=== PATIENT | male | born 1985 | race Caucasian/White ===

== ENCOUNTER 2020-02-08 07:15 | Emergency (ER) | payer SELFPAY ==
[2020-02-08 07:18] VITALS: BP 194/118; PULSE 80; RESP 17; TEMP 36.5; O2SAT 97; BMI 39.4
[2020-02-08 07:23] VITALS: O2SAT 96
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
--- NOTE | 2020-02-08 07:25 | XR_ITS ---
WS: [id number] RIGHT HAND: 3 VIEW(S) TECHNIQUE: PA, oblique and lateral. HISTORY: injury COMPARISON: None available. No acute fracture or dislocation. No soft tissue or bone abnormality. XR/XR hand RT min 3V* [id number] IMPRESSION: Normal RIGHT hand.
--- NOTE | 2020-02-08 07:32 | PC.NURSE ---
portable xray at bedside
[2020-02-08 08:17] VITALS: BP 156/88; PULSE 87; O2SAT 97
--- NOTE | 2020-02-08 08:17 | PC.NURSE ---
wound dressed with vaseline gauze, 4*4, and kerlix.
== END 2020-02-08 08:17 | disposition home or self-care (01) ==
LOC: ER 07:50
PROVIDERS: Emergency Provider Physician Assistant; PCP Pediatrics
DX: S61.411A Laceration without foreign body of right hand, initial encounter (principal); W25.XXXA Contact with sharp glass, initial encounter; F17.210 Nicotine dependence, cigarettes, uncomplicated
CPT/HCPCS: 12001; 12345; 73130; 99282; 99283

== ENCOUNTER 2020-04-09 10:26 | Outpatient (RCR) | payer OTHER, SELFPAY | END 2020-04-13 23:59 | disposition home or self-care (01) | LOC: SPT 10:26 | PROVIDERS: PCP Family Medicine; Referring Provider Family Medicine; Visit Provider Family Medicine | DX: M62.830 Muscle spasm of back (principal) | CPT/HCPCS: 97032; 97110; 97161 ==

== ENCOUNTER 2020-04-14 06:00 | Outpatient (RCR) | payer OTHER, SELFPAY | END 2020-05-14 23:59 | disposition home or self-care (01) | LOC: SPT 06:00 | PROVIDERS: PCP Family Medicine; Referring Provider Family Medicine; Visit Provider Family Medicine | DX: M62.830 Muscle spasm of back (principal) | CPT/HCPCS: 97032; 97110; G0283 ==

== ENCOUNTER 2020-06-22 07:42 | Emergency (ER) | payer SELFPAY ==
[2020-06-22 07:46] VITALS: BP 156/101; PULSE 113; RESP 18; TEMP 36.4; O2SAT 95; BMI 40.1
--- NOTE | 2020-06-22 07:57 | USCV_ITS ---
Fortunato Marie Age: 34 Gender: M : 1985 Exam Date: 06/22/2020 08:07 Ordering Phys: Veronique Coffman Technologist: Juan Manuel Rojas Exam Location: [facility] – [place], [place] Indication: REDNESS AND SWELLING PROCEDURES: Venous duplex imaging was performed in only the right lower extremity. The following venous structures were evaluated: common femoral vein, profunda vein, proximal portion of the greater saphenous vein, superficial femoral vein, and the popliteal vein. In addition, the posterior tibial and peroneal trunk were evaluated. Serial compression, augmentation maneuvers, and spectral Doppler flow evaluation were performed. FINDINGS: Normal 2-D Doppler and augmentation and compressibility throughout the lower extremity venous structures. Additional imaging through the proximal calf veins also reveals no thrombus. Limited evaluation of the greater saphenous vein is patent with no thrombus. CONCLUSIONS No DVT right lower extremity. Dr. Delmis Perez DO (Electronically Signed) Final Date: 22 June 2020 15:13 S
--- NOTE | 2020-06-22 07:59 | W.ED.GENADLT ---
HPI - General Adult General: Chief complaint: General Medical Stated complaint: BILATERAL LEG SWELLING AND PAIN Time Seen by Provider: 06/22/20 07:56 History of Present Illness: HPI narrative: 34-year-old male patient presents to the emergency department with 2 to 3-day onset of bilateral lower extremity swelling and redness, denies pain. He reports more pronounced on the right lower extremity, states does not improve when legs are elevated, reports increased intake of EtOH use at night, 2-3 shots of liquor. Blood pressure noted to be elevated, he does not routinely take his blood pressure at home. He denies increased intake of salt, denies chest pain/shortness of breath. Onset (ago): day(s) (2-3) Location: lower extremity Relieving factors: none Exacerbating factors: none Associated symptoms: Reports no associated symptoms; Deny chest pain, diaphoresis, dyspnea, headache(s), nausea, rash, palpitations or vomiting Treatments prior to arrival: none Review of Systems General: Reports: 10 or more systems reviewed and unremarkable except in HPI and below Const: Denies: fever(s), chills or diaphoresis Eyes: Denies: blurry vision or eye redness ENMT: Denies: throat pain, dental pain or disequilibrium Card: Denies: chest pain, palpitations or irregular heart rhythm Resp: Denies: dyspnea, productive cough, non-productive cough or wheezing GI: Denies: abdominal pain, nausea or vomiting : Denies: dysuria Musc: Reports: extremity swelling (BLE - RLE > LLE); Denies: neck pain or back pain Skin/Breast: Denies: rash or pruritus Neuro: Denies: headache(s), weakness in extremities or behavioral changes Socrates/Lymph: Denies: easy bruising PFSH ED PFSH: Social History Smoking and tobacco status: current every day smoker Physical Exam Const: COMMON NORMALS: no acute distress, patient oriented x3, healthy appearing and alert GENERAL APPEARANCE: cooperative, comfortable and well hydrated NUTRITIONAL APPEARANCE: obese and overweight ORIENTATION/CONSCIOUSNESS: Yes awake, Yes oriented to person, Yes oriented to place and Yes oriented to time HENMT: COMMON NORMALS: normocephalic, Normal external nose present and moist oral mucous membranes HEAD & SCALP: normocephalic NOSE: Normal external nose present Eye: COMMON NORMALS: Equal, round and reactive pupils present and EOMs intact bilaterally GENERAL EYE: appearance normal, both eyes and all related structures PUPIL: Yes Equal, round and reactive pupils present Neck/C-Spine: COMMON NORMALS: full ROM and no lymphadenopathy GENERAL: Yes normal visual inspection and Yes trachea midline CERVICAL SPINE: Yes cervical ROM normal Lymph: LYMPHATIC: no lymphadenopathy noted Chest: COMMONS NORMALS: normal inspection of the chest Resp: COMMON NORMALS: normal respiratory effort and clear to auscultation bilaterally EFFORT & INSPECTION: Yes able to speak in complete sentences AUSCULTATION: clear to auscultation bilaterally Cardio: COMMON NORMALS: regular rhythm, S1 normal heart sound present, S2 normal heart sound present and Peripheral pulses 2+ throughout RHYTHM: regular rhythm HEART SOUNDS: S1 normal heart sound present and S2 normal heart sound present PERIPHERAL PULSES: Peripheral pulses 2+ throughout GI: COMMON NORMALS: Soft to palpation and non-tender INSPECTION: Yes normal to inspection AUSCULTATION: Yes normoactive bowel sounds PALPATION: Yes Soft to palpation : COMMON NORMALS: Yes no CVA tenderness BLADDER/KIDNEY EXAM: Yes no CVA tenderness Back/Pelvis: COMMON NORMALS: no CVA tenderness and thoracic and lumbar spine normal to inspection Extremity: COMMON NORMALS: normal to inspection and capillary refill normal GENERAL: Yes normal exam except as noted RIGHT LOWER EXTREMITY: Yes lower leg (slight erythema to the right lower calf/anterior lower leg, trace pitting edema negative calf tenderness) LEFT LOWER EXTREMITY: Yes lower leg (Trace edema noted, negative erythema, negative calf tenderness) Neuro: COMMON NORMALS: patient oriented x3 and no focal motor deficits SENSORIUM/ORIENTATION: Yes alert, Yes oriented to person, Yes oriented to place and Yes oriented to time Psych: COMMON NORMALS: mental status grossly normal, Normal thought process present and cooperative ACTIVITY/MOTOR BEHAVIOR: Yes appropriate eye contact THOUGHT PROCESS: Normal thought process present Skin: COMMON NORMALS: no rashes or lesions noted and turgor normal GENERAL SKIN EXAM: no rashes or lesions noted and turgor normal Course ED course: 34-year-old male patient presents to the emergency department with bilateral lower extremity edema, weight gain of 15 pounds past 2 to 3 months. He reports increased intake of EtOH daily. Blood pressure was found to be elevated, chemistry and CBC without acute abnormality, right lower extremity DVT ultrasound completed secondary to slight increase of edema on the right when compared to the left. It was negative. He was counseled at length with diet, exercise and need for weight loss. He did not exhibit symptoms of chest pain, shortness of breath, cough or congestion. Chest x-ray recommended but he declined stating he was pleased with the idea of antihypertensive medication and appropriate follow-up with your primary care provider. He was counseled on lifestyle changes, need for blood pressure monitoring at home, he is aware refill of hydrochlorothiazide will need to come from his primary care physician. Questions were answered, results of testing today discussed. He was advised is to push fluids, water, and avoid alcohol. Vital Signs: Vital signs: Vital Signs Temperature 97.5 F L 06/22/20 07:46 Pulse Rate 113 H 06/22/20 07:46 Respiratory Rate 18 06/22/20 07:46 Blood Pressure 156/101 06/22/20 07:46 Pulse Oximetry 95 06/22/20 07:46 [facility] - General Adult Lab Data: Labs: Lab Results 06/22/20 06/22/20 Range/Units 08:16 08:16 WBC 9.1 (4.0-10.0) 10^3/ uL RBC 4.44 (4.1-5.3) 10^6/u L Hgb 13.9 (11.7-16.6) g/dL Hct 41.7 L (42.0-52.0) % MCV 93.9 (80-94) fL MCH 31.3 (28.0-34.0) pg MCHC 33.3 (30.0-36.0) g/dL RDW 13.0 (12.1-15.1) % Plt Count 260 (130-400) 10^3/c mm MPV 10.2 (7.4-10.4) fL Neut % (Auto) 62.6 % Lymph % (Auto) 22.1 % [place] % (Auto) 9.4 % Eos % (Auto) 3.8 % Baso % (Auto) 0.8 % Neut # (Auto) 5.71 (1.8-7.7) 10^3/u L Lymph # (Auto) 2.0 (0.8-4.8) 10^3/u L [place] # (Auto) 0.9 (0.2-0.9) 10^3/u L Eos # (Auto) 0.4 (0.0-0.8) 10^3/u L Baso # (Auto) 0.1 (0.0-0.1) 10^3/u L Nucleated RBC % (a uto) 0 % Nucleated RBCs # 0.0 /100WBC Sodium 139 (136-145) mmol/L Potassium 4.1 (3.5-5.1) mmol/L Chloride 98 (98-107) mmol/L Carbon Dioxide 29 (22-29) mmol/L Anion Gap 16.1 (5-19) BUN 16 (6-20) mg/dL Creatinine 1.2 (0.7-1.2) mg/dL GFR Calculation 68.9 L (90-130) mL/min Glucose 104 (65-115) mg/dL Calculated Osmolal ity 289 (285-295) mOsm/k g Calcium 9.9 (8.5-10.5) mg/dL Total Bilirubin 0.2 (0.15-1.2) mg/dL AST 46 H (0-40) U/L ALT 98 H (0-41) U/L Alkaline Phosphata se 97 (40-130) IU/L Total Protein 7.1 (6.6-8.7) g/dL Albumin 4.0 (3.5-5.2) g/dL Globulin 3.1 (1.3-4.6) g/dL Discharge Plan Discharge Patient Disposition: Home Clinical Impression: HTN (hypertension) Qualifiers: Hypertension type: unspecified Qualified Code(s): I10 - Essential (primary) hypertension Condition: Stable Prescriptions: New hydrochlorothiazide 12.5 mg tablet 12.5 mg PO DAILY Qty: 10 RF: 0 Discharge Orders: Discharge Order (Routine); Ordered 06/22/20 Ordered By: Veronique Coffman Referrals: Kain Zafar MD [Primary Care Provider] - Discharge Diet: Cardiac Discharge Activity: Resume usual activity Patient Instructions: Leg Edema (ED), Hypertension (ED) Activity Restrictions/Additional Instructions: Hydrochlorothiazide prescription has been given to you, avoid long periods in the sun with medication. Purchase a blood pressure machine, does not have to be fancy, take your blood pressure daily, 30 minutes at rest record your readings and take to your primary care physician's office next week Advised 30 minutes of walking daily to help with fluid in your legs, this will also help cardiovascular health. Low-salt, heart healthy diet recommended. Avoid alcohol as elevation of blood pressure can occur. Return to the emergency department if you develop chest pain, shortness of breath, difficulty breathing, increased swelling in your legs or other concerning symptoms. Coding Level of Care Code ED Assembly Detailer for Jerilyn Wallace Exam Comprehensive
[2020-06-22 08:19] LABS: Basophils # 0.1 10^3/uL (0.0-0.1); Basophils % 0.8 %; Eosinophils # 0.4 10^3/uL (0.0-0.8); Eosinophils % 3.8 %; Hematocrit 41.7 % (42.0-52.0); Hemoglobin 13.9 g/dL (11.7-16.6); Lymphocytes % 22.1 %; Mean Corpuscular HGB Conc 33.3 g/dL (30.0-36.0); Mean Corpuscular Hemoglobin 31.3 pg (28.0-34.0); Mean Corpuscular Volume 93.9 fL (80-94); Mean Platelet Volume 10.2 fL (7.4-10.4); Monocytes # 0.9 10^3/uL (0.2-0.9); Monocytes % 9.4 %; Neutrophils # 5.71 10^3/uL (1.8-7.7); Neutrophils % 62.6 %; Nucleated Red Blood Cells % 0 %; Platelet Count 260 10^3/cmm (130-400); Red Blood Count 4.44 10^6/uL (4.1-5.3); White Blood Count 9.1 10^3/uL (4.0-10.0)
[2020-06-22 08:42] LABS: Alanine Aminotransferase 98 U/L (0-41); Alkaline Phosphatase 97 IU/L (40-130); Anion Gap 16.1 (5-19); Aspartate Amino Transferase 46 U/L (0-40); Blood Urea Nitrogen 16 mg/dL (6-20); Calcium 9.9 mg/dL (8.5-10.5); Carbon Dioxide 29 mmol/L (22-29); Chloride 98 mmol/L (98-107); Globulin 3.1 g/dL (1.3-4.6); Glomerular Filtration Rate 68.9 mL/min (90-130); Glucose 104 mg/dL (65-115); Osmolality Calculated 289 mOsm/kg (285-295); Potassium 4.1 mmol/L (3.5-5.1); Sodium 139 mmol/L (136-145); Total Bilirubin 0.2 mg/dL (0.15-1.2); Total Protein 7.1 g/dL (6.6-8.7)
[2020-06-22 09:32] VITALS: BP 152/96; PULSE 108; O2SAT 95
--- NOTE | 2020-06-22 10:32 | DCPLANNER ---
invasive manager had message to speak with patient about getting established with a primary care physician. invasive manager called phone number [phone], when medical case manager asked to speak with patient, whoever answered the phone stated they were at work and was unable to talk at this time, and hung up the phone. invasive manager was unable to speak with patient or leave a voicemail for patient at this time.
== END 2020-06-22 09:32 | disposition home or self-care (01) ==
PROVIDERS: Emergency Provider Nurse Practitioner Family; PCP Family Medicine
DX: I10 Essential (primary) hypertension (principal); F17.210 Nicotine dependence, cigarettes, uncomplicated
CPT/HCPCS: 12345; 36415; 80053; 85025; 93971; 99282; 99283

== ENCOUNTER 2020-06-28 00:09 | Emergency (ER) | payer SELFPAY ==
[2020-06-28 00:12] VITALS: BP 162/85; PULSE 94; RESP 18; TEMP 36.9; O2SAT 94; BMI 40.1
--- NOTE | 2020-06-28 00:20 | W.ED.GENADLT ---
HPI - General Adult General: Chief complaint: General Medical Stated complaint: Swelling across body Time Seen by Provider: 06/28/20 00:15 History of Present Illness: HPI narrative: Patient is a 34-year-old male comes to the ED with multiple complaints, such as bilateral leg swelling, rash on abdomen, back pain and anxiety. Patient was seen here on June 22 for leg edema and hypertension. He was sent home with hydrochlorothiazide prescription. Patient says he did not get prescription filled yet. He also is complaining of having a rash that has gotten worse on the left side of his abdomen. He says it started as a scratch and then redness started forming around it over the past couple days. His other complaint is some lower back pain that started within the last week as well. denied bladder or bowel incontinence, pain or numbness radiating down lower extremities. His other complaint is anxiety that has increased over the past couple weeks due to his leaving him. Associated symptoms: Deny chest pain, dyspnea, headache(s), nausea, rash, palpitations or vomiting Review of Systems Const: Denies: fever(s), chills or fatigue Eyes: Denies: change in vision or eye discomfort ENMT: Denies: throat pain, odynophagia, nasal discharge or nasal congestion Card: Denies: chest pain, palpitations, edema, swelling of feet/ankles, dyspnea on exertion or orthopnea Resp: Denies: dyspnea, productive cough or non-productive cough GI: Denies: abdominal pain, nausea, vomiting, diarrhea, constipation or hematochezia : Denies: flank pain, difficulty urinating, dysuria or hematuria Musc: Reports: back pain (lumbar) and extremity swelling (Bilateral lower extremity); Denies: neck pain Skin/Breast: Reports: new lesions (Scratch on left side abdomen with surrounding erythema.); Denies: rash Neuro: Denies: headache(s), numbness in extremities or weakness in extremities Psych: Reports: anxiety PFSH ED PFSH: Social History Smoking and tobacco status: current every day smoker Physical Exam Const: COMMON NORMALS: no acute distress, patient oriented x3 and alert GENERAL APPEARANCE: cooperative and anxious NUTRITIONAL APPEARANCE: obese HENMT: COMMON NORMALS: normocephalic HEAD & SCALP: normocephalic MOUTH: Normal oral and palatal mucosa present THROAT: posterior oropharynx normal and uvula midline Neck/C-Spine: COMMON NORMALS: supple GENERAL: Yes normal visual inspection Resp: COMMON NORMALS: normal respiratory effort, No retractions, No use of accessory muscles and clear to auscultation bilaterally AUSCULTATION: clear to auscultation bilaterally Cardio: COMMON NORMALS: regular rate, regular rhythm, S1 normal heart sound present, S2 normal heart sound present, No gallops present (Cardio), No clicks present (Cardio), No murmurs present (Cardio) and Peripheral pulses 2+ throughout RATE: regular rate RHYTHM: regular rhythm HEART SOUNDS: S1 normal heart sound present and S2 normal heart sound present PERIPHERAL PULSES: Peripheral pulses 2+ throughout GI: COMMON NORMALS: Normal to inspection, nondistended, normoactive bowel sounds present, Soft to palpation, non-tender and no masses INSPECTION: Yes central obesity PALPATION: Yes Soft to palpation : COMMON NORMALS: Yes no CVA tenderness BLADDER/KIDNEY EXAM: Yes no CVA tenderness Back/Pelvis: COMMON NORMALS: no CVA tenderness Extremity: GENERAL: Yes normal exam except as noted and Yes edema (Bilateral 2+ nonpitting edema present.) Neuro: COMMON NORMALS: patient oriented x3 and moves all extremities SENSORIUM/ORIENTATION: Yes alert Psych: MOOD & AFFECT: Yes anxious Skin: NARRATIVE SKIN EXAM: On left side of abdomen?patient had a red superficial scratch that now has surrounding erythema and warmth. Denies any purulent drainage. Rash appears to be cellulitis. GENERAL SKIN EXAM: dry skin Course Vital Signs: Vital signs: Vital Signs Temperature 98.4 F 06/28/20 00:12 Pulse Rate 104 H 06/28/20 01:10 Respiratory Rate 20 H 06/28/20 01:10 Blood Pressure 133/71 06/28/20 01:10 Pulse Oximetry 93 06/28/20 01:10 MDM - General Adult MDM Narrative: Medical decision making narrative: Patient is a 34-year-old male comes to the ED with multiple complaints. He is complaining of bilateral lower extremity edema, back pain, anxiety and lesion on abdomen. Patient was seen here in the ED for complaint of lower extremity edema and hypertension on June 22. Patient was discharged with a prescription for hydrochlorothiazide and he never filled prescription. I told patient about the importance of getting prescription filled to help with his edema and hypertension. Back pain is localized to lower back and has no pain radiating down to the lower extremities. Denies bladder or bowel incontinence, or lower extremity weakness. Lesion on patient's abdomen erythema warmth-likely cellulitis. Patient also complained of anxiety over the past couple weeks due to recent divorce. Patient was given 1 g of Tylenol and 1 mg of Ativan while here in the ED. He was discharged with a prescription for Bactrim to treat the cellulitis developing on his abdomen. I informed him the importance of getting hydrochlorothiazide prescription filled that he needs to follow-up with PCP in 7 to 10 days for reevaluation. Return to ED precautions given. Patient understood and agreed with plan. Discharge Plan Discharge Patient Disposition: Home Clinical Impression: Leg edema, Anxiety, Lumbar back pain Cellulitis Qualifiers: Site of cellulitis: trunk Site of cellulitis of trunk: abdominal wall Qualified Code(s): L03.311 - Cellulitis of abdominal wall Condition: Stable Prescriptions: New Bactrim DS 800-160 mg tablet 1 tab PO BID 7 Days Qty: 14 RF: 0 No Action hydrochlorothiazide 12.5 mg tablet 12.5 mg PO DAILY Qty: 10 RF: 0 Discharge Orders: Discharge Order (Routine); Ordered 06/28/20 Ordered By: Kirill Givens Referrals: Kain Zafar MD [Primary Care Provider] - Discharge Diet: Low Salt Discharge Activity: Increase activity as tolerated Patient Instructions: Cellulitis (ED), Leg Edema (ED), Back Pain (ED), Anxiety (ED) Activity Restrictions/Additional Instructions: Follow-up with primary care doctor in the next 7 to 10 days for reevaluation. Get your hydrochlorothiazide prescription filled to help with hypertension and swelling in the legs. Elevate legs to help with swelling. Take full course of antibiotics as prescribed. Avoid alcohol and salt and start exercising cardiovascular workouts such as walking for 20 to 30 minutes 3 to 4 days a week. Return to the ER or your medical provider if condition worsens. Please read and understand discharge instructions. If any questions, please ask. Discharge Date/Time: 06/28/20 01:39 Coding Level of Care Code ED Advertising Sales Associate for Jerilyn Fwd Exam Comprehensive
[2020-06-28 01:10] VITALS: BP 133/71; PULSE 104; RESP 20; O2SAT 93
[2020-06-28] MEDS: LORazepam 1 mg Tablet PO (01:23)
[2020-06-28] MEDS: acetaminophen 500 mg Tablet 1000 MG PO (01:23)
[2020-06-28 01:36] VITALS: BP 132/72; PULSE 102; RESP 20; TEMP 36.8; O2SAT 92
== END 2020-06-28 01:39 | disposition home or self-care (01) ==
PROVIDERS: Emergency Provider Physician Assistant; PCP Family Medicine
DX: L03.311 Cellulitis of abdominal wall (principal); R60.0 Localized edema; F41.9 Anxiety disorder, unspecified; M54.5 Low back pain; F17.210 Nicotine dependence, cigarettes, uncomplicated
CPT/HCPCS: 12345; 99281; 99283

== ENCOUNTER 2020-07-23 04:15 | Emergency (ER) | payer SELFPAY ==
--- NOTE | 2020-07-23 05:42 | XR_ITS ---
WS: [id number] XR nasal bones min 3V [id number] REASON FOR EXAM: fall FINDINGS: The superior nasal spine is intact without fracture or dislocation. The inferior nasal spine also appears intact. XR/XR nasal bones min 3V [id number] IMPRESSION: No nasal bone fracture identified.
[2020-07-23 05:55] VITALS: RESP 20; O2SAT 96
[2020-07-23] MEDS: oxyCODONE-APAP 5-325 mg Tablet 1 TAB PO (05:55)
--- NOTE | 2020-07-23 06:47 | W.ED.HEATRA ---
HPI - Head Injury General: Stated complaint: nose injury Time Seen by Provider: 07/23/20 05:33 History of Present Illness: HPI Narrative: 34-year-old male who yesterday afternoon fell, striking the bridge of his nose on a table. He has had pain since. He is having a bit of trouble breathing through the nose. The nose was bloody, but bleeding is controlled and stopped now. He says his nose hurts. Did not get knocked out. There is no mental status change, continued headache, etc. MD Complaint: head injury and fall Onset (ago): hour(s) Mechanism of Injury: fall Place: home Loss of Consciousness: no Location of injury: other (Nasal) Severity: moderate Radiation: none Other Injuries: none Associated symptoms: Reports nausea Review of Systems Const: Denies: fever(s) Card: Denies: chest pain Resp: Denies: dyspnea, productive cough or non-productive cough GI: Reports: nausea Neuro: Reports: headache(s); Denies: dizziness PFSH ED PFSH: Social History Smoking and tobacco status: current every day smoker Physical Exam Const: GENERAL APPEARANCE: well developed ORIENTATION/CONSCIOUSNESS: Yes oriented to person, Yes oriented to place and Yes oriented to time HENMT: COMMON NORMALS: normocephalic and external ears normal HEAD & SCALP: normocephalic; no scalp tenderness NOSE: No nasal discharge present and Abnormal external nose present (Mild swelling over bridge no overt deformity. No septal hematoma.) EXTERNAL EAR: Yes external ears normal MOUTH: tongue normal TEETH & GINGIVA: no abnormal tooth and associated gingiva THROAT: posterior oropharynx normal; no peritonsillar mass Eye: COMMON NORMALS: EOMs intact bilaterally and conjunctivae normal EYELID: eyelids normal CONJUNCTIVA: Yes conjunctivae normal Neck/C-Spine: CERVICAL SPINE: No Cervical spine tenderness Chest: COMMONS NORMALS: normal inspection of the chest CHEST: No tenderness Resp: COMMON NORMALS: clear to auscultation bilaterally EFFORT & INSPECTION: No tachypneic, No respiratory distress, No retractions, No uses accessory muscles and No tracheal deviation AUSCULTATION: clear to auscultation bilaterally, no rhonchi, no wheezes and lung sounds not diminished Cardio: COMMON NORMALS: regular rate and regular rhythm RATE: regular rate RHYTHM: regular rhythm HEART SOUNDS: no murmurs PERIPHERAL PULSES: radial pulses present GI: INSPECTION: No abdominal distension AUSCULTATION: No Hyperactive bowel sounds present and No Hypoactive bowel sounds present PALPATION: No Guarding due to palpation present (GI) and No Rigid due to palpation PERCUSSION: no dullness to percussion and no tympanic to percussion Neuro: SENSORIUM/ORIENTATION: Yes oriented to person, Yes oriented to place and Yes oriented to time Psych: COMMON NORMALS: mental status grossly normal Skin: COMMON NORMALS: no rashes or lesions noted GENERAL SKIN EXAM: no rashes or lesions noted Course Vital Signs: Vital signs: Vital Signs Respiratory Rate 20 H 07/23/20 05:55 Pulse Oximetry 96 07/23/20 05:55 MDM - Head Injury MDM Narrative: Medical decision making narrative: No evidence of concussion or major head injury. He does have a slightly displaced nasal fracture on x-ray. Airway is patent. There is no septal hematoma. Discharge Plan Discharge Patient Disposition: Home Clinical Impression: Closed fracture nasal bone Qualifiers: Encounter type: initial encounter Qualified Code(s): S02.2XXA - Fracture of nasal bones, initial encounter for closed fracture Condition: Stable Prescriptions: New ketorolac 10 mg tablet 10 mg PO Q6H PRN (Reason: pain) Qty: 10 RF: 0 No Action hydrochlorothiazide 25 mg tablet 25 mg PO DAILY Qty: 14 RF: 0 Discharge Orders: Discharge Order (Routine); Ordered 07/23/20 Ordered By: Ag Patel Referrals: Tuan Cortez MD [Physician] - Kain Zafar MD [Primary Care Provider] - Discharge Diet: Advance as tolerated Discharge Activity: Increase activity as tolerated Patient Instructions: Nasal Fracture (ED) Activity Restrictions/Additional Instructions: Call the ENT clinic later today for a follow-up appointment. Numbers listed above. Return for worsening shortness of breath, uncontrolled bleeding, mental status changes, vomiting, other concerning symptoms. Coding Level of Care Code ED [employer] Worker for Jerilyn Wallace
[2020-07-23 07:21] VITALS: PULSE 119; RESP 18; O2SAT 96
== END 2020-07-23 07:23 | disposition home or self-care (01) ==
PROVIDERS: Emergency Provider Emergency Medicine; PCP Family Medicine
DX: S02.2XXA Fracture of nasal bones, initial encounter for closed fracture (principal); F17.210 Nicotine dependence, cigarettes, uncomplicated; W19.XXXA Unspecified fall, initial encounter
CPT/HCPCS: 12345; 70160; 99281; 99283

== ENCOUNTER 2020-09-26 17:03 | Emergency (ER) | payer SELFPAY ==
[2020-09-26 17:05] VITALS: BP 106/75; PULSE 126; RESP 20; TEMP 37.7; O2SAT 94; BMI 38.7
--- NOTE | 2020-09-26 17:15 | PC.NURSE ---
Placed patient in the ER room 13. Notified staff in the back prior to bringing patient back that a sitter was needed. Then when patient was in the room this RN notified staff that he was in the room and a sitter is needed. This RN had more people checking in to be seen in the ER and returned to the triage room at this time.
--- NOTE | 2020-09-26 17:19 | ED_ITS ---
HPI - Psych General: Chief Complaint: Psychiatric Symptoms Stated Complaint: SUICIDAL THOUGHTS, SWOLLEN RT ARM Time Seen by Provider: 09/26/20 17:14 Review of Systems Const: Denies: fever(s), chills or fatigue Eyes: Denies: change in vision or eye discomfort ENMT: Denies: throat pain, odynophagia, nasal discharge or nasal congestion Card: Denies: chest pain, palpitations, edema, swelling of feet/ankles, dyspnea on exertion or orthopnea Resp: Denies: dyspnea, productive cough or non-productive cough GI: Denies: abdominal pain, nausea, vomiting, diarrhea, constipation or hematochezia : Denies: flank pain, difficulty urinating, dysuria or hematuria Musc: Denies: neck pain, back pain or extremity swelling Skin/Breast: Denies: rash or new lesions Neuro: Denies: headache(s), numbness in extremities or weakness in extremities PFSH ED PFSH: Medical History Anxiety and depression Bilateral lower extremity edema Cellulitis Elevated blood pressure reading Falls frequently Family History Other Diabetes Social History Smoking and tobacco status: current every day smoker cigarettes Packs smoked per day: 1 Alcohol intake: current Alcohol intake frequency: few times a month Current occupational status: unemployed Physical Exam Const: COMMON NORMALS: patient oriented x3 HENMT: COMMON NORMALS: normocephalic HEAD & SCALP: normocephalic MOUTH: Normal oral and palatal mucosa present THROAT: posterior oropharynx normal and uvula midline Neck/C-Spine: COMMON NORMALS: supple GENERAL: Yes normal visual inspection Resp: COMMON NORMALS: normal respiratory effort, No retractions, No use of accessory muscles and clear to auscultation bilaterally AUSCULTATION: clear to auscultation bilaterally Cardio: COMMON NORMALS: regular rate, regular rhythm, S1 normal heart sound present, S2 normal heart sound present, No gallops present (Cardio), No clicks present (Cardio), No murmurs present (Cardio) and Peripheral pulses 2+ throughout RATE: regular rate RHYTHM: regular rhythm HEART SOUNDS: S1 normal heart sound present and S2 normal heart sound present PERIPHERAL PULSES: Peripheral pulses 2+ throughout GI: COMMON NORMALS: Normal to inspection, nondistended, normoactive bowel sounds present, Soft to palpation, non-tender and no masses PALPATION: Yes Soft to palpation : COMMON NORMALS: Yes no CVA tenderness BLADDER/KIDNEY EXAM: Yes no CVA tenderness Back/Pelvis: COMMON NORMALS: no CVA tenderness Neuro: COMMON NORMALS: patient oriented x3 and moves all extremities Discharge Plan Discharge Prescriptions: No Action gabapentin 600 mg Tablet 1,200 mg PO DAILY@1000 RF: 0 Coding Level of Care Code ED User Experience Developer for Jerilyn Wallace
--- NOTE | 2020-09-26 17:38 | PC.NURSE ---
pt eloped prior to nurse entering room. ED physician notified. Security notified. Police notified.
--- NOTE | 2020-09-26 17:39 | W.ED.PSYCH ---
HPI - Psych General: Chief Complaint: Psychiatric Symptoms Stated Complaint: SUICIDAL THOUGHTS, SWOLLEN RT ARM Time Seen by Provider: 09/26/20 17:14 History of Present Illness: HPI Narrative: 35-year-old male presents emergency room sitting has been drinking heavily recently up to 1/5 or a half a gallon of hard liquor per day. He has been having some personal relationship issues at home and from his is unable to see his children. MD complaint: suicidal ideation and feels depressed Onset (ago): day(s) Duration: constant History of same: Yes Relieving factors: none Exacerbating factors: alcohol Context: recent alcohol abuse Associated psychiatric symptoms: depression and suicidal ideation Associated symptoms: Reports depression and suicidal ideation; Deny auditory hallucinations or visual hallucinations Treatments prior to arrival: none If self harm: admits thoughts of self harm and has plan Review of Systems Const: Denies: fever(s), chills, body aches, change in appetite, fatigue or malaise ENMT: Denies: throat pain, ear or mastoid pain, nasal discharge or nasal congestion Card: Denies: chest pain, edema, dyspnea on exertion or orthopnea Resp: Denies: dyspnea, productive cough or non-productive cough GI: Denies: abdominal pain, nausea, vomiting, hematemesis, coffee ground emesis, diarrhea, constipation, bloating, hematochezia or melena : Denies: flank pain, dysuria, urinary frequency or urinary urgency Skin/Breast: Denies: rash or pruritus Psych: Reports: depression and suicidal ideation; Denies: visual hallucinations or auditory hallucinations [facility] ED PFSH: Medical History (Updated 09/28/20 @ 13:14 by Cosme Diaz DO) Alcoholism Anxiety and depression Bilateral lower extremity edema Cellulitis Elevated blood pressure reading Falls frequently Obesity Tobacco dependency Surgical History (Updated 09/27/20 @ 10:52 by Gilbert Garcia MD) History of foot surgery Hx of cholecystectomy Family History Other Diabetes Social History Smoking and tobacco status: current every day smoker cigarettes Packs smoked per day: 1 Alcohol intake: current Alcohol intake frequency: few times a month Current occupational status: unemployed Physical Exam Const: COMMON NORMALS: no acute distress GENERAL APPEARANCE: cooperative and comfortable ORIENTATION/CONSCIOUSNESS: Yes awake, Yes oriented to person, Yes oriented to place and Yes oriented to time HENMT: COMMON NORMALS: normocephalic, atraumatic and hearing grossly normal bilaterally HEAD & SCALP: normocephalic and atraumatic Neck/C-Spine: COMMON NORMALS: no JVD Resp: COMMON NORMALS: normal respiratory effort, No retractions, No use of accessory muscles and clear to auscultation bilaterally AUSCULTATION: clear to auscultation bilaterally Cardio: COMMON NORMALS: no JVD, regular rate, regular rhythm and No murmurs present (Cardio) RATE: regular rate RHYTHM: regular rhythm Extremity: COMMON NORMALS: normal to inspection, capillary refill normal, no clubbing, cyanosis or edema, no calf tenderness and no pedal edema Neuro: SENSORIUM/ORIENTATION: Yes oriented to person, Yes oriented to place and Yes oriented to time MDM - Psych MDM Narrative: Medical decision making narrative: Patient was initially seen by myself history and physical exam done. I was called emergently to another room when I came back to his room he had left to the emergency room. 96-hour hold paperwork completed will notify police I have contacted our own security for the hospital as well. Security and law enforcement are looking patient. Discussed patient with Dr. Rosario in the event that the patient does return 96-hour paperwork has been returned. Signout the chart the EMR system requires that I pick a disposition. The most appropriate disposition is left AGAINST MEDICAL ADVICE. However the patient eloped we had did not have the opportunity to dissuade him from leaving. He eloped while there was a an emergency response to a patient in the room across the baxter from him. Security and law enforcement have been informed. Discharge Plan Discharge Patient Disposition: Left Against Medical Advice Clinical Impression: Suicidal ideation, Chronic alcohol abuse Prescriptions: No Action gabapentin 600 mg Tablet 1,200 mg PO BEDTIME RF: 0 Referrals: Kain Zafar MD [Primary Care Provider] - Coding Level of Care Code ED [employer] for Chg Fwd Exam Detailed
== END 2020-09-26 17:38 | disposition left against medical advice (07) ==
PROVIDERS: Emergency Provider Family Medicine; PCP Family Medicine
DX: R45.851 Suicidal ideations (principal); F10.10 Alcohol abuse, uncomplicated; F17.210 Nicotine dependence, cigarettes, uncomplicated
CPT/HCPCS: 12345; 99281

== ENCOUNTER 2020-09-27 07:02 | Inpatient (IN) | payer SELFPAY ==
[2020-09-27] VITALS (28 sets, daily range): BP systolic 129–189; BP diastolic 68–125; PULSE 89–121; RESP 15–35; TEMP 36.8–37.2; O2SAT 71–96; BMI 38.7
--- NOTE | 2020-09-27 07:04 | ED_ITS ---
Documented by User: KALIN Tamez 09/27/20 09:07 HPI - Psych General: Chief Complaint: Psychiatric Symptoms Stated Complaint: mhe Time Seen by Provider: 09/27/20 07:04 Source: patient Mode of arrival: ambulatory Limitations: no limitations History of Present Illness: HPI Narrative: Patient is a nice 35-year-old gentleman who presents to ED today with a complaint of suicidal ideations and concern for a right arm infection. Patient was initially seen yesterday in the ED and eloped. Patient tells me he has felt suicidal over the past few days without any specific plan. He does have one previous suicide attempt a year ago via overdose on gabapentin. Patient is not homicidal. He denies hallucinations. Patient is a heavy daily alcohol drinker. He states he has been drinking even more heavily over the past few days. He reports withdrawal symptoms of tremors, diaphoresis, nausea/vomiting when he does not drink. He currently is not having any symptoms. He states his last drink was 4 hours ago. He tells me 3 days ago he shot up methamphetamine to his right AC region. He noticed the following day his arm was extremely red, warm, and swollen. MD complaint: suicidal ideation Onset (ago): day(s) Duration: constant History of same: Yes Relieving factors: none Exacerbating factors: alcohol and drug use Context: recent alcohol abuse and recent drug abuse Associated symptoms: Reports depression and suicidal ideation; Deny auditory hallucinations, visual hallucinations or homicidal ideation Treatments prior to arrival: none If self harm: admits thoughts of self harm Review of Systems Const: Reports: fever(s) (reports low grade 99.9); Denies: chills, body aches, fatigue or malaise Card: Denies: chest pain, palpitations, lightheadedness or syncope Resp: Denies: dyspnea or hemoptysis GI: Denies: abdominal pain, nausea, vomiting or diarrhea Musc: Reports: extremity pain (R UE) and extremity swelling (R UE); Denies: neck pain, back pain, joint pain or joint swelling Skin/Breast: Reports: erythema (R UE); Denies: rash Neuro: Denies: headache(s), numbness in extremities, weakness in extremities or sensory changes Psych: Reports: depression and suicidal ideation; Denies: anxiety, visual hallucinations, auditory hallucinations or homicidal ideation PFS ED PFSH: Medical History Anxiety and depression Bilateral lower extremity edema Cellulitis Elevated blood pressure reading Falls frequently Family History Other Diabetes Social History Smoking and tobacco status: current every day smoker cigarettes Packs smoked per day: 1 Alcohol intake: current Alcohol intake frequency: few times a month Current occupational status: unemployed Physical Exam Const: COMMON NORMALS: no acute distress, patient oriented x3, alert and well nourished GENERAL APPEARANCE: cooperative and well kempt NUTRITIONAL APPEARANCE: obese ORIENTATION/CONSCIOUSNESS: Yes awake, Yes oriented to person, Yes oriented to place and Yes oriented to time Resp: COMMON NORMALS: normal respiratory effort and clear to auscultation bilaterally AUSCULTATION: clear to auscultation bilaterally Cardio: COMMON NORMALS: regular rhythm RATE: tachycardic RHYTHM: regular rhythm Extremity: OTHER: pt has erythema and warmth extending from mid upper arm distally to the wrist; there is significant swelling to the extremity; radial pulse and cap refill normal; induration noted to R AC space w/o fluctuance Neuro: COMMON NORMALS: patient oriented x3, moves all extremities, no focal motor deficits and no sensory deficits noted SENSORIUM/ORIENTATION: Yes alert, Yes oriented to person, Yes oriented to place and Yes oriented to time Psych: COMMON NORMALS: mental status grossly normal, Normal thought process present, cooperative, normal affect, speech normal and activity/motor behavior normal APPEARANCE: Yes well kempt ACTIVITY/MOTOR BEHAVIOR: Yes appropriate eye contact and No psychomotor agitation SPEECH: Yes normal speech THOUGHT PROCESS: Normal thought process present MEMORY/COGNITION: Yes cognition grossly intact INSIGHT: Good insight present (Psych) JUDGEMENT: Good judgement present (Psych) Skin: OTHER: see extremity assessment MDM - Psych MDM Narrative: Medical decision making narrative: Patient originally presented to the ED for suicidal ideations. He was found to have a fairly extensive right upper extremity cellulitis due to recent IV methamphetamine use. In addition patient's labs showing hypokalemia at 2.9, hypocalcemia at 7.9, hypomagnesemia at 1.2. He has a lactate of 3.5. Patient has remained tachycardic throughout his stay. He has chronic elevations to his LFTs. Patient's CRP at 96.3. Due to electrolyte abnormalities, concern for sepsis, and the concern for alcohol withdrawal patient needs to be admitted medically before then being transferred to [facility]. I have spoken to Dr. Torrez who agrees with plan for patient and will see patient and speak to hospitalist. Lab Data: Labs: Lab Results 09/27/20 09/27/20 09/27/20 Range/Units 07:33 07:33 07:33 WBC 9.6 (4.0-10.0) 10^3/ uL RBC 4.10 (4.1-5.3) 10^6/u L Hgb 12.7 (11.7-16.6) g/dL Hct 37.5 L (42.0-52.0) % MCV 91.5 (80-94) fL MCH 31.0 (28.0-34.0) pg MCHC 33.9 (30.0-36.0) g/dL RDW 13.1 (12.1-15.1) % Plt Count 230 (130-400) 10^3/c mm MPV 10.0 (7.4-10.4) fL Neut % (Auto) 72.6 % Lymph % (Auto) 20.1 % [place] % (Auto) 6.2 % Eos % (Auto) 0.3 % Baso % (Auto) 0.2 % Neut # (Auto) 6.97 (1.8-7.7) 10^3/u L Lymph # (Auto) 1.9 (0.8-4.8) 10^3/u L [place] # (Auto) 0.6 (0.2-0.9) 10^3/u L Eos # (Auto) 0.0 (0.0-0.8) 10^3/u L Baso # (Auto) 0.0 (0.0-0.1) 10^3/u L Nucleated RBC % (a uto) 0 % Nucleated RBCs # 0.0 /100WBC Sodium 136 (136-145) mmol/L Potassium 2.9 L (3.5-5.1) mmol/L Chloride 91 L (98-107) mmol/L Carbon Dioxide 31 H (22-29) mmol/L Anion Gap 16.9 (5-19) BUN 6 (6-20) mg/dL Creatinine 0.8 (0.7-1.2) mg/dL GFR Calculation 109.4 (90-130) mL/min Glucose 150 H (65-115) mg/dL Calculated Osmolal ity 282 L (285-295) mOsm/k g Lactic Acid 3.5 H (0.5-2.2) mmol/L Calcium 7.9 L (8.5-10.5) mg/dL Magnesium (1.7-2.3) mg/dL Total Bilirubin 0.3 (0.15-1.2) mg/dL AST 57 H (0-40) U/L ALT 75 H (0-41) U/L Alkaline Phosphata se 72 (40-130) IU/L C-Reactive Protein (0.0-4.9) mg/L Total Protein 6.5 L (6.6-8.7) g/dL Albumin 3.4 L (3.5-5.2) g/dL Globulin 3.1 (1.3-4.6) g/dL Salicylates < 0.3 L (3-10) mg/dL Acetaminophen < 5.0 L (10-30) ug/mL Ethyl Alcohol 83 H (0-10) mg/dL 09/27/20 09/27/20 Range/Units 07:33 07:33 WBC (4.0-10.0) 10^3/ uL RBC (4.1-5.3) 10^6/u L Hgb (11.7-16.6) g/dL Hct (42.0-52.0) % MCV (80-94) fL MCH (28.0-34.0) pg MCHC (30.0-36.0) g/dL RDW (12.1-15.1) % Plt Count (130-400) 10^3/c mm MPV (7.4-10.4) fL Neut % (Auto) % Lymph % (Auto) % [place] % (Auto) % Eos % (Auto) % Baso % (Auto) % Neut # (Auto) (1.8-7.7) 10^3/u L Lymph # (Auto) (0.8-4.8) 10^3/u L [place] # (Auto) (0.2-0.9) 10^3/u L Eos # (Auto) (0.0-0.8) 10^3/u L Baso # (Auto) (0.0-0.1) 10^3/u L Nucleated RBC % (a uto) % Nucleated RBCs # /100WBC Sodium (136-145) mmol/L Potassium (3.5-5.1) mmol/L Chloride (98-107) mmol/L Carbon Dioxide (22-29) mmol/L Anion Gap (5-19) BUN (6-20) mg/dL Creatinine (0.7-1.2) mg/dL GFR Calculation (90-130) mL/min Glucose (65-115) mg/dL Calculated Osmolal ity (285-295) mOsm/k g Lactic Acid (0.5-2.2) mmol/L Calcium (8.5-10.5) mg/dL Magnesium 1.2 L (1.7-2.3) mg/dL Total Bilirubin (0.15-1.2) mg/dL AST (0-40) U/L ALT (0-41) U/L Alkaline Phosphata se (40-130) IU/L C-Reactive Protein 96.3 H (0.0-4.9) mg/L Total Protein (6.6-8.7) g/dL Albumin (3.5-5.2) g/dL Globulin (1.3-4.6) g/dL Salicylates (3-10) mg/dL Acetaminophen (10-30) ug/mL Ethyl Alcohol (0-10) mg/dL Imaging Data^: R UE venous : My impression: Per Daryn Cohn tech-no DVT/thrombus present, no drainable abscess/fluid collection Discharge Plan Discharge Patient Disposition: Admitted As Inpatient Clinical Impression: Chronic alcohol abuse, Cellulitis of arm, right, Methamphetamine abuse, Suicidal ideation, Acute hypokalemia, Hypocalcemia, Hypomagnesemia Sepsis Qualifiers: Sepsis type: sepsis due to unspecified organism Sepsis acute organ dysfunction status: without acute organ dysfunction Qualified Code(s): A41.9 - Sepsis, unspecified organism Condition: Stable Coding Level of Care Code ED High Tension Tester for g Fwd Exam Detailed Documented by User: Claribel Torrez MD 09/27/20 09:06 HPI - Psych General: Chief Complaint: Psychiatric Symptoms Stated Complaint: mhe Time Seen by Provider: 09/27/20 07:04 PFSH ED PFSH: Medical History Anxiety and depression Bilateral lower extremity edema Cellulitis Elevated blood pressure reading Falls frequently Family History Other Diabetes Social History Smoking and tobacco status: current every day smoker cigarettes Packs smoked per day: 1 Alcohol intake: current Alcohol intake frequency: few times a month Current occupational status: unemployed MDM - Psych Lab Data: Labs: Lab Results 09/27/20 09/27/20 09/27/20 Range/Units 07:33 07:33 07:33 WBC 9.6 (4.0-10.0) 10^3/ uL RBC 4.10 (4.1-5.3) 10^6/u L Hgb 12.7 (11.7-16.6) g/dL Hct 37.5 L (42.0-52.0) % MCV 91.5 (80-94) fL MCH 31.0 (28.0-34.0) pg MCHC 33.9 (30.0-36.0) g/dL RDW 13.1 (12.1-15.1) % Plt Count 230 (130-400) 10^3/c mm MPV 10.0 (7.4-10.4) fL Neut % (Auto) 72.6 % Lymph % (Auto) 20.1 % [place] % (Auto) 6.2 % Eos % (Auto) 0.3 % Baso % (Auto) 0.2 % Neut # (Auto) 6.97 (1.8-7.7) 10^3/u L Lymph # (Auto) 1.9 (0.8-4.8) 10^3/u L [place] # (Auto) 0.6 (0.2-0.9) 10^3/u L Eos # (Auto) 0.0 (0.0-0.8) 10^3/u L Baso # (Auto) 0.0 (0.0-0.1) 10^3/u L Nucleated RBC % (a uto) 0 % Nucleated RBCs # 0.0 /100WBC Sodium 136 (136-145) mmol/L Potassium 2.9 L (3.5-5.1) mmol/L Chloride 91 L (98-107) mmol/L Carbon Dioxide 31 H (22-29) mmol/L Anion Gap 16.9 (5-19) BUN 6 (6-20) mg/dL Creatinine 0.8 (0.7-1.2) mg/dL GFR Calculation 109.4 (90-130) mL/min Glucose 150 H (65-115) mg/dL Calculated Osmolal ity 282 L (285-295) mOsm/k g Lactic Acid 3.5 H (0.5-2.2) mmol/L Calcium 7.9 L (8.5-10.5) mg/dL Magnesium (1.7-2.3) mg/dL Total Bilirubin 0.3 (0.15-1.2) mg/dL AST 57 H (0-40) U/L ALT 75 H (0-41) U/L Alkaline Phosphata se 72 (40-130) IU/L C-Reactive Protein (0.0-4.9) mg/L Total Protein 6.5 L (6.6-8.7) g/dL Albumin 3.4 L (3.5-5.2) g/dL Globulin 3.1 (1.3-4.6) g/dL Salicylates < 0.3 L (3-10) mg/dL Acetaminophen < 5.0 L (10-30) ug/mL Ethyl Alcohol 83 H (0-10) mg/dL 09/27/20 09/27/20 Range/Units 07:33 07:33 WBC (4.0-10.0) 10^3/ uL RBC (4.1-5.3) 10^6/u L Hgb (11.7-16.6) g/dL Hct (42.0-52.0) % MCV (80-94) fL MCH (28.0-34.0) pg MCHC (30.0-36.0) g/dL RDW (12.1-15.1) % Plt Count (130-400) 10^3/c mm MPV (7.4-10.4) fL Neut % (Auto) % Lymph % (Auto) % [place] % (Auto) % Eos % (Auto) % Baso % (Auto) % Neut # (Auto) (1.8-7.7) 10^3/u L Lymph # (Auto) (0.8-4.8) 10^3/u L [place] # (Auto) (0.2-0.9) 10^3/u L Eos # (Auto) (0.0-0.8) 10^3/u L Baso # (Auto) (0.0-0.1) 10^3/u L Nucleated RBC % (a uto) % Nucleated RBCs # /100WBC Sodium (136-145) mmol/L Potassium (3.5-5.1) mmol/L Chloride (98-107) mmol/L Carbon Dioxide (22-29) mmol/L Anion Gap (5-19) BUN (6-20) mg/dL Creatinine (0.7-1.2) mg/dL GFR Calculation (90-130) mL/min Glucose (65-115) mg/dL Calculated Osmolal ity (285-295) mOsm/k g Lactic Acid (0.5-2.2) mmol/L Calcium (8.5-10.5) mg/dL Magnesium 1.2 L (1.7-2.3) mg/dL Total Bilirubin (0.15-1.2) mg/dL AST (0-40) U/L ALT (0-41) U/L Alkaline Phosphata se (40-130) IU/L C-Reactive Protein 96.3 H (0.0-4.9) mg/L Total Protein (6.6-8.7) g/dL Albumin (3.5-5.2) g/dL Globulin (1.3-4.6) g/dL Salicylates (3-10) mg/dL Acetaminophen (10-30) ug/mL Ethyl Alcohol (0-10) mg/dL Discharge Plan Discharge Patient Disposition: Admitted As Inpatient Clinical Impression: Chronic alcohol abuse, Cellulitis of arm, right, Methamphetamine abuse, Suicidal ideation, Acute hypokalemia, Hypocalcemia, Hypomagnesemia Sepsis Qualifiers: Sepsis type: sepsis due to unspecified organism Sepsis acute organ dysfunction status: without acute organ dysfunction Qualified Code(s): A41.9 - Sepsis, unspecified organism Condition: Stable Coding Level of Care Code ED High Tension Tester for Chg Fwd Exam Detailed
[2020-09-27 07:42] LABS: Basophils % 0.2 %; Eosinophils % 0.3 %; Hematocrit 37.5 % (42.0-52.0); Hemoglobin 12.7 g/dL (11.7-16.6); Lymphocytes # 1.9 10^3/uL (0.8-4.8); Lymphocytes % 20.1 %; Mean Corpuscular HGB Conc 33.9 g/dL (30.0-36.0); Mean Corpuscular Volume 91.5 fL (80-94); Monocytes # 0.6 10^3/uL (0.2-0.9); Monocytes % 6.2 %; Neutrophils # 6.97 10^3/uL (1.8-7.7); Neutrophils % 72.6 %; Nucleated Red Blood Cells % 0 %; Platelet Count 230 10^3/cmm (130-400); Red Cell Distribution Width 13.1 % (12.1-15.1); White Blood Count 9.6 10^3/uL (4.0-10.0)
--- NOTE | 2020-09-27 07:42 | USCV_ITS ---
Fortunato Marie Age: 35 Gender: M : 1985 Exam Date: 09/27/2020 08:03 Ordering Phys: Jena Harris Technologist: Daryn Cohn [place] [facility] [place]: Abscess and DVT HISTORY: Question of infiltrate vs abscess vs DVT PROCEDURES: Venous duplex imaging was performed in only the right upper extremity. The following venous structures were evaluated: internal jugular vein, subclavian vein, axillary vein, and brachial veins. In addition, the basilic vein, cephalic vein, radial vein, and ulnar vein. FINDINGS: No DVT or Abscess seen in any area examined CONCLUSIONS No evidence of venous thrombosis in the above-mentioned identifiable veins No evidence of abscess in the examined areas Dr Nisha Barrera MD [facility] (Electronically Signed) Final Date: 27 September 2020 18:57 S
[2020-09-27] MEDS: vancomycin 1,000 MG in sodium chloride 0.9% 250 ML 250 MG IV (07:49)
[2020-09-27] MEDS: sodium chloride 0.9% 1,000 ML 999 ML IV (07:50)
[2020-09-27 07:57] LABS: Alanine Aminotransferase 75 U/L (0-41); Albumin Level 3.4 g/dL (3.5-5.2); Alcohol Level 83 mg/dL (0-10); Alkaline Phosphatase 72 IU/L (40-130); Anion Gap 16.9 (5-19); Aspartate Amino Transferase 57 U/L (0-40); Blood Urea Nitrogen 6 mg/dL (6-20); Calcium 7.9 mg/dL (8.5-10.5); Carbon Dioxide 31 mmol/L (22-29); Chloride 91 mmol/L (98-107); Globulin 3.1 g/dL (1.3-4.6); Glomerular Filtration Rate 109.4 mL/min (90-130); Glucose 150 mg/dL (65-115); Osmolality Calculated 282 mOsm/kg (285-295); Sodium 136 mmol/L (136-145); Total Bilirubin 0.3 mg/dL (0.15-1.2); Total Protein 6.5 g/dL (6.6-8.7)
[2020-09-27] MEDS: LORazepam 2 mg/mL INJ 1 mL IVP (07:58)
[2020-09-27 08:03] LABS: Acetaminophen < 5.0 ug/mL (10-30); Potassium 2.9 mmol/L (3.5-5.1); Salicylate < 0.3 mg/dL (3-10)
[2020-09-27 08:05] LABS: C Reactive Protein 96.3 mg/L (0.0-4.9); Lactic Sepsis W/Reflex 3.5 mmol/L (0.5-2.2)
--- NOTE | 2020-09-27 08:05 | PC.NURSE ---
Resting , loud snoring with deep even respiration. US in room Sitter 1:1
[2020-09-27] MEDS: lidocaine 1% 5 ML in potassium chloride premix 100 ML 25 ML IV (08:13)
--- NOTE | 2020-09-27 08:16 | PC.PHAR ---
pt states he takes gabapentin 600mg 2 tab po bedtime-[facility] not open to verify last time filled or dose -pt states this is the only medication he takes
[2020-09-27 08:24] LABS: Magnesium 1.2 mg/dL (1.7-2.3)
--- NOTE | 2020-09-27 08:28 | ECG_ITS ---
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
--- NOTE | 2020-09-27 08:55 | PC.NURSE ---
Pt is having episodes, while sleeping, of low o2 sats. His o2 will drop to 71% for a few seconds and then he is back at 98%. CARD MAKER notified and pt was placed on 2L NC.
[2020-09-27] MEDS: magnesium sulfate premix 2 GM/50 ML PIGGYBACK IV (09:05)
--- NOTE | 2020-09-27 09:28 | PC.NURSE ---
pt up to bathroom at this time
[2020-09-27 09:41] LABS: Reflex Lactate Order REFLEX LACTIC ORDERD
--- NOTE | 2020-09-27 10:15 | PC.NURSE ---
Sitter at bedside. Fluids and meds infusing
[2020-09-27 10:29] LABS: Amphetamines Screen Urine Negative (Negative); Barbiturates Screen Urine Negative (Negative); Benzodiazepines Screen Urine Negative (Negative); Cocaine Screen Urine Negative (Negative); Opiate Screen Urine Negative (Negative); PCP Screen Urine Negative (Negative); THC Screen Urine Positive (Negative)
--- NOTE | 2020-09-27 10:49 | PM.HP ---
Providers/Chief Complaint Primary Care Provider: Kain Zafar MD Chief Complaint: MHE History of Present Illness Fortunato Marie is a 35 year old male who presents to the emergency department reporting some suicidal ideation. He is also concerned about his right upper extremity being swollen and red. He reports he uses this is an injection site for methamphetamine use. I was called from the emergency department physician as there was concern patient would need to be admitted to the hospital prior to going to neuropsychiatric unit secondary to concerns of cellulitis as well as withdrawal. Patient reports he drinks alcohol, and has significant withdrawal symptoms as well as tremors. In regards to the arm he reports some low-grade temperature at home and chills. He reports he is very depressed and tried suicide in the past with Neurontin. He denies any suicide attempt this admission, just contemplation thereof. During my interview he was sedated with Ativan making history and physical somewhat difficult. Review of Systems General: Reports: 10 or more systems reviewed and unremarkable except in HPI and below Const: Reports: fever(s) Eyes: Denies: change in vision ENMT: Denies: throat pain Card: Denies: chest pain Resp: Denies: dyspnea GI: Denies: abdominal pain : Denies: flank pain Musc: Denies: neck pain Skin/Breast: Reports: rash Neuro: Denies: headache(s) Psych: Reports: anxiety and depression Endo: Denies: polyuria Socrates/Lymph: Denies: easy bruising All/Imm: Denies: urticaria Medications/Allergies Home Medications Medication Instructions Recorded Confirmed Last Taken Type gabapentin 1,200 mg PO BEDTIME 09/26/20 09/27/20 09/26/20 History Allergies Allergy/AdvReac Type Severity Reaction Status Date / Time morphine Allergy ADR-Halluci Verified 09/27/20 08:15 [facility] PFS Acute PFSH: Medical History (Updated 09/27/20 @ 10:53 by Gilbert Garcia MD) Alcoholism Anxiety and depression Bilateral lower extremity edema Cellulitis Elevated blood pressure reading Falls frequently Obesity Tobacco dependency Surgical History (Updated 09/27/20 @ 10:52 by Gilbert Garcia MD) History of foot surgery Hx of cholecystectomy Family History Other Diabetes Social History Smoking and tobacco status: current every day smoker cigarettes Packs smoked per day: 1 Alcohol intake: current Alcohol intake frequency: few times a month Current occupational status: unemployed Vitals/I&O/Wt Last Vital Signs Temp 98.2 F 09/27/20 07:03 Pulse 115 H 09/27/20 09:15 Resp 18 09/27/20 09:15 BP 129/91 09/27/20 09:15 Pulse Ox 94 09/27/20 09:15 09/26/20 09/27/20 09/27/20 22:59 06:59 14:59 Intake Total 300 / 300 Balance 300 / 300 Weight last 48 hrs Weight 122.47 kg Physical Exam Narrative: EXAM NARRATIVE: General exam is a white male, sedated HEENT: Pupils equally round. Oropharynx clear. Neck is supple, obese Cardiovascular tachycardic, regular, without murmur Lungs diminished breath sounds bilaterally but clear without wheezing or crackles Abdomen is obese. Soft, positive bowel sounds. No obvious organomegaly was deferred Extremities show trace to 1+ edema bilaterally. Right upper extremity with some edema, induration, and erythema of the right upper arm, mid forearm to mid humerus. No obvious fluctuance. Mild tenderness to palpation. Injection site noted antecubital fossa Skin see findings above Neuro no focal deficits Data : 09/27/20 07:33 09/27/20 07:33 Micro: Microbiology 09/27/20 10:27 Blood Culture - Preliminary Blood SPECIMEN COLLECTED Other data: EKG demonstrates a heart rate of 120, normal axis, mild intraventricular conduction delay Ultrasound of the right upper extremity per verbal report demonstrates no abscess, no DVT Lactic acid level elevated at 3.5 AST and ALT elevated at 57 and 75 Magnesium low at 1.2 Calcium 7.9 Albumin 3.4 Urinalysis positive for THC. Salicylate and acetaminophen levels negligible A&P Assessment and plan (1) Cellulitis of arm, right: Margins loosely traced Vancomycin IV dosing per pharmacy Status: Acute (2) Chronic alcohol abuse: Appears to have some withdrawal Initiate thiamine CIWA protocol May require Precedex Status: Acute (3) Methamphetamine abuse: Monitor for withdrawal Status: Acute (4) Suicidal ideation: 6-hour hold Sitter Psychiatric consultation Status: Acute (5) Acute hypokalemia: Supplementation IV started in the emergency department Initiate a p.o. dose later this afternoon Status: Acute (6) Hypomagnesemia: Supplementation ordered Status: Acute (7) Sepsis: Concern of possibility of sepsis. No fever is noted today, nor elevated white blood cell count. However with his tachycardia and focus of infection of right upper extremity this is a concern. Status: Acute Qualifiers: Sepsis acute organ dysfunction status: without acute organ dysfunction Sepsis type: sepsis due to unspecified organism Qualified Code(s): A41.9 - Sepsis, unspecified organism Additional A&P Information Full code Lovenox will suffice for DVT prophylaxis Attestations Medical Necessity Statement*: Need greater than 2 midnight stay for evaluation and treatment of cellulitis, alcohol withdrawal, suicidal ideation Time Spent in Patient Care: Greater than 35 minutes Coding Level of Care Code Acute Wrapper Selector for [facility] Fwd 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
[2020-09-27 11:12] LABS: Lactic Acid level (Lactate) 2.6 mmol/L (0.5-2.2)
--- NOTE | 2020-09-27 11:32 | PC.NURSE ---
Sitter 1:1 fluids and K+ infusing on a pump
--- NOTE | 2020-09-27 12:20 | PC.NURSE ---
Continues with 1:1 Sitter
[2020-09-27 12:55] LABS: Hepatitis A Antibody IgM Non-Reactive (Nonreactive); Hepatitis B Core IgM Non-Reactive (Nonreactive); Hepatitis B Surface Antigen Non-Reactive (Nonreactive); Hepatitis C Virus Antibody Non-Reactive (Nonreactive)
[2020-09-27] MEDS: HYDROmorphone 1 mg/mL INJ 1 mL 0.5 MG SUBCUT ×3 (13:06→22:14)
--- NOTE | 2020-09-27 13:22 | PC.NURSE ---
Sitter 1:1 Offered food and drink. Meds given per written order
--- NOTE | 2020-09-27 14:05 | PC.NURSE ---
Sitter 1:1 Resting with lights, fluids infusing.
[2020-09-27] MEDS: potassium chloride ER 20 mEq Tablet 40 MEQ PO (17:12)
--- NOTE | 2020-09-27 17:21 | PC.NURSE ---
Gave Dilaudid 0.5 mg Sq in Left deltoid and po meds given Changed into gown, belongs collected.
--- NOTE | 2020-09-27 19:14 | PC.NURSE ---
Report to Carrie MEDINA at this time.
[2020-09-27] MEDS: LORazepam 2 mg Tablet PO (19:25)
[2020-09-27] MEDS: enoxaparin 40 mg/0.4 mL Syringe SUBCUT (19:26)
[2020-09-27] MEDS: sodium chlor 0.9% + KCl 20 mEq 20 MEQ/1,000 ML BAG 75 MEQ IV (19:27)
--- NOTE | 2020-09-27 21:23 | PC.NURSE ---
2044 - Notified Dr. Stubbs of patient's blood pressure 180's systolic and greater than 100 systolic. Notified that patient is requesting gabapentin 800mg as taken at home, patient is a one pack per day smoker and is wanting to smoke, Ativan 2mg given po per [facility] protocol and patient is having continued anxiety. Orders given for clonidine, nicotine patch, librium, and gabapentin.
[2020-09-27] MEDS: chlordiazePOXIDE 10 mg Capsule 20 MG PO (21:31)
[2020-09-27] MEDS: cloNIDine 0.1 mg Tablet PO (21:31)
[2020-09-27] MEDS: gabapentin 400 mg Capsule 800 MG PO (21:43)
[2020-09-27] MEDS: HYDROcodone-acetaminophen 5-325 mg Tablet 1 TAB PO (21:43)
[2020-09-27] MEDS: nicotine 21 mg Patch 1 PATCH TRANSDERMA (21:43)
[2020-09-28] VITALS (75 sets, daily range): BP systolic 123–190; BP diastolic 74–132; PULSE 72–127; RESP 19–37; TEMP 36.6–37.7; O2SAT 82–100
[2020-09-28] MEDS: cloNIDine 0.1 mg Tablet PO ×3 (01:36→20:27)
--- NOTE | 2020-09-28 03:45 | PC.NURSE ---
Notified that patients blood pressure remains elevated at 187/127 currently, 2 doses of clonidine given, patient not anxious and currently sleeping.
[2020-09-28 04:36] LABS: Basophils % 0.4 %; Eosinophils # 0.1 10^3/uL (0.0-0.8); Eosinophils % 1.3 %; Hematocrit 38.8 % (42.0-52.0); Hemoglobin 12.6 g/dL (11.7-16.6); Lymphocytes # 1.9 10^3/uL (0.8-4.8); Lymphocytes % 25.4 %; Mean Corpuscular HGB Conc 32.5 g/dL (30.0-36.0); Mean Corpuscular Hemoglobin 30.4 pg (28.0-34.0); Mean Corpuscular Volume 93.7 fL (80-94); Mean Platelet Volume 10.4 fL (7.4-10.4); Monocytes # 0.4 10^3/uL (0.2-0.9); Monocytes % 5.9 %; Neutrophils # 4.98 10^3/uL (1.8-7.7); Neutrophils % 66.3 %; Nucleated Red Blood Cells % 0 %; Platelet Count 241 10^3/cmm (130-400); Red Blood Count 4.14 10^6/uL (4.1-5.3); Red Cell Distribution Width 13.2 % (12.1-15.1); White Blood Count 7.5 10^3/uL (4.0-10.0)
[2020-09-28 05:14] LABS: Alanine Aminotransferase 64 U/L (0-41); Albumin Level 3.3 g/dL (3.5-5.2); Alkaline Phosphatase 86 IU/L (40-130); Anion Gap 12.5 (5-19); Aspartate Amino Transferase 51 U/L (0-40); Blood Urea Nitrogen 9 mg/dL (6-20); Calcium 8.4 mg/dL (8.5-10.5); Carbon Dioxide 28 mmol/L (22-29); Chloride 99 mmol/L (98-107); Glomerular Filtration Rate 127.6 mL/min (90-130); Glucose 118 mg/dL (65-115); Magnesium 1.8 mg/dL (1.7-2.3); Osmolality Calculated 280 mOsm/kg (285-295); Potassium 4.5 mmol/L (3.5-5.1); Sodium 135 mmol/L (136-145); Total Bilirubin 0.4 mg/dL (0.15-1.2); Total Protein 7.3 g/dL (6.6-8.7)
[2020-09-28] MEDS: HYDROcodone-acetaminophen 5-325 mg Tablet 1 TAB PO ×4 (07:27→20:28)
[2020-09-28] MEDS: chlordiazePOXIDE 25 mg Capsule PO ×2 (09:02→16:44)
--- NOTE | 2020-09-28 09:09 | PC.NURSE ---
req. dilaudid. states right arm is throbbing. sitting on side of bed. req. coke to drink. librium given for some anxiety. enc. to wait abt. 30 min. to see if librium would help. dilaudud caused some increased apnea last noc. is on oxymask now d/t sats dropping into 70s when sleeping.
[2020-09-28] MEDS: folic acid 1 mg Tablet PO (09:16)
[2020-09-28] MEDS: pantoprazole DR 40 mg Tablet PO (09:16)
[2020-09-28] MEDS: thiamine 100 mg Tablet PO (09:16)
[2020-09-28] MEDS: multivitamin therapeutic Tablet 1 TAB PO (09:16)
[2020-09-28] MEDS: nicotine 21 mg Patch 1 PATCH TRANSDERMA (09:17)
--- NOTE | 2020-09-28 09:24 | P.PN_ITS ---
Documented by User: DHEERAJ Owusu STDNT 09/28/20 09:42 Subjective Subjective: Interval history: 35 yo male presented yesterday to ED for suicidal ideation and cellulitis of R arm. Pt states he is still in pain, diaphoretic, and nauseous. He stated he coughed up a lot of brown and yellow sputum this morning. He also reports he has heartburn and usually uses up to a 1.5 bottle of tums per week; he states this gets worse when he eats spicy foods. Pt denies fever, headache, SOB, vomiting, and diarrhea. Medications: Reviewed: Yes Vitals/I&O/Wt Last Vital Signs Temp 99.9 F H 09/28/20 04:00 Pulse 108 H 09/28/20 06:15 Resp 24 H 09/28/20 06:15 BP 165/132 09/28/20 06:15 Pulse Ox 96 09/28/20 06:15 09/27/20 09/28/20 09/28/20 22:59 06:59 14:59 Intake Total 200 / 605 750 / 1355 500 / 500 Output Total 1500 / 1500 Balance 200 / 605 -750 / -145 500 / 500 Weight last 48 hrs Weight 153.859 kg Weight 122.47 kg Physical Exam Narrative: EXAM NARRATIVE: General exam is a white male in distress HEENT: Pupils equally round. Oropharynx clear. Neck is supple, obese Cardiovascular tachycardic, regular, without murmur Lungs diminished breath sounds bilaterally but clear without wheezing or crackles Abdomen is obese. Soft, positive bowel sounds. No obvious organomegaly was deferred Extremities show trace to 1+ edema bilaterally. Right upper extremity with some edema, induration, and erythema of the right upper arm, mid forearm to mid humerus. No obvious fluctuance. Moderate tenderness to palpation. Injection site noted antecubital fossa Skin see findings above Neuro no focal deficits Const: COMMON NORMALS: no acute distress, patient oriented x3, alert and well nourished GENERAL APPEARANCE: cooperative and well kempt NUTRITIONAL APPEARANCE: obese ORIENTATION/CONSCIOUSNESS: Yes awake, Yes oriented to person, Yes oriented to place and Yes oriented to time HENMT: COMMON NORMALS: normocephalic, atraumatic, hearing grossly normal bilaterally, Normal nasal mucous membranes and turbinates present, moist oral mucous membranes and oropharynx normal HEAD & SCALP: normocephalic and atraumatic FACE & SINUS: normal facial exam NOSE: Normal nasal mucous membranes and turbinates present Eye: COMMON NORMALS: Equal, round and reactive pupils present and EOMs intact bilaterally PUPIL: Yes Equal, round and reactive pupils present Resp: COMMON NORMALS: normal respiratory effort and clear to auscultation bilaterally AUSCULTATION: clear to auscultation bilaterally Cardio: COMMON NORMALS: regular rhythm, S1 normal heart sound present, S2 normal heart sound present, No gallops present (Cardio), No clicks present (C ardio), No murmurs present (Cardio), No rub (Cardio) and Peripheral pulses 2+ throughout RATE: tachycardic RHYTHM: regular rhythm HEART SOUNDS: S1 normal heart sound present and S2 normal heart sound present PERIPHERAL PULSES: Peripheral pulses 2+ throughout GI: COMMON NORMALS: Normal to inspection, nondistended, normoactive bowel sounds present and Soft to palpation PALPATION: Yes Soft to palpation and Yes Tenderness to palpation present (GI) (Epigastric region) Extremity: RIGHT LOWER EXTREMITY: Yes knee joint, Yes lower leg, Yes foot & digits and Yes foot & digits LEFT LOWER EXTREMITY: Yes knee joint, Yes lower leg, Yes ankle joint and Yes foot & digits OTHER: pt has erythema and warmth extending from mid upper arm distally to the wrist; there is significant swelling to the extremity; radial pulse and cap refill normal; induration noted to R AC space w/o fluctuance Neuro: COMMON NORMALS: patient oriented x3, moves all extremities, no focal motor deficits and no sensory deficits noted SENSORIUM/ORIENTATION: Yes alert, Yes oriented to person, Yes oriented to place and Yes oriented to time Psych: COMMON NORMALS: mental status grossly normal, Normal thought process present, cooperative, normal affect, speech normal and activity/motor behavior normal APPEARANCE: Yes well kempt ACTIVITY/MOTOR BEHAVIOR: Yes appropriate eye contact and No psychomotor agitation SPEECH: Yes normal speech THOUGHT PROCESS: Normal thought process present MEMORY/COGNITION: Yes cognition grossly intact INSIGHT: Good insight present (Psych) JUDGEMENT: Good judgement present (Psych) Skin: OTHER: see extremity assessment Data : 09/28/20 04:10 09/28/20 04:10 Micro: Microbiology 09/27/20 04:10 Blood Culture - Preliminary Blood SPECIMEN COLLECTED 09/27/20 10:27 Blood Culture - Preliminary Blood SPECIMEN COLLECTED A&P Assessment and plan (1) Cellulitis of arm, right: Margins loosely traced yesterday. Redness has gone past margins today. Continue Vancomycin IV dosing per pharmacy. NSAIDs or Tylenol for pain and fever as needed. Status: Acute (2) Chronic alcohol abuse: Appears to have some withdrawal Continue thiamine CIWA protocol May require Precedex Status: Acute (3) Methamphetamine abuse: Monitor for withdrawal Status: Acute (4) Suicidal ideation: Sitter Psychiatric consultation Status: Acute (5) Acute hypokalemia: 4.5 today. Resolved. Status: Acute (6) Hypomagnesemia: Supplementation ordered. 1.8 today. Resolved Status: Acute (7) Sepsis: Concern of possibility of sepsis. No fever is noted today, nor elevated white blood cell count. However with his tachycardia and focus of infection of right upper extremity this is a concern. Waiting on blood culture results. Will order blood cultures for tomorrow as well. Status: Acute Qualifiers: Sepsis acute organ dysfunction status: without acute organ dysfunction Sepsis type: sepsis due to unspecified organism Qualified Code(s): A41.9 - Sepsis, unspecified organism Additional A&P Information Pt c/o of heartburn and had tenderness and pain in the epigastric region. Possible GERD or PUD. Continue treatment with Protonix. 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 Overall he reports he feels little bit better but his arm still hurts quite a bit. Physical Exam Narrative: EXAM NARRATIVE: Agree with above. General exam no apparent distress. Can become quite lethargic and have obvious sleep apnea symptoms after dose of Ativan Cardiovascular regular rate and rhythm without murmur Lungs clear Soft nontender with positive bowel sounds Lower extremities without cyanosis clubbing or edema, right upper extremity unchanged from yesterday. Still with erythema and edema. Data : 09/28/20 04:10 09/28/20 04:10 A&P Additional A&P Information Agree with above. For patient's cellulitis we will continue vancomycin Continue CIWA protocol but reduce Ativan to 1 mg. Added Librium as needed.. Discontinue Dilaudid. Continue hydrocodone. These changes are made secondary to significant obstructive sleep apnea symptoms when this occurs. Have CPAP available when sleeping. Await blood cultures. Reduce fluids Psychiatric consultation has been entered. Continue 96-hour hold. Attestations Medical Necessity Statement*: Needs continued hospitalization for treatment of right upper extremity cellulitis with vancomycin as well as treatment of acute alcohol withdrawal. 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
[2020-09-28] MEDS: HYDROmorphone 1 mg/mL INJ 1 mL 0.5 MG SUBCUT (10:01)
--- NOTE | 2020-09-28 11:39 | PC.NURSE ---
resting on cpap. note some jerking activity with legs
[2020-09-28] MEDS: LORazepam 2 mg/mL INJ 1 mL 1 MG IVP ×3 (12:46→21:47)
[2020-09-28 12:59] LABS: Vancomycin Trough 14.2 ug/mL (10-15)
--- NOTE | 2020-09-28 13:15 | P.CONIM_ITS ---
Providers/Reason for Consult Consulting Physican/Specialty*: Gisel Canales DO Reason for Consult*: Worsening depressive symptoms, suicidal ideation in the context of increasing substance use Attending Physician: Gilbert Garcia MD Primary Care Provider: Kain Zafar MD Psych Consult HPI History of Present Illness Fortunato Marie is a 35 year old male with no reported past psychiatric history but states that he had been using methamphetamine primarily by snorting but recently by snorting and injecting over the past week presenting with suicidal ideation in the context of ongoing life stressors to include his leaving him 4 months ago. Patient states that he had been fired from his job last summer and was on Workmen's Comp. and subsequently unemployment but had started using methamphetamine thinking that it would make him feel better because of his depressive symptoms and it also allowed him to forget about my leaving me. He reports persistent daily low mood states decreased energy and interest exacerbated by his medical condition as well as by his ongoing drug use and financial stressors. Reports that he had been given some methamphetamine by friends that he had made at a motel that he has been staying at and has been using on a near daily basis over the past couple of months. He denies any psychotic symptoms, denies any visual or auditory hallucinations, denies any delusions. Patient states that he is not experienced any depressive symptoms in the past but had previously been hospitalized on an inpatient psychiatry unit for alcohol use a couple years ago. He continues to report passive suicidal ideation with no active intent or plan stating that he would not harm himself because of his children. He does report past overdose attempts 2 years ago and was not clear on reason for that attempt as well as a few months ago. Patient reports worsening excessive worry and difficulty controlling his worrying which has been exacerbated by recent life stressors. Denies any significant anxiety symptoms in the past, denies any panic attacks although reports worsening anxiety when he wakes up in an unfamiliar place. He denies any past psychiatric treatment with antidepressants targeting depressive or anxiety symptoms. Psychiatric review of systems is otherwise negative. Patient states that he is currently staying in a motel and supporting himself on unemployment. Reports that he has family nearby and has a fair support system. Review of Systems General: Reports: 10 or more systems reviewed and unremarkable except in HPI and below Meds Current Medications: Current Medications Generic Name Dose Route Start Last Admin Trade Name Freq PRN Reason Stop Dose Admin Hydrocodone Bitart /Acetaminophen 1 tab 09/27/20 18:03 09/28/20 12:40 Hydrocodone-Acet aminophen 5-325 Mg Tablet PO 1 tab Q4H PRN Administration PAIN Chlordiazepoxide 25 mg 09/28/20 07:34 09/28/20 09:02 Chlordiazepoxide 25 Mg Capsule PO 25 mg Q6H PRN Administration WITHDRAWAL Clonidine HCl 0.1 mg 09/27/20 20:51 09/28/20 01:36 Clonidine 0.1 Mg Tablet PO 0.1 mg Q4H PRN Administration BP >=170/100 Enoxaparin Sodium 40 mg 09/27/20 20:00 09/27/20 19:26 Enoxaparin 40 Mg /0.4 Ml Syringe SUBCUT 40 mg Q24H ALLISON Administration Folic Acid 1 mg 09/28/20 09:00 09/28/20 09:16 Folic Acid 1 Mg Tablet PO 1 mg DAILY ALLISON Administration Gabapentin 800 mg 09/27/20 21:00 09/27/20 21:43 Gabapentin 400 M g Capsule PO 800 mg BEDTIME ALLISON Administration Potassium Chloride /Sodium Chloride 20 meq in 1,000 m ls @ 50 mls/hr 09/27/20 19:00 09/28/20 08:50 Sodium Chlor 0.9 % + Kcl 20 Meq IV Infused .Q20H ALLISON Infusion Vancomycin HCl 2,0 00 mg/ 500 mls @ 250 mls /hr 09/27/20 21:00 09/28/20 07:20 Sodium Chloride IV Infused Q8H ALLISON Infusion Lorazepam 2 mg 09/27/20 18:03 09/27/20 19:25 Lorazepam 2 Mg T ablet PO 2 mg PROTOCOL PRN Administration WITHDRAWAL Protocol Lorazepam 1 mg 09/28/20 10:27 09/28/20 12:46 Lorazepam 2 Mg/M l Inj 1 Ml IVP 1 mg Q4H PRN Administration ANXIETY Multivitamins Ther apeutic 1 tab 09/28/20 09:00 09/28/20 09:16 Multivitamin The rapeutic Tablet PO 1 tab DAILY ALLISON Administration Nicotine 1 patch 09/27/20 20:55 09/28/20 09:17 Nicotine 21 Mg P atch TRANSDERMA 1 patch DAILY ALLISON Administration Pantoprazole Sodiu m 40 mg 09/28/20 09:00 09/28/20 09:[address] 40 Mg Tablet PO 40 mg DAILY ALLISON Administration Thiamine Mononitra te 100 mg 09/28/20 09:00 09/28/20 09:16 Thiamine 100 Mg Tablet PO 100 mg DAILY ALLISON Administration PFSH NPU PFSH: Medical History Alcoholism Anxiety and depression Bilateral lower extremity edema Cellulitis Elevated blood pressure reading Falls frequently Obesity Tobacco dependency Surgical History History of foot surgery Hx of cholecystectomy Family History Other Diabetes Social History Smoking and tobacco status: current every day smoker cigarettes Packs smoked per day: 1 Alcohol intake: current Alcohol intake frequency: few times a month Current occupational status: unemployed Other Psychiatric History: Other Psychiatric History: Denies any past psychiatric treatment by a psychiatrist or primary care Denies any history of psychiatric hospitalization other than for withdrawal from alcohol 2 years ago Reports 2 overdose attempts approximately 2 years ago and most recently 3 to 4 months ago Mental Status Exam 2 MSE Comments: Appears stated age, lying in bed, obese, without shirt on, calm, cooperative, interactive, good eye contact Psychomotor activity is neither increased nor decreased, no agitation Speech is normal rate and volume, spontaneous, fair articulation, not pressured I feel depressed, congruent affect, limited range, not labile Alert although occasionally dozing off during interview, oriented to person, place, time, situation Memory and concentration appear to be fair to intact per interview Intellectual functioning appears to be average based on vocabulary, interview Thought process, linear, no flight of ideas, no looseness of association Thought content, no delusions, no hallucinations, passive suicidal ideation with no active intent or plan, no homicidal ideation Insight and judgment appear to be fair to intact Vitals/I&O/Wt Last Vital Signs Temp 99.9 F H 09/28/20 07:00 Pulse 89 09/28/20 11:30 Resp 26 H 09/28/20 11:30 BP 126/87 09/28/20 11:30 Pulse Ox 97 09/28/20 11:30 09/27/20 09/28/2009/28/21 22:59 06:59 14:59 Intake Total 200 / 605 750 / 1355 1979 / 1979 Output Total 1500 / 1500 300 / 300 Balance 200 / 605 -750 / -145 1680 / 1680 Weight last 48 hrs Weight 153.859 kg Weight 122.47 kg Physical Exam Narrative: EXAM NARRATIVE: Reviewed physical examination performed by hospitalist Data NPU Micro: Micro: Microbiology 09/27/20 10:27 Blood Culture - Pr eliminary Blood NEGATIVE TO RAH E 09/27/20 04:10 Blood Culture - Pr eliminary Blood SPECIMEN COLLEC PADMINI Microbiology 09/27/20 10:27 Blood Blood Culture - Preliminary NEGATIVE TO DATE 09/27/20 04:10 Blood Blood Culture - Preliminary SPECIMEN COLLECTED A&P Assessment and plan (1) Methamphetamine abuse: Status: Acute (2) Depressive disorder: Status: Acute (3) Suicidal ideation: Status: Acute Additional A&P Information Patient with no reported past psychiatric history although reporting worsening depressive symptoms and anxiety symptoms in the context of methamphetamine abuse, has history of alcohol abuse Continues to report passive suicidal ideation with no active intent or plan, would likely benefit from transferring to inpatient psychiatry once medically stabilized for medication stabilization targeting depression and anxiety Would likely benefit from initiating a low-dose of an antidepressant as well as coordinating for post discharge substance treatment/counseling RECOMMEND starting sertraline 25 mg daily targeting depressive and anxiety symptoms with plan to titrate up for effect Hospitalist team continues to manage CIWA protocol Attestations NPU Medical Necessity Statement*: Ongoing suicidal ideation in the context of depression and anxiety with recent increased use of substance in the context of multiple stressors Time Spent in Patient Care: Greater than 35 minutes (>than 50% of time spent in counselling and/or direct pt care on unit) . 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
--- NOTE | 2020-09-28 15:38 | PC.RESP ---
Smoking Cessation information sent to patient.
--- NOTE | 2020-09-28 15:51 | PC.NURSE ---
140/90 manual b/p, 151/100 nibp, on same arm.
--- NOTE | 2020-09-28 16:47 | PC.NURSE ---
02 to [facility] for dinner. librium, hydrocodone and clonidine given.
[2020-09-28] MEDS: sertraline 50 mg Tablet 25 MG PO (17:19)
[2020-09-28] MEDS: sodium chlor 0.9% + KCl 20 mEq 20 MEQ/1,000 ML BAG 50 MEQ IV (17:19)
--- NOTE | 2020-09-28 18:05 | PC.NURSE ---
req. ativan, tremors noted
[2020-09-28] MEDS: enoxaparin 40 mg/0.4 mL Syringe SUBCUT (20:27)
[2020-09-28] MEDS: gabapentin 400 mg Capsule 800 MG PO (20:28)
[2020-09-28] MEDS: LORazepam 2 mg Tablet PO (20:32)
[2020-09-29] VITALS (22 sets, daily range): BP systolic 120–175; BP diastolic 78–142; PULSE 82–111; RESP 22–33; TEMP 36.9–37.1; O2SAT 89–96
[2020-09-29] MEDS: chlordiazePOXIDE 25 mg Capsule PO ×3 (03:51→20:25)
[2020-09-29] MEDS: LORazepam 2 mg/mL INJ 1 mL 1 MG IVP (03:51)
[2020-09-29] MEDS: HYDROcodone-acetaminophen 5-325 mg Tablet 1 TAB PO ×3 (03:52→18:32)
[2020-09-29] MEDS: cloNIDine 0.1 mg Tablet PO ×2 (05:29→10:09)
--- NOTE | 2020-09-29 08:31 | PC.CHAP ---
Pastoral Care Encounter/Spiritual Assessment Type of Contact [] Declined quilt stuffer visit [] Patient/Family/Request visit [] Outpatient visit [] Follow-up visit [] Physician referral [] Code/Alert [] Routine visit [] Staff referral [] Actively dying [] Patient sleeping [] Family support [] [] Out of room [] Palliative care [] [] Receiving care in room [] Pre-surgical visit [] Trauma [] Long length of stay [x] ICU visit [x] Other:sitter Relational/Emotional Strength [] Patient feels connected with others/family/visitors/staff [] Distress [] Loneliness/isolation [] Abandonment Spirituality of Patient [] Person of Virgie [] Attends Synagogue of their Virgie [] Believes in Prayer [] Reads Bible or Jainism materials [] There are Spiritual issues to be addressed Bridges Supervisor Interventions [x] Prayer [] Active listening [] Non-anxious presence [] Spiritual/emotional support [] Crisis/trauma care [] Spiritual counseling [] Bereavement support [] Provided bereavement packet [] Provided Bible/devotional materials [] Provided toy/stuffed animal, coloring book to patient or family member [] Provided Communion [] Anointing/Zachary [] Salvation [x] Completed spiritual assessment [] Other: Impact on Illness or Injury [] Angry [] Fearful [] Anxious [] Often cries [] Exhaustion [] Unable to work [] Unable to attend mormon [] Unable to walk/stand [] Unable to read [] Unable to drive [] Unable to eat/drink [] Unable to sleep [] Unable to be with family [] Patient intubated [] Other: Summary Time spent with patient
[2020-09-29] MEDS: thiamine 100 mg Tablet PO (08:54)
[2020-09-29] MEDS: nicotine 21 mg Patch 1 PATCH TRANSDERMA (08:54)
[2020-09-29] MEDS: folic acid 1 mg Tablet PO (08:54)
[2020-09-29] MEDS: pantoprazole DR 40 mg Tablet PO (08:54)
[2020-09-29] MEDS: sertraline 50 mg Tablet 25 MG PO (08:55)
[2020-09-29] MEDS: multivitamin therapeutic Tablet 1 TAB PO (08:55)
[2020-09-29 08:59] LABS: Basophils # 0.1 10^3/uL (0.0-0.1); Basophils % 0.7 %; Eosinophils # 0.2 10^3/uL (0.0-0.8); Hematocrit 36.3 % (42.0-52.0); Hemoglobin 11.7 g/dL (11.7-16.6); Lymphocytes # 1.6 10^3/uL (0.8-4.8); Lymphocytes % 22.5 %; Mean Corpuscular HGB Conc 32.2 g/dL (30.0-36.0); Mean Corpuscular Hemoglobin 30.5 pg (28.0-34.0); Mean Corpuscular Volume 94.8 fL (80-94); Mean Platelet Volume 10.1 fL (7.4-10.4); Monocytes # 0.5 10^3/uL (0.2-0.9); Monocytes % 6.8 %; Neutrophils # 4.55 10^3/uL (1.8-7.7); Nucleated Red Blood Cells % 0 %; Platelet Count 247 10^3/cmm (130-400); Red Blood Count 3.83 10^6/uL (4.1-5.3); Red Cell Distribution Width 13.1 % (12.1-15.1)
[2020-09-29 09:01] LABS: Alanine Aminotransferase 56 U/L (0-41); Albumin Level 3.1 g/dL (3.5-5.2); Alkaline Phosphatase 73 IU/L (40-130); Anion Gap 10.6 (5-19); Aspartate Amino Transferase 38 U/L (0-40); Blood Urea Nitrogen 10 mg/dL (6-20); Calcium 8.9 mg/dL (8.5-10.5); Carbon Dioxide 28 mmol/L (22-29); Chloride 100 mmol/L (98-107); Globulin 3.5 g/dL (1.3-4.6); Glomerular Filtration Rate 127.6 mL/min (90-130); Glucose 136 mg/dL (65-115); Osmolality Calculated 279 mOsm/kg (285-295); Potassium 4.6 mmol/L (3.5-5.1); Sodium 134 mmol/L (136-145); Total Bilirubin 0.2 mg/dL (0.15-1.2); Total Protein 6.6 g/dL (6.6-8.7)
[2020-09-29] MEDS: LORazepam 2 mg Tablet PO (09:02)
[2020-09-29] MEDS: dexmedetomidine 400 MCG in sodium chloride 0.9% (100 ml) 100 ML 12.1 MCG IV ×2 (12:37→21:15)
[2020-09-29] MEDS: amlodipine 5 mg Tablet PO (12:37)
--- NOTE | 2020-09-29 17:24 | PM.PN ---
Subjective Subjective: Interval history: Patient c/o feeling anxious this morning, noted to be extremely somnolent intermittently, wakes up easily to calling name and converses appropriately, however when somnolent noted to snore, has drop in 02 sat to early 80s. When awake, 02 sat improves to 95-96%, cellulitis improving, blood cx remains negative to date Medications: Reviewed: Yes Vitals/I&O/Wt Last Vital Signs Temp 98.4 F 09/29/20 04:00 Pulse 95 09/29/20 16:00 Resp 33 H 09/29/20 16:00 BP 164/111 09/29/20 16:00 Pulse Ox 92 09/29/20 16:00 09/29/20 09/29/20 09/29/20 06:59 14:59 22:59 Intake Total 1070.833 / 5447.500 980 / 980 Output Total 2250 / 2250 Balance 1070.833 / 4147.500 -1270 / -1270 Weight last 48 hrs Weight 155.31 kg Weight 153.859 kg Physical Exam Narrative: EXAM NARRATIVE: GEN: Somnolent, asleep when first seen, wakes up easily and converses appropriately CVS: S1S2N RS: CTA B/L all areas , no respiratory distress Abd: Soft, nt/nd , bs+ 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 Plan to minimize use of ativan at this time to minimize respiratory depression, start Precedex for alcohol withdrawal, overlap with librium q8h with overall goal to wean off precedex and maintain on po librium. Continue thiamine CIWA protocol Status: Acute (3) Methamphetamine abuse: Monitor for withdrawal Status: Acute (4) Suicidal ideation: 96-hour hold Sitter Psychiatric consultation Status: Acute (5) Acute hypokalemia: Supplementation IV started in the emergency department Initiate a p.o. dose later this afternoon Status: Acute (6) Hypomagnesemia: Supplementation ordered Status: Acute (7) Sepsis: Concern of possibility of sepsis. No fever is noted today, nor elevated white blood cell count. However with his tachycardia and focus of infection of right upper extremity this is a concern. Status: Acute Qualifiers: Sepsis acute organ dysfunction status: without acute organ dysfunction Sepsis type: sepsis due to unspecified organism Qualified Code(s): A41.9 - Sepsis, unspecified organism Additional A&P Information Agree with above. For patient's cellulitis we will continue vancomycin Await blood cultures. Reduce fluids Psychiatric consultation has been entered. Continue 96-hour hold. 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
[2020-09-29] MEDS: gabapentin 400 mg Capsule 800 MG PO (20:25)
[2020-09-29] MEDS: enoxaparin 40 mg/0.4 mL Syringe SUBCUT (20:25)
[2020-09-30] VITALS (10 sets, daily range): BP systolic 144–188; BP diastolic 76–125; PULSE 90–114; RESP 17–33; TEMP 36.9–37.1; O2SAT 88–98
[2020-09-30] MEDS: chlordiazePOXIDE 25 mg Capsule PO ×2 (03:43→10:53)
[2020-09-30] MEDS: acetaminophen 325 mg Tablet 650 MG PO ×2 (04:45→10:52)
[2020-09-30 05:37] LABS: Basophils # 0.1 10^3/uL (0.0-0.1); Basophils % 0.9 %; Eosinophils # 0.2 10^3/uL (0.0-0.8); Eosinophils % 2.8 %; Hematocrit 38.6 % (42.0-52.0); Hemoglobin 12.6 g/dL (11.7-16.6); Lymphocytes # 1.6 10^3/uL (0.8-4.8); Lymphocytes % 18.5 %; Mean Corpuscular HGB Conc 32.6 g/dL (30.0-36.0); Mean Corpuscular Hemoglobin 30.4 pg (28.0-34.0); Mean Corpuscular Volume 93.2 fL (80-94); Mean Platelet Volume 10.2 fL (7.4-10.4); Monocytes # 0.7 10^3/uL (0.2-0.9); Monocytes % 7.8 %; Neutrophils # 5.59 10^3/uL (1.8-7.7); Neutrophils % 66.3 %; Nucleated Red Blood Cells % 0 %; Platelet Count 282 10^3/cmm (130-400); Red Blood Count 4.14 10^6/uL (4.1-5.3); Red Cell Distribution Width 12.7 % (12.1-15.1); White Blood Count 8.4 10^3/uL (4.0-10.0)
[2020-09-30 05:48] LABS: Alanine Aminotransferase 59 U/L (0-41); Albumin Level 3.3 g/dL (3.5-5.2); Alkaline Phosphatase 77 IU/L (40-130); Anion Gap 9.3 (5-19); Aspartate Amino Transferase 49 U/L (0-40); Blood Urea Nitrogen 10 mg/dL (6-20); Carbon Dioxide 31 mmol/L (22-29); Chloride 99 mmol/L (98-107); Globulin 3.6 g/dL (1.3-4.6); Glomerular Filtration Rate 152.4 mL/min (90-130); Glucose 119 mg/dL (65-115); Osmolality Calculated 280 mOsm/kg (285-295); Potassium 4.3 mmol/L (3.5-5.1); Sodium 135 mmol/L (136-145); Total Bilirubin 0.2 mg/dL (0.15-1.2); Total Protein 6.9 g/dL (6.6-8.7)
[2020-09-30] MEDS: HYDROcodone-acetaminophen 5-325 mg Tablet 1 TAB PO (06:08)
[2020-09-30] MEDS: LORazepam 2 mg Tablet PO (07:14)
[2020-09-30] MEDS: pantoprazole DR 40 mg Tablet PO (08:18)
[2020-09-30] MEDS: folic acid 1 mg Tablet PO (08:18)
[2020-09-30] MEDS: multivitamin therapeutic Tablet 1 TAB PO (08:18)
[2020-09-30] MEDS: nicotine 21 mg Patch 1 PATCH TRANSDERMA (08:19)
[2020-09-30] MEDS: amlodipine 5 mg Tablet PO (08:19)
[2020-09-30] MEDS: thiamine 100 mg Tablet PO (08:19)
[2020-09-30] MEDS: sertraline 50 mg Tablet 25 MG PO (08:19)
[2020-09-30] MEDS: LORazepam 2 mg/mL INJ 1 mL 1 MG IVP (11:03)
--- NOTE | 2020-09-30 13:00 | P.PN_ITS ---
Subjective Subjective: Interval history: Precedex was turned off at 4 AM this morning. Patient is much more alert and awake this morning. Able to have a full conversation. No longer somnolent. Noted to have desaturation to 85% when asleep, placed on CPAP. Saturating 94 to 95% on room air today. Last CIWA score was 2. Cellulitis is much improved. Blood culture remains negative to date Medications: Reviewed: Yes Vitals/I&O/Wt Last Vital Signs Temp 98.7 F 09/30/20 04:00 Pulse 104 H 09/30/20 12:00 Resp 26 H 09/30/20 12:00 BP 148/101 09/30/20 12:00 Pulse Ox 91 09/30/20 12:00 09/30/20 09/30/20 09/30/20 06:59 14:59 22:59 Intake Total 331.848 / 3335.848 980 / 980 Output Total 2325 / 7150 1300 / 1300 Balance -1993.152 / -3814.152 -320 / -320 Weight last 48 hrs Weight 148.37 kg Weight 155.31 kg Physical Exam Narrative: EXAM NARRATIVE: GEN: Awake, alert and oriented, no acute distress CVS: S1S2 N RS: CTA B/L Abd: Soft, nt/nd , bs+ VP PUBLIC RELATIONS: no focal neuro deficits Extremity improving cellulitis of the right upper extremity Data : 09/30/20 04:50 09/30/20 04:50 Micro: Microbiology 09/30/20 04:58 Blood Culture - Preliminary Blood SPECIMEN COLLECTED 09/30/20 04:50 Blood Culture - Preliminary Blood SPECIMEN COLLECTED A&P Assessment and plan (1) Cellulitis of arm, right: Cellulitis improving significantly Vancomycin IV dosing per pharmacy Status: Acute (2) Chronic alcohol abuse: Admitted initially with withdrawal, was placed on Precedex yesterday due to increased somnolence, thought to be exacerbated by Ativan. This has been turned off at 4 AM. Last CIWA score is 2. Patient is requiring minimal Ativan today. Overlap with p.o. Librium is ongoing. Patient is awake for most time today, alert and oriented, oxygen saturation 94 to 95% when awake. Drops between 85 to 89% when asleep, using CPAP for the same. Denies any current suicidal ideation at this present time. No active intent or plan. Plan for transfer to NPU for medical stabilization targeting depression and anxiety once stable. 96-hour hold lifted. Continue thiamine CIWA protocol Status: Acute (3) Methamphetamine abuse: Monitor for withdrawal Status: Acute (4) Suicidal ideation: Current active plan or intent. Denies current suicidal ideation. 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
--- NOTE | 2020-09-30 13:35 | PC.NURSE ---
96 hour hold was lifted and informed patient of consequences of leaving AMA. Education was given on sustaining from drugs and alcohol, importance of picking up prescription medications from the pharmacy and S/S of infection. Patient signed AMA forms and left at 1325. Patient was alert and orientated x 4 and ambulated to door.
--- NOTE | 2020-09-30 13:40 | PM.DCS ---
Discharge Providers Date of Admission: 09/27/20 14:31 Date of Discharge: September 30, 2020 Attending Provider at Admission: Gilbert Garcia MD Attending Provider at Discharge: Patricia Mayes MD Primary Care Provider: Kain aZfar MD Diagnoses at Discharge Discharge Diagnosis (1) Cellulitis of arm, right: Status: Acute (2) Chronic alcohol abuse: Status: Acute (3) Methamphetamine abuse: Status: Acute (4) Suicidal ideation: Status: Acute (5) Acute hypokalemia: Status: Acute (6) Hypomagnesemia: Status: Acute (7) Sepsis: Status: Acute Qualifiers: Sepsis acute organ dysfunction status: without acute organ dysfunction Sepsis type: sepsis due to unspecified organism Qualified Code(s): A41.9 - Sepsis, unspecified organism Reason for Visit Reason for Visit: [facility] Hospital Course Hospital Course Please see my dictated progress note from today. Patient left AMA at 1425. He was alert awake and oriented x4 and ambulated by himself. Remained stable at discharge.Did not take his prescriptions with him Discharge Data Data Completed and Pending: Completed Studies During Hospitalization Category [place] [id number] Urgent Ultrasound 09/27/20 07:42 Completed Pending at discharge Category Date Time Status Blood Culture AM LABS Lab 09/30/20 04:58 Results Blood Culture Sta t Lab 09/27/20 04:10 Results Vancomycin Trough Timed Lab 09/30/20 20:00 Ordered Labs from last 24 hours 09/30/20 09/30/20 04:50 04:50 WBC 8.4 RBC 4.14 Hgb 12.6 Hct 38.6 L MCV 93.2 MCH 30.4 MCHC 32.6 RDW 12.7 Plt Count 282 MPV 10.2 Neut % (Auto) 66.3 Lymph % (Auto) 18.5 Pratt % (Auto) 7.8 Eos % (Auto) 2.8 Baso % (Auto) 0.9 Neut # (Auto) 5.59 Lymph # (Auto) 1.6 Pratt # (Auto) 0.7 Eos # (Auto) 0.2 Baso # (Auto) 0.1 Nucleated RBC % (a uto) 0 Nucleated RBCs # 0.0 Sodium 135 L Potassium 4.3 Chloride 99 Carbon Dioxide 31 H Anion Gap 9.3 BUN 10 Creatinine 0.6 L GFR Calculation 152.4 H Glucose 119 H Calculated Osmolal ity 280 L Calcium 9.0 Total Bilirubin 0.2 AST 49 H ALT 59 H Alkaline Phosphata se 77 Total Protein 6.9 Albumin 3.3 L Globulin 3.6 Vitals: Last Vital Signs Temp 98.7 F 09/30/20 04:00 Pulse 104 H 09/30/20 12:00 Resp 26 H 09/30/20 12:00 BP 148/101 09/30/20 12:00 Pulse Ox 91 09/30/20 12:00 Discharge Plan Discharge Patient Disposition: Left Against Medical Advice Condition: Stable Prescriptions: New chlordiazepoxide HCl 25 mg Capsule See Rx Instructions .ROUTE .COMPLEX Qty: 10 RF: 0 cefadroxil 1 gram tablet 1,000 mg PO Q12H 5 Days Qty: 10 RF: 0 Discontinued gabapentin 600 mg Tablet 1,200 mg PO BEDTIME RF: 0 Referrals: Kain Zafar MD [Primary Care Provider] - Discharge Attestations Time Spent in Discharge Care*: greater than 30 min Quality Metrics Clinical Quality Measures During this hospital stay, did patient experience: None Coding Level of Care Code 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
== END 2020-09-30 13:25 | disposition left against medical advice (07) | DRG 872 ==
LOC: ER 09:12 → ICU 17:20
PROVIDERS: Admitting Provider Internal Medicine; Emergency Provider Physician Assistant; PCP Family Medicine; Visit Provider Student in an Organized Health Care Education/Training Program
DX: A41.9 Sepsis, unspecified organism (principal); L03.113 Cellulitis of right upper limb; R45.851 Suicidal ideations; F10.139 Alcohol abuse with withdrawal, unspecified; Z68.42 Body mass index [BMI] 45.0-49.9, adult; F15.10 Other stimulant abuse, uncomplicated; F41.8 Other specified anxiety disorders; Z91.5 Personal history of self-harm; R29.6 Repeated falls; E66.9 Obesity, unspecified; F17.210 Nicotine dependence, cigarettes, uncomplicated; E87.6 Hypokalemia; E83.42 Hypomagnesemia; G47.30 Sleep apnea, unspecified; Z53.29 Procedure and treatment not carried out because of patient's decision for other reasons
CPT/HCPCS: 12345; 36415; 80053; 80074; 80202; 80306; 80307; 83605; 83735; 84443; 85025; 86140; 87040; 93005; 93971; 94660; 96372; 99284; J1170; J1650; J2060; J3370; J3411; J3475; J3480; J7030; J7040; J7050

== ENCOUNTER 2020-09-30 17:20 | Emergency (ER) | payer SELFPAY ==
[2020-09-30 17:22] VITALS: BP 118/63; PULSE 112; RESP 24; TEMP 36.4; O2SAT 95; BMI 40.1
[2020-09-30 17:35] VITALS: PULSE 113; RESP 24; O2SAT 85; O2SAT 94
--- NOTE | 2020-09-30 17:53 | W.ED.AMS ---
HPI - Altered Mental Status General: Chief Complaint: Altered Mental Status Stated Complaint: AMS/ POSSIBLE INGESTION/ VOMITING Time Seen by Provider: 09/30/20 17:42 Source: patient and EMS Mode of arrival: EMS Limitations: altered mental status History of Present Illness: HPI narrative: This patient is a 35-year-old male who actually signed out AGAINST MEDICAL ADVICE from the ICU today less than 2 hours ago. He was admitted to the ICU for cellulitis of his right arm, suicidal ideation and multiple electrolyte abnormalities. He was placed on a 96-hour hold at the time, and the 96-hour hold was rescinded this morning. The patient states once he was told that he could leave if he wanted to he decided to leave. Since he left he admits to drinking a pint of vodka. He also admitted that he has used methamphetamines since discharge. His friend called for an ambulance because they were concerned as he was altered. The patient states that he would like some help. MD complaint: altered mental status and intoxication Review of Systems General: Reports: 10 or more systems reviewed and unremarkable except in HPI and below Const: Denies: fever(s), chills or body aches Eyes: Denies: change in vision or blurry vision ENMT: Denies: throat pain, enlarged tonsils, odynophagia, hoarseness, mouth pain or swelling of lips/tongue Card: Reports: chest pain; Denies: palpitations, irregular heart rhythm, edema or swelling of feet/ankles Resp: Denies: dyspnea, productive cough or non-productive cough GI: Denies: abdominal pain, nausea or vomiting : Denies: flank pain, dysuria, urinary frequency, urinary urgency or urinary hesitancy Musc: Denies: neck pain, back pain or extremity swelling Skin/Breast: Denies: rash, pruritus or erythema Neuro: Denies: headache(s), numbness in extremities or weakness in extremities Endo: Denies: polyuria, polydipsia or tired all the time PFSH ED PFSH: Medical History (Reviewed 09/30/20 @ 18:02 by Tisha Armenta MD, [facility] [place]) Alcoholism Anxiety and depression Bilateral lower extremity edema Cellulitis Elevated blood pressure reading Falls frequently Obesity Tobacco dependency Surgical History (Reviewed 09/30/20 @ 18:02 by Tisha Armenta MD, [facility] [place]) History of foot surgery Hx of cholecystectomy Family History (Reviewed 09/30/20 @ 18:02 by Tisha Armenta MD, [facility] [place]) Other Diabetes Social History (Reviewed 09/30/20 @ 18:02 by Tisha Armenta MD, [facility] [place]) Smoking and tobacco status: current every day smoker cigarettes Packs smoked per day: 1 Alcohol intake: current Alcohol intake frequency: few times a month Current occupational status: unemployed Physical Exam Const: COMMON NORMALS: no acute distress, average body habitus, patient oriented x3, no limitations, healthy appearing, alert and well nourished HENMT: COMMON NORMALS: normocephalic, atraumatic and moist oral mucous membranes HEAD & SCALP: normocephalic and atraumatic Neck/C-Spine: COMMON NORMALS: no meningeal signs and no JVD Resp: COMMON NORMALS: normal respiratory effort, No retractions, No use of accessory muscles, clear to auscultation bilaterally and percussion normal AUSCULTATION: clear to auscultation bilaterally PERCUSSION: percussion normal Cardio: COMMON NORMALS: no JVD, regular rate, regular rhythm, S1 normal heart sound present, S2 normal heart sound present, No gallops present (Cardio), No clicks present (Cardio), No murmurs present (Cardio), No rub (Cardio) and Peripheral pulses 2+ throughout RATE: regular rate RHYTHM: regular rhythm HEART SOUNDS: S1 normal heart sound present and S2 normal heart sound present PERIPHERAL PULSES: Peripheral pulses 2+ throughout GI: COMMON NORMALS: Normal to inspection, nondistended, normoactive bowel sounds present, Soft to palpation, non-tender, No hepatosplenomegaly present, no masses and no bruits PALPATION: Yes Soft to palpation and Yes No hepatosplenomegaly present Extremity: COMMON NORMALS: normal to inspection, full ROM, capillary refill normal, no calf tenderness and no pedal edema Neuro: COMMON NORMALS: patient oriented x3 SENSORIUM/ORIENTATION: Yes alert MENINGEAL SIGNS: Yes no meningeal signs Skin: COMMON NORMALS: no rashes or lesions noted, no wounds, turgor normal, no jaundice, no petechiae and no mottling GENERAL SKIN EXAM: no rashes or lesions noted and turgor normal Course Reevaluation(s): Reevaluation #1: I went to discuss his lab and imaging findings with him, when I got to his room the patient was not and I checked the restrooms in the emergency department he was in the either. The patient had eloped. Security is informed and asked them to call law enforcement as I believe the patient had an IV catheter still in his vein. Time: 20:50 Vital Signs: Vital signs: Vital Signs Temperature 97.6 F 09/30/20 17:22 Pulse Rate 107 H 09/30/20 18:27 Respiratory Rate 32 H 09/30/20 18:27 Blood Pressure 131/82 09/30/20 20:00 Pulse Oximetry 97 09/30/20 20:00 MDM - Altered Mental Status MDM Narrative: Medical decision making narrative: 35-year-old male with a history of polysubstance abuse presents to the emergency department today after his friend had called for an ambulance. The patient was admitted to the ICU, was initially on a 96-hour hold. The 96-hour hold was rescinded today and patient signed out AGAINST MEDICAL ADVICE. Less than 2 hours after he signed out AMA he was brought to the emergency department and he admitted to have drank a pint of vodka and shot up methamphetamines. The patient eventually eloped from the ED. He was initially altered but became alert and oriented prior to this. Security was informed and they called law enforcement to go to his place of residence as the patient is believed to have an IV catheter still in his vein. Medical Records: Attestation: I reviewed the patient's medical records. Lab Data: Attestation: I reviewed the patient's lab results. Labs: Lab Results 09/30/20 09/30/20 09/30/20 Range/Units 18:05 18:20 18:20 WBC 10.5 H (4.0-10.0) 10^3/ uL RBC 4.36 (4.1-5.3) 10^6/u L Hgb 13.3 (11.7-16.6) g/dL Hct 40.4 L (42.0-52.0) % MCV 92.7 (80-94) fL MCH 30.5 (28.0-34.0) pg MCHC 32.9 (30.0-36.0) g/dL RDW 12.9 (12.1-15.1) % Plt Count 305 (130-400) 10^3/c mm MPV 9.8 (7.4-10.4) fL Neut % (Auto) 73.6 % Lymph % (Auto) 15.8 % [place] % (Auto) 9.4 % Eos % (Auto) 1.0 % Baso % (Auto) 0.2 % Neut # (Auto) 7.07 (1.8-7.7) 10^3/u L Lymph # (Auto) 1.7 (0.8-4.8) 10^3/u L [place] # (Auto) 1.0 H (0.2-0.9) 10^3/u L Eos # (Auto) 0.1 (0.0-0.8) 10^3/u L Baso # (Auto) 0.0 (0.0-0.1) 10^3/u L Nucleated RBC % (a uto) 0 % Nucleated RBCs # 0.0 /100WBC Specimen Type Arterial Sample Site Radial, right ABG pH 7.35 (7.35-7.45) ABG pCO2 46.2 H (35-45) mmHg ABG pO2 104.0 H (80.0-100.0) mmH g ABG HCO3 25.7 (22-26) mmol/L ABG Base Excess -0.3 (-2.0-2.0) mmol/ L Maxim Test Pos Hematocrit 40.9 L (42-52) % O2 Delivery Device Nc O2 Liters/Min 6.0 % FiO2 46.0 % Project Buyer ID Ed Sodium 134 L (136-145) mmol/L Potassium 3.9 (3.5-5.1) mmol/L Chloride 97 L (98-107) mmol/L Carbon Dioxide 23 (22-29) mmol/L Anion Gap 17.9 (5-19) BUN 10 (6-20) mg/dL Creatinine 0.7 (0.7-1.2) mg/dL GFR Calculation 127.6 (90-130) mL/min Glucose 120 H (65-115) mg/dL Calculated Osmolal ity 278 L (285-295) mOsm/k g Lactate (0.5-2.2) mmol/L Calcium 9.0 (8.5-10.5) mg/dL Total Bilirubin 0.2 (0.15-1.2) mg/dL AST 101 H (0-40) U/L ALT 87 H (0-41) U/L Alkaline Phosphata se 84 (40-130) IU/L Creatine Kinase 247 (39-308) U/L C-Reactive Protein 16.4 H (0.0-4.9) mg/L Total Protein 7.4 (6.6-8.7) g/dL Albumin 3.6 (3.5-5.2) g/dL Globulin 3.8 (1.3-4.6) g/dL Procalcitonin 0.10 (0-0.5) ng/mL Urine Color (Yellow) Urine Appearance (CLEAR) Urine pH (5-7) Ur Specific Gravit y (1.005-1.030) Urine Protein (Negative) Urine Glucose (UA) (Normal) Urine Ketones (Negative) Urine Blood (Negative) Urine Nitrate (Negative) Urine Bilirubin (Negative) Urine Urobilinogen (Negative) mg/dL Ur Leukocyte [place] (Negative) Salicylates < 0.3 L (3-10) mg/dL Urine Opiates Scre en (Negative) ng/mL Acetaminophen < 5.0 L (10-30) ug/mL Ur Barbiturates Sc reen (Negative) ng/mL Ur Phencyclidine S crn (Negative) ng/mL Ur Amphetamines Sc reen (Negative) ng/mL U Benzodiazepines Scrn (Negative) ng/mL Urine Cocaine Scre en (Negative) ng/mL U Marijuana (THC) Screen (Negative) ng/mL Ethyl Alcohol 208 H (0-10) mg/dL 09/30/20 09/30/20 09/30/20 Range/Units 18:20 18:46 18:46 WBC (4.0-10.0) 10^3/ uL RBC (4.1-5.3) 10^6/u L Hgb (11.7-16.6) g/dL Hct (42.0-52.0) % MCV (80-94) fL MCH (28.0-34.0) pg MCHC (30.0-36.0) g/dL RDW (12.1-15.1) % Plt Count (130-400) 10^3/c mm MPV (7.4-10.4) fL Neut % (Auto) % Lymph % (Auto) % [place] % (Auto) % Eos % (Auto) % Baso % (Auto) % Neut # (Auto) (1.8-7.7) 10^3/u L Lymph # (Auto) (0.8-4.8) 10^3/u L [place] # (Auto) (0.2-0.9) 10^3/u L Eos # (Auto) (0.0-0.8) 10^3/u L Baso # (Auto) (0.0-0.1) 10^3/u L Nucleated RBC % (a uto) % Nucleated RBCs # /100WBC Specimen Type Sample Site ABG pH (7.35-7.45) ABG pCO2 (35-45) mmHg ABG pO2 (80.0-100.0) mmH g ABG HCO3 (22-26) mmol/L ABG Base Excess (-2.0-2.0) mmol/ L Maxim Test Hematocrit (42-52) % O2 Delivery Device O2 Liters/Min % FiO2 % Project Buyer ID Sodium (136-145) mmol/L Potassium (3.5-5.1) mmol/L Chloride (98-107) mmol/L Carbon Dioxide (22-29) mmol/L Anion Gap (5-19) BUN (6-20) mg/dL Creatinine (0.7-1.2) mg/dL GFR Calculation (90-130) mL/min Glucose (65-115) mg/dL Calculated Osmolal ity (285-295) mOsm/k g Lactate 2.3 H (0.5-2.2) mmol/L Calcium (8.5-10.5) mg/dL Total Bilirubin (0.15-1.2) mg/dL AST (0-40) U/L ALT (0-41) U/L Alkaline Phosphata se (40-130) IU/L Creatine Kinase (39-308) U/L C-Reactive Protein (0.0-4.9) mg/L Total Protein (6.6-8.7) g/dL Albumin (3.5-5.2) g/dL Globulin (1.3-4.6) g/dL Procalcitonin (0-0.5) ng/mL Urine Color Yellow (Yellow) Urine Appearance Clear (CLEAR) Urine pH 5 (5-7) Ur Specific Gravit y 1.010 (1.005-1.030) Urine Protein Neg (Negative) Urine Glucose (UA) Norm (Normal) Urine Ketones Negative (Negative) Urine Blood Neg (Negative) Urine Nitrate Negative (Negative) Urine Bilirubin Neg (Negative) Urine Urobilinogen Norm (Negative) mg/dL Ur Leukocyte [place] Negative (Negative) Salicylates (3-10) mg/dL Urine Opiates Scre en Positive H (Negative) ng/mL Acetaminophen (10-30) ug/mL Ur Barbiturates Sc reen Negative (Negative) ng/mL Ur Phencyclidine S crn Negative (Negative) ng/mL Ur Amphetamines Sc reen Negative (Negative) ng/mL U Benzodiazepines Scrn Positive H (Negative) ng/mL Urine Cocaine Scre en Negative (Negative) ng/mL U Marijuana (THC) Screen Negative (Negative) ng/mL Ethyl Alcohol (0-10) mg/dL Imaging Data^: CXR: Attestation: I personally reviewed and interpreted this imaging study as follows: Radiologist's impression: [employer] [address] XRay Report Signed Patient: Fortunato Marie #: [id number] : 1985Acct#:[id number] Age/Sex: 35 / MADM Date: 09/30/20 Loc: [facility]/Bed: Attending Dr: Ordering Provider/Ordering MD: Tisha Armenta MD, [facility] [place] Date of Service: 09/30/20 Procedure(s): XR chest 1V portable [id number] Accession Number(s): [id number] Report Number: [id number] PROCEDURE INFORMATION: Exam: XR Chest, 1 View Exam date and time: 09/30/2020 6:37 PM Age: 35 years old Clinical indication: Dyspnea; Additional info: SOB, hypoxia TECHNIQUE: Imaging protocol: XR of the chest Views: 1 view. COMPARISON: CR Chest 1 [place] [id number] 08/13/2018 8:18 AM FINDINGS: Lungs: No consolidation. Pleural space: No pleural effusion. No pneumothorax. Heart/Mediastinum: No cardiomegaly. Bones/joints: Degenerative spine changes are noted. XR/XR chest 1V portable [id number] IMPRESSION: 1. No acute cardiopulmonary disease demonstrated. 2. There is no interval change from the prior examination. Dictated By:Rashid Espinosa MD Signed By:Rashid Espinosa MDSigned Date/Time:09/30/202142 DD/ 40 Discharge Plan Discharge Patient Disposition: Left Against Medical Advice Clinical Impression: Alcoholic intoxication, Methamphetamine abuse Prescriptions: No Action gabapentin 600 mg Tablet 1,200 mg PO BEDTIME RF: 0 chlordiazepoxide HCl 25 mg Capsule See Rx Instructions .ROUTE .COMPLEX Qty: 10 RF: 0 cefadroxil 1 gram tablet 1,000 mg PO Q12H 5 Days Qty: 10 RF: 0 Referrals: Kain Zafar MD [Primary Care Provider] - Coding Level of Care Code ED Independent Living Specialist for Chg Fwd Exam Comprehensive
[2020-09-30 18:00] VITALS: PULSE 106; RESP 32; O2SAT 95
--- NOTE | 2020-09-30 18:02 | XRR_ITS ---
PROCEDURE INFORMATION: Exam: XR Chest, 1 View Exam date and time: 09/30/2020 6:37 PM Age: 35 years old Clinical indication: Dyspnea; Additional info: SOB, hypoxia TECHNIQUE: Imaging protocol: XR of the chest Views: 1 view. COMPARISON: CR Chest 1 [place] [id number] 08/13/2018 8:18 AM FINDINGS: Lungs: No consolidation. Pleural space: No pleural effusion. No pneumothorax. Heart/Mediastinum: No cardiomegaly. Bones/joints: Degenerative spine changes are noted. XR/XR chest 1V portable [id number] IMPRESSION: 1. No acute cardiopulmonary disease demonstrated. 2. There is no interval change from the prior examination.
[2020-09-30 18:15] LABS: ABG PCO2 46.2 mmHg (35-45); ABG PH Result 7.35 (7.35-7.45); Arterial Blood Gas Hematocrit 40.9 % (42-52); Base Excess ABG -0.3 mmol/L (-2.0-2.0); Blood Gas Allen Test Pos; Blood Gas Operator Identificat ED; Blood Gas Sample Site Radial, right; Blood Gas Sample Type Arterial; HCO3 ABG 25.7 mmol/L (22-26); Oxygen Device NC
[2020-09-30 18:27] VITALS: BP 124/74; PULSE 107; RESP 32; O2SAT 95
[2020-09-30 18:29] LABS: Basophils % 0.2 %; Eosinophils # 0.1 10^3/uL (0.0-0.8); Hematocrit 40.4 % (42.0-52.0); Hemoglobin 13.3 g/dL (11.7-16.6); Lymphocytes # 1.7 10^3/uL (0.8-4.8); Lymphocytes % 15.8 %; Mean Corpuscular HGB Conc 32.9 g/dL (30.0-36.0); Mean Corpuscular Hemoglobin 30.5 pg (28.0-34.0); Mean Corpuscular Volume 92.7 fL (80-94); Mean Platelet Volume 9.8 fL (7.4-10.4); Monocytes % 9.4 %; Neutrophils # 7.07 10^3/uL (1.8-7.7); Nucleated Red Blood Cells % 0 %; Platelet Count 305 10^3/cmm (130-400); Red Blood Count 4.36 10^6/uL (4.1-5.3); Red Cell Distribution Width 12.9 % (12.1-15.1); White Blood Count 10.5 10^3/uL (4.0-10.0)
[2020-09-30 19:00] LABS: Neutrophils % 73.6 %
[2020-09-30 19:01] LABS: Slide Review Slide Review Perform
[2020-09-30 19:37] LABS: Lactate (Lactic Acid level) 2.3 mmol/L (0.5-2.2)
[2020-09-30 19:56] LABS: Alanine Aminotransferase 87 U/L (0-41); Albumin Level 3.6 g/dL (3.5-5.2); Alcohol Level 208 mg/dL (0-10); Alkaline Phosphatase 84 IU/L (40-130); Anion Gap 17.9 (5-19); Aspartate Amino Transferase 101 U/L (0-40); Blood Urea Nitrogen 10 mg/dL (6-20); C Reactive Protein 16.4 mg/L (0.0-4.9); Carbon Dioxide 23 mmol/L (22-29); Chloride 97 mmol/L (98-107); Creatine Phosphokinase 247 U/L (39-308); Globulin 3.8 g/dL (1.3-4.6); Glomerular Filtration Rate 127.6 mL/min (90-130); Glucose 120 mg/dL (65-115); Osmolality Calculated 278 mOsm/kg (285-295); Potassium 3.9 mmol/L (3.5-5.1); Sodium 134 mmol/L (136-145); Total Bilirubin 0.2 mg/dL (0.15-1.2); Total Protein 7.4 g/dL (6.6-8.7)
[2020-09-30 19:57] LABS: Acetaminophen < 5.0 ug/mL (10-30); Salicylate < 0.3 mg/dL (3-10)
[2020-09-30 20:00] VITALS: BP 131/82; O2SAT 97
[2020-09-30 20:00] LABS: Add Urine Microscopic? NO
[2020-09-30 20:14] LABS: Bilirubin Urine Neg (Negative); Blood Urine Neg (Negative); Glucose Urine UA Norm (Normal); Ketones Urine Negative (Negative); Leukocyte Esterase Urine Negative (Negative); Nitrate Urine Negative (Negative); Protein Urine Neg (Negative); Urine Appearance Clear (CLEAR); Urine Color Yellow (Yellow); Urobilinogen Urine Norm (Negative); pH Urine 5 (5-7)
[2020-09-30 20:22] LABS: Amphetamines Screen Urine Negative (Negative); Barbiturates Screen Urine Negative (Negative); Benzodiazepines Screen Urine Positive (Negative); Cocaine Screen Urine Negative (Negative); Opiate Screen Urine Positive (Negative); PCP Screen Urine Negative (Negative); THC Screen Urine Negative (Negative)
--- NOTE | 2020-09-30 21:20 | PC.NURSE ---
after pt rounding, pt not in room. approx 2029. notified. Security contacted PD due to pt having IV saline lock. derrick engineer notified. Pt discharged as elopement
== END 2020-09-30 20:30 | disposition left against medical advice (07) ==
PROVIDERS: Emergency Provider Family Medicine; PCP Family Medicine
DX: F10.129 Alcohol abuse with intoxication, unspecified (principal); F15.10 Other stimulant abuse, uncomplicated; Z53.21 Procedure and treatment not carried out due to patient leaving prior to being seen by health care provider; Y90.7 Blood alcohol level of 200-239 mg/100 ml; F17.210 Nicotine dependence, cigarettes, uncomplicated
CPT/HCPCS: 12345; 36600; 71045; 80053; 80306; 80307; 81003; 82550; 82803; 83605; 84145; 85025; 86140; 99282; 99283

== ENCOUNTER 2020-09-30 22:16 | Emergency (ER) | payer SELFPAY ==
[2020-09-30 22:21] VITALS: BP 155/106; PULSE 120; RESP 24; TEMP 36.8; O2SAT 98; BMI 38.7
[2020-09-30 22:39] VITALS: PULSE 115; RESP 26; O2SAT 95
--- NOTE | 2020-09-30 23:22 | W.ED.PSYCH ---
HPI - Psych General: Chief Complaint: Psychiatric Symptoms Stated Complaint: SOB/SI Time Seen by Provider: 09/30/20 22:47 History of Present Illness: HPI Narrative: 35-year-old male back for a second visit to the ER today. He had left AMA earlier from the ICU after his 96-hour hold was rescinded. He then represented to the emergency department and eloped thereafter. He is back to the ER now saying that he has suicidal ideation. He does not have a specific plan. He says he is very anxious, and wants anxiety medication. He states that he left because he needed to go check on his brother who does not have electricity at his home. complaint: suicidal ideation and feels depressed Onset (ago): hour(s) Duration: constant History of same: Yes Relieving factors: none Exacerbating factors: none Context: recent alcohol abuse, recent drug abuse and not taking psychiatric medications Associated psychiatric symptoms: depression and suicidal ideation Treatments prior to arrival: none Details of plan: no plan Review of Systems Const: Denies: fever(s) or chills Card: Reports: palpitations; Denies: chest pain Resp: Denies: dyspnea, productive cough or non-productive cough GI: Denies: abdominal pain, nausea or vomiting PFSH ED PFSH: Medical History Alcoholism Anxiety and depression Bilateral lower extremity edema Cellulitis Elevated blood pressure reading Falls frequently Obesity Tobacco dependency Surgical History History of foot surgery Hx of cholecystectomy Family History Other Diabetes Social History Smoking and tobacco status: current every day smoker cigarettes Packs smoked per day: 1 Alcohol intake: current Alcohol intake frequency: few times a month Current occupational status: unemployed Physical Exam Const: EXAM LIMITATIONS: behavioral limitations GENERAL APPEARANCE: anxious ORIENTATION/CONSCIOUSNESS: Yes awake, Yes oriented to person and Yes oriented to place; not oriented to time Chest: COMMONS NORMALS: normal inspection of the chest Resp: COMMON NORMALS: normal respiratory effort, No use of accessory muscles and clear to auscultation bilaterally AUSCULTATION: clear to auscultation bilaterally Cardio: COMMON NORMALS: regular rate and regular rhythm RATE: regular rate RHYTHM: regular rhythm GI: COMMON NORMALS: Normal to inspection, nondistended, normoactive bowel sounds present and non-tender Neuro: SENSORIUM/ORIENTATION: Yes oriented to person, Yes oriented to place and No oriented to time Psych: APPEARANCE: Yes unkempt ATTITUDE: Yes Guarded attititude/behavior present ACTIVITY/MOTOR BEHAVIOR: Yes psychomotor agitation, Yes fidgeting and Yes restless SPEECH: Yes rapid MOOD & AFFECT: Yes anxious and Yes irritable THOUGHT PROCESS: Circumstantial thought process present THOUGHT CONTENT: Yes Suicidality present ATTENTION/CONCENTRATION: Yes attention grossly impaired MEMORY/COGNITION: Yes cognition grossly intact INSIGHT: Limited insight present (Psych) JUDGEMENT: Limited judgement present (Psych) Skin: NARRATIVE SKIN EXAM: Resolving cellulitis of the right forearm and arm. MDM - Psych MDM Narrative: Medical decision making narrative: This 35-year-old man complains of being suicidal, but has no plan. He acts very agitated in the room, somewhat shaking saying he is anxious. when unobserved, this behavior stops. He asks for anxiety medication I spoke with the psychiatrist on-call who had originally rescinded his 96-hour hold. He states that since the patient has no plan for lethality, has come back to the hospital several times, and is exhibiting behaviors such to make us believe he is leaving the hospital to use and then returning wanting medications, that there is a secondary gain to his behavior. He was provided with case management help to obtain outpatient services for both substance abuse and psychiatric care during his admission. I was attempting to repeat that case management referral, and make sure he had a prescription for antibiotics to continue for the cellulitis of his right forearm, when the patient walked out/eloped from the ER again. Discharge Plan Discharge Patient Disposition: Left Against Medical Advice Clinical Impression: Methamphetamine abuse Cellulitis Qualifiers: Site of cellulitis: extremity Site of cellulitis of extremity: upper extremity Laterality: right Qualified Code(s): L03.113 - Cellulitis of right upper limb Drug-induced psychotic disorder Qualifiers: Complication of substance-induced condition: with delusions Qualified Code(s): F19.950 - Other psychoactive substance use, unspecified with psychoactive substance-induced psychotic disorder with delusions Prescriptions: No Action gabapentin 600 mg Tablet 1,200 mg PO BEDTIME RF: 0 chlordiazepoxide HCl 25 mg Capsule See Rx Instructions .ROUTE .COMPLEX Qty: 10 RF: 0 cefadroxil 1 gram tablet 1,000 mg PO Q12H 5 Days Qty: 10 RF: 0 Referrals: Kain Zafar MD [Primary Care Provider] - Coding Level of Care Code ED Export Clerk for Chg Fwd Exam Detailed
--- NOTE | 2020-09-30 23:41 | PC.NURSE ---
patient stated he wanted to leave, confirmed with MD, patient left without dc or AMA papers signed
== END 2020-09-30 23:42 | disposition left against medical advice (07) ==
PROVIDERS: Emergency Provider Emergency Medicine; PCP Family Medicine
DX: L03.113 Cellulitis of right upper limb (principal); F19.950 Other psychoactive substance use, unspecified with psychoactive substance-induced psychotic disorder with delusions; Z53.21 Procedure and treatment not carried out due to patient leaving prior to being seen by health care provider; F17.210 Nicotine dependence, cigarettes, uncomplicated
CPT/HCPCS: 12345; 99284

== ENCOUNTER 2020-10-24 07:13 | Inpatient (IN) | payer SELFPAY ==
[2020-10-24] VITALS (9 sets, daily range): BP systolic 128–144; BP diastolic 70–87; PULSE 78–119; RESP 18–24; TEMP 36.2–37.2; O2SAT 90–97; BMI 45.9
--- NOTE | 2020-10-24 07:26 | ED_ITS ---
Documented by User: KALIN Tamez 10/24/20 10:26 HPI - Psych General: Chief Complaint: Psychiatric Symptoms Stated Complaint: alcoholic, si Time Seen by Provider: 10/24/20 07:19 Source: patient Mode of arrival: ambulatory Limitations: no limitations History of Present Illness: HPI Narrative: Patient is a 35-year-old male who presents to ED today stating he is suicidal. Patient tells me he has had two previous suicide attempts. He states recently he purposely shot up a large amount of dope and attempts to kill himself. He also states approximately a month ago he took 40 tramadol tablets in a suicide attempt. Patient is a heavy every day drinker. He states his withdrawal symptoms include nausea and shaking. He states he has never had a withdrawal seizure. Patient is not homicidal. He is not experiencing hallucinations. Patient has been seen in our facility several times. He has a history of elopement. MD complaint: suicidal ideation and feels depressed Onset (ago): day(s) Duration: constant History of same: Yes Context: recent alcohol abuse and recent drug abuse Associated symptoms: Reports depression and suicidal ideation; Deny auditory hallucinations, visual hallucinations or homicidal ideation Treatments prior to arrival: none If self harm: admits thoughts of self harm Review of Systems Const: Denies: fever(s), chills or fatigue Card: Denies: chest pain, palpitations, lightheadedness or syncope Resp: Denies: dyspnea GI: Denies: abdominal pain, nausea, vomiting or diarrhea Skin/Breast: Denies: rash Neuro: Denies: headache(s) Psych: Reports: anxiety, depression, hopelessness, loss of interest and suicidal ideation; Denies: visual hallucinations, auditory hallucinations or homicidal ideation PFS ED PFSH: Medical History Alcoholism Anxiety and depression Bilateral lower extremity edema Cellulitis Elevated blood pressure reading Falls frequently Obesity Tobacco dependency Surgical History History of foot surgery Hx of cholecystectomy Family History Other Diabetes Social History Smoking and tobacco status: current every day smoker cigarettes Packs smoked per day: 1 Alcohol intake: current Alcohol intake frequency: few times a month Current occupational status: unemployed Physical Exam Const: COMMON NORMALS: no acute distress, patient oriented x3, no limitations and alert GENERAL APPEARANCE: cooperative NUTRITIONAL APPEARANCE: obese morbidly obese ORIENTATION/CONSCIOUSNESS: Yes awake, Yes oriented to person, Yes oriented to place and Yes oriented to time OTHER: intoxciated Resp: COMMON NORMALS: normal respiratory effort and clear to auscultation bilaterally AUSCULTATION: clear to auscultation bilaterally Cardio: COMMON NORMALS: regular rate and regular rhythm RATE: regular rate RHYTHM: regular rhythm Neuro: VADIM COMA SCALE: document GCS findings [place] coma scale eye opening: Spontaneous Vadim coma scale verbal response: Orientated [place] coma scale motor response: Obey commands Vadim coma scale total score: 15 COMMON NORMALS: patient oriented x3 SENSORIUM/ORIENTATION: Yes alert, Yes oriented to person, Yes oriented to place and Yes oriented to time Psych: COMMON NORMALS: mental status grossly normal, Normal thought process present, cooperative, normal affect, speech normal (slightly slurred due to intoxication ), activity/motor behavior normal, denies hallucinations and denies homicidal ideation APPEARANCE: Yes grossly normal ATTITUDE: Yes calm ACTIVITY/MOTOR BEHAVIOR: Yes appropriate eye contact and No psychomotor agitation SPEECH: Yes normal speech (slightly slurred due to intoxication ) MOOD & AFFECT: Yes euthymic mood THOUGHT PROCESS: Normal thought process present THOUGHT CONTENT: Yes Normal thought content present ATTENTION/CONCENTRATION: Yes attention grossly intact and Yes concentration grossly intact MEMORY/COGNITION: Yes memory grossly intact and Yes cognition grossly intact INSIGHT: Fair insight present (Psych) JUDGEMENT: Fair judgement present (Psych) MDM - Psych Lab Data: Labs: Lab Results 10/24/20 10/24/20 Range/Units 07:42 07:42 WBC 7.6 (4.0-10.0) 10^3/ uL RBC 4.01 L (4.1-5.3) 10^6/u L Hgb 12.4 (11.7-16.6) g/dL Hct 37.7 L (42.0-52.0) % MCV 94.0 (80-94) fL MCH 30.9 (28.0-34.0) pg MCHC 32.9 (30.0-36.0) g/dL RDW 13.2 (12.1-15.1) % Plt Count 235 (130-400) 10^3/c mm MPV 10.3 (7.4-10.4) fL Neut % (Auto) 60.6 % Lymph % (Auto) 25.0 % Coal % (Auto) 9.7 % Eos % (Auto) 3.0 % Baso % (Auto) 0.8 % Neut # (Auto) 4.60 (1.8-7.7) 10^3/u L Lymph # (Auto) 1.9 (0.8-4.8) 10^3/u L Coal # (Auto) 0.7 (0.2-0.9) 10^3/u L Eos # (Auto) 0.2 (0.0-0.8) 10^3/u L Baso # (Auto) 0.1 (0.0-0.1) 10^3/u L Nucleated RBC % (a uto) 0 % Nucleated RBCs # 0.0 /100WBC Sodium 136 (136-145) mmol/L Potassium 3.8 (3.5-5.1) mmol/L Chloride 100 (98-107) mmol/L Carbon Dioxide 23 (22-29) mmol/L Anion Gap 16.8 (5-19) BUN 16 (6-20) mg/dL Creatinine 0.7 (0.7-1.2) mg/dL GFR Calculation 127.6 (90-130) mL/min Glucose 119 H (65-115) mg/dL Calculated Osmolal ity 284 L (285-295) mOsm/k g Calcium 8.5 (8.5-10.5) mg/dL Total Bilirubin 0.2 (0.15-1.2) mg/dL AST 36 (0-40) U/L ALT 52 H (0-41) U/L Alkaline Phosphata se 72 (40-130) IU/L Total Protein 7.1 (6.6-8.7) g/dL Albumin 3.7 (3.5-5.2) g/dL Globulin 3.4 (1.3-4.6) g/dL Salicylates < 0.3 L (3-10) mg/dL Acetaminophen < 5.0 L (10-30) ug/mL Ethyl Alcohol 55 H (0-10) mg/dL Discharge Plan Discharge Admit Provider: Awais Conti Clinical Impression: Suicidal ideation, Chronic alcohol abuse, Polysubstance abuse Condition: Stable Coding Level of Care Code ED Software Reliability Engineer for Chg Fwd Exam Detailed Documented by User: Cosme Diaz DO 10/24/20 11:18 HPI - Psych General: Chief Complaint: Psychiatric Symptoms Stated Complaint: alcoholic, si Time Seen by Provider: 10/24/20 07:19 PFSH ED PFSH: Medical History Alcoholism Anxiety and depression Bilateral lower extremity edema Cellulitis Elevated blood pressure reading Falls frequently Obesity Tobacco dependency Surgical History History of foot surgery Hx of cholecystectomy Family History Other Diabetes Social History Smoking and tobacco status: current every day smoker cigarettes Packs smoked per day: 1 Alcohol intake: current Alcohol intake frequency: few times a month Current occupational status: unemployed MDM - Psych MDM Narrative: Medical decision making narrative: Case reviewed with KALIN Tamez. Agree with her assessment exam and plan. Interviewed patient myself he is still maintaining suicidal intent as well as admitting to the polysubstance abuse orders are written for admission 96-hour hold completed. Lab Data: Labs: Lab Results 10/24/20 10/24/20 Range/Units 07:42 07:42 WBC 7.6 (4.0-10.0) 10^3/ uL RBC 4.01 L (4.1-5.3) 10^6/u L Hgb 12.4 (11.7-16.6) g/dL Hct 37.7 L (42.0-52.0) % MCV 94.0 (80-94) fL MCH 30.9 (28.0-34.0) pg MCHC 32.9 (30.0-36.0) g/dL RDW 13.2 (12.1-15.1) % Plt Count 235 (130-400) 10^3/c mm MPV 10.3 (7.4-10.4) fL Neut % (Auto) 60.6 % Lymph % (Auto) 25.0 % Coal % (Auto) 9.7 % Eos % (Auto) 3.0 % Baso % (Auto) 0.8 % Neut # (Auto) 4.60 (1.8-7.7) 10^3/u L Lymph # (Auto) 1.9 (0.8-4.8) 10^3/u L Coal # (Auto) 0.7 (0.2-0.9) 10^3/u L Eos # (Auto) 0.2 (0.0-0.8) 10^3/u L Baso # (Auto) 0.1 (0.0-0.1) 10^3/u L Nucleated RBC % (a uto) 0 % Nucleated RBCs # 0.0 /100WBC Sodium 136 (136-145) mmol/L Potassium 3.8 (3.5-5.1) mmol/L Chloride 100 (98-107) mmol/L Carbon Dioxide 23 (22-29) mmol/L Anion Gap 16.8 (5-19) BUN 16 (6-20) mg/dL Creatinine 0.7 (0.7-1.2) mg/dL GFR Calculation 127.6 (90-130) mL/min Glucose 119 H (65-115) mg/dL Calculated Osmolal ity 284 L (285-295) mOsm/k g Calcium 8.5 (8.5-10.5) mg/dL Total Bilirubin 0.2 (0.15-1.2) mg/dL AST 36 (0-40) U/L ALT 52 H (0-41) U/L Alkaline Phosphata se 72 (40-130) IU/L Total Protein 7.1 (6.6-8.7) g/dL Albumin 3.7 (3.5-5.2) g/dL Globulin 3.4 (1.3-4.6) g/dL Salicylates < 0.3 L (3-10) mg/dL Acetaminophen < 5.0 L (10-30) ug/mL Ethyl Alcohol 55 H (0-10) mg/dL Discharge Plan Discharge Admit Provider: Awais Conti Clinical Impression: Suicidal ideation, Chronic alcohol abuse, Polysubstance abuse Condition: Stable Coding Level of Care Code ED Software Reliability Engineer for [employer] Fwd Exam Detailed
--- NOTE | 2020-10-24 08:03 | PC.NURSE ---
Sitter 1:1 No acute distress
[2020-10-24] MEDS: folic acid 1 MG, multivitamin inj 10 ML, thiamine 100 MG in sodium chloride 0.9% 1,000 ML 252.8 MG IV (08:04)
--- NOTE | 2020-10-24 08:14 | PC.NURSE ---
Sitter 1:1
[2020-10-24 08:16] LABS: Basophils # 0.1 10^3/uL (0.0-0.1); Basophils % 0.8 %; Eosinophils # 0.2 10^3/uL (0.0-0.8); Hematocrit 37.7 % (42.0-52.0); Hemoglobin 12.4 g/dL (11.7-16.6); Lymphocytes # 1.9 10^3/uL (0.8-4.8); Mean Corpuscular HGB Conc 32.9 g/dL (30.0-36.0); Mean Corpuscular Hemoglobin 30.9 pg (28.0-34.0); Mean Platelet Volume 10.3 fL (7.4-10.4); Monocytes # 0.7 10^3/uL (0.2-0.9); Monocytes % 9.7 %; Neutrophils % 60.6 %; Nucleated Red Blood Cells % 0 %; Platelet Count 235 10^3/cmm (130-400); Red Blood Count 4.01 10^6/uL (4.1-5.3); Red Cell Distribution Width 13.2 % (12.1-15.1); White Blood Count 7.6 10^3/uL (4.0-10.0)
[2020-10-24 08:44] LABS: Amphetamines Screen Urine Positive (Negative); Barbiturates Screen Urine Negative (Negative); Benzodiazepines Screen Urine Negative (Negative); Cocaine Screen Urine Negative (Negative); Opiate Screen Urine Positive (Negative); PCP Screen Urine Negative (Negative); THC Screen Urine Positive (Negative)
[2020-10-24 09:02] LABS: Acetaminophen < 5.0 ug/mL (10-30); Alanine Aminotransferase 52 U/L (0-41); Albumin Level 3.7 g/dL (3.5-5.2); Alcohol Level 55 mg/dL (0-10); Alkaline Phosphatase 72 IU/L (40-130); Anion Gap 16.8 (5-19); Aspartate Amino Transferase 36 U/L (0-40); Blood Urea Nitrogen 16 mg/dL (6-20); Calcium 8.5 mg/dL (8.5-10.5); Carbon Dioxide 23 mmol/L (22-29); Chloride 100 mmol/L (98-107); Globulin 3.4 g/dL (1.3-4.6); Glomerular Filtration Rate 127.6 mL/min (90-130); Glucose 119 mg/dL (65-115); Osmolality Calculated 284 mOsm/kg (285-295); Potassium 3.8 mmol/L (3.5-5.1); Salicylate < 0.3 mg/dL (3-10); Sodium 136 mmol/L (136-145); Total Bilirubin 0.2 mg/dL (0.15-1.2); Total Protein 7.1 g/dL (6.6-8.7)
--- NOTE | 2020-10-24 09:14 | PC.NURSE ---
Sitter at beside 1:1
[2020-10-24] MEDS: nicotine 21 mg Patch 1 PATCH TRANSDERMA (13:36)
--- NOTE | 2020-10-24 23:52 | PC.NURSE ---
CIWA 16 pT ANXIOUS, STUMBLING, SENSITIVE TO LIGHT/SOUND, REPORTS HEADACHE, BEADS OF SWEAT ON FOREHEAD, MILDLY NAUSEATED, GENERALIZED BODY ACHES, AND TREMORS SEEN WITH BILATERAL HANDS EXTENDED EYES CLOSED. NO ARM DRIFT NOTED. MED NURSE NOTIFIED OF NEED OF MEDICATION FOR INDICATED ALCOHOL WITHDRAWL
[2020-10-25] MEDS: LORazepam 2 mg Tablet PO ×4 (00:02→22:02)
[2020-10-25] MEDS: acetaminophen 325 mg Tablet 650 MG PO (00:02)
--- NOTE | 2020-10-25 03:44 | PC.NURSE ---
Ciwa 2 pt sleeping
[2020-10-25 06:00] VITALS: BP 145/92; PULSE 104; RESP 19; TEMP 36.2; O2SAT 90
[2020-10-25 07:05] LABS: Basophils # 0.1 10^3/uL (0.0-0.1); Basophils % 0.9 %; Eosinophils # 0.2 10^3/uL (0.0-0.8); Eosinophils % 2.5 %; Hematocrit 43.8 % (42.0-52.0); Hemoglobin 14.1 g/dL (11.7-16.6); Lymphocytes # 1.4 10^3/uL (0.8-4.8); Lymphocytes % 18.5 %; Mean Corpuscular HGB Conc 32.2 g/dL (30.0-36.0); Mean Corpuscular Hemoglobin 31.3 pg (28.0-34.0); Mean Corpuscular Volume 97.1 fL (80-94); Mean Platelet Volume 10.2 fL (7.4-10.4); Monocytes # 0.7 10^3/uL (0.2-0.9); Monocytes % 8.7 %; Neutrophils # 5.27 10^3/uL (1.8-7.7); Neutrophils % 68.1 %; Nucleated Red Blood Cells % 0 %; Platelet Count 247 10^3/cmm (130-400); Red Blood Count 4.51 10^6/uL (4.1-5.3); Red Cell Distribution Width 13.1 % (12.1-15.1); White Blood Count 7.7 10^3/uL (4.0-10.0)
[2020-10-25 07:49] LABS: Alanine Aminotransferase 51 U/L (0-41); Albumin Level 3.5 g/dL (3.5-5.2); Alkaline Phosphatase 68 IU/L (40-130); Anion Gap 13.2 (5-19); Aspartate Amino Transferase 39 U/L (0-40); Blood Urea Nitrogen 12 mg/dL (6-20); Calcium 8.8 mg/dL (8.5-10.5); Carbon Dioxide 30 mmol/L (22-29); Chloride 100 mmol/L (98-107); Globulin 3.6 g/dL (1.3-4.6); Glomerular Filtration Rate 127.6 mL/min (90-130); Glucose 102 mg/dL (65-115); Osmolality Calculated 288 mOsm/kg (285-295); Potassium 4.2 mmol/L (3.5-5.1); Sodium 139 mmol/L (136-145); Total Bilirubin 0.2 mg/dL (0.15-1.2); Total Protein 7.1 g/dL (6.6-8.7)
[2020-10-25] MEDS: multivitamin therapeutic Tablet 1 TAB PO (07:58)
[2020-10-25] MEDS: thiamine 100 mg Tablet PO (07:58)
[2020-10-25] MEDS: gabapentin 400 mg Capsule 1600 MG PO ×2 (07:59→16:51)
[2020-10-25] MEDS: folic acid 1 mg Tablet PO (07:59)
[2020-10-25 08:07] VITALS: PULSE 120; RESP 18; O2SAT 94
--- NOTE | 2020-10-25 09:59 | PM.NHP ---
Providers/Chief Complaint Admitting Physician: Gisel Canales DO Primary Care Provider: Kain Zafar MD Chief Complaint: alcoholic, si HPI NPU History of Present Illness Fortunato Marie is a 35 year old male presented to the emergency department with alcohol intoxication with suicidal ideation. Patient with multiple presentations to the emergency department under the influence of substances and endorsing suicidal ideation with subsequent retraction of his suicidal ideation after becoming sober but reports worsening anxiety and depressive symptoms in the context of multiple life stressors. Patient also reports ongoing substance use and daily alcohol use presenting with a BAL of 55. Patient has history of multiple past suicide attempts and history of poor compliance with follow-up and frequently leaving the hospital AGAINST MEDICAL ADVICE with typically no follow-up. Patient is a difficult historian, soporific, falling asleep throughout interview making it difficult to gather information. Patient continues to score on CIWA, requiring Ativan with tremors and other reported withdrawal symptoms, stomach cramping, tremors, headache, feels sleepy. Per nurse staff, patient mostly sleeping throughout the day. Patient continues to report depressive and anxiety symptoms, reports ongoing low mood in the context of ongoing stressors to include strained relationship with . Patient also reports being homeless, mostly staying with friends. Patient reports some perceptual disturbances of believing that someone is in the room but states that when he looks, no one is there. Denies any auditory hallucinations. Patient reports poor compliance with follow-up and states that he has not been on any maintenance medications since last hospitalization. Review of Systems General: Reports: ROS unobtainable due to mental status Meds NPU Home Medications Medication Instructions Recorded Confirmed Last Taken Type gabapentin [Neurontin] 1,600 mg PO BID 10/25/20 10/25/20 10/23/20 21:00 History Allergies Allergy/AdvReac Type Severity Reaction Status Date / Time morphine Allergy ADR-Halluci Verified 09/27/20 08:15 [facility] NPU PFS: Medical History Alcoholism Anxiety and depression Bilateral lower extremity edema Cellulitis Elevated blood pressure reading Falls frequently Obesity Tobacco dependency Surgical History History of foot surgery Hx of cholecystectomy Family History Other Diabetes Social History Smoking and tobacco status: current every day smoker cigarettes Packs smoked per day: 1 Alcohol intake: current Alcohol intake frequency: few times a month Current occupational status: unemployed Other Psychiatric History: Other Psychiatric History: Denies any interval psychiatric treatment, denies any interval psychiatric medication use. Mental Status Exam MSE Comments: Lying in bed, soporific, dozing off between questions, poor eye contact Psychomotor activity is decreased, no agitation Speech is slow, mumbling, poor articulation, not pressured Horrible, congruent affect, limited range, not labile Soporific, oriented to person, place, situation Memory and concentration appear to be fair to intact per interview Intellectual functioning appears to be average based on vocabulary, interview Thought process, delayed, linear but brief, no flight of ideas, no looseness of association Thought content, no delusions, no hallucinations, passive suicidal ideation with no active intent or plan, no homicidal ideation Insight and judgment appear to be fair to intact Vitals/I&O/Wt Last Vital Signs Temp 97.1 F L 10/25/20 06:00 Pulse 120 H 10/25/20 08:07 Resp 19 H 10/25/20 06:00 BP 145/92 10/25/20 06:00 Pulse Ox 94 10/25/20 08:07 Weight last 48 hrs Weight 145.15 kg Data NPU : 10/25/20 06:41 10/25/20 06:41 A&P Assessment and plan (1) Suicidal ideation: Status: Acute (2) Depressive disorder: Status: Acute (3) Chronic alcohol abuse: Status: Acute (4) Polysubstance abuse: Status: Acute Additional A&P Information 35-year-old male with longstanding history of alcohol dependence, polysubstance abuse, depressive disorder with multiple past suicide attempts, presenting to the emergency department on multiple occasions reporting suicidal ideation and then subsequently retracting presents with alcohol intoxication reporting suicidal ideation. Patient is difficult historian at this time, mumbling, soporific, continues to score on CIWA requiring Ativan. Patient would benefit from ongoing observation and likely starting a low-dose SSRI targeting depressive and anxiety symptoms. INVOLUNTARY ADMIT to inpatient psychiatry CONTINUE CIWA protocol Continue observation, reassessment for starting low-dose SSRI, continue to monitor Encourage patient participate in unit activities to include unit milieu Coordinate with social psychologist for post discharge alcohol, substance treatment Involuntary Hold Information 96 Hour Hold: 96 Hour Involuntary Admission: Yes 96 Hour Hold Ending Date: 10/30/20 96 Hour Hold Ending Time: 09:30 Attestations NPU Medical Necessity Statement*: Patient requires psychiatric hospitalization given multiple past suicide attempts as well as recent suicidal ideation in the context of multiple stressors. Anticipate hospital stay to exceed 2 midnights Time Spent in Patient Care: Greater than 35 minutes (>than 50% of time spent in counselling and/or direct pt care on unit). Coding Level of Care Code Acute Branch Services Manager for Jerilyn Wallace Diagnoses Suicidal ideation R45.851 Depressive disorder F32.9 Chronic alcohol abuse F10.10 Polysubstance abuse F19.10
--- NOTE | 2020-10-25 12:22 | PC.NURSE ---
CIWA scored zero due to patient sleeping. LAURENW, PARTS FACILITATOR
[2020-10-25 14:00] VITALS: BP 154/90; PULSE 89; RESP 18; TEMP 37.8; O2SAT 95
[2020-10-25] MEDS: hyDROXYzine 25 mg Capsule 50 MG PO (16:51)
[2020-10-25 19:15] VITALS: PULSE 80; RESP 19; O2SAT 96
[2020-10-25 20:26] VITALS: BP 114/59; PULSE 109; RESP 20; TEMP 37.4; O2SAT 93
[2020-10-25 22:00] VITALS: PULSE 86; RESP 19; O2SAT 95
[2020-10-26 06:00] VITALS: BP 163/105; PULSE 104; RESP 20; TEMP 36.7; O2SAT 95
[2020-10-26] MEDS: thiamine 100 mg Tablet PO (08:11)
[2020-10-26] MEDS: gabapentin 400 mg Capsule 1600 MG PO ×2 (08:11→17:34)
[2020-10-26] MEDS: multivitamin therapeutic Tablet 1 TAB PO (08:11)
[2020-10-26] MEDS: folic acid 1 mg Tablet PO (08:11)
--- NOTE | 2020-10-26 12:16 | PC.NURSE ---
ATIVAN PT REQUESTING ATIVAN FOR INCREASING ETOH WITHDRAWAL. WHEN THIS NURSE ATTEMPTED TO GIVE PT MEDICATION, PT IS IN BED SLEEPING. RESPIRATIONS EVEN AND UNLABORED. NO S/S OF ANXIETY. WILL CONTINUE TO MONITOR.
[2020-10-26] MEDS: LORazepam 2 mg Tablet PO ×2 (13:35→22:37)
[2020-10-26] MEDS: acetaminophen 325 mg Tablet 650 MG PO (13:37)
--- NOTE | 2020-10-26 13:38 | PC.NURSE ---
CIWA ADMINISTERED ATIVAN 2MG PO PER CIWA PROTOCOL. WILL MONITOR FOR MEDICATION EFFECTIVENESS. BP 152/102 PULSE 126
[2020-10-26 14:00] VITALS: BP 152/102; PULSE 126; RESP 20; TEMP 36.6; O2SAT 94
[2020-10-26] MEDS: hyDROXYzine 25 mg Capsule 50 MG PO ×2 (15:28→20:36)
[2020-10-26] MEDS: nicotine 21 mg Patch 1 PATCH TRANSDERMA (15:30)
--- NOTE | 2020-10-26 17:13 | P.PN_ITS ---
Subjective NPU Subjective: Interval history: Continues to report intermittent depressive symptoms although some improvement, denies any interval suicidal ideation Denies any interval alcohol withdrawal symptoms Reports improved sleep but states that he has spent most of the day in bed Denies any interval psychotic symptoms Reports being compliant with his medication and denies any medication side effects Patient appears to lack insight into his condition and situation that is led to his hospitalization as well as previous hospitalizations over the last couple months involving him becoming intoxicated and suicidal Mental Status Exam MSE Comments: Lying in bed, soporific, patient awakened for interview, calm, cooperative, interactive, good eye contact Psychomotor activity is neither increased nor decreased, no agitation Speech is normal rate, normal volume, poor articulation, not pressured Feeling better, congruent affect, not labile Alert, oriented to person, place, situation Memory and concentration appear to be fair to intact per interview Thought process, delayed, linear but brief, no flight of ideas, no looseness of association Thought content, no delusions, no hallucinations, no suicidal ideation, no homicidal ideation Insight and judgment appear to be fair to intact Vitals/I&O/Wt Last Vital Signs Temp 97.9 F 10/26/20 14:00 Pulse 126 H 10/26/20 14:00 Resp 20 H 10/26/20 14:00 BP 152/102 10/26/20 14:00 Pulse Ox 94 10/26/20 14:00 Data NPU : 10/25/20 06:41 10/25/20 06:41 A&P Assessment and plan (1) Suicidal ideation: Status: Acute (2) Depressive disorder: Status: Acute (3) Chronic alcohol abuse: Status: Acute Additional A&P Information Intermittent depressive symptoms, no interval suicidal ideation, lacks insight into repetitive nature of his alcohol use, depression and suicidal ideation START sertraline 25 mg daily targeting depressive symptoms Continue to monitor Encourage patient to participate in unit activities to include group sessions, unit milieu Involuntary Hold Information 96 Hour Hold: 96 Hour Involuntary Admission: Yes 96 Hour Hold Ending Date: 10/30/20 96 Hour Hold Ending Time: 09:30 Attestations NPU Medical Necessity Statement*: Psychiatric hospitalization is indicated for medication stabilization Coding Level of Care Code Acute Computer Systems Software Engineer for g Fwd Diagnoses Suicidal ideation R45.851 Depressive disorder F32.9 Chronic alcohol abuse F10.10
[2020-10-26] MEDS: sertraline 50 mg Tablet 25 MG PO (17:34)
--- NOTE | 2020-10-26 17:41 | PC.RESP ---
SMOKING CESSATION INFORMATION SENT TO PATIENT.
[2020-10-26 20:03] VITALS: BP 125/84; PULSE 111; RESP 17; TEMP 37.1; O2SAT 95
[2020-10-26] MEDS: trazodone 50 mg Tablet PO (20:36)
--- NOTE | 2020-10-27 01:01 | PC.NURSE ---
The patient removed the CPAP mask. The patient said he doesn't want to use the CPAP for the remainder of the night.
[2020-10-27 06:00] VITALS: BP 142/89; PULSE 101; RESP 17; TEMP 36.8; O2SAT 94
[2020-10-27] MEDS: hyDROXYzine 25 mg Capsule 50 MG PO ×2 (06:41→19:32)
[2020-10-27] MEDS: acetaminophen 325 mg Tablet 650 MG PO (06:42)
[2020-10-27] MEDS: folic acid 1 mg Tablet PO (09:05)
[2020-10-27] MEDS: sertraline 50 mg Tablet 25 MG PO (09:05)
[2020-10-27] MEDS: gabapentin 400 mg Capsule 1600 MG PO ×2 (09:05→17:22)
[2020-10-27] MEDS: multivitamin therapeutic Tablet 1 TAB PO (09:05)
[2020-10-27] MEDS: thiamine 100 mg Tablet PO (09:05)
[2020-10-27] MEDS: LORazepam 2 mg Tablet 1 MG PO ×2 (10:55→22:51)
--- NOTE | 2020-10-27 10:59 | PC.NURSE ---
ATIVAN ADMINISTERED ATIVAN 1 MG PO PER CIWA SCORE 10. WILL MONITOR FOR MEDICATION EFFECTIVENESS.
[2020-10-27 14:00] VITALS: BP 153/102; PULSE 112; RESP 18; TEMP 36.7; O2SAT 91
--- NOTE | 2020-10-27 14:15 | P.PN_ITS ---
Subjective NPU Subjective: Interval history: Patient reports improving mood symptoms, denies any interval depressive symptoms, denies any interval suicidal ideation Continues to report significant anxiety symptoms which the patient states is different than his withdrawal symptoms although patient continues to request as needed Ativan for withdrawal symptoms Patient has history of PTSD but denies any current reexperiencing symptoms Patient reports improving appetite, improving sleep Reports being compliant with his medication and denies any medication side effects Patient reports alcohol cravings and states that this is a significant issue with his ongoing alcohol use and is interested in starting naltrexone which he reports taking several years ago Mental Status Exam MSE Comments: Sitting up on his bed, calm, cooperative, interactive, good eye contact Psychomotor activity is neither increased nor decreased, no agitation Speech is normal rate, normal volume, fair articulation, not pressured I feel okay, congruent affect, not labile Alert, oriented to person, place, situation Memory and concentration appear to be fair to intact per interview Thought process, delayed, linear but brief, no flight of ideas, no looseness of association Thought content, no delusions, no hallucinations, no suicidal ideation, no homicidal ideation Insight and judgment appear to be fair to intact Vitals/I&O/Wt Last Vital Signs Temp 98.3 F 10/27/20 06:00 Pulse 101 H 10/27/20 06:00 Resp 17 10/27/20 06:00 BP 142/89 10/27/20 06:00 Pulse Ox 94 10/27/20 06:00 Data NPU : 10/25/20 06:41 10/25/20 06:41 A&P Assessment and plan (1) Suicidal ideation: Status: Acute (2) Depressive disorder: Status: Acute (3) Chronic alcohol abuse: Status: Acute (4) Polysubstance abuse: Status: Acute Additional A&P Information Reports improving mood, alcohol withdrawal symptoms, reports worsening anxiety symptoms, reports alcohol cravings START naltrexone 50 mg daily targeting alcohol cravings INCREASE to sertraline 50 mg daily targeting anxiety and depressive symptoms Involuntary Hold Information 96 Hour Hold: 96 Hour Involuntary Admission: Yes 96 Hour Hold Ending Date: 10/30/20 96 Hour Hold Ending Time: 09:30 Attestations NPU Medical Necessity Statement*: Continues require psychiatric hospitalization fo r medication stabilization Coding Level of Care Code Acute Fixture Relamper for [facility] Fwd Diagnoses Suicidal ideation R45.851 Depressive disorder F32.9 Chronic alcohol abuse F10.10 Polysubstance abuse F19.10
[2020-10-27] MEDS: sertraline 50 mg Tablet PO (15:08)
[2020-10-27] MEDS: naltrexone hcl 50 mg Tablet PO (15:08)
[2020-10-27] MEDS: nicotine 2 mg Gum BUCCAL ×2 (16:22→22:52)
[2020-10-27 21:34] VITALS: BP 141/88; PULSE 103; RESP 18; TEMP 36.8; O2SAT 93
[2020-10-27] MEDS: trazodone 50 mg Tablet PO (22:51)
--- NOTE | 2020-10-27 22:55 | PC.NURSE ---
Patient was given 1mg Ativan for CIWA score of 11.
[2020-10-28 06:00] VITALS: BP 133/78; PULSE 86; RESP 19; TEMP 36.7; O2SAT 94
[2020-10-28] MEDS: hyDROXYzine 25 mg Capsule 50 MG PO ×3 (06:56→20:06)
[2020-10-28] MEDS: ondansetron 4 MG Tablet PO ×2 (06:57→14:19)
[2020-10-28] MEDS: gabapentin 400 mg Capsule 1600 MG PO ×2 (07:38→16:28)
[2020-10-28] MEDS: thiamine 100 mg Tablet PO (07:38)
[2020-10-28] MEDS: multivitamin therapeutic Tablet 1 TAB PO (07:38)
[2020-10-28] MEDS: naltrexone hcl 50 mg Tablet PO (07:38)
[2020-10-28] MEDS: sertraline 50 mg Tablet PO (07:38)
[2020-10-28] MEDS: folic acid 1 mg Tablet PO (07:38)
[2020-10-28 14:00] VITALS: BP 116/78; PULSE 95; RESP 20; TEMP 36.7; O2SAT 94
--- NOTE | 2020-10-28 14:24 | PM.NPN ---
Subjective NPU Subjective: Interval history: Continues to report some improvement with depressive symptoms, denies any interval suicidal ideation Continues to report some nausea which he believes is related to his withdrawal from alcohol Denies any interval psychotic symptoms Reports being compliant with medication and denies any medication side effects Reports his appetite is been good States that his sleep has been fairly good Mental Status Exam MSE Comments: Eating up on his bed, disheveled, unkempt, calm, cooperative, good eye contact Psychomotor activity is decreased, no agitation Speech is low volume, slow rate, spontaneous, fair articulation, not pressured I have felt a little sick today, congruent affect, not labile Alert and oriented to person, place, time, situation Memory and concentration appear to be fair to intact per interview Thought process, linear but brief, no flight of ideas, no looseness of associations Thought content, no delusions, no hallucinations, passive suicidal thoughts with no active intent or plan, no homicidal ideation Insight and judgment appear to be fair Vitals/I&O/Wt Last Vital Signs Temp 98.0 F 10/28/20 06:00 Pulse 86 10/28/20 06:00 Resp 19 H 10/28/20 06:00 BP 133/78 10/28/20 06:00 Pulse Ox 94 10/28/20 06:00 Weight last 48 hrs Weight 145.15 kg Data NPU : 10/25/20 06:41 10/25/20 06:41 A&P Assessment and plan (1) Suicidal ideation: Status: Acute (2) Depressive disorder: Status: Acute (3) Chronic alcohol abuse: Status: Acute Additional A&P Information Reports some nausea throughout the day, reports improving mood, denies any interval suicidal ideation CONTINUE current medication, continue to monitor Involuntary Hold Information 96 Hour Hold: 96 Hour Involuntary Admission: Yes 96 Hour Hold Ending Date: 10/30/20 96 Hour Hold Ending Time: 09:30 Attestations NPU Medical Necessity Statement*: Continues require psychiatric hospitalization for medication stabilization, coordination for safe discharge Coding Level of Care Code Acute Debt Recovery Officer for Jerilyn Fwalbert Diagnoses Suicidal ideation R45.851 Depressive disorder F32.9 Chronic alcohol abuse F10.10
[2020-10-28] MEDS: OLANZapine 5 mg ODT PO (16:06)
[2020-10-28 19:57] VITALS: BP 123/80; PULSE 87; RESP 18; TEMP 36.8; O2SAT 90
[2020-10-29 06:00] VITALS: BP 142/94; PULSE 106; RESP 18; TEMP 37.1; O2SAT 94
[2020-10-29] MEDS: multivitamin therapeutic Tablet 1 TAB PO (08:23)
[2020-10-29] MEDS: folic acid 1 mg Tablet PO (08:23)
[2020-10-29] MEDS: naltrexone hcl 50 mg Tablet PO (08:23)
[2020-10-29] MEDS: gabapentin 400 mg Capsule 1600 MG PO (08:24)
[2020-10-29] MEDS: sertraline 50 mg Tablet PO (08:24)
[2020-10-29] MEDS: thiamine 100 mg Tablet PO (08:24)
[2020-10-29] MEDS: nicotine 2 mg Gum BUCCAL (09:55)
[2020-10-29 14:00] VITALS: BP 152/102; PULSE 91; RESP 18; TEMP 35.9; O2SAT 96
--- NOTE | 2020-10-29 14:08 | P.DS_ITS ---
Diagnoses at Discharge Discharge Diagnosis (1) Suicidal ideation: Status: Acute (2) Depressive disorder: Status: Acute (3) Chronic alcohol abuse: Status: Acute Reason for Visit Reason for Visit: alcoholic, si Hospital Course Hospital Course Patient presented to the hospital in usual fashion with alcohol intoxication and suicidal ideation, no drug screen was performed so unclear as to whether patient had also been using methamphetamine recently like he has in the past on his pres entation to the hospital. Patient continued to report some suicidal ideation at the time of initial evaluation while intoxicated but subsequently denied any suicidal ideation after becoming sober. Patient was hung over and mostly staying in bed for the first couple of days complaining of alcohol withdrawal symptoms and was started on a CIWA protocol and monitored. Patient was also started on sertraline 50 mg daily targeting mood symptoms and PTSD symptoms as well as being started on naltrexone 50 mg daily targeting alcohol cravings after discussion with patient about risks, benefits and alternatives. Patient participate in unit milieu with no reports of any behavioral disturbances and was able to communicate his understanding of the need to abstain from the use of alcohol as well as the need for ongoing substance/alcohol counseling. Patient was not suicidal at the time of discharge and did not appear to pose an imminent threat of harm to self or others. Low to moderate risk of harm to self given no current suicidal ideation or psychiatric symptoms although patient's risk will continue to be elevated if he continues to relapse and not abstain from the use of alcohol and substances leading to unexpected, impulsive behavior. Risk mitigation included psychiatric hospitalization for observation and monitoring while placed on CIWA protocol for alcohol withdrawal as well as medication stabilization, recommendation to abstain from the use of alcohol and substances as well as coordination for post discharge follow-up. Patient was able to communicate his understanding of the need to abstain from the use of alcohol and substances as well as the need for compliance with his medication, medication management and alcohol/substance counseling in order to further mitigate his risk of harm to self and others. Involuntary Hold Information 96 Hour Hold: 96 Hour Involuntary Admission: Yes 96 Hour Hold Ending Date: 10/30/20 96 Hour Hold Ending Time: 09:30 Mental Status Exam 2 MSE Comments: Sitting in the day room, polite, calm, cooperative, good eye contact Psychomotor activity is neither increased nor decreased, no agitation Speech is normal volume, normal rate, spontaneous, clear articulation, not pressured I feel a lot better, congruent affect, not labile Alert and oriented to person, place, time, situation Memory and concentration appear to be intact per interview Thought process, linear but brief, no flight of ideas, no looseness of associations Thought content, no delusions, no hallucinations, no suicidal ideation, no homicidal ideation Insight and judgment appear to be fair Discharge Data Vitals: Last Vital Signs Temp 98.8 F 10/29/20 06:00 Pulse 106 H 10/29/20 06:00 Resp 18 10/29/20 06:00 BP 142/94 10/29/20 06:00 Pulse Ox 94 10/29/20 06:00 Discharge Plan Discharge Patient Disposition: Home Condition: Stable Prescriptions: New naltrexone 50 mg Tablet 50 mg PO DAILY Qty: 30 RF: 0 sertraline 50 mg Tablet 50 mg PO DAILY Qty: 30 RF: 0 multivitamin with folic acid [Thera] 400 mcg Tablet 1 tab PO DAILY Qty: 30 RF: 0 thiamine mononitrate (vit B1) [Vitamin B-1 (mononitrate)] 100 mg Tablet 100 mg PO DAILY Qty: 30 RF: 0 Continued Neurontin 800 mg Tablet 1,600 mg PO BID RF: 0 Discharge Orders: Discharge Order (Routine); Ordered 10/29/20 Ordered By: Gisel Canales Referrals: AA (Alcoholic Anonymous) [Other] (Closed meetings Mondays & Wednesdays at 7 PM and Fridays at noon. ) [facility] [Outside] (Follow up for an initial assessment.) DatarJohn MD [Physician] - (We will call and try to schedule you a follow up, the clinic is closed today due to the snow. Will call you with this appointment information. Need to be assessed for BIPAP) Kain Zafar MD [Primary Care Provider] - Discharge Diet: Usual diet Discharge Activity: Resume usual activity Discharge Attestations NPU Time Spent in Discharge Care*: greater than 30 min Status at Discharge: Cognitive status at discharge: cognitively intact , Behavioral status at discharge: cooperative , Functional status at discharge: independent ambulation Overall status at discharge: patient is back to baseline Coding Level of Care Code Acute Dog Walker for Chg Fwd Diagnoses Suicidal ideation R45.851 Depressive disorder F32.9 Chronic alcohol abuse F10.10
[2020-10-29 14:32] VITALS: BP 152/102; PULSE 91; RESP 18; TEMP 35.9; O2SAT 96
== END 2020-10-29 15:00 | disposition home or self-care (01) | DRG 881 ==
LOC: ER 09:35 → NP 10:11
PROVIDERS: Physician Assistant; Admitting Provider Psychiatry & Neurology Psychiatry; Emergency Provider Family Medicine; PCP Family Medicine; Visit Provider Psychiatry & Neurology Psychiatry
DX: F32.9 Major depressive disorder, single episode, unspecified (principal); R45.851 Suicidal ideations; Z68.42 Body mass index [BMI] 45.0-49.9, adult; F10.229 Alcohol dependence with intoxication, unspecified; Y90.2 Blood alcohol level of 40-59 mg/100 ml; E66.9 Obesity, unspecified; F17.210 Nicotine dependence, cigarettes, uncomplicated; F19.10 Other psychoactive substance abuse, uncomplicated; Z91.5 Personal history of self-harm; F43.10 Post-traumatic stress disorder, unspecified
CPT/HCPCS: 12345; 36415; 80053; 80307; 85025; 90471; 90686; 99284; J3411; J3490; J7030; Q0162

== ENCOUNTER 2020-12-11 15:11 | Inpatient (IN) | payer SELFPAY ==
[2020-12-11 15:27] VITALS: BP 148/79; PULSE 121; RESP 20; TEMP 37.2; O2SAT 95; BMI 39.4
--- NOTE | 2020-12-11 15:45 | ED_ITS ---
HPI - Psych General: Chief Complaint: Psychiatric Symptoms Stated Complaint: SI Time Seen by Provider: 12/11/20 15:27 History of Present Illness: HPI Narrative: 35-year-old male presents to the emergency room with complaints of suicidal ideation. He is intentionally drinking with the intent of harming himself. Is been drinking heavily for the last 2 days. He denies any recent illness denies any specific injury. He does not have any other plan besides drinking heavily to kill himself. He states he drank a half a gallon of vodka today last drank about 2 hours ago. MD complaint: suicidal ideation and feels depressed Onset (ago): day(s) Duration: constant History of same: Yes Relieving factors: none Exacerbating factors: alcohol Context: recent alcohol abuse Associated psychiatric symptoms: depression and suicidal ideation Associated symptoms: Reports depression and suicidal ideation; Deny auditory hallucinations, visual hallucinations, delusions, homicidal ideation or racing thoughts Treatments prior to arrival: none If self harm: admits thoughts of self harm Review of Systems ENMT: Denies: throat pain, ear or mastoid pain, nasal discharge or nasal congestion Card: Denies: chest pain, edema, dyspnea on exertion or orthopnea Resp: Denies: dyspnea, productive cough or non-productive cough GI: Denies: abdominal pain, nausea, vomiting, hematemesis, coffee ground emesis, diarrhea, constipation, bloating, hematochezia or melena : Denies: flank pain, dysuria, urinary frequency or urinary urgency Skin/Breast: Denies: rash or pruritus Psych: Reports: depression and suicidal ideation; Denies: visual hallucinations, auditory hallucinations or homicidal ideation [facility] ED PFSH: Medical History Alcoholism Anxiety and depression Bilateral lower extremity edema Cellulitis Elevated blood pressure reading Falls frequently Obesity Tobacco dependency Surgical History History of foot surgery Hx of cholecystectomy Family History Other Diabetes Social History Smoking and tobacco status: current every day smoker cigarettes Packs smoked per day: 1 Alcohol intake: current Alcohol intake frequency: few times a month Current occupational status: unemployed Physical Exam Const: COMMON NORMALS: no acute distress GENERAL APPEARANCE: cooperative and comfortable ORIENTATION/CONSCIOUSNESS: Yes awake, Yes oriented to person, Yes oriented to place and Yes oriented to time HENMT: COMMON NORMALS: normocephalic, atraumatic and hearing grossly normal bilaterally HEAD & SCALP: normocephalic and atraumatic Neck/C-Spine: COMMON NORMALS: no JVD Cardio: COMMON NORMALS: no JVD, regular rate, regular rhythm and No murmurs present (Cardio) RATE: regular rate RHYTHM: regular rhythm GI: COMMON NORMALS: Soft to palpation and No hepatosplenomegaly present AUSCULTATION: Yes normoactive bowel sounds PALPATION: Yes Soft to palpation, No Tenderness to palpation present (GI), No Guarding due to palpation present (GI) and Yes No hepatosplenomegaly present Extremity: COMMON NORMALS: normal to inspection, capillary refill normal, no clubbing, cyanosis or edema, no calf tenderness and no pedal edema Neuro: SENSORIUM/ORIENTATION: Yes oriented to person, Yes oriented to place and Yes oriented to time Psych: THOUGHT CONTENT: No delusions Skin: COMMON NORMALS: no rashes or lesions noted GENERAL SKIN EXAM: no rashes or lesions noted MDM - Psych MDM Narrative: Medical decision making narrative: Admit for suicidal ideation chronic alcohol abuse. Melissa with Dr. Conti orders written Lab Data: Labs: Lab Results 12/11/20 12/11/20 12/11/20 Range/Units 16:10 16:21 16:21 WBC 8.5 (4.0-10.0) 10^3/ uL RBC 4.71 (4.1-5.3) 10^6/u L Hgb 14.6 (11.7-16.6) g/dL Hct 44.7 (42.0-52.0) % MCV 94.9 H (80-94) fL MCH 31.0 (28.0-34.0) pg MCHC 32.7 (30.0-36.0) g/dL RDW 13.2 (12.1-15.1) % Plt Count 314 (130-400) 10^3/c mm MPV 9.4 (7.4-10.4) fL Neut % (Auto) 65.9 % Lymph % (Auto) 20.8 % [place] % (Auto) 7.7 % Eos % (Auto) 3.5 % Baso % (Auto) 0.8 % Neut # (Auto) 5.59 (1.8-7.7) 10^3/u L Lymph # (Auto) 1.8 (0.8-4.8) 10^3/u L [place] # (Auto) 0.7 (0.2-0.9) 10^3/u L Eos # (Auto) 0.3 (0.0-0.8) 10^3/u L Baso # (Auto) 0.1 (0.0-0.1) 10^3/u L Nucleated RBC % (a uto) 0 % Nucleated RBCs # 0.0 /100WBC Sodium 140 (136-145) mmol/L Potassium 3.5 (3.5-5.1) mmol/L Chloride 102 (98-107) mmol/L Carbon Dioxide 28 (22-29) mmol/L Anion Gap 13.5 (5-19) BUN 7 (6-20) mg/dL Creatinine 0.7 (0.7-1.2) mg/dL GFR Calculation 127.6 (90-130) mL/min Glucose 113 (65-115) mg/dL Calculated Osmolal ity 289 (285-295) mOsm/k g Calcium 8.3 L (8.5-10.5) mg/dL Total Bilirubin 0.2 (0.15-1.2) mg/dL AST 169 H (0-40) U/L ALT 215 H (0-41) U/L Alkaline Phosphata se 90 (40-130) IU/L Total Protein 6.8 (6.6-8.7) g/dL Albumin 3.4 L (3.5-5.2) g/dL Globulin 3.4 (1.3-4.6) g/dL Salicylates < 0.3 L (3-10) mg/dL Urine Opiates Scre en Negative (Negative) ng/mL Acetaminophen < 5.0 L (10-30) ug/mL Ur Barbiturates Sc reen Negative (Negative) ng/mL Ur Phencyclidine S crn Negative (Negative) ng/mL Ur Amphetamines Sc reen Positive H (Negative) ng/mL U Benzodiazepines Scrn Negative (Negative) ng/mL Urine Cocaine Scre en Positive H (Negative) ng/mL U Marijuana (THC) Screen Negative (Negative) ng/mL Ethyl Alcohol (0-10) mg/dL 12/11/20 Range/Units 16:21 WBC (4.0-10.0) 10^3/ uL RBC (4.1-5.3) 10^6/u L Hgb (11.7-16.6) g/dL Hct (42.0-52.0) % MCV (80-94) fL MCH (28.0-34.0) pg MCHC (30.0-36.0) g/dL RDW (12.1-15.1) % Plt Count (130-400) 10^3/c mm MPV (7.4-10.4) fL Neut % (Auto) % Lymph % (Auto) % [place] % (Auto) % Eos % (Auto) % Baso % (Auto) % Neut # (Auto) (1.8-7.7) 10^3/u L Lymph # (Auto) (0.8-4.8) 10^3/u L [place] # (Auto) (0.2-0.9) 10^3/u L Eos # (Auto) (0.0-0.8) 10^3/u L Baso # (Auto) (0.0-0.1) 10^3/u L Nucleated RBC % (a uto) % Nucleated RBCs # /100WBC Sodium (136-145) mmol/L Potassium (3.5-5.1) mmol/L Chloride (98-107) mmol/L Carbon Dioxide (22-29) mmol/L Anion Gap (5-19) BUN (6-20) mg/dL Creatinine (0.7-1.2) mg/dL GFR Calculation (90-130) mL/min Glucose (65-115) mg/dL Calculated Osmolal ity (285-295) mOsm/k g Calcium (8.5-10.5) mg/dL Total Bilirubin (0.15-1.2) mg/dL AST (0-40) U/L ALT (0-41) U/L Alkaline Phosphata se (40-130) IU/L Total Protein (6.6-8.7) g/dL Albumin (3.5-5.2) g/dL Globulin (1.3-4.6) g/dL Salicylates (3-10) mg/dL Urine Opiates Scre en (Negative) ng/mL Acetaminophen (10-30) ug/mL Ur Barbiturates Sc reen (Negative) ng/mL Ur Phencyclidine S crn (Negative) ng/mL Ur Amphetamines Sc reen (Negative) ng/mL U Benzodiazepines Scrn (Negative) ng/mL Urine Cocaine Scre en (Negative) ng/mL U Marijuana (THC) Screen (Negative) ng/mL Ethyl Alcohol 148 H (0-10) mg/dL Discharge Plan Discharge Patient Disposition: Admitted As Inpatient Admit Provider: Awais Conti Clinical Impression: Suicidal ideation, Alcohol abuse Condition: Stable Discharge Diet: Regular Discharge Activity: Resume usual activity Coding Level of Care Code ED Entry Level Automotive Technician for Jerilyn Wallace
[2020-12-11 16:30] LABS: Basophils # 0.1 10^3/uL (0.0-0.1); Basophils % 0.8 %; Eosinophils # 0.3 10^3/uL (0.0-0.8); Eosinophils % 3.5 %; Hematocrit 44.7 % (42.0-52.0); Hemoglobin 14.6 g/dL (11.7-16.6); Lymphocytes # 1.8 10^3/uL (0.8-4.8); Lymphocytes % 20.8 %; Mean Corpuscular HGB Conc 32.7 g/dL (30.0-36.0); Mean Corpuscular Volume 94.9 fL (80-94); Mean Platelet Volume 9.4 fL (7.4-10.4); Monocytes # 0.7 10^3/uL (0.2-0.9); Monocytes % 7.7 %; Neutrophils # 5.59 10^3/uL (1.8-7.7); Neutrophils % 65.9 %; Nucleated Red Blood Cells % 0 %; Platelet Count 314 10^3/cmm (130-400); Red Blood Count 4.71 10^6/uL (4.1-5.3); Red Cell Distribution Width 13.2 % (12.1-15.1); White Blood Count 8.5 10^3/uL (4.0-10.0)
[2020-12-11] MEDS: LORazepam 2 mg Tablet PO ×2 (16:45→19:43)
[2020-12-11 16:57] LABS: Alanine Aminotransferase 215 U/L (0-41); Albumin Level 3.4 g/dL (3.5-5.2); Alkaline Phosphatase 90 IU/L (40-130); Anion Gap 13.5 (5-19); Aspartate Amino Transferase 169 U/L (0-40); Blood Urea Nitrogen 7 mg/dL (6-20); Calcium 8.3 mg/dL (8.5-10.5); Carbon Dioxide 28 mmol/L (22-29); Chloride 102 mmol/L (98-107); Globulin 3.4 g/dL (1.3-4.6); Glomerular Filtration Rate 127.6 mL/min (90-130); Glucose 113 mg/dL (65-115); Osmolality Calculated 289 mOsm/kg (285-295); Potassium 3.5 mmol/L (3.5-5.1); Sodium 140 mmol/L (136-145); Total Bilirubin 0.2 mg/dL (0.15-1.2); Total Protein 6.8 g/dL (6.6-8.7)
[2020-12-11 17:09] LABS: Acetaminophen < 5.0 ug/mL (10-30); Salicylate < 0.3 mg/dL (3-10)
[2020-12-11 18:45] LABS: Alcohol Level 148 mg/dL (0-10)
[2020-12-11 19:01] VITALS: BP 172/94; PULSE 121; RESP 18; O2SAT 96
[2020-12-11 19:24] VITALS: BP 213/109; PULSE 113; RESP 22; TEMP 36.9; O2SAT 96
[2020-12-11 19:39] LABS: Amphetamines Screen Urine Positive (Negative); Barbiturates Screen Urine Negative (Negative); Benzodiazepines Screen Urine Negative (Negative); Cocaine Screen Urine Positive (Negative); Opiate Screen Urine Negative (Negative); PCP Screen Urine Negative (Negative); THC Screen Urine Negative (Negative)
[2020-12-11 21:10] VITALS: BP 161/79; PULSE 127; RESP 22; TEMP 37.9; O2SAT 91
[2020-12-11] MEDS: gabapentin 400 mg Capsule 1600 MG PO (21:20)
--- NOTE | 2020-12-11 22:36 | PC.NURSE ---
35/M from ED with SI. Drinking to self-harm over the last 2 days. No other plan noted. Reports consuming ? gallon of vodka today, last drink 2 hours prior to hospitalization. Pt states, ?I am having a hard time with my relationship?, patient says his cheated during a separation and admitted it to him. Pt says he was evicted and not sure what he is going to do. BAL 148, PLACED ON CIWA DOA +COCAINE +AMPHETAMINES @194, CIWA 21, MED NURSE NOTIFIED, ATIVAN 2MG PO GIVEN TO PT BY TICKET MAKER, @ 2237 SCORE IMPROVED TO 7, PATIENT RESTING IN HIS ROOM, CALM AND QUIET V/S ARE ABNORMAL, B/P ELEVATED 161/79, TEMP ORAL 100.2, NE 127, RR 22, 0XYGEN IS 91%, WILL RETAKE VS AT MIDNIGHT FOR COMPARISON AND CONTINUE TO OBSERVE PT CONDITION
[2020-12-12] MEDS: hyDROXYzine 25 mg Capsule 50 MG PO (02:56)
--- NOTE | 2020-12-12 02:57 | PC.NURSE ---
pt came to nurses desk complaining of anxiety. charge nurse scored pt at a 4 on CIWA assessment. due to pt not scoring enough on CIWA to warrent giving Ativan, pt was given Vistaril 50mg po. will continue to monitor.
[2020-12-12 03:00] VITALS: BP 169/85; PULSE 118; RESP 19; TEMP 37.3; O2SAT 91
--- NOTE | 2020-12-12 05:39 | PC.NURSE ---
WEDGE USE/SNORING .PT SNORING VERY LOUDLY, GASPING AT NIGHT WHILE SLEEPING, OXYGEN DROPS TO 91% WHEN LAYING FLAT, ELEVATED HOB, WILL CONTINUE TO MONITOR HIS SLEEP.
[2020-12-12 06:00] VITALS: BP 190/121; PULSE 117; RESP 20; TEMP 37.5; O2SAT 85
[2020-12-12] MEDS: LORazepam 2 mg Tablet PO ×2 (06:19→16:44)
--- NOTE | 2020-12-12 06:22 | PC.NURSE ---
pt noted with elevated bp of 192/129, spo2 ranging from 80% to 90% on room air, respirations 38. pt noted with moderate tremors. pt given ativan 2mg po . will continue to monitor. charge nurse contacting Dr Conti at this time.
[2020-12-12] MEDS: acetaminophen 325 mg Tablet 650 MG PO (07:29)
[2020-12-12] MEDS: gabapentin 400 mg Capsule 1600 MG PO ×2 (07:36→20:26)
[2020-12-12] MEDS: naltrexone hcl 50 mg Tablet PO (07:36)
[2020-12-12] MEDS: sertraline 50 mg Tablet PO (07:36)
[2020-12-12] MEDS: folic acid 1 mg Tablet PO (07:36)
[2020-12-12] MEDS: thiamine 100 mg Tablet PO (07:37)
[2020-12-12] MEDS: multivitamin therapeutic Tablet 1 TAB PO (07:37)
[2020-12-12 09:38] VITALS: TEMP 36.4
--- NOTE | 2020-12-12 12:35 | PM.NHP ---
Providers/Chief Complaint Admitting Physician: Awais Conti MD Primary Care Provider: Kain Zafar MD Chief Complaint: SI HPI NPU History of Present Illness Fortunato Marie is a 35 year old male who presented to the emergency department with the following report: Chief Complaint: Psychiatric Symptoms Stated Complaint: SI Time Seen by Provider: 12/11/20 15:27 History of Present Illness: HPI Narrative: 35-year-old male presents to the emergency room with complaints of suicidal ideation. He is intentionally drinking with the intent of harming himself. Is been drinking heavily for the last 2 days. He denies any recent illness denies any specific injury. He does not have any other plan besides drinking heavily to kill himself. He states he drank a half a gallon of vodka today last drank about 2 hours ago. complaint: suicidal ideation and feels depressed Onset (ago): day(s) Duration: constant History of same: Yes. He was admitted to the neuropsychiatric unit for definitive treatment of those issues. Fortunato presents today in pretty bad shape as he has been struggling with his alcohol withdrawal significantly. He is on the CIWA protocol and his blood pressure been running very high. Has had some headaches and has been treated with Ativan for withdrawal. He currently is a limited historian secondary to both his withdrawal and the sedative impact of the Ativan to manage his level of withdrawal. He presented as stated above with depression and suicidal ideation endorsing that he had been doing okay with his abstinence but recent psychosocial stressors led to him returning to drinking is his coping strategy. He was last seen here 10/25/2020. Nausea, and Zoloft was started. He has not been taking his medication and we discussed the risk benefits and alternatives of restarting the Zoloft and titrating to 100 mg in the next couple of days and he understood and agreed proceed as is documented in this note. He denied any substantive changes and an excerpt of his 2019 hospitalization is included for context. His last visit outlined the continued struggle with sobriety, his relationship with his and family and lack of stability and independence release in part explained by his addiction. He met with the social work team about sober living treatment this morning. Per his 11/20/2018 [facility] inpatient eval: Date of Service: Nov 20, 2018 Chief Complaint: Suicidal ideation HPI: HPI: The patient is a 33-year-old male admitted voluntarily for suicidal ideation. The patient reports that he recently got a after 17 years of marriage and has been increasingly depressed and consuming increasing amounts of alcohol daily over the past 2 months and using marijuana. Initial alcohol level upon admission was 174 and drug screen was negative. He reports that he has been feeling increasingly helpless and hopeless, anhedonic, fatigued, sleeping excessively, not eating with recent 30 pound weight loss and has begun to develop suicidal ideation with plan to drink himself to . He reports he has been drinking up to half a gallon of vodka daily over the past 2 months reporting I started drinking to feel better and then to end it. He reports that he wants to stop drinking but begins having significant diaphoresis, tremors, nausea, vomiting, as well as auditory hallucinations of singing but real loud whenever he attempts to stop drinking. He denies VH/ gross disorientation. Denies hx seizures. His last drink was this morning. Psychiatric review of systems: Increased depression over the past 2 months, anxiety, helplessness, hopelessness, anhedonia, suicidal ideation, fatigue, hypersomnolence, decreased appetite. Denies history of overt manic episode. Denies homicidal ideation. Denies hallucinations/paranoia. Does endorse vague nonspecific anxiety. Past psychiatric history: Denies any past psychiatric history/outpatient care/history of suicide attempts or psychiatric hospitalizations/prior psychotropic medications. Past medical history: Denies any history of medical problems. Denies any history of head injury/seizures/surgeries. 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 Previously had difficulty maintaining employment but denies this was due to alcoholism but rather irresponsible behavior which has caused his current marital issues. Using marijuana and daily alcohol ?2 months with a history of complicated withdrawal or chemical dependency treatment. Legal problems- [employer] unpaid ticket late 2017 but denies current probation/ parole. Meds NPU Home Medications Medication Instructions Recorded Confirmed Last Taken Type gabapentin [Neurontin] 1,600 mg PO BID 10/25/20 12/11/20 10/23/20 21:00 History multivitamin with folic acid 1 tab PO DAILY #30 tab 10/29/20 12/11/20 Unknown Rx [Thera] naltrexone 50 mg PO DAILY #30 tab 10/29/20 12/11/20 Unknown Rx sertraline 50 mg PO DAILY #30 tab 10/29/20 12/11/20 Unknown Rx thiamine mononitrate (vit B1) 100 mg PO DAILY #30 tab 10/29/20 12/11/20 Unknown Rx [Vitamin B-1 (mononitrate)] Allergies Allergy/AdvReac Type Severity Reaction Status Date / Time morphine Allergy [facility]: Medical History Alcoholism Anxiety and depression Bilateral lower extremity edema Cellulitis Elevated blood pressure reading Falls frequently Obesity Tobacco dependency Surgical History History of foot surgery Hx of cholecystectomy Family History Other Diabetes Social History Smoking and tobacco status: current every day smoker cigarettes Packs smoked per day: 1 Alcohol intake: current Alcohol intake frequency: few times a month Current occupational status: unemployed Mental Status Exam MSE Comments: This is an obese versus morbidly obese white male in hospital scrubs with limited grooming and eye contact. No abnormal movements except for psychomotor retardation. Cooperative with exam in mild to moderate distress. Speech was limited and decreased rate and volume with some slurring and stammering. Mood described as depressed, affect congruent. Thought process linear and at times organized. Thought content: Patient endorsed passive wish and some suicidal thinking and denied homicidal ideations, there are no delusions reported or noted, he denies auditory or visual hallucinations. Attention and concentration were impaired and memory was mostly reliable but none were formally tested. He is arousable and oriented x3. Insight and judgment are limited, impulse control is impaired. Vitals/I&O/Wt Last Vital Signs Temp 99.5 F 12/12/20 06:00 Pulse 117 H 12/12/20 06:00 Resp 20 H 12/12/20 06:00 BP 190/121 12/12/20 06:00 Pulse Ox 85 L 12/12/20 06:00 Weight last 48 hrs Weight 124.738 kg Data NPU : 12/11/20 16:21 12/11/20 16:21 A&P Assessment and plan (1) Depressive disorder: Status: Acute (2) Chronic alcohol abuse: Status: Acute (3) Polysubstance abuse: Status: Acute (4) Cellulitis of arm, right: Status: Acute (5) Methamphetamine abuse: Status: Acute (6) Anxiety and depression: Status: Acute (7) Elevated blood pressure reading: Status: Acute (8) Bilateral lower extremity edema: Status: Acute (9) Sleep apnea: Status: Acute Additional A&P Information This is a 35-year-old white male with a long history of alcohol addiction and recent inpatient services over the last couple of years who presents with active addiction with significant alcohol withdrawal with reports of depression and suicidality. 1. Continue current medication. Restart home medications and titrate to effect. 2. Continue every 15 minute checks for safety. 3. Encourage individual, group and milieu therapies. 4. Encourage sober living treatment after discharge at the highest level of care to which he is willing to commit. Involuntary Hold Information 96 Hour Hold: 96 Hour Involuntary Admission: No Attestations NPU Medical Necessity Statement*: Inpatient hospitalization is medically necessary and the clinically appropriate intervention at this time. We will monitor medications and make changes as indicated. Patient will be in the hospital for over two midnights. Likely length of stay 3 to 5 days. Coding Level of Care Code Acute Pathology Laboratory Aides Teacher for Jerilyn Wallace Diagnoses Depressive disorder F32.9 Chronic alcohol abuse F10.10 Polysubstance abuse F19.10 Cellulitis of arm, right L03.113 Methamphetamine abuse F15.10 Anxiety and depression F41.9; F32.9 Elevated blood pressure reading R03.0 Bilateral lower extremity edema R60.0 Sleep apnea G47.30
[2020-12-12 16:04] VITALS: BP 152/105; PULSE 82; RESP 18; TEMP 36.7; O2SAT 90
--- NOTE | 2020-12-12 16:44 | PC.NURSE ---
Addendum entered by Jeanne Ott LPN 12/12/20 17:38: CIWA SCORE NOW A 0, PT RESTING QUIETLY IN BED IN ROOM Original Note: CIWA SCORE 13---ATIVAN 2 MG GIVEN PO PER PT C/O MILD TREMORS, SWEATS, MILD ANXIETY.
--- NOTE | 2020-12-12 18:20 | PC.RESP ---
Smoking Cessation information sent to patient.
[2020-12-12] MEDS: ondansetron 4 MG Tablet PO (20:25)
[2020-12-12] MEDS: ibuprofen 600 mg Tablet PO (20:26)
[2020-12-12 22:00] VITALS: BP 163/102; PULSE 54; RESP 16; TEMP 37.1
[2020-12-13] MEDS: LORazepam 2 mg Tablet PO (04:23)
[2020-12-13 04:32] VITALS: BP 165/103; PULSE 88; RESP 24; O2SAT 93
[2020-12-13 05:26] VITALS: BP 148/92; PULSE 98; TEMP 37.8; O2SAT 95
[2020-12-13] MEDS: gabapentin 400 mg Capsule 1600 MG PO ×2 (09:21→21:31)
[2020-12-13] MEDS: folic acid 1 mg Tablet PO (09:21)
[2020-12-13] MEDS: naltrexone hcl 50 mg Tablet PO (09:21)
[2020-12-13] MEDS: multivitamin therapeutic Tablet 1 TAB PO (09:21)
[2020-12-13] MEDS: sertraline 50 mg Tablet PO (09:21)
[2020-12-13] MEDS: thiamine 100 mg Tablet PO (09:21)
--- NOTE | 2020-12-13 12:48 | PM.NPN ---
Subjective NPU Subjective: Interval history: Fortunato presents today continuing to process his withdrawal and been mostly isolative. He is agreeable with his circumstances that [facility] is the best solution and he is in agreement with that plan. We will continue to challenge him to use other skills and avoid Ativan as the solution. He continues to demonstrate that he would benefit from a CPAP but he needs to be more stable for to be functional in his life. Mental Status Exam MSE Comments: This is an obese versus morbidly obese white male in hospital scrubs with limited grooming and eye contact. No abnormal movements except for psychomotor retardation. Cooperative with exam in mild distress. Speech was limited and decreased rate and volume. Mood described as a little better, affect congruent. Thought process organized. Thought content: Patient denied suicidal or homicidal ideations, there are no delusions reported or noted, he denies auditory or visual hallucinations. Attention and concentration were improving and memory was mostly reliable but none were formally tested. He is alert and oriented x3. Insight and judgment are limited, but improving impulse control is limited. Vitals/I&O/Wt Last Vital Signs Temp 100.1 F H 12/13/20 05:26 Pulse 98 12/13/20 05:26 Resp 24 H 12/13/20 04:32 BP 148/92 12/13/20 05:26 Pulse Ox 95 12/13/20 05:26 Weight last 48 hrs Weight 124.738 kg Data NPU : 12/11/20 16:21 12/11/20 16:21 A&P Additional A&P Information (1) Depressive disorder: (2) Chronic alcohol abuse: (3) Polysubstance abuse: (4) Cellulitis of arm, right: (5) Methamphetamine abuse: (6) Anxiety and depression: (7) Elevated blood pressure reading: (8) Bilateral lower extremity edema: (9) Sleep apnea: Additional A&P Information This is a 35-year-old white male with a long history of alcohol addiction and recent inpatient services over the last couple of years who presents with active addiction with significant alcohol withdrawal with reports of depression and suicidality. 1. Continue current medication. 2. Continue every 15 minute checks for safety. 3. Encourage individual, group and milieu therapies. 4. Encourage sober living treatment after discharge at the highest level of care to which he is willing to commit. Involuntary Hold Information 96 Hour Hold: 96 Hour Involuntary Admission: No Attestations NPU Medical Necessity Statement*: Inpatient hospitalization is medically necessary and the clinically appropriate intervention at this time. We will monitor medications and make changes as indicated. Likely length of stay 1-4 days. Tentative discharge plan for the morning. Coding Level of Care Code Acute Surveillance Operator for Jerilyn Wallace
[2020-12-13 13:06] VITALS: BP 151/83; PULSE 99; RESP 16; TEMP 37.3; O2SAT 91
[2020-12-13] MEDS: hyDROXYzine 25 mg Capsule 50 MG PO (14:34)
[2020-12-13 21:25] VITALS: BP 146/82; PULSE 101; RESP 19; TEMP 37.2; O2SAT 92
[2020-12-13] MEDS: acetaminophen 325 mg Tablet 650 MG PO (21:31)
--- NOTE | 2020-12-13 22:43 | PC.NURSE ---
Tylenol was given for low grade Temp. Not for pain. Patient afebrile at this time.
--- NOTE | 2020-12-14 05:36 | P.DS_ITS ---
Diagnoses at Discharge Discharge Diagnosis (1) Depressive disorder: Status: Acute (2) Chronic alcohol abuse: Status: Acute (3) Polysubstance abuse: Status: Acute (4) Cellulitis of arm, right: Status: Acute (5) Methamphetamine abuse: Status: Acute (6) Anxiety and depression: Status: Acute (7) Elevated blood pressure reading: Status: Acute (8) Bilateral lower extremity edema: Status: Acute (9) Sleep apnea: Status: Acute Reason for Visit Reason for Visit: SI Brief History: History of Present Illness Fortunato Marie is a 35 year old male who presented to the emergency department with the following report: Chief Complaint: Psychiatric Symptoms Stated Complaint: SI Time Seen by Provider: 12/11/20 15:27 History of Present Illness: HPI Narrative: 35-year-old male presents to the emergency room with complaints of suicidal ideation. He is intentionally drinking with the intent of harming himself. Is been drinking heavily for the last 2 days. He denies any recent illness denies any specific injury. He does not have any other plan besides drinking heavily to kill himself. He states he drank a half a gallon of vodka today last drank about 2 hours ago. MD complaint: suicidal ideation and feels depressed Onset (ago): day(s) Duration: constant History of same: Yes. He was admitted to the neuropsychiatric unit for definitive treatment of those issues. Fortunato presents today in pretty bad shape as he has been struggling with his alcohol withdrawal significantly. He is on the CIWA protocol and his blood pressure been running very high. Has had some headaches and has been treated with Ativan for withdrawal. He currently is a limited historian secondary to both his withdrawal and the sedative impact of the Ativan to manage his level of withdrawal. He presented as stated above with depression and suicidal ideation endorsing that he had been doing okay with his abstinence but recent psychosocial stressors led to him returning to drinking is his coping strategy. He was last seen here 10/25/2020. Nausea, and Zoloft was started. He has not been taking his medication and we discussed the risk benefits and alternatives of restarting the Zoloft and titrating to 100 mg in the next couple of days and he understood and agreed proceed as is documented in this note. He denied any substantive changes and an excerpt of his 2019 hospitalization is included for context. His last visit outlined the continued struggle with sobriety, his relationship with his and family and lack of stability and independence release in part explained by his addiction. He met with the social work team about sober living treatment this morning. Per his 11/20/2018 [facility] inpatient eval: Date of Service: Nov 20, 2018 Chief Complaint: Suicidal ideation HPI: HPI: The patient is a 33-year-old male admitted voluntarily for suicidal ideat ion. The patient reports that he recently got a after 17 years of marriage and has been increasingly depressed and consuming increasing amounts of alcohol daily over the past 2 months and using marijuana. Initial alcohol level upon admission was 174 and drug screen was negative. He reports that he has been feeling increasingly helpless and hopeless, anhedonic, fatigued, sleeping excessively, not eating with recent 30 pound weight loss and has begun to develop suicidal ideation with plan to drink himself to . He reports he has been drinking up to half a gallon of vodka daily over the past 2 months reporting I started drinking to feel better and then to end it. He reports that he wants to stop drinking but begins having significant diaphoresis, tremors, nausea, vomiting, as well as auditory hallucinations of singing but real loud whenever he attempts to stop drinking. He denies VH/ gross disorientation. Denies hx seizures. His last drink was this morning. Psychiatric review of systems: Increased depression over the past 2 months, anxiety, helplessness, hopelessness, anhedonia, suicidal ideation, fatigue, hypersomnolence, decreased appetite. Denies history of overt manic episode. Denies homicidal ideation. Denies hallucinations/paranoia. Does endorse vague nonspecific anxiety. Past psychiatric history: Denies any past psychiatric history/outpatient care/history of suicide attempts or psychiatric hospitalizations/prior psychotropic medications. Past medical history: Denies any history of medical problems. Denies any history of head injury/seizures/surgeries. 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 Previously had difficulty maintaining employment but denies this was due to alcoholism but rather irresponsible behavior which has caused his current marital issues. Using marijuana and daily alcohol ?2 months with a history of complicated withdrawal or chemical dependency treatment. Legal problems- longterm unpaid ticket late 2018 but denies current probation/ parole. Hospital Course Hospital Course Fortunato presented to the emergency department reporting depression, suicidality and active alcohol addiction. Additionally he appeared to have issues regarding housing. He admitted to the neuropsychiatric unit for definitive treatment of those issues. On the unit he slowly acclimated to the individual, group and milieu therapies provided. We restarted his Zoloft and and wrote the discharge prescription to increase to 100 mg p.o. every morning to begin after discharge. He worked with the social work team to find stable housing to begin working on his recovery. He showed modest improvement and was able to contract for safety prior to discharge. During the hospitalization, patient had routine laboratory studies which were within normal limits except for few outliers. Additionally there was a general medical evaluation which was also within normal limits and revealed no new acute processes. Discharge Summary: At the time of discharge, psychosis and lethality were denied. Mood and anxiety were well managed. Patient endorsed a plan to avoid all drugs of abuse and follow-up with the aftercare recommendations of the treatment team. Patient was evaluated and deemed to be absent credible lethality, and had achieved the maxi mum benefit from an inpatient hospitalization, so was discharged. Involuntary Hold Information 96 Hour Hold: 96 Hour Involuntary Admission: No Mental Status Exam MSE Comments: This is an obese versus morbidly obese white male in hospital scrubs with adequate grooming and eye contact. No abnormal movements. Cooperative with exam in no acute distress. Speech was more spontaneous and more normal rate and volume. Mood described as definitely better, affect congruent. Thought process organized. Thought content: Patient denied suicidal or homicidal ideations, there are no delusions reported or noted, he denies auditory or visual hallucinations. Attention and concentration were improving and memory appeared reliable but none were formally tested. He is alert and oriented x3. Insight and judgment are improving and impulse control is limited. Discharge Data Vitals: Last Vital Signs Temp 99.0 F 12/13/20 21:25 Pulse 101 H 12/13/20 21:25 Resp 19 H 12/13/20 21:25 BP 146/82 12/13/20 21:25 Pulse Ox 92 12/13/20 21:25 Discharge Plan Discharge Patient Disposition: Home Condition: Stable Prescriptions: New sertraline 50 mg Tablet 100 mg PO DAILY 30 Days Qty: 60 RF: 1 Continued naltrexone 50 mg Tablet 50 mg PO DAILY 30 Days Qty: 30 RF: 1 Neurontin 800 mg Tablet 1,600 mg PO BID 30 Days Qty: 120 RF: 1 Thera 400 mcg Tablet 1 tab PO DAILY 30 Days Qty: 30 RF: 1 Vitamin B-1 (mononitrate) 100 mg Tablet 100 mg PO DAILY 30 Days Qty: 30 RF: 1 Discontinued sertraline 50 mg Tablet 50 mg PO DAILY Qty: 30 RF: 0 Discharge Orders: Discharge Order (Routine); Ordered 12/14/20 Ordered By: Awais Conti Referrals: [facility] Bishop [Other] [facility] [Other] [facility] [place] [facility] [Outside] Discharge Diet: Regular Discharge Activity: Resume usual activity Discharge Attestations NPU Time Spent in Discharge Care*: less than 30 min Specific Discharge Activities: Specific discharge activities: educating patient, discussing with child support case officer/social workers/dc planners, documenting/other paperwork and evaluating patient/reviewing data Status at Discharge: Cognitive status at discharge: cognitively intact , Behavioral status at discharge: cooperative , Coding Level of Care Code Acute E Learning Coordinator for g Fwd Diagnoses Depressive disorder F32.9 Chronic alcohol abuse F10.10 Polysubstance abuse F19.10 Cellulitis of arm, right L03.113 Methamphetamine abuse F15.10 Anxiety and depression F41.9; F32.9 Elevated blood pressure reading R03.0 Bilateral lower extremity edema R60.0 Sleep apnea G47.30
[2020-12-14 05:40] VITALS: BP 161/88; PULSE 106; RESP 19; TEMP 37; O2SAT 94
== END 2020-12-14 06:05 | disposition home or self-care (01) | DRG 897 ==
LOC: ER 15:43 → NP 17:52
PROVIDERS: Admitting Provider Psychiatry & Neurology Psychiatry; Emergency Provider Family Medicine; PCP Family Medicine; Visit Provider Psychiatry & Neurology Psychiatry
DX: F10.229 Alcohol dependence with intoxication, unspecified (principal); R45.851 Suicidal ideations; F10.239 Alcohol dependence with withdrawal, unspecified; Y90.9 Presence of alcohol in blood, level not specified; F41.8 Other specified anxiety disorders; G47.10 Hypersomnia, unspecified; Z81.1 Family history of alcohol abuse and dependence; E66.01 Morbid (severe) obesity due to excess calories; Z68.39 Body mass index [BMI] 39.0-39.9, adult; F17.210 Nicotine dependence, cigarettes, uncomplicated; F15.10 Other stimulant abuse, uncomplicated; I10 Essential (primary) hypertension; G47.30 Sleep apnea, unspecified
CPT/HCPCS: 36415; 80053; 80306; 80307; 85025; 96372; 99285; J3411; Q0162

== ENCOUNTER 2021-03-09 11:17 | Emergency (ER) | payer SELFPAY ==
[2021-03-09] VITALS (8 sets, daily range): BP systolic 107–165; BP diastolic 71–105; PULSE 78–111; RESP 18–22; TEMP 36.6–36.7; O2SAT 89–100; BMI 44.4
--- NOTE | 2021-03-09 12:28 | ED_ITS ---
HPI - Alcohol General: Chief Complaint: Alcohol Stated Complaint: ETOH Time Seen by Provider: 03/09/21 12:23 History of Present Illness: HPI narrative: Patient has been drinking which is usual for him. Has history of alcoholism. Patient said he feels like he got hot got dehydrated feels like he needs some fluid. Denies any suicidal ideation . MD complaint: alcohol intoxication and alcohol dependence Last drink: Hours (ago) Chronic alcohol use: Yes Previous visits for alcohol intoxication: Yes Recent trauma: No Associated symptoms: Reports no associated symptoms; Deny abdominal pain, depression, nausea, suicidal ideation or vomiting Review of Systems Narrative: Drink about 2/5 over the last day. Feels like he got dehydrated down the heat. States hasn't done drugs in a while. Const: Denies: fever(s), chills or body aches Eyes: Denies: change in vision or blurry vision ENMT: Denies: throat pain or nasal congestion Card: Denies: chest pain or dyspnea on exertion Resp: Denies: dyspnea, productive cough or non-productive cough GI: Denies: abdominal pain, nausea or vomiting : Denies: difficulty urinating Musc: Denies: extremity pain Skin/Breast: Denies: rash Neuro: Denies: headache(s) Psych: Denies: anxiety, depression, suicidal ideation or homicidal ideation Socrates/Lymph: Denies: easy bruising PFSH ED PFSH: Medical History Alcoholism Anxiety and depression Bilateral lower extremity edema Cellulitis Elevated blood pressure reading Falls frequently Obesity Tobacco dependency Surgical History History of foot surgery Hx of cholecystectomy Family History Other Diabetes Social History Smoking and tobacco status: current every day smoker cigarettes Packs smoked per day: 1 Alcohol intake: current Alcohol intake frequency: few times a month Current occupational status: unemployed Physical Exam Narrative: EXAM NARRATIVE: Patient very restless. Const: COMMON NORMALS: no acute distress, average body habitus and patient oriented x3 HENMT: COMMON NORMALS: normocephalic HEAD & SCALP: normal to inspection and normocephalic FACE & SINUS: normal facial exam Eye: COMMON NORMALS: conjunctivae normal GENERAL EYE: appearance normal, both eyes and all related structures CONJUNCTIVA: Yes conjunctivae normal Neck/C-Spine: COMMON NORMALS: no JVD Chest: COMMONS NORMALS: normal inspection of the chest Resp: COMMON NORMALS: normal respiratory effort and clear to auscultation bilaterally AUSCULTATION: clear to auscultation bilaterally Cardio: COMMON NORMALS: no JVD and regular rhythm RATE: tachycardic RHYTHM: regular rhythm GI: COMMON NORMALS: Normal to inspection, nondistended, normoactive bowel sounds present Extremity: COMMON NORMALS: normal to inspection and full ROM Neuro: COMMON NORMALS: patient oriented x3 Psych: COMMON NORMALS: mental status grossly normal Course Vital Signs: Vital signs: Vital Signs Temperature 98.0 F 03/09/21 16:20 Pulse Rate 98 03/09/21 16:27 Respiratory Rate 18 03/09/21 16:27 Blood Pressure 107/74 03/09/21 14:26 Pulse Oximetry 98 03/09/21 16:27 MDM - Alcohol MDM Narrative: Medical decision making narrative: Blood was drawn at 1445. Labs look good patient stable doing well ready for discharge after fluids were in and patient was rest patient alert and oriented conversing appropriately, restlessness had gone away patient says he felt much better. Lab Data: Labs: Lab Results 03/09/21 03/09/21 Range/Units 14:53 14:53 WBC 8.9 (4.0-10.0) 10^3/ uL RBC 4.55 (4.1-5.3) 10^6/u L Hgb 14.2 (11.7-16.6) g/dL Hct 43.5 (42.0-52.0) % MCV 95.6 H (80-94) fL MCH 31.2 (28.0-34.0) pg MCHC 32.6 (30.0-36.0) g/dL RDW 13.1 (12.1-15.1) % Plt Count 295 (130-400) 10^3/c mm MPV 10.0 (7.4-10.4) fL Neut % (Auto) 45.5 % Lymph % (Auto) 43.5 % Haakon % (Auto) 8.8 % Eos % (Auto) 0.9 % Baso % (Auto) 0.8 % Neut # (Auto) 4.04 (1.8-7.7) 10^3/u L Lymph # (Auto) 3.9 (0.8-4.8) 10^3/u L Haakon # (Auto) 0.8 (0.2-0.9) 10^3/u L Eos # (Auto) 0.1 (0.0-0.8) 10^3/u L Baso # (Auto) 0.1 (0.0-0.1) 10^3/u L Nucleated RBC % (a uto) 0 % Nucleated RBCs # 0.0 /100WBC Sodium 142 (136-145) mmol/L Potassium 3.9 (3.5-5.1) mmol/L Chloride 104 (98-107) mmol/L Carbon Dioxide 25 (22-29) mmol/L Anion Gap 16.9 (5-19) BUN 16 (6-20) mg/dL Creatinine 0.8 (0.7-1.2) mg/dL GFR Calculation 109.4 (90-130) mL/min Glucose 93 (65-115) mg/dL Calculated Osmolal ity 295 (285-295) mOsm/k g Calcium 8.5 (8.5-10.5) mg/dL Discharge Plan Discharge Patient Disposition: Home Clinical Impression: Dehydration EtOH dependence Qualifiers: Substance use status: uncomplicated Qualified Code(s): F10.20 - Alcohol dependence, uncomplicated Condition: Stable Prescriptions: No Action sertraline 50 mg Tablet 100 mg PO DAILY 30 Days Qty: 60 RF: 1 naltrexone 50 mg Tablet 50 mg PO DAILY 30 Days Qty: 30 RF: 1 Neurontin 800 mg Tablet 1,600 mg PO BID 30 Days Qty: 120 RF: 1 Thera 400 mcg Tablet 1 tab PO DAILY 30 Days Qty: 30 RF: 1 Vitamin B-1 (mononitrate) 100 mg Tablet 100 mg PO DAILY 30 Days Qty: 30 RF: 1 Discharge Orders: Discharge ED (Routine); Ordered 03/09/21 Ordered By: Jeremie Owens Discharge Diet: Usual diet Discharge Activity: Resume usual activity Patient Instructions: Dehydration (ED), Abuse of Alcohol (ED) Activity Restrictions/Additional Instructions: Crease alcohol intake. Follow-up with your primary care provider. Make sure you drink plenty of clear fluids which are not alcohol to help keep fluid status up. Coding Level of Care Code ED Waterproofing Mixer for Chg Fwd Exam Comprehensive
[2021-03-09] MEDS: LORazepam 1 mg Tablet PO (12:56)
[2021-03-09] MEDS: sodium chloride 0.9% 1,000 ML 999 ML IV (12:56)
--- NOTE | 2021-03-09 13:36 | PC.NURSE ---
pt os noted to drop as pt falls asleep. Pt reports hx of sleep apnea. Pt placed on 4 l nc at this time
[2021-03-09 15:07] LABS: Basophils # 0.1 10^3/uL (0.0-0.1); Basophils % 0.8 %; Eosinophils # 0.1 10^3/uL (0.0-0.8); Eosinophils % 0.9 %; Hematocrit 43.5 % (42.0-52.0); Hemoglobin 14.2 g/dL (11.7-16.6); Lymphocytes # 3.9 10^3/uL (0.8-4.8); Lymphocytes % 43.5 %; Mean Corpuscular HGB Conc 32.6 g/dL (30.0-36.0); Mean Corpuscular Hemoglobin 31.2 pg (28.0-34.0); Mean Corpuscular Volume 95.6 fL (80-94); Monocytes # 0.8 10^3/uL (0.2-0.9); Monocytes % 8.8 %; Neutrophils # 4.04 10^3/uL (1.8-7.7); Neutrophils % 45.5 %; Nucleated Red Blood Cells % 0 %; Platelet Count 295 10^3/cmm (130-400); Red Blood Count 4.55 10^6/uL (4.1-5.3); Red Cell Distribution Width 13.1 % (12.1-15.1); White Blood Count 8.9 10^3/uL (4.0-10.0)
[2021-03-09 15:34] LABS: Blood Urea Nitrogen 16 mg/dL (6-20); Calcium 8.5 mg/dL (8.5-10.5); Carbon Dioxide 25 mmol/L (22-29); Chloride 104 mmol/L (98-107); Glomerular Filtration Rate 109.4 mL/min (90-130); Glucose 93 mg/dL (65-115); Osmolality Calculated 295 mOsm/kg (285-295); Sodium 142 mmol/L (136-145)
[2021-03-09 15:53] LABS: Anion Gap 16.9 (5-19); Potassium 3.9 mmol/L (3.5-5.1)
--- NOTE | 2021-03-09 16:22 | PC.NURSE ---
pt up and ambulated with no noted distress. Pt received a lunch and reports he has a ride on the way. Pt discarge instructions given with education on treatment of alcohol abuse and the increased risks with pt sleep apnea. Pt verbally reports understanding with feed back. IV removed and pt ambutaled out of ER at his request.
== END 2021-03-09 16:30 | disposition home or self-care (01) ==
PROVIDERS: Emergency Provider Nurse Practitioner Family
DX: F10.20 Alcohol dependence, uncomplicated (principal); E86.0 Dehydration; F17.210 Nicotine dependence, cigarettes, uncomplicated
CPT/HCPCS: 80048; 85025; 96360; 99283; J7030

== ENCOUNTER 2021-03-17 12:27 | Inpatient (IN) | payer SELFPAY ==
[2021-03-17] VITALS (21 sets, daily range): BP systolic 130–194; BP diastolic 64–150; PULSE 58–116; RESP 13–28; TEMP 37.1; O2SAT 93–100; BMI 28.7; BMI 42.3
--- NOTE | 2021-03-17 12:58 | ECG_ITS ---
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: : 1985 Requested By: Mehdi Cosby Order Number: [id number] Adelaida MD: ALEJANDRA CASTELAN Measurements Intervals [place] Rate: 87 P: 42 OH: 163 QRS: 55 QRSD: 118 T: 42 QT: 385 QTc: 465 Interpretive Statements SINUS RHYTHM POSSIBLE INFERIOR MYOCARDIAL INFARCTION [30 ms Q WAVE IN II/aVF], OF INDETERMINATE AGE Compared to ECG 09/27/2020 08:39:23 Sinus tachycardia no longer present Myocardial infarct finding still present Electronically Signed On 03-18-2021 18:50:14 CDT by ALEJANDRA CASTELAN [email or web address]
--- NOTE | 2021-03-17 13:08 | ED_ITS ---
HPI - Psych General: Chief Complaint: Psychiatric Symptoms Stated Complaint: SI Time Seen by Provider: 03/17/21 12:51 History of Present Illness: HPI Narrative: The patient is a 35-year-old male with past medical history of severe alcoholism comes to the ER complaining of suicidal ideations and that he had 3 seizures yesterday because he tried to detox himself at home. He says he wants to detox from alcohol but he keeps having seizures when he does and he feels like hurting himself. He says his last alcoholic drink was 6 hours ago complaint: suicidal ideation and feels depressed History of same: Yes Relieving factors: none Context: recent alcohol abuse Associated psychiatric symptoms: depression and suicidal ideation Associated symptoms: Reports depression and suicidal ideation If self harm: admits thoughts of self harm Review of Systems General: Reports: 10 or more systems reviewed and unremarkable except in HPI and below Const: Denies: fatigue Eyes: Denies: change in vision, blurry vision or eye redness ENMT: Denies: throat pain, swelling of lips/tongue, ear or mastoid pain or nasal congestion Card: Denies: chest pain, palpitations, irregular heart rhythm, edema, dyspnea on exertion or orthopnea Resp: Denies: dyspnea, productive cough or non-productive cough GI: Denies: abdominal pain, diarrhea or GI cramping : Denies: flank pain, urinary frequency or urinary urgency Musc: Denies: neck pain, back pain, extremity pain, joint pain, joint redness, limited range of motion or muscle weakness Skin/Breast: Denies: rash, pruritus, erythema, skin pain or skin tenderness Neuro: Denies: headache(s), numbness in extremities, weakness in extremities, sensory changes, difficulty walking, dizziness, confusion or Slurred speech present Psych: Reports: depression and suicidal ideation Endo: Denies: polyuria All/Imm: Denies: urticaria, throat swelling or tongue swelling PFSH ED PFSH: Medical History Alcoholism Anxiety and depression Bilateral lower extremity edema Cellulitis Elevated blood pressure reading Falls frequently Obesity Tobacco dependency Surgical History History of foot surgery Hx of cholecystectomy Family History Other Diabetes Social History Smoking and tobacco status: current every day smoker cigarettes Packs smoked per day: 1 Alcohol intake: current Alcohol intake frequency: few times a month Current occupational status: unemployed Physical Exam Const: COMMON NORMALS: no acute distress, average body habitus, patient oriented x3, no limitations, healthy appearing, alert and well nourished GENERAL APPEARANCE: cooperative, comfortable, well kempt and well developed ORIENTATION/CONSCIOUSNESS: Yes awake, Yes oriented to person, Yes oriented to place and Yes oriented to time HENMT: COMMON NORMALS: normocephalic, external ears normal and Normal external nose present HEAD & SCALP: normal to inspection and normocephalic NOSE: Normal external nose present EXTERNAL EAR: Yes external ears normal MOUTH: Normal oral and palatal mucosa present THROAT: posterior oropharynx normal Eye: COMMON NORMALS: Equal, round and reactive pupils present and EOMs intact bilaterally GENERAL EYE: appearance normal, both eyes and all related structures PUPIL: Yes Equal, round and reactive pupils present Neck/C-Spine: COMMON NORMALS: full ROM, no lymphadenopathy, no meningeal signs and no JVD GENERAL: Yes normal visual inspection Lymph: LYMPHATIC: no lymphadenopathy noted Chest: COMMONS NORMALS: normal inspection of the chest and normal palpation of entire chest wall Resp: COMMON NORMALS: normal respiratory effort, No retractions, No use of accessory muscles, clear to auscultation bilaterally and percussion normal EFFORT & INSPECTION: Yes able to speak in complete sentences AUSCULTATION: clear to auscultation bilaterally PERCUSSION: percussion normal Cardio: COMMON NORMALS: no JVD, regular rhythm, S1 normal heart sound present, S2 normal heart sound present and Peripheral pulses 2+ throughout RATE: tachycardic RHYTHM: regular rhythm HEART SOUNDS: S1 normal heart sound present and S2 normal heart sound present PERIPHERAL PULSES: Peripheral puls es 2+ throughout GI: COMMON NORMALS: Normal to inspection, nondistended, normoactive bowel sounds present, Soft to palpation, non-tender and no masses INSPECTION: Yes normal to inspection PALPATION: Yes Soft to palpation : COMMON NORMALS: Yes no CVA tenderness BLADDER/KIDNEY EXAM: Yes no CVA tenderness Back/Pelvis: COMMON NORMALS: no CVA tenderness, thoracic and lumbar spine normal to inspection, no thoracic nor lumbar tenderness and thoraco-lumbar ROM normal Extremity: COMMON NORMALS: normal to inspection, full ROM, capillary refill normal, no joint enlargement and no pedal edema GENERAL: Yes normal exam except as noted Neuro: COMMON NORMALS: patient oriented x3, CN's II-XII intact bilaterally, moves all extremities, no focal motor deficits, no sensory deficits noted and gait normal SENSORIUM/ORIENTATION: Yes alert, Yes oriented to person, Yes oriented to place and Yes oriented to time MENINGEAL SIGNS: Yes no meningeal signs Psych: COMMON NORMALS: mental status grossly normal, Normal thought process present, cooperative, normal affect and speech normal APPEARANCE: Yes well kempt ATTITUDE: Yes calm SPEECH: Yes normal speech THOUGHT PROCESS: Normal thought process present Skin: COMMON NORMALS: no rashes or lesions noted GENERAL SKIN EXAM: no rashes or lesions noted Course Vital Signs: Vital signs: Vital Signs Temperature 98.8 F 03/17/21 19:23 Pulse Rate 104 H 03/17/21 22:25 Respiratory Rate 19 H 03/17/21 20:00 Blood Pressure 130/81 03/17/21 18:00 Pulse Oximetry 97 03/17/21 22:25 MDM - Psych MDM Narrative: Medical decision making narrative: The patient is a 35-year-old male severe alcoholic with withdrawal seizures. He says he had 3 seizures yesterday. He is requesting detox and also comments that he wants to hurt himself and slit his wrists and drink himself to . I filled out 96-hour paperwork and discussed with Dr. Mayes who accepts him to the ICU. Dr. Canales will consult. Lab Data: Labs: Lab Results 03/17/21 03/17/21 03/17/21 Range/Units 13:20 13:20 13:20 WBC 5.0 (4.0-10.0) 10^3/ uL RBC 4.51 (4.1-5.3) 10^6/u L Hgb 14.2 (11.7-16.6) g/dL Hct 41.4 L (42.0-52.0) % MCV 91.8 (80-94) fL MCH 31.5 (28.0-34.0) pg MCHC 34.3 (30.0-36.0) g/dL RDW 12.8 (12.1-15.1) % Plt Count 183 (130-400) 10^3/c mm MPV 10.2 (7.4-10.4) fL Neut % (Auto) 41.2 % Lymph % (Auto) 49.2 % Wallace % (Auto) 8.2 % Eos % (Auto) 0.2 % Baso % (Auto) 0.6 % Neut # (Auto) 2.06 (1.8-7.7) 10^3/u L Lymph # (Auto) 2.5 (0.8-4.8) 10^3/u L Wallace # (Auto) 0.4 (0.2-0.9) 10^3/u L Eos # (Auto) 0.0 (0.0-0.8) 10^3/u L Baso # (Auto) 0.0 (0.0-0.1) 10^3/u L Nucleated RBC % (a uto) 0 % Nucleated RBCs # 0.0 /100WBC Sodium Cancelled Potassium Cancelled Chloride Cancelled Carbon Dioxide Cancelled Anion Gap Cancelled BUN Cancelled Creatinine Cancelled GFR Calculation Cancelled Glucose Cancelled Calculated Osmolal ity Cancelled Calcium Cancelled Total Bilirubin Cancelled AST Cancelled ALT Cancelled Alkaline Phosphata se Cancelled Troponin T Baselin e Cancelled Total Protein Cancelled Albumin Cancelled Globulin Cancelled TSH Cancelled Urine Color (Yellow) Urine Appearance (CLEAR) Urine pH (5-7) Ur Specific Gravit y (1.005-1.030) Urine Protein (Negative) Urine Glucose (UA) (Normal) Urine Ketones (Negative) Urine Blood (Negative) Urine Nitrate (Negative) Urine Bilirubin (Negative) Urine Urobilinogen (Negative) mg/dL Ur Leukocyte [place] (Negative) Urine RBC (0-2) /hpf Urine WBC (0-5) /hpf Ur Squamous Epith Cells (0-5) /hpf Amorphous Sediment Urine Bacteria (NONE) /hpf Urine Mucus /hpf Salicylates Cancelled Urine Opiates Scre en (Negative) ng/mL Acetaminophen Cancelled Ur Barbiturates Sc reen (Negative) ng/mL Ur Phencyclidine S crn (Negative) ng/mL Ur Amphetamines Sc reen (Negative) ng/mL U Benzodiazepines Scrn (Negative) ng/mL Urine Cocaine Scre en (Negative) ng/mL U Marijuana (THC) Screen (Negative) ng/mL Ethyl Alcohol Cancelled 03/17/21 03/17/21 03/17/21 Range/Units 13:22 13:22 14:50 WBC (4.0-10.0) 10^3/ uL RBC (4.1-5.3) 10^6/u L Hgb (11.7-16.6) g/dL Hct (42.0-52.0) % MCV (80-94) fL MCH (28.0-34.0) pg MCHC (30.0-36.0) g/dL RDW (12.1-15.1) % Plt Count (130-400) 10^3/c mm MPV (7.4-10.4) fL Neut % (Auto) % Lymph % (Auto) % Wallace % (Auto) % Eos % (Auto) % Baso % (Auto) % Neut # (Auto) (1.8-7.7) 10^3/u L Lymph # (Auto) (0.8-4.8) 10^3/u L Wallace # (Auto) (0.2-0.9) 10^3/u L Eos # (Auto) (0.0-0.8) 10^3/u L Baso # (Auto) (0.0-0.1) 10^3/u L Nucleated RBC % (a uto) % Nucleated RBCs # /100WBC Sodium 145 Potassium 3.9 Chloride 105 Carbon Dioxide 29 Anion Gap 14.9 BUN 8 Creatinine 0.7 GFR Calculation 127.6 Glucose 93 Calculated Osmolal ity 298 H Calcium 8.0 L Total Bilirubin 0.2 AST 76 H ALT 65 H Alkaline Phosphata se 98 Troponin T Baselin e Total Protein 6.8 Albumin 3.8 Globulin 3.0 TSH 0.82 Urine Color Yellow (Yellow) Urine Appearance Clear (CLEAR) Urine pH 5 (5-7) Ur Specific Gravit y 1.020 (1.005-1.030) Urine Protein 2+ H (Negative) Urine Glucose (UA) Norm (Normal) Urine Ketones Negative (Negative) Urine Blood Neg (Negative) Urine Nitrate Negative (Negative) Urine Bilirubin Neg (Negative) Urine Urobilinogen 1 H (Negative) mg/dL Ur Leukocyte [place] Negative (Negative) Urine RBC None (0-2) /hpf Urine WBC 0-4 H (0-5) /hpf Ur Squamous Epith Cells 0-4 H (0-5) /hpf Amorphous Sediment Not Reportable Urine Bacteria 1+ H (NONE) /hpf Urine Mucus 3+ /hpf Salicylates < 0.3 L Urine Opiates Scre en Negative (Negative) ng/mL Acetaminophen < 5.0 L Ur Barbiturates Sc reen Negative (Negative) ng/mL Ur Phencyclidine S crn Negative (Negative) ng/mL Ur Amphetamines Sc reen Negative (Negative) ng/mL U Benzodiazepines Scrn Negative (Negative) ng/mL Urine Cocaine Scre en Negative (Negative) ng/mL U Marijuana (THC) Screen Negative (Negative) ng/mL Ethyl Alcohol 295 H 03/17/21 Range/Units 14:50 WBC (4.0-10.0) 10^3/ uL RBC (4.1-5.3) 10^6/u L Hgb (11.7-16.6) g/dL Hct (42.0-52.0) % MCV (80-94) fL MCH (28.0-34.0) pg MCHC (30.0-36.0) g/dL RDW (12.1-15.1) % Plt Count (130-400) 10^3/c mm MPV (7.4-10.4) fL Neut % (Auto) % Lymph % (Auto) % Wallace % (Auto) % Eos % (Auto) % Baso % (Auto) % Neut # (Auto) (1.8-7.7) 10^3/u L Lymph # (Auto) (0.8-4.8) 10^3/u L Wallace # (Auto) (0.2-0.9) 10^3/u L Eos # (Auto) (0.0-0.8) 10^3/u L Baso # (Auto) (0.0-0.1) 10^3/u L Nucleated RBC % (a uto) % Nucleated RBCs # /100WBC Sodium Potassium Chloride Carbon Dioxide Anion Gap BUN Creatinine GFR Calculation Glucose Calculated Osmolal ity Calcium Total Bilirubin AST ALT Alkaline Phosphata se Troponin T Baselin e 9 Total Protein Albumin Globulin TSH Urine Color (Yellow) Urine Appearance (CLEAR) Urine pH (5-7) Ur Specific Gravit y (1.005-1.030) Urine Protein (Negative) Urine Glucose (UA) (Normal) Urine Ketones (Negative) Urine Blood (Negative) Urine Nitrate (Negative) Urine Bilirubin (Negative) Urine Urobilinogen (Negative) mg/dL Ur Leukocyte [place] (Negative) Urine RBC (0-2) /hpf Urine WBC (0-5) /hpf Ur Squamous Epith Cells (0-5) /hpf Amorphous Sediment Urine Bacteria (NONE) /hpf Urine Mucus /hpf Salicylates Urine Opiates Scre en (Negative) ng/mL Acetaminophen Ur Barbiturates Sc reen (Negative) ng/mL Ur Phencyclidine S crn (Negative) ng/mL Ur Amphetamines Sc reen (Negative) ng/mL U Benzodiazepines Scrn (Negative) ng/mL Urine Cocaine Scre en (Negative) ng/mL U Marijuana (THC) Screen (Negative) ng/mL Ethyl Alcohol Discharge Plan Discharge Patient Disposition: Admitted As Inpatient Admit Provider: Patricia Mayes Clinical Impression: Suicidal ideation, Alcohol withdrawal Condition: Stable Coding Level of Care Code 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
--- NOTE | 2021-03-17 13:37 | XRR_ITS ---
PROCEDURE INFORMATION: Exam: XR Chest Exam date and time: 03/17/2021 1:37 PM Age: 35 years old Clinical indication: Shortness of breath; Additional info: Reduced breath sounds TECHNIQUE: Imaging protocol: XR of the chest. Views: Frontal portable upright view of the chest. COMPARISON: CR (CHEST, ) 09/30/2020 6:34 PM FINDINGS: Tubes, catheters and devices: EKG leads are present overlying the chest. Lungs: The lungs are clear bilaterally. The pulmonary vasculature is normal. Pleural spaces: No pleural effusion. No pneumothorax. Heart/Mediastinum: The heart is normal in size and contour. Mediastinum: Stable. Bones/joints: Right lateral vertebral body marginal osteophytes are noted at mid-lower thoracic spinal levels. XR/XR chest 1V portable [id number] IMPRESSION: No acute cardiopulmonary abnormality identified.
[2021-03-17] MEDS: LORazepam 2 mg/mL INJ 1 mL 0.5 MG IVP ×2 (14:00→19:31)
--- NOTE | 2021-03-17 14:30 | PC.NURSE ---
pt continues to be hypoxic/apneic when sleeping despite supplemental O2. ED provider notified and CPAP orders received. RT contacted
[2021-03-17 14:38] LABS: Basophils % 0.6 %; Eosinophils % 0.2 %; Hematocrit 41.4 % (42.0-52.0); Hemoglobin 14.2 g/dL (11.7-16.6); Lymphocytes # 2.5 10^3/uL (0.8-4.8); Lymphocytes % 49.2 %; Mean Corpuscular HGB Conc 34.3 g/dL (30.0-36.0); Mean Corpuscular Hemoglobin 31.5 pg (28.0-34.0); Mean Corpuscular Volume 91.8 fL (80-94); Mean Platelet Volume 10.2 fL (7.4-10.4); Monocytes # 0.4 10^3/uL (0.2-0.9); Monocytes % 8.2 %; Neutrophils # 2.06 10^3/uL (1.8-7.7); Neutrophils % 41.2 %; Nucleated Red Blood Cells % 0 %; Platelet Count 183 10^3/cmm (130-400); Red Blood Count 4.51 10^6/uL (4.1-5.3); Red Cell Distribution Width 12.8 % (12.1-15.1)
[2021-03-17 14:49] LABS: Amphetamines Screen Urine Negative (Negative); Barbiturates Screen Urine Negative (Negative); Benzodiazepines Screen Urine Negative (Negative); Cocaine Screen Urine Negative (Negative); Opiate Screen Urine Negative (Negative); PCP Screen Urine Negative (Negative); THC Screen Urine Negative (Negative)
[2021-03-17 14:50] LABS: Add Urine Culture? No; Add Urine Microscopic? YES; Bacteria Urine 1+ /hpf; Bilirubin Urine Neg (Negative); Blood Urine Neg (Negative); Glucose Urine UA Norm (Normal); Ketones Urine Negative (Negative); Leukocyte Esterase Urine Negative (Negative); Mucus Urine 3+ /hpf; Nitrate Urine Negative (Negative); Protein Urine 2+ (Negative); Squamous Epithelial Cell Urine 0-4 /hpf (0-5); Urine Appearance Clear (CLEAR); Urine Color Yellow (Yellow); Urobilinogen Urine 1 mg/dL (Negative); WBC Urine 0-4 /hpf (0-5); pH Urine 5 (5-7)
--- NOTE | 2021-03-17 14:58 | ECG_ITS ---
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
[2021-03-17 15:36] LABS: Acetaminophen < 5.0 ug/mL (10-30); Alanine Aminotransferase 65 U/L (0-41); Albumin Level 3.8 g/dL (3.5-5.2); Alcohol Level 295 mg/dL (0-10); Alkaline Phosphatase 98 IU/L (40-130); Anion Gap 14.9 (5-19); Aspartate Amino Transferase 76 U/L (0-40); Blood Urea Nitrogen 8 mg/dL (6-20); Carbon Dioxide 29 mmol/L (22-29); Chloride 105 mmol/L (98-107); Glomerular Filtration Rate 127.6 mL/min (90-130); Glucose 93 mg/dL (65-115); Osmolality Calculated 298 mOsm/kg (285-295); Potassium 3.9 mmol/L (3.5-5.1); Salicylate < 0.3 mg/dL (3-10); Sodium 145 mmol/L (136-145); Thyroid Stimulating Hormone 0.82 uIU/mL (0.27-4.20); Total Bilirubin 0.2 mg/dL (0.15-1.2); Total Protein 6.8 g/dL (6.6-8.7)
[2021-03-17 15:48] LABS: Troponin(5th) Baseline 9 ng/L (0-15)
--- NOTE | 2021-03-17 17:59 | PM.HP ---
Providers/Chief Complaint Chief Complaint: SI History of Present Illness Fortunato Marie is a 35 year old male with h/o alcohol abuse and IVDU, sleep apnea on CPAP who presents to the emergency department reporting some suicidal ideation. He reports he tried to self detox from alcohol at home and had 3 seizure episodes yesterday. Last alcohol drink was earlier this morning. Currently exhibiting some signs of withdrawal with increased anxiety, tremors.Psych consult has bene placed from ER. Review of Systems General: Reports: 10 or more systems reviewed and unremarkable except in HPI and below Const: Denies: fever(s), chills or body aches Eyes: Denies: change in vision, blurry vision or photophobia ENMT: Reports: hoarseness; Denies: throat pain, enlarged tonsils, odynophagia or nasal congestion Card: Denies: chest pain, palpitations, irregular heart rhythm, edema, swelling of feet/ankles, lightheadedness, pre-syncope, dyspnea on exertion or orthopnea Resp: Denies: dyspnea, productive cough, non-productive cough, wheezing, stridor, pain on inspiration, change in phlegm color, hemoptysis or chest congestion GI: Denies: abdominal pain, nausea, vomiting, hematemesis, coffee ground emesis, dysphagia, heartburn, diarrhea, constipation, GI cramping, change in stool character, hematochezia or melena : Denies: flank pain, dysuria, urinary frequency, urinary urgency, urinary hesitancy or hematuria Musc: Denies: neck pain, back pain, extremity pain, joint swelling, joint warmth or deformity Neuro: Denies: headache(s), numbness in extremities, weakness in extremities, sensory changes, difficulty walking, frequent falls, dizziness, vertigo, behavioral changes, Slurred speech present or seizure-like activity Psych: Denies: anxiety, depression, suicidal ideation or homicidal ideation Endo: Denies: polyuria, polydipsia, tired all the time, cold intolerance or hot flashes Socrates/Lymph: Denies: easy bruising or easy bleeding Medications/Allergies Home Medications Medication Instructions Recorded Confirmed Last Taken Type gabapentin [Neurontin] 1,600 mg PO BID 30 Days #120 tab 12/13/20 03/17/21 03/16/21 Rx multivitamin with folic acid 1 tab PO DAILY 30 Days #30 tab 04/10/0403/17/21 03/16/21 Rx [Thera] Allergies Allergy/AdvReac Type Severity Reaction Status Date / Time morphine Allergy ADR-Halluci Verified 03/17/21 12:34 nating PFSH Acute PFSH: Medical History Alcoholism Anxiety and depression Bilateral lower extremity edema Cellulitis Elevated blood pressure reading Falls frequently Obesity Tobacco dependency Surgical History History of foot surgery Hx of cholecystectomy Family History Other Diabetes Social History Smoking and tobacco status: current every day smoker cigarettes Packs smoked per day: 1 Alcohol intake: current Alcohol intake frequency: few times a month Current occupational status: unemployed Vitals/I&O/Wt Last Vital Signs Temp 98.7 F 03/17/21 12:34 Pulse 97 03/17/21 16:00 Resp 18 03/17/21 16:00 BP 134/89 03/17/21 16:00 Pulse Ox 97 03/17/21 16:00 Weight last 48 hrs Weight 90.718 kg Physical Exam Const: COMMON NORMALS: no acute distress, average body habitus, patient oriented x3, no limitations, healthy appearing, alert and well nourished HENMT: COMMON NORMALS: normocephalic and atraumatic HEAD & SCALP: normocephalic and atraumatic Eye: COMMON NORMALS: Equal, round and reactive pupils present, EOMs intact bilaterally, conjunctivae normal and no scleral icterus CONJUNCTIVA: Yes conjunctivae normal PUPIL: Yes Equal, round and reactive pupils present Neck/C-Spine: COMMON NORMALS: no JVD Resp: COMMON NORMALS: normal respiratory effort, No retractions, No use of accessory muscles, clear to auscultation bilaterally and percussion normal AUSCULTATION: clear to auscultation bilaterally PERCUSSION: percussion normal Cardio: COMMON NORMALS: no JVD, regular rate, regular rhythm, S1 normal heart sound present, S2 normal heart sound present, No gallops present (Cardio), No clicks present (Cardio), No murmurs present (Cardio), No rub (Cardio) and Peripheral pulses 2+ throughout RATE: regular rate RHYTHM: regular rhythm HEART SOUNDS: S1 normal heart sound present and S2 normal heart sound present PERIPHERAL PULSES: Peripheral pulses 2+ throughout GI: COMMON NORMALS: Normal to inspection, nondistended, normoactive bowel sounds present, Soft to palpation, non-tender, No hepatosplenomegaly present, no masses and no bruits PALPATION: Yes Soft to palpation and Yes No hepatosplenomegaly present Extremity: COMMON NORMALS: normal to inspection, full ROM, capillary refill normal, no joint enlargement, no clubbing, cyanosis or edema, no calf tenderness and no pedal edema Neuro: COMMON NORMALS: patient oriented x3, CN's II-XII intact bilaterally, moves all extremities, no focal motor deficits, no sensory deficits noted, deep tendon reflexes 2+ bilaterally and gait normal SENSORIUM/ORIENTATION: Yes alert Psych: COMMON NORMALS: mental status grossly normal, Normal thought process present, cooperative, normal affect, speech normal, activity/motor behavior normal, denies hallucinations, denies homicidal ideation and denies suicidal ideation SPEECH: Yes normal speech THOUGHT PROCESS: Normal thought process present Skin: COMMON NORMALS: no rashes or lesions noted, no wounds, turgor normal, no jaundice, no petechiae and no mottling GENERAL SKIN EXAM: no rashes or lesions noted and turgor normal Data : 03/17/21 13:20 03/17/21 14:50 A&P Assessment and plan (1) Suicidal ideation: Neuropsych consult placed 96 hr hold Status: Acute (2) Alcohol abuse: long standing history Multiple admissions in the past [facility] protocol Ativan per [facility] protocol, overlap with po librium 25mg q6h NS @75cc/hr, appears dehydrated thiamine, folic acid protonix 40mg po daily Status: Acute (3) Sleep apnea: CPAP at night time Status: Acute (4) Polysubstance abuse: Currently u tox negative alcohol level 295 Status: Acute (5) Seizure: reports 3 seizure episodes at home, may be related to alcohol withdrawal seziure precautions Ativan prn for now monitor closely in ICU Status: Acute Additional A&P Information Transaminitis: chronic, improving since 11/2020 , 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
[2021-03-17 18:14] LABS: Troponin 5 2HR 7.28 ng/L (0-15)
[2021-03-17 18:18] LABS: Troponin 5 2HR Delta -1.72 ABS# (0-10)
[2021-03-17 18:54] LABS: SARS Covid-2 Antigen Negative (Negative)
--- NOTE | 2021-03-17 18:58 | ECG_ITS ---
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
[2021-03-17] MEDS: chlordiazePOXIDE 25 mg Capsule PO (19:40)
[2021-03-17] MEDS: sodium chloride 0.45% 1,000 ML 75 ML IV (20:23)
[2021-03-17] MEDS: gabapentin 300 mg Capsule PO (20:26)
[2021-03-17] MEDS: thiamine 100 mg Tablet PO (20:26)
--- NOTE | 2021-03-17 21:21 | PC.NURSE ---
AO x4, follows commands, notable tremors and perspiration noted upon arrival to unit, supine 30 degrees call light within reach
[2021-03-17] MEDS: LORazepam 2 mg/mL INJ 1 mL IVP (22:10)
[2021-03-18] VITALS (18 sets, daily range): BP systolic 151–186; BP diastolic 91–123; PULSE 71–121; RESP 17–30; TEMP 36.7–36.9; O2SAT 89–99; BMI 42.3
[2021-03-18] MEDS: chlordiazePOXIDE 25 mg Capsule PO ×4 (00:57→20:36)
[2021-03-18] MEDS: LORazepam 2 mg/mL INJ 1 mL IVP (02:12)
[2021-03-18 05:22] LABS: Basophils % 0.5 %; Eosinophils % 0.7 %; Hematocrit 38.2 % (42.0-52.0); Hemoglobin 12.8 g/dL (11.7-16.6); Lymphocytes # 1.7 10^3/uL (0.8-4.8); Lymphocytes % 30.7 %; Mean Corpuscular HGB Conc 33.5 g/dL (30.0-36.0); Mean Corpuscular Hemoglobin 31.2 pg (28.0-34.0); Mean Corpuscular Volume 93.2 fL (80-94); Mean Platelet Volume 10.2 fL (7.4-10.4); Monocytes # 0.5 10^3/uL (0.2-0.9); Monocytes % 8.2 %; Neutrophils # 3.35 10^3/uL (1.8-7.7); Neutrophils % 59.4 %; Nucleated Red Blood Cells % 0 %; Platelet Count 145 10^3/cmm (130-400); Red Cell Distribution Width 12.8 % (12.1-15.1); White Blood Count 5.6 10^3/uL (4.0-10.0)
[2021-03-18 05:38] LABS: Alanine Aminotransferase 60 U/L (0-41); Albumin Level 3.6 g/dL (3.5-5.2); Alkaline Phosphatase 90 IU/L (40-130); Anion Gap 13.5 (5-19); Aspartate Amino Transferase 52 U/L (0-40); Blood Urea Nitrogen 8 mg/dL (6-20); Calcium 8.2 mg/dL (8.5-10.5); Carbon Dioxide 27 mmol/L (22-29); Chloride 102 mmol/L (98-107); Globulin 2.6 g/dL (1.3-4.6); Glomerular Filtration Rate 127.6 mL/min (90-130); Glucose 94 mg/dL (65-115); Osmolality Calculated 286 mOsm/kg (285-295); Potassium 3.5 mmol/L (3.5-5.1); Sodium 139 mmol/L (136-145); Total Bilirubin 0.6 mg/dL (0.15-1.2); Total Protein 6.2 g/dL (6.6-8.7)
--- NOTE | 2021-03-18 07:00 | PC.NURSE ---
scientific laboratory supervisor notified that a 1:1 sitter is needed.
--- NOTE | 2021-03-18 07:43 | PC.NURSE ---
legal administrative secretary being utilized as 1:1 sitter. waiting for additional staff.
[2021-03-18] MEDS: gabapentin 300 mg Capsule PO ×3 (08:04→20:36)
[2021-03-18] MEDS: pantoprazole DR 40 mg Tablet PO (08:04)
[2021-03-18] MEDS: folic acid 1 mg Tablet PO (08:04)
[2021-03-18] MEDS: LORazepam 2 mg Tablet PO ×3 (08:04→20:37)
[2021-03-18] MEDS: multivitamin therapeutic Tablet 1 TAB PO (08:04)
[2021-03-18] MEDS: thiamine 100 mg Tablet PO (08:05)
[2021-03-18] MEDS: sodium chloride 0.45% 1,000 ML 75 ML IV (08:06)
--- NOTE | 2021-03-18 08:59 | PM.PN ---
Subjective Subjective: Interval history: States he was hearing some voices earlier and thought people were conversing, but when open his eyes did not see anybody. Denies having vision/hallucinations, or hearing anything else unusual. Denies any pain. Feels he will eat some breakfast. Vitals/I&O/Wt Last Vital Signs Temp 98.8 F 03/17/21 19:23 Pulse 94 03/18/21 06:00 Resp 19 H 03/18/21 04:00 BP 173/112 03/18/21 04:00 Pulse Ox 97 03/18/21 04:00 03/17/21 03/18/21 03/18/21 22:59 06:59 14:59 Intake Total 878.75 / 878.75 Output Total 300 / 300 100 / 400 Balance -300 / -300 -100 / -400 878.75 / 878.75 Weight last 48 hrs Weight 133.991 kg Weight 90.718 kg Physical Exam Const: COMMON NORMALS: no acute distress and patient oriented x3 GENERAL APPEARANCE: cooperative NUTRITIONAL APPEARANCE: obese OTHER: Sleeping, wakes up easily to voice. HENMT: COMMON NORMALS: oropharynx normal Neck/C-Spine: COMMON NORMALS: no JVD Resp: COMMON NORMALS: normal respiratory effort and clear to auscultation bilaterally AUSCULTATION: clear to auscultation bilaterally Cardio: COMMON NORMALS: no JVD, regular rhythm, S1 normal heart sound present, S2 normal heart sound present and No murmurs present (Cardio) RHYTHM: regular rhythm HEART SOUNDS: S1 normal heart sound present and S2 normal heart sound present GI: COMMON NORMALS: Normal to inspection, nondistended, normoactive bowel sounds present, Soft to palpation and non-tender PALPATION: Yes Soft to palpation Extremity: COMMON NORMALS: no joint enlargement and no pedal edema Neuro: COMMON NORMALS: patient oriented x3 and moves all extremities Skin: COMMON NORMALS: no rashes or lesions noted GENERAL SKIN EXAM: no rashes or lesions noted Data : 03/18/21 04:44 03/18/21 04:44 A&P Assessment and plan (1) Suicidal ideation: Initial documentation appreciated. Reported wanting to harm herself, slit his wrists and drink himself to . Pending psychiatry consultation. 96 hr hold Continue one-to-one sitter Status: Acute (2) Alcohol abuse: No additional seizures. Last seizure episode the before yesterday 03/16. Multiple admissions in the past [facility] protocol Ativan per [facility] protocol, overlap with po librium 25mg q6h NS @75cc/hr, until resumes oral diet thiamine, folic acid protonix 40mg po daily Status: Acute (3) Sleep apnea: CPAP at night time Status: Acute (4) Polysubstance abuse: Currently u tox negative alcohol level 295 on admission Status: Acute (5) Seizure: reports 3 seizure episodes at home, may be related to alcohol withdrawal seziure precautions Ativan prn for now monitor closely in ICU Status: Acute Additional A&P Information Transaminitis: Improving. 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 Coding Level of Care Code Acute Sap Crm Developer for Jerilyn Wallace Diagnoses Suicidal ideation R45.851 Alcohol abuse F10.10 Sleep apnea G47.30 Polysubstance abuse F19.10 Seizure R56.9
[2021-03-18] MEDS: magnesium sulfate premix 4 GM/100 ML PREMIX IV (11:06)
[2021-03-18] MEDS: amlodipine 5 mg Tablet PO (14:12)
--- NOTE | 2021-03-18 14:22 | P.HP_ITS ---
Providers/Chief Complaint Admitting Physician: Patricia Mayes MD Chief Complaint: SI HPI NPU History of Present Illness Fortunato Marie is a 35 year old male presented to the emergency department with alcohol intoxication with suicidal ideation stating that he had had 3 seizures within the past day trying to detox himself at home although he reported his last drink yesterday morning prior to presenting to the emergency department with a blood alcohol level of 295. Patient has a history of multiple presentati ons to the emergency department under the influence of substances and endorsing suicidal ideation with subsequent in which she subsequently states that he no longer has suicidal ideation after becoming sober. Patient continues to report multiple stressors in his life to include unstable living arrangement reporting that he is currently homeless and that he had not complied with previous recommendations for follow on substance counseling/treatment as well as being noncompliant with post discharge mental health care follow-up to include his medication and medication management. Patient continues to report ongoing, daily use of alcohol since last discharge from this facility. Patient has his tory of multiple past suicide attempts and history of poor compliance with follow-up and frequently leaving the hospital AGAINST MEDICAL ADVICE with typically no follow-up. Patient had been admitted to the ICU for medically managed withdrawal from alcohol with no reported seizures. At the time of evaluation the patient stated that he was no longer having suicidal ideation but reports that he had been having suicidal ideation while he had been withdrawing from alcohol and was experiencing seizures. Patient also acknowledges that he continues to use alcohol despite knowledge that he always has suicidal ideation and thoughts of harming himself while intoxicated and withdrawing from alcohol. He continues to score on CIWA, and has been treated with Librium while in the ICU for tremors and other reported withdrawal symptoms, stomach cramping, tremors, headache, feels sleepy. Per nurse staff, patient mostly sleeping throughout the day. He continues to report depressive and anxiety symptoms exacerbated by ongoing life stressors. He continues to report intermittent perceptual disturbances to include thinking that someone is in the room whenever he is withdrawing from alcohol. Denies any auditory hallucinations. Patient reports poor compliance with follow-up and states that he has not been on any maintenance medications since last hospitalization. Review of Systems General: Reports: 10 or more systems reviewed and unremarkable except in HPI and below Meds NPU Home Medications Medication Instructions Recorded Confirmed Last Taken Type gabapentin [Neurontin] 1,600 mg PO BID 30 Days #120 tab 12/13/20 03/17/21 03/16/21 Rx multivitamin with folic acid 1 tab PO DAILY 30 Days #30 tab 12/13/20 03/17/21 03/16/21 Rx [Thera] Allergies Allergy/AdvReac Type Severity Reaction Status Date / Time morphine Allergy ADR-Halluci Verified 03/17/21 12:34 nating PFS NPU PFSH: Medical History Alcoholism Anxiety and depression Bilateral lower extremity edema Cellulitis Elevated blood pressure reading Falls frequently Obesity Tobacco dependency Surgical History History of foot surgery Hx of cholecystectomy Family History Other Diabetes Social History Smoking and tobacco status: current every day smoker cigarettes Packs smoked per day: 1 Alcohol intake: current Alcohol intake frequency: few times a month Current occupational status: unemployed Other Psychiatric History: Other Psychiatric History: Continues to be noncompliant with medication and medication management follow-up post discharge Multiple psychiatric hospitalizations for alcohol detox, suicidal ideation Mental Status Exam MSE Comments: Lying in bed, calm, interactive, wearing a hospital gown, good eye contact Psychomotor activity is decreased, no agitation Speech is normal rate and volume, poor articulation, not pressured I feel okay, congruent affect, limited range, not labile Alert, oriented to person, place, situation Memory and concentration appear to be fair to intact per interview Intellectual functioning appears to be average based on vocabulary, interview Thought process, delayed, linear but brief, no flight of ideas, no looseness of association Thought content, no delusions, no hallucinations, no suicidal ideation, no homicidal ideation Insight and judgment appear to be fair to intact Vitals/I&O/Wt Last Vital Signs Temp 98.8 F 03/17/21 19:23 Pulse 118 H 03/18/21 12:00 Resp 21 H 03/18/21 12:00 BP 159/91 03/18/21 12:00 Pulse Ox 92 03/18/21 12:00 03/17/21 03/18/21 03/18/21 22:59 06:59 14:59 Intake Total 1323.75 / 1323.75 Output Total 300 / 300 100 / 400 600 / 600 Balance -300 / -300 -100 / -400 723.75 / 723.75 Weight last 48 hrs Weight 133.991 kg Weight 90.718 kg Data NPU : 03/18/21 04:44 03/18/21 04:44 A&P Assessment and plan (1) Suicidal ideation: Status: Acute (2) Alcohol withdrawal: Status: Acute (3) Depressive disorder: Status: Acute (4) Chronic alcohol abuse: Status: Acute Additional A&P Information 35-year-old male with longstanding history of alcohol dependence, polysubstance abuse, depressive disorder with multiple past suicide attempts, with history of presenting to the emergency department on multiple occasions reporting suicidal ideation and then subsequently retracting presents with alcohol intoxication reporting suicidal ideation. Patient continues to report episodes of suicidal ideation in the context of continued alcohol use despite deteriorating health with reported multiple seizures prior to presenting to the emergency department on this episode of care. Patient was admitted to the ICU for alcohol detox with ongoing concerns about safety to self given ongoing alcohol use in the context of untreated depression, suicidal ideation with history of multiple suicide attempts. Patient would benefit from ongoing observation for managing alcohol withdrawal and starting SSRI targeting depressive and anxiety symptoms. INVOLUNTARY ADMIT to inpatient psychiatry CONTINUE CIAL protocol Continue observation, reassessment for starting SSRI, continue to monitor Encourage patient participate in unit activities to include unit milieu Coordinate with social services aide for post discharge alcohol, substance treatment Involuntary Hold Information 96 Hour Hold: 96 Hour Involuntary Admission: Yes Attestations NPU Medical Necessity Statement*: Psychiatric hospitalization indicated for medication stabilization, medically managed withdrawal from alcohol as well as coordination for post discharge care Anticipate hospital stay to exceed 2 midnights, patient currently under 96-hour hold Time Spent in Patient Care: Greater than 35 minutes (>than 50% of time spent in counselling and/or direct pt care on unit) . Coding Level of Care Code Acute Chief Client Officer for Jerilyn Fwalbert Diagnoses Suicidal ideation R45.851 Alcohol withdrawal F10.239 Depressive disorder F32.9 Chronic alcohol abuse F10.10
--- NOTE | 2021-03-18 14:41 | PC.NURSE ---
Blanca Marie is a 35 year old male presented to the emergency department with alcohol intoxication with suicidal ideation stating that he had had 3 seizures within the past day trying to detox himself at home although he reported his last drink yesterday morning prior to presenting to the emergency department with a blood alcohol level of 295. Patient has a history of multiple presentations to the emergency department under the influence of substances and endorsing suicidal ideation with subsequent in which she subsequently states that he no longer has suicidal ideation after becoming sober. Patient continues to report multiple stresses in his life to include unstable living arrangement reporting that he is currently homeless and that he had not complied with previous recommendations for follow on substance counseling/treatment as well as being noncompliant with post discharge mental health care follow-up to include his medication and medication management. Patient continues to report ongoing, daily use of alcohol since last discharge from this facility. Patient has history of multiple past suicide attempts and history of poor compliance with follow-up and frequently leaving the hospital AGAINST MEDICAL ADVICE with typically no follow-up. Patient had been admitted to the ICU for medically managed withdrawal from alcohol with no reported seizures. At the time of evaluation the patient stated that he was no longer having suicidal ideation but reports that he had been having suicidal ideation while he had been withdrawing from alcohol and was experiencing seizures. Patient also acknowledges that he continues to use alcohol despite knowledge that he always has suicidal ideation and thoughts of harming himself while intoxicated and withdrawing from alcohol.
--- NOTE | 2021-03-18 14:44 | PC.NURSE ---
Pt was visiting with psychiatrist. Shortly after the DrOmero left, pt stood up and starting ripping his IV out and and EKG patches off stating that he is going home. Staff unable to talk him down so a code 10 was called. When other staff arrived he was easily pacified and agreed to go to the NPU. Report was called and he was escorted to NPU via wheel chair with security.
--- NOTE | 2021-03-18 14:47 | PC.NURSE ---
Addendum entered by Jeanne Ott LPN 03/18/21 15:30: ciwa now at a 0--pt asleep in bed in room. Original Note: CIWA SCORE 11---ATIVAN 2 MG GIVEN PO PER PROTOCOL, PT UPSET ABOUT BEING ADMITTED TO NPU, ANXIOUS AND AGITATED. ESCORTED TO NPU WITH SECURITY AND 3 STAFF MEMBERS.
[2021-03-19] MEDS: chlordiazePOXIDE 25 mg Capsule PO ×4 (03:13→18:41)
[2021-03-19 03:52] LABS: Basophils % 0.7 %; Eosinophils # 0.1 10^3/uL (0.0-0.8); Eosinophils % 2.1 %; Hematocrit 41.7 % (42.0-52.0); Hemoglobin 13.9 g/dL (11.7-16.6); Lymphocytes # 1.7 10^3/uL (0.8-4.8); Lymphocytes % 39.5 %; Mean Corpuscular HGB Conc 33.3 g/dL (30.0-36.0); Mean Corpuscular Hemoglobin 31.1 pg (28.0-34.0); Mean Corpuscular Volume 93.3 fL (80-94); Mean Platelet Volume 10.4 fL (7.4-10.4); Monocytes # 0.3 10^3/uL (0.2-0.9); Monocytes % 7.5 %; Neutrophils # 2.17 10^3/uL (1.8-7.7); Neutrophils % 49.5 %; Nucleated Red Blood Cells % 0 %; Platelet Count 148 10^3/cmm (130-400); Red Blood Count 4.47 10^6/uL (4.1-5.3); Red Cell Distribution Width 12.5 % (12.1-15.1); White Blood Count 4.4 10^3/uL (4.0-10.0)
[2021-03-19 04:19] LABS: Alanine Aminotransferase 54 U/L (0-41); Albumin Level 3.6 g/dL (3.5-5.2); Alkaline Phosphatase 97 IU/L (40-130); Aspartate Amino Transferase 46 U/L (0-40); Blood Urea Nitrogen 11 mg/dL (6-20); Calcium 8.9 mg/dL (8.5-10.5); Carbon Dioxide 26 mmol/L (22-29); Chloride 98 mmol/L (98-107); Globulin 3.1 g/dL (1.3-4.6); Glomerular Filtration Rate 127.6 mL/min (90-130); Glucose 99 mg/dL (65-115); Osmolality Calculated 279 mOsm/kg (285-295); Sodium 135 mmol/L (136-145); Total Bilirubin 0.8 mg/dL (0.15-1.2); Total Protein 6.7 g/dL (6.6-8.7)
[2021-03-19 04:22] LABS: Anion Gap 14.9 (5-19); Potassium 3.9 mmol/L (3.5-5.1)
[2021-03-19 05:07] VITALS: BP 124/83; PULSE 108; RESP 17; TEMP 37; O2SAT 95
[2021-03-19] MEDS: amlodipine 5 mg Tablet PO (08:02)
[2021-03-19] MEDS: pantoprazole DR 40 mg Tablet PO (08:03)
[2021-03-19] MEDS: folic acid 1 mg Tablet PO (08:03)
[2021-03-19] MEDS: OLANZapine 5 mg ODT PO (08:03)
[2021-03-19] MEDS: gabapentin 300 mg Capsule PO ×3 (08:03→20:33)
[2021-03-19] MEDS: multivitamin therapeutic Tablet 1 TAB PO (08:03)
[2021-03-19] MEDS: thiamine 100 mg Tablet PO (08:04)
[2021-03-19] MEDS: LORazepam 2 mg Tablet PO ×3 (12:53→20:34)
[2021-03-19 13:03] VITALS: BP 148/99; PULSE 106; RESP 18; TEMP 37; O2SAT 95
--- NOTE | 2021-03-19 14:38 | P.PN_ITS ---
Subjective NPU Subjective: Interval history: Continues to report some withdrawal symptoms, reports well-controlled with Ativan, Librium Reports occasional depressive symptoms, denies any interval suicidal ideation Denies any interval psychotic symptoms Reports being compliant with medication and denies any medication side effects Reports his appetite has been good States that his sleep has been fairly good Mental Status Exam MSE Comments: Lying down in his bed, tired appearing, disheveled, unkempt, calm, cooperative, good eye contact Psychomotor activity is decreased, no agitation Speech is low volume, slow rate, spontaneous, fair articulation, not pressured I feel little better, congruent affect, not labile Alert and oriented to person, place, time, situation Memory and concentration appear to be fair to intact per interview Thought process, linear but brief, no flight of ideas, no looseness of associations Thought content, no delusions, no hallucinations, no suicidal ideation, no carol icidal ideation Insight and judgment appear to be fair Vitals/I&O/Wt Last Vital Signs Temp 98.6 F 03/19/21 13:03 Pulse 106 H 03/19/21 13:03 Resp 18 03/19/21 13:03 BP 148/99 03/19/21 13:03 Pulse Ox 95 03/19/21 13:03 03/18/21 03/19/21 03/19/21 22:59 06:59 14:59 Intake Total 1100 / 2423.75 Balance 1100 / 1823.75 Weight last 48 hrs Weight 133.991 kg Weight 133.991 kg Data NPU : 03/19/21 03:14 03/19/21 03:14 A&P Assessment and plan (1) Suicidal ideation: Status: Acute (2) Alcohol withdrawal: Status: Acute (3) Depressive disorder: Status: Acute Additional A&P Information Continues report some withdrawal symptoms with good control on CIWA protocol, denies any interval depressive symptoms, denies any suicidal ideation CONTINUE current medication, continue to monitor Involuntary Hold Information 96 Hour Hold: 96 Hour Involuntary Admission: Yes 96 Hour Hold Ending Date: 03/22/21 96 Hour Hold Ending Time: 00:01 Attestations NPU Medical Necessity Statement*: Continues require psychiatric hospitalization for medically managed withdrawal, medication stabilization, coordination for safe discharge Coding Level of Care Code Acute Heater Engineer Helper for [facility] Fwd Diagnoses Suicidal ideation R45.851 Alcohol withdrawal F10.239 Depressive disorder F32.9
[2021-03-19] MEDS: citalopram 20 mg Tablet PO (15:04)
[2021-03-19 20:52] VITALS: BP 153/100; PULSE 84; RESP 21; TEMP 37.2; O2SAT 99
[2021-03-20] MEDS: chlordiazePOXIDE 25 mg Capsule PO ×4 (01:38→19:46)
--- NOTE | 2021-03-20 01:43 | PC.NURSE ---
Addendum entered by Mamta Snell RN 03/20/21 04:52: Symtoms seemed relieved for 2 hours allowing pt to rest some. However, they returned stronger, Ciwa is now 15. Original Note: Librium 25mg PO given for alcohol withdrawl, Ciwa 10. Pt is oriented, beginning to feel irritable, reports AH, no VH, Reports abdominal pain, mild nausea, no vomiting. Pt reports sensitivity to light and sound, and is mildly diaphoretic.
--- NOTE | 2021-03-20 04:38 | PC.NURSE ---
Addendum entered by Mamta Snell RN 03/20/21 05:22: Pt is resting Original Note: CIWA 15 Med Nurse Notified, Ativan 2mg PO pulled. Pt diaphoretic, mildly anxious, headache, skin irritation, moderate tremor with arms extended, is not able to track finger to nose, gait affected , moderate reaction to light and sound
[2021-03-20] MEDS: LORazepam 2 mg Tablet PO ×5 (04:39→19:52)
--- NOTE | 2021-03-20 05:22 | PC.NURSE ---
Pm Assessment Pt is withdrawing from alcohol. Pt endorses AH- hears people talking to him in his ear. Pt reports mild pain rated 3 on 1-10 pain scale, headache. Pt states he is SI but not HI, Denies VH.
[2021-03-20 06:00] VITALS: BP 150/82; PULSE 100; RESP 15; TEMP 36.6; O2SAT 96
[2021-03-20] MEDS: amlodipine 5 mg Tablet PO (08:34)
[2021-03-20] MEDS: pantoprazole DR 40 mg Tablet PO (08:34)
[2021-03-20] MEDS: folic acid 1 mg Tablet PO (08:34)
[2021-03-20] MEDS: citalopram 20 mg Tablet PO (08:34)
[2021-03-20] MEDS: multivitamin therapeutic Tablet 1 TAB PO (08:34)
[2021-03-20] MEDS: thiamine 100 mg Tablet PO (08:34)
[2021-03-20] MEDS: gabapentin 300 mg Capsule PO ×3 (08:34→20:11)
--- NOTE | 2021-03-20 13:15 | P.PN_ITS ---
Subjective NPU Subjective: Interval history: Reports improvement of his withdrawal symptoms Reports occasional depressive symptoms, denies any interval suicidal ideation Denies any interval psychotic symptoms Reports being compliant with medication and denies any medication side effects Mental Status Exam MSE Comments: Lying in his bed, disheveled, unkempt, calm, cooperative, good eye contact Psychomotor activity is decreased, no agitation Speech is low volume, slow rate, spontaneous, fair articulation, not pressured I feel tired, congruent affect, not labile Alert and oriented to person, place, time, situation Memory and concentration appear to be fair to intact per interview Thought process, linear but brief, no flight of ideas, no looseness of associations Thought content, no delusions, no hallucinations, no suicidal ideation, no homicidal ideation Insight and judgment appear to be fair to intact Vitals/I&O/Wt Last Vital Signs Temp 97.8 F 03/20/21 06:00 Pulse 100 03/20/21 06:00 Resp 15 03/20/21 06:00 BP 150/82 03/20/21 06:00 Pulse Ox 96 03/20/21 06:00 Weight last 48 hrs Weight 133.991 kg Data NPU : 03/19/21 03:14 03/19/21 03:14 A&P Assessment and plan (1) Suicidal ideation: Status: Acute (2) Alcohol withdrawal: Status: Acute (3) Depressive disorder: Status: Acute (4) Chronic alcohol abuse: Status: Acute Additional A&P Information Continues report some withdrawal symptoms, reports some improvement, intermittent depressive symptoms, denies any suicidal ideation CONTINUE current medication, continue to monitor Involuntary Hold Information 96 Hour Hold: 96 Hour Involuntary Admission: Yes 96 Hour Hold Ending Date: 03/22/21 96 Hour Hold Ending Time: 00:01 Attestations NPU Medical Necessity Statement*: Continues require psychiatric hospitalization for medication stabilization Coding Level of Care Code Acute Inspection And Testing Supervisor for [facility] Fwd Diagnoses Suicidal ideation R45.851 Alcohol withdrawal F10.239 Depressive disorder F32.9 Chronic alcohol abuse F10.10
[2021-03-20 14:00] VITALS: BP 183/84; PULSE 109; RESP 20; TEMP 36.6; O2SAT 94
[2021-03-20] MEDS: hyDROXYzine 25 mg Capsule 50 MG PO (21:10)
[2021-03-20] MEDS: OLANZapine 5 mg ODT PO (21:10)
[2021-03-20 22:00] VITALS: BP 139/99; PULSE 128; RESP 21; TEMP 36.7; O2SAT 95
[2021-03-20] MEDS: trazodone 50 mg Tablet PO (23:06)
--- NOTE | 2021-03-20 23:07 | PC.NURSE ---
Addendum entered by Mamta Snell RN 03/21/21 00:15: Pt is asleep and snoring in his room. Original Note: Trazodone 50mg PO given for insomnia. Pt is wanting Ativan, requested four times. Pt can not have any more pRN medications without talking to physician. will continue to observe pt condition until the end of shift.
--- NOTE | 2021-03-21 00:31 | PC.NURSE ---
CIWA 19, Pt came to nurses desk requesting meds for headache rated a 7, on a 1-10 scale, pt is moderately anxious, diaphoretic, reports moderate VH, Ah, and Tactile hallucinations. Feels as if things are crawling on him. Voices are telling him to kill his , to slam his head in the wall, to just . Pt reports seeing people on the ceiling and feeling like things are holding him down or touching him when he tries to drift off to sleep. Med Nurse notified. Pt does have librium scheduled at 0123. Will continue to observe pt for increased s/s of alcohol withdrawl until the end of shift. pt is currently laying in his bed, drifting between sleep and waking.
--- NOTE | 2021-03-21 00:37 | PC.NURSE ---
Addendum entered by Mamta Snell RN 03/21/21 02:20: Per pt report: Pt denies headache at this time. Tylenol effective for headache. Pt is not sweating, respirations are normal. Pt denies any AH/VH and Tactile hallucinations at this time. Ciwa rescored at a zero. Pt denies all symptoms related to withdrawl at this time. pt speech is garbled. new Vital signs respirations are 20 pulse rate 110 blood pressure 121/82 oxygen on RA 94% Original Note: v/S&Librium/TYLENOL PT HAS HEADACHE RATED 7 ON 1-10 PAIN SCALE, TYLENOL 650MG PO GIVEN FOR HEADACHE BY MED NURSE. CIWA IS 19, LIBRIUM IS SCHEDULED MEDICATION. PLUM PACKER OBTAINED V/S D/T THE AMOUNT OF MEDICATION THIS PATIENT HAS HAD THIS EVENING. RESPIRATIONS ARE HIGHER THAN NORMAL AT 21 BREATHS PER MIN, PULSE RATE IS INCREASED RATE TO 120. OXYGEN LEVEL ON ROOM AIR IS 94%, AND BLOOD PRESSURE IS NORMAL AT 111/79. PT RETURNED TO BED, WILL CONTINUE TO OBSERVE FOR ANY INCREASE OF SYMPTOMS DURING THE SHIFT.
[2021-03-21] MEDS: acetaminophen 325 mg Tablet 650 MG PO (00:40)
[2021-03-21 00:41] VITALS: BP 111/79; PULSE 120; RESP 19; O2SAT 94
[2021-03-21] MEDS: chlordiazePOXIDE 25 mg Capsule PO ×2 (00:41→07:23)
--- NOTE | 2021-03-21 02:18 | PC.NURSE ---
Behavior Pt came to the nurses desk for snack and a drink. pt denies headache and denies aH/VH/Tactile hallucinations. Pt is not as irritable. He received Librium at 0123 and tylenol. Pt did not request more meds. He gave nurses a thumbs up when asked how he felt.
[2021-03-21 02:26] VITALS: BP 121/82; PULSE 110; RESP 20; O2SAT 94
[2021-03-21 06:00] VITALS: BP 146/71; PULSE 101; RESP 21; TEMP 36.8; O2SAT 98
--- NOTE | 2021-03-21 07:27 | PC.RESP ---
SMOKING CESSATION INFORMATION SENT TO PATIENT.
[2021-03-21] MEDS: pantoprazole DR 40 mg Tablet PO (09:09)
[2021-03-21] MEDS: gabapentin 300 mg Capsule PO ×3 (09:09→20:21)
[2021-03-21] MEDS: thiamine 100 mg Tablet PO (09:09)
[2021-03-21] MEDS: folic acid 1 mg Tablet PO (09:09)
[2021-03-21] MEDS: citalopram 20 mg Tablet 30 MG PO (09:09)
[2021-03-21] MEDS: multivitamin therapeutic Tablet 1 TAB PO (09:09)
[2021-03-21] MEDS: amlodipine 5 mg Tablet PO (09:10)
[2021-03-21] MEDS: LORazepam 2 mg Tablet PO (09:25)
[2021-03-21] MEDS: nicotine 2 mg Gum BUCCAL (09:27)
--- NOTE | 2021-03-21 09:37 | P.PN_ITS ---
Subjective NPU Subjective: Interval history: Reports some improvement but continues to have withdrawal symptoms and scoring on CIWA Reports significant improvement of depressive symptoms, denies any interval suicidal ideation Per staff report, patient has been compliant with medication, up on the unit and interacting some in milieu with no reports of any behavioral disturbances Mental Status Exam MSE Comments: Initially standing but eventually sitting on his bed for interview, continues to be unkempt but more groomed than usual, wearing hospital scrubs, calm, cooperative, good eye contact Psychomotor activity is decreased, no agitation Speech is low volume, slow rate, spontaneous, fair articulation, not pressured I feel okay, congruent affect, not labile Alert and oriented to person, place, time, situation Memory and concentration appear to be fair to intact per interview Thought process, linear but brief, no flight of ideas, no looseness of associations Thought content, no delusions, no hallucinations, no suicidal ideation, no homicidal ideation Insight and judgment appear to be fair to intact Vitals/I&O/Wt Last Vital Signs Temp 98.2 F 03/21/21 06:00 Pulse 101 H 03/21/21 06:00 Resp 21 H 03/21/21 06:00 BP 146/71 03/21/21 06:00 Pulse Ox 98 03/21/21 06:00 Data NPU : 03/19/21 03:14 03/19/21 03:14 A&P Assessment and plan (1) Suicidal ideation: Status: Acute (2) Alcohol withdrawal: Status: Acute (3) Depressive disorder: Status: Acute (4) Chronic alcohol abuse: Status: Acute Additional A&P Information Improving CONTINUE CIWA CONTINUE other medication, continue to monitor Involuntary Hold Information 96 Hour Hold: 96 Hour Involuntary Admission: Yes 96 Hour Hold Ending Date: 03/22/21 96 Hour Hold Ending Time: 00:01 Attestations NPU Medical Necessity Statement*: Continues to require psychiatric hospitalization for medication stabilization Coding Level of Care Code Acute Lighting Technician for Jerilyn Fwalbert Diagnoses Suicidal ideation R45.851 Alcohol withdrawal F10.239 Depressive disorder F32.9 Chronic alcohol abuse F10.10
[2021-03-21 13:34] VITALS: BP 126/73; PULSE 104; RESP 17; TEMP 36.8; O2SAT 90
[2021-03-21] MEDS: LORazepam 1 mg Tablet PO (13:40)
--- NOTE | 2021-03-21 16:28 | PC.NURSE ---
prn 1340 administered Ativan 1mg for anxiety, will continue to monitor.
[2021-03-21 19:35] VITALS: BP 129/76; PULSE 106; RESP 18; TEMP 37.2; O2SAT 96
[2021-03-21] MEDS: hyDROXYzine 25 mg Capsule 50 MG PO (20:21)
[2021-03-21] MEDS: trazodone 50 mg Tablet PO (20:21)
--- NOTE | 2021-03-22 00:15 | PC.NURSE ---
PM Assessment Pt is mildly anxious at this time, denies HI/Pain/Nausea. Endorses SI. Less symptomatic this evening with CIWA and Alcohol withdrawl. Pt is cooperative with staff. He has requested several snacks, he is eating because he is bored, and says it makes me feel better, like a friend in here, and laughed. Pt spent about an hour in the dayroom and went to bed. his rest is intermittent. Snores loudly, gasps often, coughs, and wakes up. pt did shower this evening and said I'm ready to get out, make some changes, maybe rehab?
[2021-03-22 06:00] VITALS: RESP 18
[2021-03-22] MEDS: citalopram 20 mg Tablet 30 MG PO (07:44)
[2021-03-22] MEDS: thiamine 100 mg Tablet PO (07:45)
[2021-03-22] MEDS: gabapentin 300 mg Capsule PO ×3 (07:45→20:16)
[2021-03-22] MEDS: folic acid 1 mg Tablet PO (07:46)
[2021-03-22] MEDS: amlodipine 5 mg Tablet PO (07:46)
[2021-03-22] MEDS: pantoprazole DR 40 mg Tablet PO (07:47)
[2021-03-22] MEDS: multivitamin therapeutic Tablet 1 TAB PO (07:47)
[2021-03-22] MEDS: nicotine 2 mg Gum BUCCAL ×2 (09:31→15:24)
--- NOTE | 2021-03-22 09:48 | PM.NPN ---
Subjective NPU Subjective: Interval history: Patient denies any interval withdrawal symptoms and reports feeling improved, denies any interval depressive symptoms, denies any interval suicidal ideation Per staff report, patient has been compliant with medication and not requiring any Ativan since yesterday afternoon, interacting on the unit and interacting some in milieu with no reports of any behavioral disturbances Mental Status Exam MSE Comments: Sitting on his bed, disheveled, tired appearing, wearing hospital scrubs, calm, cooperative, good eye contact Psychomotor activity is decreased, no agitation Speech is normal volume, slow rate, spontaneous, fair articulation with less mumbling, not pressured I feel better, congruent affect, not labile Alert and oriented to person, place, time, situation Memory and concentration appear to be fair to intact per interview Thought process, linear but brief, no flight of ideas, no looseness of associations Thought content, no delusions, no hallucinations, no suicidal ideation, no homicidal ideation Insight and judgment appear to be fair to intact Vitals/I&O/Wt Last Vital Signs Temp 99.0 F 03/21/21 19:35 Pulse 106 H 03/21/21 19:35 Resp 18 03/22/21 06:00 BP 129/76 03/21/21 19:35 Pulse Ox 96 03/21/21 19:35 Data NPU : 03/19/21 03:14 03/19/21 03:14 A&P Assessment and plan (1) Suicidal ideation: Status: Acute (2) Alcohol withdrawal: Status: Acute (3) Depressive disorder: Status: Acute (4) Chronic alcohol abuse: Status: Acute Additional A&P Information Improving CONTINUE CIWA CONTINUE other medication, continue to monitor Involuntary Hold Information 96 Hour Hold: 96 Hour Involuntary Admission: Yes 96 Hour Hold Ending Date: 03/22/21 96 Hour Hold Ending Time: 00:01 Attestations NPU Medical Necessity Statement*: Continues to require psychiatric hospitalization for medication stabilization, coordination for safe discharge Coding Level of Care Code Acute 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
[2021-03-22 14:00] VITALS: BP 116/71; PULSE 104; RESP 17; TEMP 36.8; O2SAT 94
[2021-03-22] MEDS: OLANZapine 5 mg ODT PO (16:03)
--- NOTE | 2021-03-22 16:04 | PC.NURSE ---
PRN 1600 Administered a Zyprexa Zydis 5mg for anxiety, will continue to monitor pt.
[2021-03-22 20:38] VITALS: BP 126/76; PULSE 94; RESP 22; TEMP 36.8; O2SAT 95
[2021-03-22] MEDS: trazodone 50 mg Tablet PO (22:02)
[2021-03-22] MEDS: hyDROXYzine 25 mg Capsule 50 MG PO (22:03)
[2021-03-23 06:00] VITALS: BP 110/72; PULSE 88; RESP 20; TEMP 36.8; O2SAT 94
[2021-03-23] MEDS: gabapentin 300 mg Capsule PO ×3 (08:45→20:07)
[2021-03-23] MEDS: citalopram 20 mg Tablet 30 MG PO (08:45)
[2021-03-23] MEDS: thiamine 100 mg Tablet PO (08:45)
[2021-03-23] MEDS: multivitamin therapeutic Tablet 1 TAB PO (08:46)
[2021-03-23] MEDS: amlodipine 5 mg Tablet PO (08:46)
[2021-03-23] MEDS: pantoprazole DR 40 mg Tablet PO (08:46)
[2021-03-23] MEDS: folic acid 1 mg Tablet PO (08:46)
[2021-03-23] MEDS: OLANZapine 5 mg ODT PO (12:08)
--- NOTE | 2021-03-23 12:11 | PC.NURSE ---
Addendum entered by Vidal Sauer RN 03/23/21 14:56: PT C/O ANXIETY, WILL CONTINUE TO MONITOR. Original Note: PRN MED PT GIVEN 5MG ZYPREXA FOR AGITATION, WILL CONTINUE TO MONITOR.
--- NOTE | 2021-03-23 12:26 | P.PN_ITS ---
Subjective NPU Subjective: Interval history: He denies any interval withdrawal symptoms but states that he has had worsening anxiety that is been exacerbated by staying in the hospital. Continues to deny any interval depressive symptoms, denies any interval suicidal ideation Per staff report, patient has been compliant with medication, interacting on the unit and interacting some in milieu with no reports of any behavioral disturbances Mental Status Exam MSE Comments: Sitting in the day room, calm, cooperative, good eye contact Psychomotor activity is neither increased nor decreased, no agitation Speech is normal rate and volume, spontaneous, fair articulation, not pressured I feel okay, congruent affect, not labile Alert and oriented to person, place, time, situation Memory and concentration appear to be fair to intact per interview Thought process, linear but brief, no flight of ideas, no looseness of associations Thought content, no delusions, no hallucinations, no suicidal ideation, no homicidal ideation Insight and judgment appear to be fair to intact Vitals/I&O/Wt Last Vital Signs Temp 98.2 F 03/23/21 06:00 Pulse 88 03/23/21 06:00 Resp 20 H 03/23/21 06:00 BP 110/72 03/23/21 06:00 Pulse Ox 94 03/23/21 06:00 Data NPU : 03/19/21 03:14 03/19/21 03:14 A&P Assessment and plan (1) Suicidal ideation: Status: Acute (2) Alcohol withdrawal: Status: Acute (3) Depressive disorder: Status: Acute (4) Chronic alcohol abuse: Status: Acute Additional A&P Information Denies any interval alcohol withdrawal symptoms, reports worsening anxiety, intermittent depressive symptoms CONTINUE current medication, continue to monitor Involuntary Hold Information 96 Hour Hold: 96 Hour Involuntary Admission: Yes 96 Hour Hold Ending Date: 03/22/21 96 Hour Hold Ending Time: 00:01 Attestations NPU Medical Necessity Statement*: Continues to require psychiatric hospitalization for medication stabilization, coordination for safe discharge Coding Level of Care Code Acute Promotional Marketing Analyst for Jerilyn Wallace Diagnoses Suicidal ideation R45.851 Alcohol withdrawal F10.239 Depressive disorder F32.9 Chronic alcohol abuse F10.10
[2021-03-23 14:00] VITALS: BP 125/82; PULSE 96; RESP 20; TEMP 36.3; O2SAT 93
[2021-03-23] MEDS: hyDROXYzine 25 mg Capsule 50 MG PO ×2 (14:25→21:31)
--- NOTE | 2021-03-23 14:57 | PC.NURSE ---
PRN MED PT GIVEN 50MG VISTARIL FOR ANXIETY, WILL CONTINUE TO MONITOR.
[2021-03-23] MEDS: nicotine 2 mg Gum BUCCAL (15:23)
[2021-03-23] MEDS: trazodone 50 mg Tablet PO (20:07)
--- NOTE | 2021-03-23 20:10 | PC.NURSE ---
pt requesting sleeping pill, Trazodone 50mg po given.
[2021-03-23 20:27] VITALS: BP 123/85; PULSE 89; RESP 22; TEMP 36.8; O2SAT 93
--- NOTE | 2021-03-23 21:34 | PC.NURSE ---
keyla soliz pt, pt requested my anxiety medicine , Vistaril 50mg po given.
[2021-03-24 06:00] VITALS: BP 107/59; PULSE 74; RESP 19; TEMP 37; O2SAT 95; BMI 42.3
[2021-03-24] MEDS: pantoprazole DR 40 mg Tablet PO (08:53)
[2021-03-24] MEDS: gabapentin 300 mg Capsule PO ×3 (08:53→20:19)
[2021-03-24] MEDS: citalopram 20 mg Tablet 30 MG PO (08:53)
[2021-03-24] MEDS: thiamine 100 mg Tablet PO (08:53)
[2021-03-24] MEDS: amlodipine 5 mg Tablet PO (08:53)
[2021-03-24] MEDS: multivitamin therapeutic Tablet 1 TAB PO (08:53)
[2021-03-24] MEDS: folic acid 1 mg Tablet PO (08:54)
[2021-03-24] MEDS: nicotine 2 mg Gum BUCCAL ×3 (09:59→21:32)
--- NOTE | 2021-03-24 11:46 | P.PN_ITS ---
Subjective NPU Subjective: Interval history: Reports improvement in both mood and anxiety, denies any interval panic symptoms Denies any interval suicidal ideation Reports being compliant with medication and denies any medication side effects Denies any interval alcohol withdrawal symptoms Mental Status Exam MSE Comments: Appropriately groomed and dressed wearing hospital scrubs, polite, interactive, good eye contact Psychomotor activity is neither increased nor decreased, no agitation Speech is normal rate and volume, spontaneous, clear articulation, not pressured I feel better, congruent affect, not labile Alert and oriented to person, place, time, situation Memory and concentration appear to be fair to intact per interview Thought process, linear but brief, no flight of ideas, no looseness of associations Thought content, no delusions, no hallucinations, no suicidal ideation, no homic idal ideation Insight and judgment appear to be fair to intact Vitals/I&O/Wt Last Vital Signs Temp 98.6 F 03/24/21 06:00 Pulse 74 03/24/21 06:00 Resp 19 H 03/24/21 06:00 BP 107/59 03/24/21 06:00 Pulse Ox 95 03/24/21 06:00 Weight last 48 hrs Weight 133.991 kg Data NPU : 03/19/21 03:14 03/19/21 03:14 A&P Assessment and plan (1) Suicidal ideation: Status: Acute (2) Alcohol withdrawal: Status: Acute (3) Depressive disorder: Status: Acute (4) Chronic alcohol abuse: Status: Acute Additional A&P Information Continues report improvement CONTINUE current medication, continue to monitor Involuntary Hold Information 96 Hour Hold: 96 Hour Involuntary Admission: Yes 96 Hour Hold Ending Date: 03/22/21 96 Hour Hold Ending Time: 00:01 Attestations NPU Medical Necessity Statement*: Continues to require psychiatric hospitalization for medication stabilization, coordination for safe discharge Coding Level of Care Code 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
[2021-03-24 14:00] VITALS: BP 132/87; PULSE 94; RESP 20; TEMP 36.4; O2SAT 92
[2021-03-24] MEDS: hyDROXYzine 25 mg Capsule 50 MG PO ×2 (14:07→21:05)
[2021-03-24] MEDS: OLANZapine 5 mg ODT PO (17:24)
--- NOTE | 2021-03-24 17:25 | PC.NURSE ---
Zyprexa zydis 5 mg sublingual administered for increasing agitation. Will continue to monitor and redirect as needed.
[2021-03-24 20:07] VITALS: BP 142/90; PULSE 105; RESP 21; TEMP 36.7; O2SAT 95
[2021-03-24] MEDS: trazodone 50 mg Tablet PO (20:19)
--- NOTE | 2021-03-24 20:53 | PC.NURSE ---
pt requested sleep med, Trazodone 50mg po given.
--- NOTE | 2021-03-24 21:06 | PC.NURSE ---
pt requested anxiety med. stated he was excited about going home in the am. Vistaril 50mg po given.
--- NOTE | 2021-03-24 22:44 | PC.NURSE ---
pt resting quietly with both eyes closed
[2021-03-25 06:00] VITALS: BP 139/83; PULSE 101; RESP 21; TEMP 36.7; O2SAT 93
[2021-03-25] MEDS: citalopram 20 mg Tablet 30 MG PO (08:30)
[2021-03-25] MEDS: amlodipine 5 mg Tablet PO (08:30)
[2021-03-25] MEDS: folic acid 1 mg Tablet PO (08:30)
[2021-03-25] MEDS: thiamine 100 mg Tablet PO (08:30)
[2021-03-25] MEDS: multivitamin therapeutic Tablet 1 TAB PO (08:30)
[2021-03-25] MEDS: gabapentin 300 mg Capsule PO (08:30)
[2021-03-25] MEDS: pantoprazole DR 40 mg Tablet PO (08:30)
--- NOTE | 2021-03-25 09:41 | P.DS_ITS ---
Diagnoses at Discharge Discharge Diagnosis (1) Suicidal ideation: Status: Acute (2) Alcohol withdrawal: Status: Acute (3) Depressive disorder: Status: Acute (4) Chronic alcohol abuse: Status: Acute Reason for Visit Reason for Visit: SI Hospital Course Hospital Course 35 year old male presented to the emergency department with alcohol intoxication with suicidal ideation stating that he had had 3 seizures within the past day trying to detox himself at home although he reported his last drink yesterday morning prior to presenting to the emergency department with a blood alcohol level of 295. Patient has a history of multiple presentations to the emergency department under the influence of substances and endorsing suicidal ideation with subsequent in which she subsequently states that he no longer has suicidal ideation after becoming sober. Patient continues to report multiple stressors in his life to include unstable living arrangement reporting that he is currently homeless and that he had not complied with previous recommendations for follow on substance counseling/treatment as well as being noncompliant with post discharge mental health care follow-up to include his medication and medication management. Patient continues to report ongoing, daily use of alcohol since last discharge from this facility. Patient has history of multiple past suicide attempts and history of poor compliance with follow-up and frequently leaving the hospital AGAINST MEDICAL ADVICE with typically no follow- up. Patient was denying any suicidal ideation at the time of initial evaluation but was reporting ongoing depressive symptoms in the context of alcohol withdrawal and was placed on a CIWA protocol. Patient was also being augmented with a dose of scheduled Librium for several days requiring ongoing doses of Ativan per CIWA protocol. Patient eventually cleared his alcohol withdrawal symptoms and was no longer reporting any depressive symptoms and denied any suicidal ideation throughout his hospital stay. Discussed on several occasions with the patient about concerns with noncompliance with his antidepressant and the need for continued use given his multiple presentations over the past 6 months with depressive symptoms and suicidal ideation in the context of his alcohol use as well as history of PTSD. 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 Patient initially agreed to go to a year-long residential treatment program but was subsequently unable to get transportation to start this program and eventually agreed to do a local residential treatment program after discharge. Patient was not suicidal a nd was not endorsing any psychiatric symptoms at the time of discharge and did not appear to pose an imminent threat of harm to self or others. Patient continues to be low to moderate risk of harm to self given no current suicidal ideation or psychiatric symptoms although patient's risk will continue to be elevated if he continues to noncompliant with discharge plans to include compliance with medication and medication management follow-up and/or continues to relapse and not abstain from the use of alcohol and substances leading to unexpected, impulsive behavior. Risk mitigation included psychiatric hospitalization for observation and monitoring while placed on [facility] protocol for alcohol withdrawal as well as medication stabilization, recommendation to abstain from the use of alcohol and substances as well as coordination for post discharge follow-up. Patient was able to communicate his understanding of the need to abstain from the use of alcohol and substances as well as the need for compliance with his medication, medication management and alcohol/substance counseling in order to further mitigate his risk of harm to self and others. Involuntary Hold Information 96 Hour Hold: 96 Hour Involuntary Admission: Yes 96 Hour Hold Ending Date: 03/22/21 96 Hour Hold Ending Time: 00:01 Mental Status Exam MSE Comments: Sitting in the day room, appropriately groomed and dressed, polite, interactive, calm, good eye contact Psychomotor activity is neither increased nor decreased, no agitation Speech is normal rate and volume, spontaneous, clear articulation, not pressured I feel good, congruent affect, smiles appropriately at times during interview, not labile Alert and oriented to person, place, time, situation Memory and concentration appear to be intact per interview Thought process, linear but brief, no flight of ideas, no looseness of associations Thought content, no delusions, no hallucinations, no suicidal ideation, no homi cidal ideation Insight and judgment appear to be fair to intact Discharge Data Data Completed and Pending: Completed Studies During Hospitalization Category Date Time Status XR chest 1V [place] ble [id number] Stat Exams 03/17/21 13:37 Completed Vitals: Last Vital Signs Temp 98.1 F 03/25/21 06:00 Pulse 101 H 03/25/21 06:00 Resp 21 H 03/25/21 06:00 BP 139/83 03/25/21 06:00 Pulse Ox 93 03/25/21 06:00 Discharge Plan Discharge Patient Disposition: Home Condition: Stable Prescriptions: New gabapentin 300 mg Capsule 300 mg PO TID Qty: 90 RF: 0 pantoprazole 40 mg Tablet,Delayed Release (Dr/Ec) 40 mg PO DAILY Qty: 30 RF: 0 amlodipine 5 mg Tablet 5 mg PO DAILY Qty: 30 RF: 0 citalopram 20 mg Tablet 30 mg PO DAILY Qty: 30 RF: 0 thiamine mononitrate (vit B1) [Vitamin B-1 (mononitrate)] 100 mg Tablet 100 mg PO DAILY Qty: 30 RF: 0 Continued multivitamin with folic acid [Thera] 400 mcg Tablet 1 tab PO DAILY 30 Days Qty: 30 RF: 1 Discontinued gabapentin [Neurontin] 800 mg Tablet 1,600 mg PO BID 30 Days Qty: 120 RF: 1 Discharge Orders: Discharge Order (Routine); Ordered 03/25/21 Ordered By: Gisel Canales Discharge Diet: Regular Discharge Activity: Resume usual activity Patient Instructions: Opioid Safety Discharge Attestations NPU Time Spent in Discharge Care*: greater than 30 min Status at Discharge: Cognitive status at discharge: cognitively intact , Behavioral status at discharge: cooperative , Functional status at discharge: independent ambulation Overall status at discharge: patient is back to baseline Coding Level of Care Code Acute [facility] note Diagnoses Suicidal ideation R45.851 Alcohol withdrawal F10.239 Depressive disorder F32.9 Chronic alcohol abuse F10.10
[2021-03-25 10:03] VITALS: BP 139/83; PULSE 101; RESP 21; TEMP 36.7; O2SAT 93
--- NOTE | 2021-03-28 21:38 | PC.NURSE ---
RX request Nurse spoke with Dr Conti at [id number] on 03/28/21 Pt called the unit, requesting a 6 month supply of his blood pressure medication, amlodipine 5 mg oral daily..pt requests med refillable for 6 months, he is [facility]:16 and lives in [place]. Pt would like the medication called in to [facility] [address] [place] [address] ? < 1 mi
== END 2021-03-25 13:43 | disposition home or self-care (01) | DRG 897 ==
LOC: ER 18:20 → ICU 18:25 → NP 03-18 14:16
PROVIDERS: Internal Medicine; Admitting Provider Student in an Organized Health Care Education/Training Program; Emergency Provider Family Medicine; Visit Provider Psychiatry & Neurology Psychiatry
DX: F10.232 Alcohol dependence with withdrawal with perceptual disturbance (principal); R45.851 Suicidal ideations; Z68.41 Body mass index [BMI] 40.0-44.9, adult; R56.9 Unspecified convulsions; F10.229 Alcohol dependence with intoxication, unspecified; F32.9 Major depressive disorder, single episode, unspecified; R74.01 Elevation of levels of liver transaminase levels; F41.9 Anxiety disorder, unspecified; Y90.8 Blood alcohol level of 240 mg/100 ml or more; F17.210 Nicotine dependence, cigarettes, uncomplicated; E66.9 Obesity, unspecified; G47.30 Sleep apnea, unspecified; F19.10 Other psychoactive substance abuse, uncomplicated; Z91.5 Personal history of self-harm; Z59.0 Homelessness; Z91.19 Patient's noncompliance with other medical treatment and regimen
CPT/HCPCS: 36415; 71045; 80053; 80306; 80307; 81001; 83735; 84443; 84484; 85025; 87426; 93005; 94660; 96374; 99285; J2060; J3475

== ENCOUNTER 2021-04-29 14:07 | Emergency (ER) | payer SELFPAY ==
[2021-04-29 14:15] VITALS: BP 90/49; PULSE 95; RESP 20; TEMP 37.1; O2SAT 95
--- NOTE | 2021-04-29 14:30 | ED_ITS ---
Documented by User: KALIN Tamez 04/29/21 16:36 HPI - Alcohol General: Chief Complaint: Alcohol Stated Complaint: ETOH Time Seen by Provider: 04/29/21 14:09 Source: patient and EMS Mode of arrival: EMS Limitations: no limitations History of Present Illness: HPI narrative: Patient is a 35-year-old male well- known to the ED here after somebody called an ambulance after he was found passed out under a tree. Patient is a chronic alcoholic. He tells me he drinks whatever I can get my hands on . When asked what I could do for him from the emergency department he tells me I just want to feel better today so I can make it to work tomorrow . He tells me he works at a local [employer]. Patient tells me he is not homicidal or suicidal. He has no interest in detoxing from alcohol at this time. MD complaint: alcohol intoxication and alcohol dependence Last drink: Hours (ago) Chronic alcohol use: Yes Previous visits for alcohol intoxication: Yes Recent trauma: No Associated symptoms: Reports no associated symptoms; Deny abdominal pain, nausea or vomiting Treatments prior to arrival: none Review of Systems Const: Denies: fever(s), chills, body aches, fatigue or malaise Eyes: Denies: change in vision Card: Denies: chest pain or palpitations Resp: Denies: dyspnea GI: Denies: abdominal pain, nausea, vomiting or diarrhea Musc: Denies: neck pain, back pain, extremity pain or joint pain Skin/Breast: Denies: rash Neuro: Denies: headache(s), numbness in extremities, weakness in extremities or sensory changes [facility] ED PFSH: Medical History Alcohol abuse Alcoholism Anxiety and depression Bilateral lower extremity edema Cellulitis Elevated blood pressure reading Falls frequently Obesity Seizure Sleep apnea Tobacco dependency Surgical History History of foot surgery Hx of cholecystectomy Family History Other Diabetes Social History Smoking and tobacco status: current every day smoker cigarettes Packs smoked per day: 1 Alcohol intake: current Alcohol intake frequency: few times a month Current occupational status: unemployed Physical Exam Const: COMMON NORMALS: patient oriented x3 and alert GENERAL APPEARANCE: odor of alcohol detected NUTRITIONAL APPEARANCE: obese morbidly obese ORIENTATION/CONSCIOUSNESS: Yes awake, Yes oriented to person, Yes oriented to place and Yes oriented to time OTHER: patient often found sleeping and has obvious sleep apnea and sats will drop; O2 was placed on patient; he sats normally once he wakes up and starts articulating HENMT: COMMON NORMALS: normocephalic and atraumatic HEAD & SCALP: normocephalic and atraumatic Resp: COMMON NORMALS: normal respiratory effort and clear to auscultation bilaterally AUSCULTATION: clear to auscultation bilaterally OTHER: sleep apnea when he dozes off Cardio: COMMON NORMALS: regular rhythm RATE: tachycardic (mild) RHYTHM: regular rhythm Extremity: COMMON NORMALS: normal to inspection Neuro: VADIM COMA SCALE: document GCS findings Vadim coma scale eye opening: Spontaneous Vadim coma scale verbal response: Orientated [place] coma scale motor response: Obey commands [place] coma scale total score: 15 COMMON NORMALS: patient oriented x3, CN's II-XII intact bilaterally, moves all extremities, no focal motor deficits and no sensory deficits noted SENSORIUM/ORIENTATION: Yes alert, Yes oriented to person, Yes oriented to place and Yes oriented to time SPEECH: Other neuro speech findings (mild slurring secondary to alcohol intoxication) GAIT: Yes Unable to assess gait Skin: COMMON NORMALS: no rashes or lesions noted GENERAL SKIN EXAM: no rashes or lesions noted TRAUMA: no lacerations or abrasions Course Vital Signs: Vital signs: Vital Signs Temperature 98.8 F 04/29/21 14:15 Pulse Rate 102 H 04/29/21 18:20 Respiratory Rate 18 04/29/21 18:20 Blood Pressure 164/82 04/29/21 18:20 Pulse Oximetry 93 04/29/21 18:20 MDM - Alcohol MDM Narrative: Medical decision making narrative: Patient again tells me he wants to go home and has no interest in detox at this time. He is not SI/HI and is not requesting psychiatric services. Upon arrival he was intoxicated and often dozed off and coupled with his sleep apnea-he often desatted. He was placed on a monitor along with O2. He is more alert now watching TV. He was also hypotensive upon arrival which responded well to fluids. Labs showing some mild elevations to BUN/Cr at 25/1.4 which is higher than his baseline most likely secondary to dehydration. Will repeat BMP and continue to monitor. I told patient he will be allowed discharge when he is up walking/eating/drinking/of sound mind and can find a safe ride home. Patient verbalized understanding. Care is being transferred to Kirill Givens PA-C at 1700. Lab Data: Labs: Lab Results 04/29/21 04/29/21 04/29/21 Range/Units 14:28 14:28 14:28 WBC 12.1 H (4.0-10.0) 10^3/ uL RBC 4.54 (4.1-5.3) 10^6/u L Hgb 13.9 (11.7-16.6) g/dL Hct 41.9 L (42.0-52.0) % MCV 92.3 (80-94) fl MCH 30.6 (28.0-34.0) pg MCHC 33.2 (30.0-36.0) g/dL RDW 12.9 (12.1-15.1) % Plt Count 344 (130-400) 10^3/c mm MPV 9.8 (7.4-10.4) fL Neut % (Auto) Database Analyst Lymph % (Auto) Database Analyst [place] % (Auto) Database Analyst Eos % (Auto) Database Analyst Baso % (Auto) Database Analyst Neut # (Auto) Database Analyst Lymph # (Auto) Database Analyst [place] # (Auto) Database Analyst Eos # (Auto) Database Analyst Baso # (Auto) Database Analyst Nucleated RBC % (a uto) Database Analyst Total Counted 100 (0-100) Atypical Lymphs % 10.0 H (0-5) % Absolute Neutrophi ls 7.7 H (1.4-6.5) 10^3/c mm Segmented Neutroph ils 63 % Abs Segm Neuts (Ma n) 7.6 H (1.6-7.1) 10/cmm Band Neutrophils 1.0 % Abs Band Neuts (Ma n) 0.1 (0.0-1.2) 10^3/c mm Absolute Lymphocyt es 3.8 H (1.2-3.4) 10^3/c mm Lymphocytes (Manua l) 21 % Monocytes (Manual) 4.0 % Absolute Monocytes 0.5 (0.1-0.6) 10^3/c mm Eosinophils (Manua l) 0 % Absolute Eosinophi ls 0.0 (0.0-0.7) 10^3/c mm Basophils (Manual) 0.0 % Absolute Basophils 0.0 (0.0-0.2) 10^3/c mm Metamyelocytes 1.0 % Nucleated RBCs # Database Analyst Platelet Estimate Normal (Normal) Sodium 140 (136-145) mmol/L Potassium 4.0 (3.5-5.1) mmol/L Chloride 103 (98-107) mmol/L Carbon Dioxide 23 (22-29) mmol/L Anion Gap 18.0 (5-19) BUN 25 H (6-20) mg/dL Creatinine 1.4 H (0.7-1.2) mg/dL GFR Calculation 57.3 L (90-130) mL/min Glucose 124 H (65-115) mg/dL Calculated Osmolal ity 296 H (285-295) mOsm/k g Lactic Acid 1.5 (0.5-2.2) mmol/L Calcium 9.1 (8.5-10.5) mg/dL Total Bilirubin 0.2 (0.15-1.2) mg/dL AST 27 (0-40) U/L ALT 57 H (0-41) U/L Alkaline Phosphata se 78 (40-130) IU/L Creatine Kinase (39-308) U/L Total Protein 6.7 (6.6-8.7) g/dL Albumin 4.1 (3.5-5.2) g/dL Globulin 2.6 (1.3-4.6) g/dL Urine Color (Yellow) Urine Appearance (CLEAR) Urine pH (5-7) Ur Specific Gravit y (1.005-1.030) Urine Protein (Negative) Urine Glucose (UA) (Normal) Urine Ketones (Negative) Urine Blood (Negative) Urine Nitrate (Negative) Urine Bilirubin (Negative) Urine Urobilinogen (Negative) mg/dL Ur Leukocyte [place] (Negative) Salicylates < 0.3 L (3-10) mg/dL Urine Opiates Scre en (Negative) ng/mL Acetaminophen < 5.0 L (10-30) ug/mL Ur Barbiturates Sc reen (Negative) ng/mL Ur Phencyclidine S crn (Negative) ng/mL Ur Amphetamines Sc reen (Negative) ng/mL U Benzodiazepines Scrn (Negative) ng/mL Urine Cocaine Scre en (Negative) ng/mL U Marijuana (THC) Screen (Negative) ng/mL Ethyl Alcohol 264 H (0-10) mg/dL 04/29/21 04/29/21 04/29/21 Range/Units 14:28 16:30 16:30 WBC (4.0-10.0) 10^3/ uL RBC (4.1-5.3) 10^6/u L Hgb (11.7-16.6) g/dL Hct (42.0-52.0) % MCV (80-94) fl MCH (28.0-34.0) pg MCHC (30.0-36.0) g/dL RDW (12.1-15.1) % Plt Count (130-400) 10^3/c mm MPV (7.4-10.4) fL Neut % (Auto) Lymph % (Auto) [place] % (Auto) Eos % (Auto) Baso % (Auto) Neut # (Auto) Lymph # (Auto) [place] # (Auto) Eos # (Auto) Baso # (Auto) Nucleated RBC % (a uto) Total Counted (0-100) Atypical Lymphs % (0-5) % Absolute Neutrophi ls (1.4-6.5) 10^3/c mm Segmented Neutroph ils % Abs Segm Neuts (Ma n) (1.6-7.1) 10/cmm Band Neutrophils % Abs Band Neuts (Ma n) (0.0-1.2) 10^3/c mm Absolute Lymphocyt es (1.2-3.4) 10^3/c mm Lymphocytes (Manua l) % Monocytes (Manual) % Absolute Monocytes (0.1-0.6) 10^3/c mm Eosinophils (Manua l) % Absolute Eosinophi ls (0.0-0.7) 10^3/c mm Basophils (Manual) % Absolute Basophils (0.0-0.2) 10^3/c mm Metamyelocytes % Nucleated RBCs # Platelet Estimate (Normal) Sodium (136-145) mmol/L Potassium (3.5-5.1) mmol/L Chloride (98-107) mmol/L Carbon Dioxide (22-29) mmol/L Anion Gap (5-19) BUN (6-20) mg/dL Creatinine (0.7-1.2) mg/dL GFR Calculation (90-130) mL/min Glucose (65-115) mg/dL Calculated Osmolal ity (285-295) mOsm/k g Lactic Acid (0.5-2.2) mmol/L Calcium (8.5-10.5) mg/dL Total Bilirubin (0.15-1.2) mg/dL AST (0-40) U/L ALT (0-41) U/L Alkaline Phosphata se (40-130) IU/L Creatine Kinase 85 (39-308) U/L Total Protein (6.6-8.7) g/dL Albumin (3.5-5.2) g/dL Globulin (1.3-4.6) g/dL Urine Color Yellow (Yellow) Urine Appearance Clear (CLEAR) Urine pH 5 (5-7) Ur Specific Gravit y 1.020 (1.005-1.030) Urine Protein 1+ H (Negative) Urine Glucose (UA) Norm (Normal) Urine Ketones Negative (Negative) Urine Blood Neg (Negative) Urine Nitrate Negative (Negative) Urine Bilirubin Neg (Negative) Urine Urobilinogen Norm (Negative) mg/dL Ur Leukocyte [place] Negative (Negative) Salicylates (3-10) mg/dL Urine Opiates Scre en Negative (Negative) ng/mL Acetaminophen (10-30) ug/mL Ur Barbiturates Sc reen Negative (Negative) ng/mL Ur Phencyclidine S crn Negative (Negative) ng/mL Ur Amphetamines Sc reen Negative (Negative) ng/mL U Benzodiazepines Scrn Negative (Negative) ng/mL Urine Cocaine Scre en Negative (Negative) ng/mL U Marijuana (THC) Screen Negative (Negative) ng/mL Ethyl Alcohol (0-10) mg/dL 04/29/21 Range/Units 16:40 WBC (4.0-10.0) 10^3/ uL RBC (4.1-5.3) 10^6/u L Hgb (11.7-16.6) g/dL Hct (42.0-52.0) % MCV (80-94) fl MCH (28.0-34.0) pg MCHC (30.0-36.0) g/dL RDW (12.1-15.1) % Plt Count (130-400) 10^3/c mm MPV (7.4-10.4) fL Neut % (Auto) Lymph % (Auto) [place] % (Auto) Eos % (Auto) Baso % (Auto) Neut # (Auto) Lymph # (Auto) [place] # (Auto) Eos # (Auto) Baso # (Auto) Nucleated RBC % (a uto) Total Counted (0-100) Atypical Lymphs % (0-5) % Absolute Neutrophi ls (1.4-6.5) 10^3/c mm Segmented Neutroph ils % Abs Segm Neuts (Ma n) (1.6-7.1) 10/cmm Band Neutrophils % Abs Band Neuts (Ma n) (0.0-1.2) 10^3/c mm Absolute Lymphocyt es (1.2-3.4) 10^3/c mm Lymphocytes (Manua l) % Monocytes (Manual) % Absolute Monocytes (0.1-0.6) 10^3/c mm Eosinophils (Manua l) % Absolute Eosinophi ls (0.0-0.7) 10^3/c mm Basophils (Manual) % Absolute Basophils (0.0-0.2) 10^3/c mm Metamyelocytes % Nucleated RBCs # Platelet Estimate (Normal) Sodium 139 (136-145) mmol/L Potassium 4.4 (3.5-5.1) mmol/L Chloride 106 (98-107) mmol/L Carbon Dioxide 24 (22-29) mmol/L Anion Gap 13.4 (5-19) BUN 24 H (6-20) mg/dL Creatinine 1.2 (0.7-1.2) mg/dL GFR Calculation 68.5 L (90-130) mL/min Glucose 103 (65-115) mg/dL Calculated Osmolal ity 292 (285-295) mOsm/k g Lactic Acid (0.5-2.2) mmol/L Calcium 8.3 L (8.5-10.5) mg/dL Total Bilirubin (0.15-1.2) mg/dL AST (0-40) U/L ALT (0-41) U/L Alkaline Phosphata se (40-130) IU/L Creatine Kinase (39-308) U/L Total Protein (6.6-8.7) g/dL Albumin (3.5-5.2) g/dL Globulin (1.3-4.6) g/dL Urine Color (Yellow) Urine Appearance (CLEAR) Urine pH (5-7) Ur Specific Gravit y (1.005-1.030) Urine Protein (Negative) Urine Glucose (UA) (Normal) Urine Ketones (Negative) Urine Blood (Negative) Urine Nitrate (Negative) Urine Bilirubin (Negative) Urine Urobilinogen (Negative) mg/dL Ur Leukocyte [place] (Negative) Salicylates (3-10) mg/dL Urine Opiates Scre en (Negative) ng/mL Acetaminophen (10-30) ug/mL Ur Barbiturates Sc reen (Negative) ng/mL Ur Phencyclidine S crn (Negative) ng/mL Ur Amphetamines Sc reen (Negative) ng/mL U Benzodiazepines Scrn (Negative) ng/mL Urine Cocaine Scre en (Negative) ng/mL U Marijuana (THC) Screen (Negative) ng/mL Ethyl Alcohol (0-10) mg/dL Imaging Data^: CXR: Radiologist's impression: [address] [id number] ReportSigned Patient: Fortunato Marie #: [id number]: 1985Acct#:[id number]/Sex: 35 / MADM Date: 04/29/21Loc: ERRoom/Bed:Attending Dr: Ordering Provider/Ordering MD: Jena Harris Date of Service: 04/29/21 Procedure(s): XR chest 1V portable [id number] Accession Number(s): [id number] Report Number: [id number] PROCEDURE INFORMATION: Exam: XR Chest Exam date and time: 04/29/2021 2:28 PM Age: 35 years old Clinical indication: Shortness of breath; Additional info: Poss sepsis TECHNIQUE: Imaging protocol: XR of the chest. Views: 1 view. COMPARISON: CR (CHEST, ) 03/17/2021 1:49 PM FINDINGS: Lungs: No alveolar infiltrate. Pleural spaces: No pleural effusion. No pneumothorax identified. Heart/Mediastinum: Heart size is upper limits of normal. Bones/joints: Unremarkable. XR/XR chest 1V portable [id number] IMPRESSION: No infiltrate or pleural effusion is seen. Dictated By:Jessica Robersonigned By:Jessica Roberson MDSigned Date/Time:04/29/21 1524DD/ 1523 Discharge Plan Discharge Patient Disposition: Home Clinical Impression: Chronic alcohol abuse, Elevated serum creatinine Alcoholic intoxication Qualifiers: Complication of substance-induced condition: uncomplicated Qualified Code(s): F10.920 - Alcohol use, unspecified with intoxication, uncomplicated Condition: Stable Prescriptions: No Action gabapentin 300 mg Capsule 300 mg PO TID Qty: 90 RF: 0 thiamine mononitrate (vit B1) [Vitamin B-1 (mononitrate)] 100 mg Tablet 100 mg PO DAILY Qty: 30 RF: 0 albuterol sulfate 90 mcg/actuation HFA aerosol inhaler 2 puff INHALATION Q4H PRN (Reason: Shortness Of Breath) RF: 0 Tab-A-Osmany 400 mcg tablet 1 tab PO QAM RF: 0 amlodipine 5 mg tablet 5 mg PO DAILY RF: 0 citalopram 20 mg tablet 40 mg PO DAILY RF: 0 pantoprazole 40 mg tablet,delayed release (DR/EC) 40 mg PO QAM RF: 0 Discharge Orders: Discharge ED (Routine); Ordered 04/29/21 Ordered By: Kirill Givens Discharge Diet: Regular Discharge Activity: Resume usual activity Patient Instructions: Alcohol Intoxication (ED), Abuse of Alcohol (ED) Activity Restrictions/Additional Instructions: Follow-up with medical provider as directed in 7 to 10 days reevaluation. Continue taking all home medications as prescribed. Return to the ER or your medical provider if condition worsens. Please read and understand discharge instructions. Thank you for choosing [facility] for your healthcare needs today. Please realize this is an emergency room and that we are providing you with a medical screening exam and this may not be complete and all inclusive of all the testing and or work up that you may need to determine your ailment or severity of your illness. It is very important that you follow up as instructed or that you return to the Emergency Department should you have concerns or if your condition changes or worsens in any way. Sign Out Sign Out Data: Patient Sign Out occurred on 04/29/21 at 17:09. Patient's care was discussed, and care was transferred from to KALIN Metcalf. Coding Level of Care Code ED Technical Assistant for E[employer] Fwd Exam Detailed Documented by User: KALIN Metcalf 04/29/21 23:19 HPI - Alcohol General: Chief Complaint: Alcohol Stated Complaint: ETOH Time Seen by Provider: 04/29/21 14:09 PFSH ED PFSH: Medical History Alcohol abuse Alcoholism Anxiety and depression Bilateral lower extremity edema Cellulitis Elevated blood pressure reading Falls frequently Obesity Seizure Sleep apnea Tobacco dependency Surgical History History of foot surgery Hx of cholecystectomy Family History Other Diabetes Social History Smoking and tobacco status: current every day smoker cigarettes Packs smoked per day: 1 Alcohol intake: current Alcohol intake frequency: few times a month Current occupational status: unemployed Course ED course: After patient received 2 L of IV fluids his creatinine level was rechecked and went down to 1.2. Patient is alert, oriented x3 and answering all my questions accordingly. Patient was able to eat and drink while here on the unit and had no problems keeping food and fluids down and denies any nausea. Patient is able to ambulate without any trouble and he feels ready to be discharged. Patient is calling a family member to get him a ride home. Vital Signs: Vital signs: Vital Signs Temperature 98.8 F 04/29/21 14:15 Pulse Rate 102 H 04/29/21 18:20 Respiratory Rate 18 04/29/21 18:20 Blood Pressure 164/82 04/29/21 18:20 Pulse Oximetry 93 04/29/21 18:20 MDM - Alcohol MDM Narrative: Medical decision making narrative: I took over patient care from Jena Harris the physician assistant professor of surgery. She performed all initial history exam and lab work-up. She said patient can discharge home once BMP lab comes back and if patient is alert and of sound mind and able to get a ride home. After patient received 2 L of IV fluids his creatinine level was rechecked and went down to 1.2. Patient is alert, oriented x3 and answering all my questions accordingly. Patient was able to eat and drink while here on the unit and had no problems keeping food and fluids down and denies any nausea. Patient is able to ambulate without any trouble and he feels ready to be discharged. Patient is calling a family member to get him a ride home. Patient was discharged and told to follow-up with his PCP in 7 to 10 days reevaluation. Return to ED precautions given. Patient understood agree with plan. Lab Data: Labs: Lab Results 04/29/21 04/29/21 04/29/21 Range/Units 14:28 14:28 14:28 WBC 12.1 H (4.0-10.0) 10^3/ uL RBC 4.54 (4.1-5.3) 10^6/u L Hgb 13.9 (11.7-16.6) g/dL Hct 41.9 L (42.0-52.0) % MCV 92.3 (80-94) fl MCH 30.6 (28.0-34.0) pg MCHC 33.2 (30.0-36.0) g/dL RDW 12.9 (12.1-15.1) % Plt Count 344 (130-400) 10^3/c mm MPV 9.8 (7.4-10.4) fL Neut % (Auto) Database Analyst Lymph % (Auto) Database Analyst [place] % (Auto) Database Analyst Eos % (Auto) Database Analyst Baso % (Auto) Database Analyst Neut # (Auto) Database Analyst Lymph # (Auto) Database Analyst [place] # (Auto) Database Analyst Eos # (Auto) Database Analyst Baso # (Auto) Database Analyst Nucleated RBC % (a uto) Database Analyst Total Counted 100 (0-100) Atypical Lymphs % 10.0 H (0-5) % Absolute Neutrophi ls 7.7 H (1.4-6.5) 10^3/c mm Segmented Neutroph ils 63 % Abs Segm Neuts (Ma n) 7.6 H (1.6-7.1) 10/cmm Band Neutrophils 1.0 % Abs Band Neuts (Ma n) 0.1 (0.0-1.2) 10^3/c mm Absolute Lymphocyt es 3.8 H (1.2-3.4) 10^3/c mm Lymphocytes (Manua l) 21 % Monocytes (Manual) 4.0 % Absolute Monocytes 0.5 (0.1-0.6) 10^3/c mm Eosinophils (Manua l) 0 % Absolute Eosinophi ls 0.0 (0.0-0.7) 10^3/c mm Basophils (Manual) 0.0 % Absolute Basophils 0.0 (0.0-0.2) 10^3/c mm Metamyelocytes 1.0 % Nucleated RBCs # Database Analyst Platelet Estimate Normal (Normal) Sodium 140 (136-145) mmol/L Potassium 4.0 (3.5-5.1) mmol/L Chloride 103 (98-107) mmol/L Carbon Dioxide 23 (22-29) mmol/L Anion Gap 18.0 (5-19) BUN 25 H (6-20) mg/dL Creatinine 1.4 H (0.7-1.2) mg/dL GFR Calculation 57.3 L (90-130) mL/min Glucose 124 H (65-115) mg/dL Calculated Osmolal ity 296 H (285-295) mOsm/k g Lactic Acid 1.5 (0.5-2.2) mmol/L Calcium 9.1 (8.5-10.5) mg/dL Total Bilirubin 0.2 (0.15-1.2) mg/dL AST 27 (0-40) U/L ALT 57 H (0-41) U/L Alkaline Phosphata se 78 (40-130) IU/L Creatine Kinase (39-308) U/L Total Protein 6.7 (6.6-8.7) g/dL Albumin 4.1 (3.5-5.2) g/dL Globulin 2.6 (1.3-4.6) g/dL Urine Color (Yellow) Urine Appearance (CLEAR) Urine pH (5-7) Ur Specific Gravit y (1.005-1.030) Urine Protein (Negative) Urine Glucose (UA) (Normal) Urine Ketones (Negative) Urine Blood (Negative) Urine Nitrate (Negative) Urine Bilirubin (Negative) Urine Urobilinogen (Negative) mg/dL Ur Leukocyte [place] (Negative) Salicylates < 0.3 L (3-10) mg/dL Urine Opiates Scre en (Negative) ng/mL Acetaminophen < 5.0 L (10-30) ug/mL Ur Barbiturates Sc reen (Negative) ng/mL Ur Phencyclidine S crn (Negative) ng/mL Ur Amphetamines Sc reen (Negative) ng/mL U Benzodiazepines Scrn (Negative) ng/mL Urine Cocaine Scre en (Negative) ng/mL U Marijuana (THC) Screen (Negative) ng/mL Ethyl Alcohol 264 H (0-10) mg/dL 04/29/21 04/29/21 04/29/21 Range/Units 14:28 16:30 16:30 WBC (4.0-10.0) 10^3/ uL RBC (4.1-5.3) 10^6/u L Hgb (11.7-16.6) g/dL Hct (42.0-52.0) % MCV (80-94) fl MCH (28.0-34.0) pg MCHC (30.0-36.0) g/dL RDW (12.1-15.1) % Plt Count (130-400) 10^3/c mm MPV (7.4-10.4) fL Neut % (Auto) Lymph % (Auto) [place] % (Auto) Eos % (Auto) Baso % (Auto) Neut # (Auto) Lymph # (Auto) [place] # (Auto) Eos # (Auto) Baso # (Auto) Nucleated RBC % (a uto) Total Counted (0-100) Atypical Lymphs % (0-5) % Absolute Neutrophi ls (1.4-6.5) 10^3/c mm Segmented Neutroph ils % Abs Segm Neuts (Ma n) (1.6-7.1) 10/cmm Band Neutrophils % Abs Band Neuts (Ma n) (0.0-1.2) 10^3/c mm Absolute Lymphocyt es (1.2-3.4) 10^3/c mm Lymphocytes (Manua l) % Monocytes (Manual) % Absolute Monocytes (0.1-0.6) 10^3/c mm Eosinophils (Manua l) % Absolute Eosinophi ls (0.0-0.7) 10^3/c mm Basophils (Manual) % Absolute Basophils (0.0-0.2) 10^3/c mm Metamyelocytes % Nucleated RBCs # Platelet Estimate (Normal) Sodium (136-145) mmol/L Potassium (3.5-5.1) mmol/L Chloride (98-107) mmol/L Carbon Dioxide (22-29) mmol/L Anion Gap (5-19) BUN (6-20) mg/dL Creatinine (0.7-1.2) mg/dL GFR Calculation (90-130) mL/min Glucose (65-115) mg/dL Calculated Osmolal ity (285-295) mOsm/k g Lactic Acid (0.5-2.2) mmol/L Calcium (8.5-10.5) mg/dL Total Bilirubin (0.15-1.2) mg/dL AST (0-40) U/L ALT (0-41) U/L Alkaline Phosphata se (40-130) IU/L Creatine Kinase 85 (39-308) U/L Total Protein (6.6-8.7) g/dL Albumin (3.5-5.2) g/dL Globulin (1.3-4.6) g/dL Urine Color Yellow (Yellow) Urine Appearance Clear (CLEAR) Urine pH 5 (5-7) Ur Specific Gravit y 1.020 (1.005-1.030) Urine Protein 1+ H (Negative) Urine Glucose (UA) Norm (Normal) Urine Ketones Negative (Negative) Urine Blood Neg (Negative) Urine Nitrate Negative (Negative) Urine Bilirubin Neg (Negative) Urine Urobilinogen Norm (Negative) mg/dL Ur Leukocyte [place] Negative (Negative) Salicylates (3-10) mg/dL Urine Opiates Scre en Negative (Negative) ng/mL Acetaminophen (10-30) ug/mL Ur Barbiturates Sc reen Negative (Negative) ng/mL Ur Phencyclidine S crn Negative (Negative) ng/mL Ur Amphetamines Sc reen Negative (Negative) ng/mL U Benzodiazepines Scrn Negative (Negative) ng/mL Urine Cocaine Scre en Negative (Negative) ng/mL U Marijuana (THC) Screen Negative (Negative) ng/mL Ethyl Alcohol (0-10) mg/dL 04/29/21 Range/Units 16:40 WBC (4.0-10.0) 10^3/ uL RBC (4.1-5.3) 10^6/u L Hgb (11.7-16.6) g/dL Hct (42.0-52.0) % MCV (80-94) fl MCH (28.0-34.0) pg MCHC (30.0-36.0) g/dL RDW (12.1-15.1) % Plt Count (130-400) 10^3/c mm MPV (7.4-10.4) fL Neut % (Auto) Lymph % (Auto) [place] % (Auto) Eos % (Auto) Baso % (Auto) Neut # (Auto) Lymph # (Auto) [place] # (Auto) Eos # (Auto) Baso # (Auto) Nucleated RBC % (a uto) Total Counted (0-100) Atypical Lymphs % (0-5) % Absolute Neutrophi ls (1.4-6.5) 10^3/c mm Segmented Neutroph ils % Abs Segm Neuts (Ma n) (1.6-7.1) 10/cmm Band Neutrophils % Abs Band Neuts (Ma n) (0.0-1.2) 10^3/c mm Absolute Lymphocyt es (1.2-3.4) 10^3/c mm Lymphocytes (Manua l) % Monocytes (Manual) % Absolute Monocytes (0.1-0.6) 10^3/c mm Eosinophils (Manua l) % Absolute Eosinophi ls (0.0-0.7) 10^3/c mm Basophils (Manual) % Absolute Basophils (0.0-0.2) 10^3/c mm Metamyelocytes % Nucleated RBCs # Platelet Estimate (Normal) Sodium 139 (136-145) mmol/L Potassium 4.4 (3.5-5.1) mmol/L Chloride 106 (98-107) mmol/L Carbon Dioxide 24 (22-29) mmol/L Anion Gap 13.4 (5-19) BUN 24 H (6-20) mg/dL Creatinine 1.2 (0.7-1.2) mg/dL GFR Calculation 68.5 L (90-130) mL/min Glucose 103 (65-115) mg/dL Calculated Osmolal ity 292 (285-295) mOsm/k g Lactic Acid (0.5-2.2) mmol/L Calcium 8.3 L (8.5-10.5) mg/dL Total Bilirubin (0.15-1.2) mg/dL AST (0-40) U/L ALT (0-41) U/L Alkaline Phosphata se (40-130) IU/L Creatine Kinase (39-308) U/L Total Protein (6.6-8.7) g/dL Albumin (3.5-5.2) g/dL Globulin (1.3-4.6) g/dL Urine Color (Yellow) Urine Appearance (CLEAR) Urine pH (5-7) Ur Specific Gravit y (1.005-1.030) Urine Protein (Negative) Urine Glucose (UA) (Normal) Urine Ketones (Negative) Urine Blood (Negative) Urine Nitrate (Negative) Urine Bilirubin (Negative) Urine Urobilinogen (Negative) mg/dL Ur Leukocyte Phuong ase (Negative) Salicylates (3-10) mg/dL Urine Opiates Scre en (Negative) ng/mL Acetaminophen (10-30) ug/mL Ur Barbiturates Sc reen (Negative) ng/mL Ur Phencyclidine S crn (Negative) ng/mL Ur Amphetamines Sc reen (Negative) ng/mL U Benzodiazepines Scrn (Negative) ng/mL Urine Cocaine Scre en (Negative) ng/mL U Marijuana (THC) Screen (Negative) ng/mL Ethyl Alcohol (0-10) mg/dL Discharge Plan Discharge Patient Disposition: Home Clinical Impression: Chronic alcohol abuse, Elevated serum creatinine Alcoholic intoxication Qualifiers: Complication of substance-induced condition: uncomplicated Qualified Code(s): F10.920 - Alcohol use, unspecified with intoxication, uncomplicated Condition: Stable Prescriptions: No Action gabapentin 300 mg Capsule 300 mg PO TID Qty: 90 RF: 0 thiamine mononitrate (vit B1) [Vitamin B-1 (mononitrate)] 100 mg Tablet 100 mg PO DAILY Qty: 30 RF: 0 albuterol sulfate 90 mcg/actuation HFA aerosol inhaler 2 puff INHALATION Q4H PRN (Reason: Shortness Of Breath) RF: 0 Tab-A-Osmany 400 mcg tablet 1 tab PO QAM RF: 0 amlodipine 5 mg tablet 5 mg PO DAILY RF: 0 citalopram 20 mg tablet 40 mg PO DAILY RF: 0 pantoprazole 40 mg tablet,delayed release (DR/EC) 40 mg PO QAM RF: 0 Discharge Orders: Discharge ED (Routine); Ordered 04/29/21 Ordered By: Kirill Givens Discharge Diet: Regular Discharge Activity: Resume usual activity Patient Instructions: Alcohol Intoxication (ED), Abuse of Alcohol (ED) Activity Restrictions/Additional Instructions: Follow-up with medical provider as directed in 7 to 10 days reevaluation. Continue taking all home medications as prescribed. Return to the ER or your medical provider if condition worsens. Please read and understand discharge instructions. Thank you for choosing [facility] for your healthcare needs today. Please realize this is an emergency room and that we are providing you with a medical screening exam and this may not be complete and all inclusive of all the testing and or work up that you may need to determine your ailment or severity of your illness. It is very important that you follow up as instructed or that you return to the Emergency Department should you have concerns or if your condition changes or worsens in any way. Sign Out Sign Out Data: Patient Sign Out occurred on 04/29/21 at 17:09. Patient's care was discussed, and care was transferred from to KALIN Metcalf. Coding Level of Care Code ED Technical Assistant for Jerilyn Wallace Exam Detailed
[2021-04-29 14:33] LABS: Hematocrit 41.9 % (42.0-52.0); Hemoglobin 13.9 g/dL (11.7-16.6); Mean Corpuscular HGB Conc 33.2 g/dL (30.0-36.0); Mean Corpuscular Hemoglobin 30.6 pg (28.0-34.0); Mean Corpuscular Volume 92.3 fl (80-94); Mean Platelet Volume 9.8 fL (7.4-10.4); Platelet Count 344 10^3/cmm (130-400); Red Blood Count 4.54 10^6/uL (4.1-5.3); Red Cell Distribution Width 12.9 % (12.1-15.1); White Blood Count 12.1 10^3/uL (4.0-10.0)
[2021-04-29] MEDS: sodium chloride 0.9% 1,000 ML 999 ML IV ×2 (14:35→15:32)
[2021-04-29 14:53] LABS: Alanine Aminotransferase 57 U/L (0-41); Albumin Level 4.1 g/dL (3.5-5.2); Alcohol Level 264 mg/dL (0-10); Alkaline Phosphatase 78 IU/L (40-130); Aspartate Amino Transferase 27 U/L (0-40); Blood Urea Nitrogen 25 mg/dL (6-20); Calcium 9.1 mg/dL (8.5-10.5); Carbon Dioxide 23 mmol/L (22-29); Chloride 103 mmol/L (98-107); Globulin 2.6 g/dL (1.3-4.6); Glomerular Filtration Rate 57.3 mL/min (90-130); Glucose 124 mg/dL (65-115); Osmolality Calculated 296 mOsm/kg (285-295); Sodium 140 mmol/L (136-145); Total Bilirubin 0.2 mg/dL (0.15-1.2); Total Protein 6.7 g/dL (6.6-8.7)
[2021-04-29 14:58] VITALS: BP 119/53; PULSE 96; RESP 20; O2SAT 94
[2021-04-29] MEDS: folic acid 1 MG, multivitamin inj 10 ML, thiamine 100 MG in sodium chloride 0.9% 1,000 ML 252.8 MG IV (14:58)
--- NOTE | 2021-04-29 14:58 | PC.PHAR ---
PT STATES HE TAKES CARE OF HIS OWN MEDICATIONS-PT STATES HE RAN OUT OF HIS MEDS TODAY EXT MED HISTORY SHOWS MEDS FILLED ON 03/25/21 30D/S
[2021-04-29 15:00] LABS: Slide Review Slide Review Perform
[2021-04-29 15:01] LABS: Absolute Segmented Neutrophil 7.6 10/cmm (1.6-7.1); Band Neutrophils Absolute 0.1 10^3/cmm (0.0-1.2); Segmented Neutrophils 63 %; Total Cells Counted 100 (0-100)
[2021-04-29 15:02] LABS: Absolute Neutrophil 7.7 10^3/cmm (1.4-6.5); Acetaminophen < 5.0 ug/mL (10-30); Eosinophils 0 %; Lymphocytes 21 %; Lymphocytes Absolute 3.8 10^3/cmm (1.2-3.4); Monocytes Absolute 0.5 10^3/cmm (0.1-0.6); Platelet Estimate Normal (Normal); Salicylate < 0.3 mg/dL (3-10)
[2021-04-29 15:14] LABS: Creatine Phosphokinase 85 U/L (39-308)
[2021-04-29 15:25] LABS: Lactic Sepsis W/Reflex 1.5 mmol/L (0.5-2.2)
[2021-04-29 16:25] VITALS: BP 123/73; PULSE 82; RESP 18; O2SAT 95
[2021-04-29 16:38] LABS: Add Urine Microscopic? NO; Charge for UA Resulting for Rev
[2021-04-29 17:04] LABS: Blood Urine Neg (Negative); Glucose Urine UA Norm (Normal); Ketones Urine Negative (Negative); Protein Urine 1+ (Negative); Urine Appearance Clear (CLEAR); Urine Color Yellow (Yellow); pH Urine 5 (5-7)
[2021-04-29 17:05] LABS: Bilirubin Urine Neg (Negative); Leukocyte Esterase Urine Negative (Negative); Nitrate Urine Negative (Negative); Urobilinogen Urine Norm (Negative)
[2021-04-29 17:09] VITALS: BP 142/95; PULSE 100; RESP 18; O2SAT 95
[2021-04-29 17:09] LABS: Amphetamines Screen Urine Negative (Negative); Barbiturates Screen Urine Negative (Negative); Benzodiazepines Screen Urine Negative (Negative); Cocaine Screen Urine Negative (Negative); Opiate Screen Urine Negative (Negative); PCP Screen Urine Negative (Negative); THC Screen Urine Negative (Negative)
[2021-04-29 17:18] LABS: Anion Gap 13.4 (5-19); Blood Urea Nitrogen 24 mg/dL (6-20); Calcium 8.3 mg/dL (8.5-10.5); Carbon Dioxide 24 mmol/L (22-29); Chloride 106 mmol/L (98-107); Glomerular Filtration Rate 68.5 mL/min (90-130); Glucose 103 mg/dL (65-115); Osmolality Calculated 292 mOsm/kg (285-295); Potassium 4.4 mmol/L (3.5-5.1); Sodium 139 mmol/L (136-145)
--- NOTE | 2021-04-29 17:55 | PC.NURSE ---
patient is given food and drink at this time sitting up in bed eating and drinking without difficulty
[2021-04-29 17:56] VITALS: BP 154/83; PULSE 105; RESP 18; O2SAT 96
--- NOTE | 2021-04-29 18:11 | PC.NURSE ---
patient is finished eating and states he wants to go home
[2021-04-29 18:20] VITALS: BP 164/82; PULSE 102; RESP 18; O2SAT 93
== END 2021-04-29 18:22 | disposition home or self-care (01) ==
PROVIDERS: Physician Assistant; Emergency Provider Physician Assistant
DX: F10.120 Alcohol abuse with intoxication, uncomplicated (principal); Y90.8 Blood alcohol level of 240 mg/100 ml or more; R79.89 Other specified abnormal findings of blood chemistry; F17.210 Nicotine dependence, cigarettes, uncomplicated
CPT/HCPCS: 36415; 71045; 80048; 80053; 80306; 80307; 81003; 82550; 83605; 85007; 85025; 96360; 96361; 99284; J3411; J3490; J7030

== ENCOUNTER 2021-05-11 18:08 | Emergency (ER) | payer SELFPAY ==
[2021-05-11 18:27] VITALS: BP 119/69; PULSE 99; RESP 22; TEMP 37.1; O2SAT 96; BMI 41.7
--- NOTE | 2021-05-11 18:32 | W.ED.BACK ---
HPI - Back Pain/Injury General: Chief Complaint: Back Pain/Injury Stated Complaint: lower back pain Time Seen by Provider: 05/11/21 18:32 History of Present Illness: HPI Narrative: 35-year-old male patient comes in with low back pain starting this morning. Patient does have a history of low back pain. Patient denies any falls or recent injuries. Patient reports the pain is in the lower lumbar region. Patient appears well. Patient appears no acute distress. Patient denies fever, changes in bowel habits, or changes in urination pattern. Review of Systems General: Reports: 10 or more systems reviewed and unremarkable except in HPI and below Musc: Reports: back pain PFSH ED PFSH: Medical History Alcohol abuse Alcoholism Anxiety and depression Bilateral lower extremity edema Cellulitis Elevated blood pressure reading Falls frequently Obesity Seizure Sleep apnea Tobacco dependency Surgical History History of foot surgery Hx of cholecystectomy Family History Other Diabetes Social History Smoking and tobacco status: current every day smoker cigarettes Packs smoked per day: 1 Alcohol intake: current Alcohol intake frequency: few times a month Current occupational status: unemployed Physical Exam Const: COMMON NORMALS: no acute distress and patient oriented x3 GENERAL APPEARANCE: cooperative HENMT: COMMON NORMALS: normocephalic and Normal external nose present HEAD & SCALP: normal to inspection and normocephalic NOSE: Normal external nose present Eye: GENERAL EYE: appearance normal, both eyes and all related structures Neck/C-Spine: COMMON NORMALS: full ROM Chest: COMMONS NORMALS: normal inspection of the chest Resp: COMMON NORMALS: normal respiratory effort EFFORT & INSPECTION: Yes able to speak in complete sentences Cardio: COMMON NORMALS: regular rate and regular rhythm RATE: regular rate RHYTHM: regular rhythm GI: COMMON NORMALS: non-tender : COMMON NORMALS: Yes no CVA tenderness BLADDER/KIDNEY EXAM: Yes no CVA tenderness Back/Pelvis: COMMON NORMALS: no CVA tenderness LUMBAR SPINE/LOWER BACK: Yes lumbar spinal tenderness Lumbar spinal tenderness location: L5 and Yes paraspinal muscle tenderness Lumbar paraspinal muscle tenderness: bilateral Bilateral lumbar paraspinal muscle tenderness: L4 and L5 Extremity: COMMON NORMALS: normal to inspection Neuro: COMMON NORMALS: patient oriented x3 and moves all extremities Psych: COMMON NORMALS: mental status grossly normal and cooperative Skin: COMMON NORMALS: no rashes or lesions noted GENERAL SKIN EXAM: no rashes or lesions noted Course Vital Signs: Vital signs: Vital Signs Temperature 98.7 F 05/11/21 18:27 Pulse Rate 99 05/11/21 18:27 Respiratory Rate 22 H 05/11/21 18:27 Blood Pressure 119/69 05/11/21 18:27 Pulse Oximetry 96 05/11/21 18:27 MDM - Back Pain/Injury MDM Narrative: Medical decision making narrative: Patient comes in for low back pain. Patient reports was at work today and started having some low back discomfort. Patient does have a history of low back problems. On exam patient is alert oriented. Patient is warm and dry. Skin has good perfusion. Vital signs are normal. Differential diagnosis includes lumbar strain, intervertebral disc disease, facet arthropathy. No x-rays were performed due to patient having no history of recent injury and previous low back problems. No sign of cauda equina syndrome was noted. Patient will be written a prescription for naproxen and a muscle relaxer. Reviewed exam with patient with recommendations for treatment and follow-up. Patient reported understanding and agreed to plan. Discharge Plan Discharge Patient Disposition: Home Clinical Impression: Strain of lumbar region Qualifiers: Encounter type: initial encounter Qualified Code(s): S39.012A - Strain of muscle, fascia and tendon of lower back, initial encounter Condition: Stable Prescriptions: New naproxen 500 mg tablet 500 mg PO BID Qty: 20 RF: 0 carisoprodol 350 mg tablet 350 mg PO TID PRN (Reason: muscle pain) Qty: 10 RF: 0 No Action gabapentin 300 mg Capsule 300 mg PO TID Qty: 90 RF: 0 thiamine mononitrate (vit B1) [Vitamin B-1 (mononitrate)] 100 mg Tablet 100 mg PO DAILY Qty: 30 RF: 0 albuterol sulfate 90 mcg/actuation HFA aerosol inhaler 2 puff INHALATION Q4H PRN (Reason: Shortness Of Breath) RF: 0 Tab-A-Osmany 400 mcg tablet 1 tab PO QAM RF: 0 amlodipine 5 mg tablet 5 mg PO DAILY RF: 0 citalopram 20 mg tablet 40 mg PO DAILY RF: 0 pantoprazole 40 mg tablet,delayed release (DR/EC) 40 mg PO QAM RF: 0 Discharge Orders: Discharge ED (Routine); Ordered 05/11/21 Ordered By: Jose Daniel Rivera Discharge Diet: Usual diet Discharge Activity: Increase activity as tolerated Patient Instructions: Back Pain (ED), Opioid Safety Activity Restrictions/Additional Instructions: Home and rest. Activity as tolerated. Gentle stretching and range of motion exercises. Use naproxen twice a day for pain and inflammation. Use carisoprodol 1 tablet 3 times a day as needed for muscle spasm and pain. Drink plenty of water with medication. Follow-up with primary care for further instruction. Return to the ER for worsening symptoms. Coding Level of Care Code ED Automatic Quilling Machine Operator for Jerilyn Wallace
[2021-05-11 19:13] VITALS: RESP 20
== END 2021-05-11 18:55 | disposition home or self-care (01) ==
PROVIDERS: Emergency Provider Nurse Practitioner Family
DX: S39.012A Strain of muscle, fascia and tendon of lower back, initial encounter (principal); E66.9 Obesity, unspecified; Z68.41 Body mass index [BMI] 40.0-44.9, adult; F17.210 Nicotine dependence, cigarettes, uncomplicated; X58.XXXA Exposure to other specified factors, initial encounter
CPT/HCPCS: 99281

== ENCOUNTER 2021-05-30 11:31 | Emergency (ER) | payer SELFPAY ==
[2021-05-30 11:49] VITALS: BP 165/68; PULSE 91; TEMP 37; O2SAT 92; BMI 44.9
[2021-05-30 12:00] VITALS: BP 135/75; PULSE 95; RESP 18; O2SAT 91
--- NOTE | 2021-05-30 12:11 | ED_ITS ---
Documented by User: KALIN Tamez 05/30/21 14:39 HPI - Extremity Injury (Lower) General: Chief Complaint: Extremity Injury, Lower Stated Complaint: L FOOT INJURY Time Seen by Provider: 05/30/21 11:46 Source: patient Mode of arrival: wheelchair Limitations: no limitations History of Present Illness: HPI Narrative: Patient is a 35-year-old male who presents to ED today for evaluation of his left foot pain/injury. Patient tells me yesterday (around 11pm) he accidentally caught his foot and mainly the fourth and fifth digits on something and believes he fractured his toes. He is also complaining of lacerations. He states he then fell and hurt his lower back. Patient tells me he has chronic lower back pain but states it is exacerbated fo llowing the fall. Last tetanus is unknown. No other injuries or complaints at this time. MD complaint: foot injury Onset (ago): hour(s) (12 hours ago) Injury: Left: foot Type of Injury: blunt and laceration Place: home Severity: moderate Relieving factors: immobilization Exacerbating factors: weight bearing, movement and palpation Context: direct blow Other symptoms: none Review of Systems Const: Denies: fever(s), chills, body aches or fatigue Card: Denies: chest pain Resp: Denies: dyspnea GI: Denies: abdominal pain, nausea or vomiting : Denies: flank pain or dysuria Musc: Reports: back pain and extremity pain (L foot); Denies: neck pain, extremity swelling, joint pain or joint swelling Skin/Breast: Reports: other (lacerations to toes of L foot) Neuro: Denies: headache(s), numbness in extremities, weakness in extremities or sensory changes [facility] ED PFSH: Medical History Alcohol abuse Alcoholism Anxiety and depression Bilateral lower extremity edema Cellulitis Elevated blood pressure reading Falls frequently Obesity Psychiatric care Seizure Sleep apnea Tobacco dependency Surgical History History of foot surgery Hx of cholecystectomy Family History Other Diabetes Social History Smoking and tobacco status: current every day smoker cigarettes Packs smoked per day: 1 Years cigarettes smoked: 10 Quit status (tobacco): not considering quitting Second hand smoke exposure: Yes Alcohol intake: current Alcohol intake frequency: few times a month Current occupational status: unemployed Physical Exam Const: COMMON NORMALS: no acute distress, patient oriented x3, no limitations and alert NUTRITIONAL APPEARANCE: obese morbidly obese ORIENTATION/CONSCIOUSNESS: Yes awake, Yes oriented to person, Yes oriented to place and Yes oriented to time HENMT: COMMON NORMALS: normocephalic and atraumatic HEAD & SCALP: normocephalic and atraumatic Resp: COMMON NORMALS: normal respiratory effort and clear to auscultation bilaterally AUSCULTATION: clear to auscultation bilaterally Cardio: COMMON NORMALS: regular rate and regular rhythm RATE: regular rate RHYTHM: regular rhythm Back/Pelvis: THORACIC SPINE/UPPER BACK: Yes normal to inspection, No thoracic spinal tenderness, No paraspinal muscle tenderness and No paraspinal muscle spasm LUMBAR SPINE/LOWER BACK: Yes lumbar ROM normal, Yes pain with ROM, Yes lumbar spinal tenderness Lumbar spinal tenderness location: L3, L4 and L5 and No paraspinal muscle spasm PELVIS: Yes buttocks normal SACROILIAC JOINTS: Yes SI joints normal Extremity: GENERAL: Yes normal exam except as noted OTHER: pt has deformity to L 4th digit consistent with fx and/or dislocation; he has extensive lacerations to the base of the 4-5 digits; he has visible bone to the 4th digit Neuro: COMMON NORMALS: patient oriented x3, moves all extremities, no focal motor deficits and no sensory deficits noted SENSORIUM/ORIENTATION: Yes alert, Yes oriented to person, Yes oriented to place and Yes oriented to time Skin: NARRATIVE SKIN EXAM: see extremity assessment for pertinent skin findi ngs; otherwise normal skin exam Course Vital Signs: Vital signs: Vital Signs Temperature 98.6 F 05/30/21 11:49 Pulse Rate 99 05/30/21 14:49 Respiratory Rate 20 H 05/30/21 14:49 Blood Pressure 111/58 05/30/21 14:49 Pulse Oximetry 99 05/30/21 14:49 MDM - Extremity Injury (Lower) MDM Narrative: Medical decision making narrative: Patient has an open toe dislocation to his L 4th digit. Laceration to base of 5th toe. Wounds are now 14+ hours old. Patient most likely would benefit from OR reduction/wash out. Dr. Millard has evaluated patient and plan will be for him to speak to Dr. Dahl who is on for foot/ankle trauma. Dr. Millard spoke to Dr. Dahl who recommended speaking to Dr. Amezquita. Dr. Amezquita called from ED and was graciously willing to see patient in his office directly after DC from the ED with plan for reduction, irrigation, repair. Will give IM Rocephin and dress wounds and patient will proceed directly over to ortho clinic. Imaging Data^: XR L foot: Radiologist's impression: [address] [place] [address] XRay Report Signed Patient: Fortunato Marie Unit #: [id number] : 1985 Age/Sex: 35 / M ADM Date: 05/30/21 Loc: ER Room/Bed: Attending Dr: Ordering Provider/Ordering MD: Jena Harris Date of Service: 05/30/21 Procedure(s): XR foot LT min 3V* [id number] Accession Number(s): [id number] Report Number: [id number] PROCEDURE INFORMATION: Exam: XR Left Foot Exam date and time: 05/30/2021 12:10 PM Age: 35 years old Clinical indication: Injury or trauma; Fall; Left; Foreign body involvement not specified; Injury details: History--pt fell in house last night, laceration to 4th and 5th digits on foot; Additional info: Trauma; Lacs to 4-5 digits TECHNIQUE: Imaging protocol: XR Left foot. Views: 3 or more views. COMPARISON: CR Foot 2 views, LEFT [id number] 02/26/2017 3:13 PM FINDINGS: Bones/joints: There is dislocation of the proximal interphalangeal articulation of the 4th digit. Lateral subluxation of the mid and distal phalange is seen. Chronic deformity is present in the proximal 5th digit consistent with prior fracture. No additional bony abnormalities are present. A bone spurs present on the inferior calcaneus stable since prior Soft tissues: Soft tissue edema is seen in the 4th and 5th digits. Negative for soft tissue foreign bodies. XR/XR foot LT min 3V* [id number] IMPRESSION: 1. Dislocation and lateral subluxation of the proximal interphalangeal joint 4th digit 2. Chronic fracture proximal phalange 5th digit 3. Bone spur inferior calcaneus 4. Soft tissue edema 4th and 5th digits Dictated By: Ga Herman Signed By: Ga Herman Signed Date/Time: 05/30/211328 DD/ 28 XR lumbar: Radiologist's impression: [address] [place] [address] XRay Report Signed Patient: Fortunato Marie Unit #: [id number] : 1985 Age/Sex: 35 / M ADM Date: 05/30/21 Loc: ER Room/Bed: Attending Dr: Ordering Provider/Ordering MD: Jena Harris Date of Service: 05/30/21 Procedure(s): XR lumbar spine 2-3V* 12291 Accession Number(s): [id number] Report Number: [id number] PROCEDURE INFORMATION: Exam: XR Lumbosacral Spine Exam date and time: 05/30/2021 12:10 PM Age: 35 years old Clinical indication: Injury or trauma; Fall; Blunt trauma (contusions or hematomas); Injury date: Yesterday; Injury details: History--pt fell in house last night, laceration to 4th and 5th digits on foot TECHNIQUE: Imaging protocol: XR of the lumbosacral spine. Views: 2 or 3 views. COMPARISON: No relevant prior studies available. FINDINGS: Bones/joints: Normal. No acute fracture. Normal alignment. Bone spurs are present anterior aspect T11-T12 vertebral body. Soft tissues: Unremarkable. XR/XR lumbar spine 2-3V* [id number] IMPRESSION: No acute findings. Dictated By: Ga Herman Signed By: Ga Herman Signed Date/Time: 05/30/211324 DD/ 24 Discharge Plan Discharge Patient Disposition: Home Clinical Impression: Open dislocation of fourth toe of left foot Qualifiers: Encounter type: initial encounter Qualified Code(s): S93.106A - Unspecified dislocation of unspecified toe(s), initial encounter Laceration of fifth toe of left foot Qualifiers: Encounter type: initial encounter Qualified Code(s): S91.115A - Laceration without foreign body of left lesser toe(s) without damage to nail, initial encounter Condition: Stable Prescriptions: No Action sertraline [Zoloft] 100 mg tablet 100 mg PO DAILY Qty: 30 RF: 1 doxepin 50 mg capsule 50 mg PO .HS Qty: 30 RF: 1 naltrexone 50 mg tablet 50 mg PO DAILY Qty: 30 RF: 1 gabapentin 800 mg tablet 800 mg PO TID Qty: 90 RF: 1 clindamycin HCl 300 mg capsule 300 mg PO QID 7 Days Qty: 28 RF: 0 ciprofloxacin HCl [Cipro] 500 mg tablet 500 mg PO BID 7 Days Qty: 14 RF: 0 (DME) Cam Boot on the left See Rx Instructions .Route .MEDSUPPLY Qty: 1 RF: 0 acetaminophen-codeine 300-30 mg tablet 1 tab PO Q6H PRN (Reason: pain) 7 Days Qty: 5 RF: 0 (DME) Crutches See Rx Instructions .Route .MEDSUPPLY Qty: 1 RF: 0 thiamine mononitrate (vit B1) [Vitamin B-1 (mononitrate)] 100 mg Tablet 100 mg PO DAILY Qty: 30 RF: 0 albuterol sulfate 90 mcg/actuation HFA aerosol inhaler 2 puff INHALATION Q4H PRN (Reason: Shortness Of Breath) RF: 0 Tab-A-Osmany 400 mcg tablet 1 tab PO QAM RF: 0 amlodipine 5 mg tablet 5 mg PO DAILY RF: 0 pantoprazole 40 mg tablet,delayed release (DR/EC) 40 mg PO QAM RF: 0 Discharge Orders: Discharge ED (Routine); Ordered 05/30/21 Ordered By: Jena Harris Activity Restrictions/Additional Instructions: As we discussed you need to head straight over to the orthopedic clinic where you will see Dr. Amezquita. Coding Level of Care Code ED Realtime Captioner for Chg Fwd Exam Detailed Documented by User: Rafi Millard MD 05/31/21 19:57 HPI - Extremity Injury (Lower) General: Chief Complaint: Extremity Injury, Lower Stated Complaint: L FOOT INJURY Time Seen by Provider: 05/30/21 11:46 [facility] PFSH: Medical History Alcohol abuse Alcoholism Anxiety and depression Bilateral lower extremity edema Cellulitis Elevated blood pressure reading Falls frequently Obesity Psychiatric care Seizure Sleep apnea Tobacco dependency Surgical History History of foot surgery Hx of cholecystectomy Family History Other Diabetes Social History Smoking and tobacco status: current every day smoker cigarettes Packs smoked per day: 1 Years cigarettes smoked: 10 Quit status (tobacco): not considering quitting Second hand smoke exposure: Yes Alcohol intake: current Alcohol intake frequency: few times a month Current occupational status: unemployed Course Vital Signs: Vital signs: Vital Signs Temperature 98.6 F 05/30/21 11:49 Pulse Rate 99 05/30/21 14:49 Respiratory Rate 20 H 05/30/21 14:49 Blood Pressure 111/58 05/30/21 14:49 Pulse Oximetry 99 05/30/21 14:49 MDM - Extremity Injury (Lower) MDM Narrative: Medical decision making narrative: I discussed the case with KALIN Tamez. I have reviewed documentation and agree as written. I evaluate the patient. Deep laceration with some tissue maceration, exposed bone in the context of open joint from dislocation. Patient is high risk especially given time from initial injury to presentation. Patient requires urgent orthopedic evaluation. I discussed the case with orthopedic on-call Dr. Dahl, he located Dr. Amezquita who discussed the case with KALIN Tamez and came up with plan to have patient go immediately to clinic for further management. Rafi Millard MD Emergency Medicine Discharge Plan Discharge Patient Disposition: Home Clinical Impression: Open dislocation of fourth toe of left foot Qualifiers: Encounter type: initial encounter Qualified Code(s): S93.106A - Unspecified dislocation of unspecified toe(s), initial encounter Laceration of fifth toe of left foot Qualifiers: Encounter type: initial encounter Qualified Code(s): S91.115A - Laceration without foreign body of left lesser toe(s) without damage to nail, initial encounter Condition: Stable Prescriptions: No Action sertraline [Zoloft] 100 mg tablet 100 mg PO DAILY Qty: 30 RF: 1 doxepin 50 mg capsule 50 mg PO .HS Qty: 30 RF: 1 naltrexone 50 mg tablet 50 mg PO DAILY Qty: 30 RF: 1 gabapentin 800 mg tablet 800 mg PO TID Qty: 90 RF: 1 clindamycin HCl 300 mg capsule 300 mg PO QID 7 Days Qty: 28 RF: 0 ciprofloxacin HCl [Cipro] 500 mg tablet 500 mg PO BID 7 Days Qty: 14 RF: 0 (DME) Cam Boot on the left See Rx Instructions .Route .MEDSUPPLY Qty: 1 RF: 0 acetaminophen-codeine 300-30 mg tablet 1 tab PO Q6H PRN (Reason: pain) 7 Days Qty: 5 RF: 0 (DME) Crutches See Rx Instructions .Route .MEDSUPPLY Qty: 1 RF: 0 thiamine mononitrate (vit B1) [Vitamin B-1 (mononitrate)] 100 mg Tablet 100 mg PO DAILY Qty: 30 RF: 0 albuterol sulfate 90 mcg/actuation HFA aerosol inhaler 2 puff INHALATION Q4H PRN (Reason: Shortness Of Breath) RF: 0 Tab-A-Osmany 400 mcg tablet 1 tab PO QAM RF: 0 amlodipine 5 mg tablet 5 mg PO DAILY RF: 0 pantoprazole 40 mg tablet,delayed release (DR/EC) 40 mg PO QAM RF: 0 Discharge Orders: Discharge ED (Routine); Ordered 05/30/21 Ordered By: Jena Harris Activity Restrictions/Additional Instructions: As we discussed you need to head straight over to the orthopedic clinic where you will see Dr. Amezquita. Coding Level of Care Code ED Realtime Captioner for Jerilyn Fwalbert Exam Detailed
[2021-05-30] MEDS: tetanus-diphtheria tox (adult) 0.5 mL SDV IM (12:57)
[2021-05-30 14:44] VITALS: RESP 18; O2SAT 98
[2021-05-30] MEDS: HYDROmorphone 1 mg/mL INJ 1 mL 0.5 MG SUBCUT (14:44)
[2021-05-30] MEDS: cefTRIAXone 1,000 MG in lidocaine 1% 2.1 ML 3 MG IM (14:45)
[2021-05-30 14:49] VITALS: BP 111/58; PULSE 99; RESP 20; O2SAT 99
== END 2021-05-30 15:02 | disposition home or self-care (01) ==
PROVIDERS: Emergency Provider Physician Assistant
DX: S91.115A Laceration without foreign body of left lesser toe(s) without damage to nail, initial encounter (principal); S93.115A Dislocation of interphalangeal joint of left lesser toe(s), initial encounter; S92.512A Displaced fracture of proximal phalanx of left lesser toe(s), initial encounter for closed fracture; W22.8XXA Striking against or struck by other objects, initial encounter; F17.210 Nicotine dependence, cigarettes, uncomplicated; Z23 Encounter for immunization
CPT/HCPCS: 72100; 73630; 87070; 87075; 87077; 87186; 87205; 90471; 90714; 96372; 99283; J0696; J1170

== ENCOUNTER 2021-05-30 15:57 | Outpatient (CLI) | payer SELFPAY ==
--- NOTE | 2021-05-30 17:16 | XR_ITS ---
WS: [id number] XR foot LT 2V [id number] REASON FOR EXAM: Post reduction left foot FINDINGS: There is been reduction of the previously demonstrated dislocation of the MIP joint of the fourth toe . Anatomic alignment has been restored. No fracture is identified. No other significant abnormality. XR/XR foot LT 2V [id number] IMPRESSION: Dislocation reduction fourth toe as above.
== END 2021-05-30 15:58 | disposition home or self-care (01) ==
LOC: SPT 15:58
PROVIDERS: Visit Provider Podiatrist Foot & Ankle Surgery
DX: Z46.89 Encounter for fitting and adjustment of other specified devices (principal); S93.10 Unspecified subluxation and dislocation of toe; S91.105D Unspecified open wound of left lesser toe(s) without damage to nail, subsequent encounter; X58.XXXD Exposure to other specified factors, subsequent encounter
CPT/HCPCS: 73620; L4361

== ENCOUNTER → 2021-06-04 08:46 | Outpatient (BNVA) | payer SELFPAY | PROVIDERS: Visit Provider Podiatrist Foot & Ankle Surgery | DX: S91.105A Unspecified open wound of left lesser toe(s) without damage to nail, initial encounter (principal); S91.115A Laceration without foreign body of left lesser toe(s) without damage to nail, initial encounter; X58.XXXA Exposure to other specified factors, initial encounter | CPT/HCPCS: 73630 ==

== ENCOUNTER 2021-07-06 19:10 | Emergency (ER) | payer SELFPAY ==
[2021-07-06 19:17] VITALS: BP 152/104; PULSE 99; RESP 18; TEMP 36.7; O2SAT 93; BMI 41.5
[2021-07-06 19:24] VITALS: BP 152/104; PULSE 98; RESP 16; O2SAT 87
--- NOTE | 2021-07-06 19:28 | XRR_ITS ---
PROCEDURE INFORMATION: Exam: XR Left Hand Exam date and time: 07/06/2021 7:28 PM Age: 35 years old Clinical indication: Injury or trauma; Other: Punched through glass; Laceration; Hand; Left TECHNIQUE: Imaging protocol: XR Left hand. Views: 3 or more views. COMPARISON: No relevant prior studies available. FINDINGS: Bones/joints: No evidence of fracture or dislocation. Soft tissues: No visualized foreign body. XR/XR hand LT min 3V* [id number] IMPRESSION: No acute radiographic findings. Radiation Dose CTDIVOL = (mGy): DLP = (mGy-cm)
--- NOTE | 2021-07-06 19:57 | XRR_ITS ---
PROCEDURE INFORMATION: Exam: XR Chest Exam date and time: 07/06/2021 7:57 PM Age: 35 years old Clinical indication: Dyspnea; Additional info: AMS TECHNIQUE: Imaging protocol: XR of the chest. Views: 1 view. COMPARISON: CR XR chest 1V portable [id number] 04/29/2021 2:41 PM FINDINGS: Lungs: Low lung volumes. No consolidation. Pleural spaces: Unremarkable. No pleural effusion. No pneumothorax. Heart/Mediastinum: Unremarkable. No cardiomegaly. Bones/joints: Unremarkable. XR/XR chest 1V portable [id number] IMPRESSION: No acute findings. Radiation Dose CTDIVOL = (mGy): DLP = (mGy-cm)
--- NOTE | 2021-07-06 19:58 | ECG_ITS ---
[facility] Test Date: 2021-07-06 Pat Name: Fortunato Marie Department: Room: Gender: Male Neurosurgical Nurse Practitioner: : 1985 Requested By: Ag Roy Order Number: [id number] Son MD: Mundo Floyd M.D. Measurements Intervals [place] Rate: 99 P: 32 CT: 198 QRS: 17 QRSD: 123 T: 40 QT: 445 QTc: 572 Interpretive Statements SINUS RHYTHM POSSIBLE ANTERIOR MYOCARDIAL INFARCTION , OF INDETERMINATE AGE [30 ms Q WAVE IN V3/V4, OR R < 0.2 mV IN V4] Compared to ECG 03/17/2021 22:18:17 Myocardial infarct finding now present Sinus tachycardia no longer present Electronically Signed On 07-07-2021 0:28:45 CDT by Mundo Floyd M.D. [id number]
[2021-07-06 20:15] LABS: ABG PH Result 7.37 (7.35-7.45); Arterial Blood Gas Hematocrit 40.4 % (42-52); Blood Gas Allen Test Pos; Blood Gas Sample Site Radial, left; Blood Gas Sample Type Arterial; HCO3 ABG 28.1 mmol/L (22-26); Oxygen Device NC; PO2 ABG 73.6 mmHg (80.0-100.0)
[2021-07-06 20:19] LABS: Basophils # 0.1 10^3/uL (0.0-0.1); Basophils % 0.9 %; Eosinophils # 0.2 10^3/uL (0.0-0.8); Eosinophils % 2.7 %; Hematocrit 40.4 % (42.0-52.0); Lymphocytes # 2.9 10^3/uL (0.8-4.8); Lymphocytes % 35.3 %; Mean Corpuscular HGB Conc 32.2 g/dL (30.0-36.0); Mean Corpuscular Hemoglobin 30.7 pg (28.0-34.0); Mean Corpuscular Volume 95.3 fl (80-94); Mean Platelet Volume 10.5 fL (7.4-10.4); Monocytes # 0.7 10^3/uL (0.2-0.9); Monocytes % 8.4 %; Neutrophils # 4.21 10^3/uL (1.8-7.7); Neutrophils % 51.6 %; Nucleated Red Blood Cells % 0 %; Platelet Count 292 10^3/cmm (130-400); Red Blood Count 4.24 10^6/uL (4.1-5.3); Red Cell Distribution Width 12.8 % (12.1-15.1); White Blood Count 8.1 10^3/uL (4.0-10.0)
[2021-07-06] MEDS: sodium chloride 0.9% 1,000 ML 999 ML IV (20:20)
[2021-07-06 20:25] VITALS: PULSE 101; RESP 20; O2SAT 98
--- NOTE | 2021-07-06 20:29 | W.ED.EXTPRO ---
HPI - Extremity Problem General: Chief complaint: Extremity Injury, Upper Stated complaint: hand and foot pain/ etoh on board Time Seen by Provider: 07/06/21 19:19 History of Present Illness: HPI Narrative: 35-year-old heavily intoxicated male presents after a hand injury that happened at 9 PM, 23 hours ago last night he states he ran his hand through some glass, and has a laceration to the palmar hand. It is wrapped currently. He was picked up outside the [employer] by ambulance. He admits to having 1/5 of vodka prior to arrival. MD Complaint: joint swelling Onset (ago): hour(s) (23) Pain Consistency: constant Location: left and upper extremity Quality: other Review of Systems General: Reports: ROS unobtainable due to mental status PFS ED PFSH: Medical History Alcohol abuse Alcoholism Anxiety and depression Bilateral lower extremity edema Cellulitis Elevated blood pressure reading Falls frequently Obesity Psychiatric care Seizure Sleep apnea Tobacco dependency Surgical History History of foot surgery Hx of cholecystectomy Family History Other Diabetes Social History Quit status (tobacco): not considering quitting Second hand smoke exposure: Yes Alcohol intake: current Alcohol intake frequency: few times a month Current occupational status: unemployed Physical Exam Const: EXAM LIMITATIONS: altered mental status GENERAL APPEARANCE: lethargic ORIENTATION/CONSCIOUSNESS: Yes lethargic Chest: COMMONS NORMALS: normal inspection of the chest Cardio: COMMON NORMALS: regular rate, regular rhythm and Peripheral pulses 2+ throughout RATE: regular rate RHYTHM: regular rhythm PERIPHERAL PULSES: Peripheral pulses 2+ throughout GI: COMMON NORMALS: Normal to inspection, nondistended, normoactive bowel sounds present Extremity: NARRATIVE EXTREMITY EXAM: Exam of the left upper extremity reveals a very superficial epidermal laceration to the palmar third fourth and fifth MCPs. The dermis is intact. Bleeding is controlled. There is no drainage Neuro: VADIM COMA SCALE: document GCS findings [place] coma scale eye opening: To sound Vadim coma scale verbal response: Confused Vadim coma scale motor response: Localising Vadim coma scale total score: 12 SENSORIUM/ORIENTATION: Yes lethargic and Yes somnolent SPEECH: Other neuro speech findings (Slurred) Course Vital Signs: Vital signs: Vital Signs Temperature 98.1 F 07/06/21 23:31 Pulse Rate 111 H 07/06/21 23:31 Respiratory Rate 20 H 07/06/21 23:31 Blood Pressure 124/73 07/06/21 23:31 Pulse Oximetry 96 07/06/21 23:31 MDM - Extremity (Nontraumatic) MDM Narrative: Medical decision making narrative: 35-year-old male with a history of polysubstance abuse he is intoxicated on arrival. He has a small epidermal laceration to the palmar hand that is old. He'll be prescribed antibiotics for this, as it is more than 24 hours old, and does not look well taken care of were clean at this point it does not, however, look infected. His alcohol is 177. His tox screen is positive for methamphetamine and marijuana. His potassium is 2.8 here and is being repleted IV. He received more potassium orally before he is allowed discharge Lab Data: Labs: Lab Results 07/06/21 07/06/21 07/06/21 19:57 20:15 20:15 WBC 8.1 10^3/uL 10^3/ uL (4.0-10.0) RBC 4.24 10^6/uL 10^6 /uL (4.1-5.3) Hgb 13.0 g/dL g/dL (11.7-16.6) Hct 40.4 % L % (42.0-52.0) MCV 95.3 fl H fl (80-94) MCH 30.7 pg pg (28.0-34.0) MCHC 32.2 g/dL g/dL (30.0-36.0) RDW 12.8 % % (12.1-15.1) Plt Count 292 10^3/cmm 10^3 /cmm (130-400) MPV 10.5 fL H fL (7.4-10.4) Neut % (Auto) 51.6 % % Lymph % (Auto) 35.3 % % [place] % (Auto) 8.4 % % Eos % (Auto) 2.7 % % Baso % (Auto) 0.9 % % Neut # (Auto) 4.21 10^3/uL 10^3 /uL (1.8-7.7) Lymph # (Auto) 2.9 10^3/uL 10^3/ uL (0.8-4.8) [place] # (Auto) 0.7 10^3/uL 10^3/ uL (0.2-0.9) Eos # (Auto) 0.2 10^3/uL 10^3/ uL (0.0-0.8) Baso # (Auto) 0.1 10^3/uL 10^3/ uL (0.0-0.1) Nucleated RBC % (a uto) 0 % % Nucleated RBCs # 0.0 /100WBC /100W BC Specimen Type Arterial Sample Site Radial, left ABG pH 7.37 (7.35-7.45) ABG pCO2 49.0 mmHg H mmHg (35-45) ABG pO2 73.6 mmHg L mmHg (80.0-100.0) ABG HCO3 28.1 mmol/L H mmo l/L (22-26) ABG Base Excess 2.0 mmol/L mmol/L (-2.0-2.0) Maxim Test Pos Hematocrit 40.4 % L % (42-52) O2 Delivery Device Nc O2 Liters/Min 4.0 % % Rotor Assembler ID ellpe Sodium 140 mmol/L mmol/L (136-145) Potassium 2.8 mmol/L L* mmo l/L (3.5-5.1) Chloride 102 mmol/L mmol/L (98-107) Carbon Dioxide 26 mmol/L mmol/L (22-29) Anion Gap 14.8 (5-19) BUN 8 mg/dL mg/dL (6-20) Creatinine 0.6 mg/dL L mg/dL (0.7-1.2) GFR Calculation 152.4 mL/min H mL /min (90-130) Glucose 98 mg/dL mg/dL (65-115) Calculated Osmolal ity 288 mOsm/kg mOsm/ kg (285-295) Calcium 8.3 mg/dL L mg/dL (8.5-10.5) Magnesium 1.4 mg/dL L mg/dL (1.7-2.3) Total Bilirubin 0.2 mg/dL mg/dL (0.15-1.2) AST 38 U/L U/L (0-40) ALT 51 U/L H U/L (0-41) Alkaline Phosphata se 126 IU/L IU/L (40-130) Creatine Kinase 230 U/L U/L (39-308) Total Protein 6.4 g/dL L g/dL (6.6-8.7) Albumin 3.4 g/dL L g/dL (3.5-5.2) Globulin 3.0 g/dL g/dL (1.3-4.6) Urine Color Urine Appearance Urine pH Ur Specific Gravit y Urine Protein Urine Glucose (UA) Urine Ketones Urine Blood Urine Nitrate Urine Bilirubin Urine Urobilinogen Ur Leukocyte [place] Urine Opiates Scre en Ur Barbiturates Sc reen Ur Phencyclidine S crn Ur Amphetamines Sc reen U Benzodiazepines Scrn Urine Cocaine Scre en U Marijuana (THC) Screen Ethyl Alcohol 07/06/21 07/06/21 07/06/21 20:15 22:46 22:46 WBC RBC Hgb Hct MCV MCH MCHC RDW Plt Count MPV Neut % (Auto) Lymph % (Auto) [place] % (Auto) Eos % (Auto) Baso % (Auto) Neut # (Auto) Lymph # (Auto) [place] # (Auto) Eos # (Auto) Baso # (Auto) Nucleated RBC % (a uto) Nucleated RBCs # Specimen Type Sample Site ABG pH ABG pCO2 ABG pO2 ABG HCO3 ABG Base Excess Maxim Test Hematocrit O2 Delivery Device O2 Liters/Min Rotor Assembler ID Sodium Potassium Chloride Carbon Dioxide Anion Gap BUN Creatinine GFR Calculation Glucose Calculated Osmolal ity Calcium Magnesium Total Bilirubin AST ALT Alkaline Phosphata se Creatine Kinase Total Protein Albumin Globulin Urine Color Yellow (Yellow) Urine Appearance Clear (CLEAR) Urine pH 6 (5-7) Ur Specific Gravit y 1.020 (1.005-1.030) Urine Protein Neg (Negative) Urine Glucose (UA) Norm (Normal) Urine Ketones Negative (Negative) Urine Blood Neg (Negative) Urine Nitrate Negative (Negative) Urine Bilirubin Neg (Negative) Urine Urobilinogen Norm mg/dL mg/dL (Negative) Ur Leukocyte [place] Negative (Negative) Urine Opiates Scre en Negative ng/mL ng /mL (Negative) Ur Barbiturates Sc reen Negative ng/mL ng /mL (Negative) Ur Phencyclidine S crn Negative ng/mL ng /mL (Negative) Ur Amphetamines Sc reen Positive ng/mL H ng/mL (Negative) U Benzodiazepines Scrn Negative ng/mL ng /mL (Negative) Urine Cocaine Scre en Negative ng/mL ng /mL (Negative) U Marijuana (THC) Screen Positive ng/mL H ng/mL (Negative) Ethyl Alcohol 177 mg/dL H mg/dL (0-10) Discharge Plan Discharge Patient Disposition: Home Clinical Impression: Polysubstance abuse, Acute hypokalemia Alcohol intoxication Qualifiers: Complication of substance-induced condition: uncomplicated Qualified Code(s): F10.920 - Alcohol use, unspecified with intoxication, uncomplicated Laceration of hand, left Qualifiers: Encounter type: initial encounter Foreign body presence: without foreign body Qualified Code(s): S61.412A - Laceration without foreign body of left hand, initial encounter Condition: Stable Prescriptions: New cephalexin 500 mg capsule 500 mg PO Q6H 7 Days Qty: 28 RF: 0 No Action sertraline [Zoloft] 100 mg tablet 100 mg PO DAILY Qty: 30 RF: 1 doxepin 50 mg capsule 50 mg PO .HS Qty: 30 RF: 1 naltrexone 50 mg tablet 50 mg PO DAILY Qty: 30 RF: 1 gabapentin 800 mg tablet 800 mg PO TID Qty: 90 RF: 1 clindamycin HCl 300 mg capsule 300 mg PO QID 7 Days Qty: 28 RF: 0 ciprofloxacin HCl [Cipro] 500 mg tablet 500 mg PO BID 7 Days Qty: 14 RF: 0 (DME) Cam Boot on the left See Rx Instructions .Route .MEDSUPPLY Qty: 1 RF: 0 acetaminophen-codeine 300-30 mg tablet 1 tab PO Q6H PRN (Reason: pain) 7 Days Qty: 5 RF: 0 (DME) Crutches See Rx Instructions .Route .MEDSUPPLY Qty: 1 RF: 0 (DME) Crutches See Rx Instructions .ROUTE .MEDSUPPLY Qty: 1 RF: 0 (DME) Shower Chair See Rx Instructions .Route .MEDSUPPLY Qty: 1 RF: 0 thiamine mononitrate (vit B1) [Vitamin B-1 (mononitrate)] 100 mg Tablet 100 mg PO DAILY Qty: 30 RF: 0 albuterol sulfate 90 mcg/actuation HFA aerosol inhaler 2 puff INHALATION Q4H PRN (Reason: Shortness Of Breath) RF: 0 Tab-A-Osmany 400 mcg tablet 1 tab PO QAM RF: 0 amlodipine 5 mg tablet 5 mg PO DAILY RF: 0 pantoprazole 40 mg tablet,delayed release (DR/EC) 40 mg PO QAM RF: 0 Discharge Orders: Discharge ED (Routine); Ordered 07/06/21 Ordered By: Ag Patel Patient Instructions: Laceration (ED), Hypokalemia (ED), Alcohol Intoxication (ED), Polysubstance Abuse (ED) Activity Restrictions/Additional Instructions: Your hand laceration was not able to be repaired, as it is very superficial, and too old for repair. Keep bandaged and clean. Antibiotics as directed. Abstain from alcohol and other illicit substances. Coding Level of Care Code ED Supervisor [employer]ing [employer] for Jerilyn Fwd Exam Detailed
[2021-07-06 20:39] LABS: Alanine Aminotransferase 51 U/L (0-41); Albumin Level 3.4 g/dL (3.5-5.2); Alkaline Phosphatase 126 IU/L (40-130); Blood Urea Nitrogen 8 mg/dL (6-20); Calcium 8.3 mg/dL (8.5-10.5); Carbon Dioxide 26 mmol/L (22-29); Chloride 102 mmol/L (98-107); Creatine Phosphokinase 230 U/L (39-308); Glomerular Filtration Rate 152.4 mL/min (90-130); Glucose 98 mg/dL (65-115); Magnesium 1.4 mg/dL (1.7-2.3); Osmolality Calculated 288 mOsm/kg (285-295); Sodium 140 mmol/L (136-145); Total Bilirubin 0.2 mg/dL (0.15-1.2); Total Protein 6.4 g/dL (6.6-8.7)
[2021-07-06 20:42] LABS: Anion Gap 14.8 (5-19)
[2021-07-06 20:43] LABS: Aspartate Amino Transferase 38 U/L (0-40); Potassium 2.8 mmol/L (3.5-5.1)
[2021-07-06] MEDS: potassium chloride premix 100 ML 50 MEQ IV (20:49)
[2021-07-06 21:18] LABS: Alcohol Level 177 mg/dL (0-10)
[2021-07-06 22:27] VITALS: BP 124/73; PULSE 111; RESP 20; O2SAT 96
--- NOTE | 2021-07-06 22:28 | PC.NURSE ---
titrated o2 to 2 lpm per nc to see if pt maintains sats in mid 90's
[2021-07-06 22:51] LABS: Add Urine Microscopic? NO; Charge for UA Resulting for Rev
[2021-07-06 22:52] LABS: Bilirubin Urine Neg (Negative); Blood Urine Neg (Negative); Glucose Urine UA Norm (Normal); Ketones Urine Negative (Negative); Leukocyte Esterase Urine Negative (Negative); Nitrate Urine Negative (Negative); Protein Urine Neg (Negative); Urine Appearance Clear (CLEAR); Urine Color Yellow (Yellow); Urobilinogen Urine Norm (Negative); pH Urine 6 (5-7)
[2021-07-06 23:02] LABS: Amphetamines Screen Urine Positive (Negative); Barbiturates Screen Urine Negative (Negative); Benzodiazepines Screen Urine Negative (Negative); Cocaine Screen Urine Negative (Negative); Opiate Screen Urine Negative (Negative); PCP Screen Urine Negative (Negative); THC Screen Urine Positive (Negative)
[2021-07-06 23:31] VITALS: BP 124/73; PULSE 111; RESP 20; TEMP 36.7; O2SAT 96
== END 2021-07-06 23:32 | disposition home or self-care (01) ==
PROVIDERS: Emergency Provider Emergency Medicine
DX: S61.412A Laceration without foreign body of left hand, initial encounter (principal); W25.XXXA Contact with sharp glass, initial encounter; E87.6 Hypokalemia; F19.10 Other psychoactive substance abuse, uncomplicated; F10.129 Alcohol abuse with intoxication, unspecified; Y90.6 Blood alcohol level of 120-199 mg/100 ml; F17.200 Nicotine dependence, unspecified, uncomplicated
CPT/HCPCS: 36600; 71045; 73130; 80053; 80306; 80307; 81003; 82550; 82803; 83735; 85025; 93005; 96365; 96366; 99284; J3480; J7030

== ENCOUNTER 2021-07-11 06:12 | Inpatient (IN) | payer SELFPAY ==
[2021-07-11] VITALS (9 sets, daily range): BP systolic 138–184; BP diastolic 68–115; PULSE 96–128; RESP 16–42; TEMP 36.3–37.2; O2SAT 93–98; BMI 43.0
[2021-07-11 06:42] LABS: Basophils % 0.3 %; Eosinophils # 0.1 10^3/uL (0.0-0.8); Eosinophils % 0.5 %; Hematocrit 43.2 % (42.0-52.0); Hemoglobin 14.1 g/dL (11.7-16.6); Lymphocytes % 23.5 %; Mean Corpuscular HGB Conc 32.6 g/dL (30.0-36.0); Mean Corpuscular Hemoglobin 30.3 pg (28.0-34.0); Mean Corpuscular Volume 92.9 fl (80-94); Mean Platelet Volume 9.9 fL (7.4-10.4); Monocytes # 0.7 10^3/uL (0.2-0.9); Monocytes % 5.3 %; Neutrophils % 69.9 %; Nucleated Red Blood Cells % 0 %; Platelet Count 328 10^3/cmm (130-400); Red Blood Count 4.65 10^6/uL (4.1-5.3); Red Cell Distribution Width 13.3 % (12.1-15.1); White Blood Count 12.7 10^3/uL (4.0-10.0)
[2021-07-11 06:53] LABS: Alanine Aminotransferase 52 U/L (0-41); Albumin Level 3.8 g/dL (3.5-5.2); Alkaline Phosphatase 125 IU/L (40-130); Anion Gap 18.6 (5-19); Aspartate Amino Transferase 49 U/L (0-40); Blood Urea Nitrogen 8 mg/dL (6-20); Calcium 8.1 mg/dL (8.5-10.5); Carbon Dioxide 25 mmol/L (22-29); Chloride 99 mmol/L (98-107); Globulin 3.4 g/dL (1.3-4.6); Glomerular Filtration Rate 188.1 mL/min (90-130); Glucose 82 mg/dL (65-115); Osmolality Calculated 285 mOsm/kg (285-295); Potassium 3.6 mmol/L (3.5-5.1); Sodium 139 mmol/L (136-145); Total Bilirubin 0.2 mg/dL (0.15-1.2); Total Protein 7.2 g/dL (6.6-8.7)
[2021-07-11 06:54] LABS: Acetaminophen < 5.0 ug/mL (10-30); Salicylate < 0.3 mg/dL (3-10)
--- NOTE | 2021-07-11 07:00 | ED_ITS ---
HPI - Psych General: Chief Complaint: Psychiatric Symptoms Stated Complaint: SI Time Seen by Provider: 07/11/21 06:13 History of Present Illness: HPI Narrative: 35-year-old male presents emergency room via EMS stating he has a intra-arterial right foot from where he stepped on something. Patient is in wet clothing he is evidently been outside all night. He is tells us he is homeless. Additionally he is stating that he is suicidal. He states he has planned to step in front of traffic and attempt to kill himself. Patient is extremely agitated and fidgety in the exam room he denies use of methamphetamines does admit to the use of alcohol through the night. Patient does have a history of polysubstance abuse including alcohol and methamphetamine and opioids. Patient is uncertain of his last tetanus shot he did step on a branch or a twig and has a little bit of swelling in his right foot. Nurses note recited left hand pain although he downplayed it when I seen the patient. MD complaint: suicidal ideation Onset (ago): unknown Duration: constant History of same: Yes Relieving factors: none Exacerbating factors: alcohol Context: recent alcohol abuse Associated psychiatric symptoms: depression and suicidal ideation Associated symptoms: Reports depression and suicidal ideation; Deny auditory hallucinations, visual hallucinations, delusions or homicidal ideation Treatments prior to arrival: none If self harm: admits thoughts of self harm and has plan Review of Systems Const: Denies: fever(s), chills, body aches, change in appetite, fatigue or malaise ENMT: Denies: throat pain, ear or mastoid pain, nasal discharge or nasal congestion Card: Denies: chest pain, edema, dyspnea on exertion or orthopnea Resp: Denies: dyspnea, productive cough or non-productive cough GI: Denies: abdominal pain, nausea, vomiting, hematemesis, coffee ground emesis, diarrhea, constipation, bloating, hematochezia or melena : Denies: flank pain, dysuria, urinary frequency or urinary urgency Skin/Breast: Denies: rash or pruritus Psych: Reports: depression and suicidal ideation; Denies: visual hallucinations, auditory hallucinations or homicidal ideation [facility] ED PFSH: Medical History Alcohol abuse Alcoholism Anxiety and depression Bilateral lower extremity edema Cellulitis Elevated blood pressure reading Falls frequently Obesity Psychiatric care Seizure Sleep apnea Tobacco dependency Surgical History History of foot surgery Hx of cholecystectomy Family History Other Diabetes Social History Quit status (tobacco): not considering quitting Second hand smoke exposure: Yes Alcohol intake: current Alcohol intake frequency: few times a month Current occupational status: unemployed Physical Exam Const: COMMON NORMALS: no acute distress GENERAL APPEARANCE: cooperative and comfortable ORIENTATION/CONSCIOUSNESS: Yes awake, Yes oriented to person, Yes oriented to place and Yes oriented to time HENMT: COMMON NORMALS: normocephalic, atraumatic and hearing grossly normal bilaterally HEAD & SCALP: normocephalic and atraumatic Neck/C-Spine: COMMON NORMALS: no JVD Resp: COMMON NORMALS: normal respiratory effort, No retractions, No use of accessory muscles and clear to auscultation bilaterally AUSCULTATION: clear to auscultation bilaterally Cardio: COMMON NORMALS: no JVD, regular rate, regular rhythm and No murmurs present (Cardio) RATE: regular rate RHYTHM: regular rhythm GI: COMMON NORMALS: Soft to palpation and No hepatosplenomegaly present AUSCULTATION: Yes normoactive bowel sounds PALPATION: Yes Soft to palpation, No Tenderness to palpation present (GI), No Guarding due to palpation present (GI) and Yes No hepatosplenomegaly present Extremity: COMMON NORMALS: normal to inspection, capillary refill normal, no clubbing, cyanosis or edema, no calf tenderness and no pedal edema OTHER: right foot underlying second third metatarsals distally there is a small abrasion does not appear to be a puncture wound there is no palpable foreign body no visible foreign body cannot express any fluid or purulence. Neuro: SENSORIUM/ORIENTATION: Yes oriented to person, Yes oriented to place and Yes oriented to time Psych: THOUGHT CONTENT: No delusions Skin: COMMON NORMALS: no rashes or lesions noted GENERAL SKIN EXAM: no rashes or lesions noted Course Vital Signs: Vital signs: Vital Signs Temperature 98.7 F 07/11/21 10:03 Pulse Rate 115 H 07/11/21 10:03 Respiratory Rate 20 H 07/11/21 10:03 Blood Pressure 146/74 07/11/21 10:03 Pulse Oximetry 93 07/11/21 10:03 MDM - Psych MDM Narrative: Medical decision making narrative: Patient on 96-hour hold for suicidal ideation. He does appear to be mildly under the influence but is functional at this time. He does have some swelling and discomfort of the right foot. There are previous sutures in the left foot these have been removed per the patient he removed them. I talked to Dr. Amezquita he will see the patient on psychiatry for and evaluate at this point there is no purulence or drainage I did start him on Levaquin 750 daily for the foot also advised Dr. Kyle who admitting him to neuropsych. Lab Data: Labs: Lab Results 07/11/21 07/11/21 06:26 06:26 WBC 12.7 10^3/uL H 10 ^3/uL (4.0-10.0) RBC 4.65 10^6/uL 10^6 /uL (4.1-5.3) Hgb 14.1 g/dL g/dL (11.7-16.6) Hct 43.2 % % (42.0-52.0) MCV 92.9 fl fl (80-94) MCH 30.3 pg pg (28.0-34.0) MCHC 32.6 g/dL g/dL (30.0-36.0) RDW 13.3 % % (12.1-15.1) Plt Count 328 10^3/cmm 10^3 /cmm (130-400) MPV 9.9 fL fL (7.4-10.4) Neut % (Auto) 69.9 % % Lymph % (Auto) 23.5 % % [place] % (Auto) 5.3 % % Eos % (Auto) 0.5 % % Baso % (Auto) 0.3 % % Neut # (Auto) 8.90 10^3/uL H 10 ^3/uL (1.8-7.7) Lymph # (Auto) 3.0 10^3/uL 10^3/ uL (0.8-4.8) [place] # (Auto) 0.7 10^3/uL 10^3/ uL (0.2-0.9) Eos # (Auto) 0.1 10^3/uL 10^3/ uL (0.0-0.8) Baso # (Auto) 0.0 10^3/uL 10^3/ uL (0.0-0.1) Nucleated RBC % (a uto) 0 % % Nucleated RBCs # 0.0 /100WBC /100W BC Sodium 139 mmol/L mmol/L (136-145) Potassium 3.6 mmol/L mmol/L (3.5-5.1) Chloride 99 mmol/L mmol/L (98-107) Carbon Dioxide 25 mmol/L mmol/L (22-29) Anion Gap 18.6 (5-19) BUN 8 mg/dL mg/dL (6-20) Creatinine 0.5 mg/dL L mg/dL (0.7-1.2) GFR Calculation 188.1 mL/min H mL /min (90-130) Glucose 82 mg/dL mg/dL (65-115) Calculated Osmolal ity 285 mOsm/kg mOsm/ kg (285-295) Calcium 8.1 mg/dL L mg/dL (8.5-10.5) Total Bilirubin 0.2 mg/dL mg/dL (0.15-1.2) AST 49 U/L H U/L (0-40) ALT 52 U/L H U/L (0-41) Alkaline Phosphata se 125 IU/L IU/L (40-130) Total Protein 7.2 g/dL g/dL (6.6-8.7) Albumin 3.8 g/dL g/dL (3.5-5.2) Globulin 3.4 g/dL g/dL (1.3-4.6) Salicylates < 0.3 mg/dL L mg/ dL (3-10) Acetaminophen < 5.0 ug/mL L ug/ mL (10-30) Discharge Plan Discharge Patient Disposition: Admitted As Inpatient Admit Provider: Bruce Kyle Clinical Impression: Suicidal ideation, Polysubstance abuse, Puncture wound of foot, right Condition: Stable Coding Level of Care Code ED Assistant Professor Of Criminal Justice for Jerilyn Fwd Exam Comprehensive
--- NOTE | 2021-07-11 07:28 | XR_ITS ---
WS: [id number] Exam: XR foot RT min 3V* [id number] Date/Time of Exam: 07/11/2021 7:29 AM Reason For Exam: pain No acute fracture or dislocation. Old fracture deformity of the proximal phalanx of the great toe. No soft tissue foreign bodies. Calcaneal spurs. Probable small bone cyst in the third cuneiform bone XR/XR foot RT min 3V* [id number] IMPRESSION: 1. No acute fracture. 2. Old fracture deformity of the first proximal phalanx
[2021-07-11] MEDS: hyDROXYzine 25 mg Capsule 50 MG PO (10:46)
--- NOTE | 2021-07-11 11:34 | USCV_ITS ---
Fortunato Marie Age: 35 Gender: M : 1985 Exam Date: 07/11/2021 13:37 Ordering Phys: Gilbert Garcia MD Technologist: YANDY [place] [facility] [place]: EDEMA PAIN PROCEDURES: Venous duplex imaging was performed in only the right lower extremity. The following venous structures were evaluated: common femoral vein, profunda vein, proximal portion of the greater saphenous vein, superficial femoral vein, and the popliteal vein. In addition, the posterior tibial and peroneal trunk were evaluated. Serial compression, augmentation maneuvers, and spectral Doppler flow evaluation were performed. FINDINGS: Normal 2-D Doppler and augmentation and compressibility throughout the lower extremity venous structures. Additional imaging through the proximal calf veins also reveals no thrombus. Limited evaluation of the greater saphenous vein is patent with no thrombus. CONCLUSIONS No DVT right lower extremity. Dr. Delmis Perez DO (Electronically Signed) Final Date: 11 July 2021 15:03 S
--- NOTE | 2021-07-11 11:34 | ECG_ITS ---
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 Measurements Intervals [place] Rate: 114 P: 29 ID: [id number] QRS: 23 QRSD: 106 T: 42 QT: 350 QTc: 482 Interpretive Statements SINUS TACHYCARDIA POSSIBLE ANTERIOR MYOCARDIAL INFARCTION , OF INDETERMINATE AGE [30 ms Q WAVE IN V3/V4, OR R < 0.2 mV IN V4] Compared to ECG 07/06/2021 20:19:26 Sinus rhythm no longer present Myocardial infarct finding still present Electronically Signed On 07-12-2021 0:00:12 CDT by Nisha Barrera M.D. [id number]
[2021-07-11] MEDS: LORazepam 2 mg Tablet PO ×3 (11:35→20:26)
--- NOTE | 2021-07-11 11:39 | PC.NURSE ---
PRN Administered PO Ativan 2mg tab per Dr. Garcia's verbal orders for pt showing signs of Withdrawl's. Will continue to monitor pt.
--- NOTE | 2021-07-11 11:43 | P.CONIM_ITS ---
Providers/Reason For Consult Consulting Physician/Specialty*: Gilbert Leyva, Hospitalist Reason for Consult*: Elevated heart rate, lower extremity edema Attending Physician: Bruce Kyle MD History of Present Illness History of Present Illness Fortunato Marie is a 35 year old male just admitted to the psychiatric unit from the emergency department. He was having some suicidal ideation, is a chronic alcoholic and methamphetamine user. Nursing as well as the psychiatric physician was concerned when he presented with some neuro agitation, erythema around his pannus, swollen right lower extremity, and tachycardia. Patient reports the swelling in his foot has been going on since he stepped on something a week or so ago. He also reports that his left hand has an area that was harmed when he fell on glass. Both of these areas have been reviewed by the emergency department with x-rays demonstrating no obvious retained foreign body. The emergency department initiated treatment with Levaquin for his right foot swelling and history of puncture injury. Review of Systems General: Reports: 10 or more systems reviewed and unremarkable except in HPI and below Const: Reports: fatigue; Denies: fever(s) Eyes: Denies: change in vision ENMT: Denies: throat pain Card: Denies: chest pain Resp: Reports: dyspnea GI: Denies: abdominal pain : Denies: flank pain Musc: Reports: extremity pain and extremity swelling; Denies: neck pain Skin/Breast: Reports: rash Neuro: Denies: headache(s) Psych: Reports: anxiety and depression Endo: Denies: polyuria Socrates/Lymph: Denies: easy bruising All/Imm: Denies: urticaria Meds/Allergies Home Medications and Allergies Home Medications Medication Instructions Recorded Confirmed Last Taken Type thiamine mononitrate (vit B1) 100 mg PO DAILY #30 tab 03/25/21 07/11/21 07/10/21 Rx [Vitamin B-1 (mononitrate)] albuterol sulfate 2 puff INHALATION Q4H PRN 04/29/21 07/11/21 Unknown History amlodipine 5 mg PO DAILY 04/29/21 07/11/21 07/10/21 History multivitamin with folic acid 1 tab PO QAM 04/29/21 07/11/21 07/10/21 History [Tab-A-Osmany] pantoprazole 40 mg PO QAM 04/29/21 07/11/21 07/10/21 History gabapentin 800 mg tablet 800 mg PO TID #90 tab 05/23/21 07/11/21 07/10/21 Rx naltrexone 50 mg tablet 50 mg PO DAILY #30 tab 05/23/21 07/11/21 07/10/21 Rx sertraline 100 mg tablet 100 mg PO DAILY #30 tab 05/23/21 07/11/21 07/10/21 Rx doxepin 50 mg PO BEDTIME 07/11/21 07/11/21 07/10/21 History Allergies Allergy/AdvReac Type Severity Reaction Status Date / Time morphine Allergy ADR-Halluci Verified 06/04/21 08:42 nating Current Medications Current Medications Generic Name Dose Route Start Last Admin Trade Name Freq PRN Reason Stop Dose Admin Hydroxyzine Pamoate 50 mg 07/11/21 10:40 07/11/21 10:46 Hydroxyzine 25 Mg Capsule PO 50 mg Q6H PRN Administration ANXIETY Lorazepam 2 mg 07/11/21 10:05 07/11/21 11:35 Lorazepam 2 Mg Tablet PO 2 mg PROTOCOL PRN Administration WITHDRAWAL Protocol Thiamine Mononitrate 100 mg 07/11/21 10:15 07/11/21 11:37 Thiamine 100 Mg Tablet PO Not Given DAILY ALLISON PFSH Acute PFSH: Medical History Alcohol abuse Alcoholism Anxiety and depression Bilateral lower extremity edema Cellulitis Elevated blood pressure reading Falls frequently Obesity Psychiatric care Seizure Sleep apnea Tobacco dependency Surgical History History of foot surgery Hx of cholecystectomy Family History Other Diabetes Social History Quit status (tobacco): not considering quitting Second hand smoke exposure: Yes Alcohol intake: current Alcohol intake frequency: few times a month Current occupational status: unemployed Vitals/I&O/Wt Last Vital Signs Temp 98.7 F 07/11/21 10:03 Pulse 115 H 07/11/21 10:03 Resp 20 H 07/11/21 10:03 BP 146/74 07/11/21 10:03 Pulse Ox 93 07/11/21 10:03 Weight last 48 hrs Weight 136.078 kg Physical Exam Narrative: EXAM NARRATIVE: General exam is a somewhat agitated white male HEENT: Pupils equally round. Oropharynx clear. Neck is supple, obese nontender Cardiovascular tachycardic, no murmur Lungs clear no wheezing or crackles Abdomen is soft. Mild erythema noted of pannus but does not appear to be cellulitis. No drainage. exam is deferred Extremities right lower extremity has some edema compared to left. Small puncture wound noted of foot. Skin: No overt erythema on either lower extremity. Neuro: Somewhat agitated but conversant. Data Other Data: Other data: Calcium 8.1 AST and ALT 4952 Salicylates less than 0.3, acetaminophen less than 5 Previous hepatitis testing in September negative. A&P Assessment and plan (1) Alcohol use disorder, severe, dependence: Appears he may be having some withdrawal. Certainly withdrawal symptoms will have to be monitored closely in case more aggressive measures are needed for alcohol withdrawal. Symptomatology could also be secondary to infection from right lower extremity. I think this is less likely but will continue to follow closely with reassessments. Tachycardia likely related to withdrawal but will check EKG. Status: Acute (2) Methamphetamine abuse: Patient reports no use in the last several days Status: Acute (3) Puncture wound of foot, right: Podiatry has been consulted Continue Levaquin initiated in the ER Add doxycycline as MRSA is a possibility. Secondary to edema check venous duplex Status: Acute (4) Laceration of hand, left: No foreign body per x-ray done in the emergency department recently. Is somewhat macerated, but no evidence of abscess or need for procedure. Status: Acute Qualifiers: Encounter type: initial encounter Foreign body presence: without foreign body Qualified Code(s): S61.412A - Laceration without foreign body of left hand, initial encounter Additional A&P Information Suicidal ideation, polysubstance abuse. Per psychiatry. Full code I will follow up tomorrow as well, as well as a repeat visit today. 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
--- NOTE | 2021-07-11 11:43 | NPU.GN ---
[facility] Group Topic:My Favorite Things General Mood of Group: Fortunato did not attend group. He was sleeping.
[2021-07-11] MEDS: naltrexone hcl 50 mg Tablet PO (12:13)
[2021-07-11] MEDS: sertraline 100 mg Tablet PO (12:13)
[2021-07-11] MEDS: thiamine 100 mg Tablet PO ×2 (12:14→14:14)
[2021-07-11] MEDS: doxycycline 100 mg Tablet PO ×2 (12:14→18:20)
[2021-07-11] MEDS: folic acid 1 mg Tablet PO (12:14)
[2021-07-11] MEDS: amlodipine 5 mg Tablet PO (12:14)
[2021-07-11] MEDS: multivitamin therapeutic Tablet 1 TAB PO (12:15)
[2021-07-11] MEDS: albuterol 8 gm MDI 2 PUFF INHALATION (12:20)
--- NOTE | 2021-07-11 13:23 | PC.NURSE ---
PATIENT LEFT UNIT VIA ESCORT OF SECURITY TO ULTRASOUND.
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
[2021-07-11] MEDS: acetaminophen 325 mg Tablet 650 MG PO ×2 (14:14→20:25)
[2021-07-11] MEDS: gabapentin 400 mg Capsule 800 MG PO ×2 (14:14→20:26)
[2021-07-11] MEDS: doxepin 50 mg Capsule PO (20:26)
--- NOTE | 2021-07-11 23:51 | PC.NURSE ---
Upon assessment this evening patient outside of Nurse's station. Patient alert/groggy, oriented x2. Patient was having difficulty holding his eyes open while waiting on his medications. He did rate the pain on the bottom of his right foot 8. He denied any depression but rated anxiety 10. Patient has been withdrawn and attempting to sleep. Patient's breathing can be heard at the Nurse's station and multiple patient's are complaining they can't sleep due to the snoring of patient. Patient moved to a recliner in his room in hopes of improving his breathing/oxygenation. Will continue to monitor patient's airway and pulse ox. RT staff aware of patient's breathing and patient has been assessed by RT. Patient refuses to wear CPAP. Will continue to attempt to educate patient regarding his breathing/oxygenation. Q 15 min safety checks per protocol.
[2021-07-12 06:00] VITALS: BP 197/103; PULSE 103; RESP 21; TEMP 36.9; O2SAT 95
[2021-07-12] MEDS: levoFLOXacin 750 mg Tablet PO (06:15)
[2021-07-12] MEDS: pantoprazole DR 40 mg Tablet PO (06:15)
--- NOTE | 2021-07-12 08:38 | P.CONIM_ITS ---
Providers/Reason For Consult Consulting Physician/Specialty*: Mesfin Amezquita D.P.M. Reason for Consult*: Puncture wound right foot Attending Physician: Bruce Kyle MD History of Present Illness History of Present Illness Fortunato Marie is a 35 year old male admitted to the Neuropsych Unit. I was consulted for evaluation of left plantar forefoot puncture wound. Approximately 1.5 weeks ago stepped on a piece of wood. Unable to tell me the circumstances, where he was or what he was wearing when this happened. Currently on Levaquin and doxycycline. Review of Systems General: Reports: 10 or more systems reviewed and unremarkable except in HPI and below Const: Denies: fever(s) or chills Card: Denies: chest pain or palpitations Resp: Denies: dyspnea or productive cough GI: Denies: abdominal pain, nausea or vomiting : Denies: flank pain Musc: Reports: extremity pain Skin/Breast: Reports: erythema and skin tenderness; Denies: rash, nail changes or change in hair Neuro: Reports: difficulty walking; Denies: numbness in extremities or sensory changes Psych: Denies: suicidal ideation Socrates/Lymph: Denies: easy bruising Meds/Allergies Home Medications and Allergies Home Medications Medication Instructions Recorded Confirmed Last Taken Type thiamine mononitrate (vit B1) 100 mg PO DAILY #30 tab 03/25/21 07/11/21 07/10/21 Rx [Vitamin B-1 (mononitrate)] albuterol sulfate 2 puff INHALATION Q4H PRN 04/29/21 07/11/21 Unknown History amlodipine 5 mg PO DAILY 04/29/21 07/11/21 07/10/21 History multivitamin with folic acid 1 tab PO QAM 04/29/21 07/11/21 07/10/21 History [Tab-A-Osmany] pantoprazole 40 mg PO QAM 04/29/21 07/11/21 07/10/21 History gabapentin 800 mg tablet 800 mg PO TID #90 tab 05/23/21 07/11/21 07/10/21 Rx naltrexone 50 mg tablet 50 mg PO DAILY #30 tab 05/23/21 07/11/21 07/10/21 Rx sertraline 100 mg tablet 100 mg PO DAILY #30 tab 05/23/21 07/11/21 07/10/21 Rx doxepin 50 mg PO BEDTIME 07/11/21 07/11/21 07/10/21 History Allergies Allergy/AdvReac Type Severity Reaction Status Date / Time morphine Allergy ADR-Halluci Verified 06/04/21 08:42 luana Current Medications Current Medications Generic Name Dose Route Start Last Admin Trade Name Eleazarq PRN Reason Stop Dose Admin Acetaminophen 650 mg 07/11/21 10:40 07/11/21 20:25 Acetaminophen 325 Mg Tablet PO 650 mg Q4H PRN Administration MILD PAIN Albuterol Sulfate 2 puff 07/11/21 10:09 07/11/21 12:20 Albuterol 8 Gm Mdi INHALATION 2 puff Q4H PRN Administration Shortness Of Breath Amlodipine Besylate 5 mg 07/11/21 10:15 07/11/21 12:14 Amlodipine 5 Mg Tablet PO 5 mg DAILY ALLSION Administration Doxepin HCl 50 mg 07/11/21 21:00 07/11/21 20:26 Doxepin 50 Mg Capsule PO 50 mg BEDTIME ALLISON Administration Doxycycline Monohydrate 100 mg 07/11/21 11:55 07/11/21 18:20 Doxycycline 100 Mg Tablet PO 100 mg BID ALLISON Administration Protocol Folic Acid 1 mg 07/11/21 10:15 07/11/21 12:14 Folic Acid 1 Mg Tablet PO 1 mg DAILY ALLISON Administration Gabapentin 800 mg 07/11/21 15:00 07/11/21 20:26 Gabapentin 400 Mg Capsule PO 800 mg TID ALLISON Administration Hydroxyzine Pamoate 50 mg 07/11/21 10:40 07/11/21 10:46 Hydroxyzine 25 Mg Capsule PO 50 mg Q6H PRN Administration ANXIETY Levofloxacin 750 mg 07/12/21 06:00 07/12/21 06:15 Levofloxacin 750 Mg Tablet PO 750 mg DAILY@0600 ALLISON Administration Protocol Lorazepam 2 mg 07/11/21 10:05 07/11/21 20:26 Lorazepam 2 Mg Tablet PO 2 mg PROTOCOL PRN Administration WITHDRAWAL Protocol Multivitamins Therapeutic 1 tab 07/11/21 10:15 07/11/21 12:15 Multivitamin Therapeutic Tablet PO 1 tab DAILY ALLISON Administration Naltrexone HCl 50 mg 07/11/21 10:15 07/11/21 12:13 Naltrexone Hcl 50 Mg Tablet PO 50 mg DAILY ALLISON Administration Pantoprazole Sodium 40 mg 07/12/21 06:00 07/12/21 06:[address] 40 Mg Tablet PO 40 mg QAM ALLISON Administration Sertraline HCl 100 mg 07/11/21 10:15 07/11/21 12:13 Sertraline 100 Mg Tablet PO 100 mg DAILY ALLISON Administration Thiamine Mononitrate 100 mg 07/11/21 10:15 07/11/21 11:37 Thiamine 100 Mg Tablet PO Not Given DAILY ALLISON PFSH Acute PFSH: Medical History Alcohol abuse Alcoholism Anxiety and depression Bilateral lower extremity edema Cellulitis Elevated blood pressure reading Falls frequently Obesity Psychiatric care Seizure Sleep apnea Tobacco dependency Surgical History History of foot surgery Hx of cholecystectomy Family History Other Diabetes Social History Quit status (tobacco): not considering quitting Second hand smoke exposure: Yes Alcohol intake: current Alcohol intake frequency: few times a month Current occupational status: unemployed Vitals/I&O/Wt Last Vital Signs Temp 98.4 F 07/12/21 06:00 Pulse 103 H 07/12/21 06:00 Resp 21 H 07/12/21 06:00 BP 197/103 07/12/21 06:00 Pulse Ox 95 07/12/21 06:00 Weight last 48 hrs Weight 300 lb Physical Exam Narrative: EXAM NARRATIVE: Patient is alert and oriented ?3 and in no acute distress. The following is a focused bilateral lower extremity exam. VASCULAR: Dorsalis pedis and posterior tibial arteries palpable +2. Capillary refill time less than 3 seconds to the distal hallux bilaterally. Calf is supple and nontender proximally and distally. No pedal edema appreciated. Pedal hair growth present. NEUROLOGICAL: Epicritic and protopathic sensations grossly intact to the lower extremities. +2 Achilles tendon reflex noted bilaterally. Negative Tinel sign upon percussion of lower extremity nerves. DERMATOLOGICAL: Portal of entry at the right plantar forefoot small 2 mm circular puncture wound. No purulence and no obvious foreign body seen clinically. Mild erythema to the dorsum of the right forefoot with some localized swelling. Previously documented open fracture and laceration to the left plantar forefoot is completely epithelialized and healed at this time. No erythema, warmth or drainage. MUSCULOSKELETAL: Tenderness to palpation at the left plantar forefoot puncture wound site. Able to dorsiflex and plantarflex all 5 toes on the right foot. No pain to palpation at the left foot. Muscle strength 5 out of 5 in all 3 cardinal planes to the bilateral foot and ankle. No pain with posterior calf squeeze bilaterally. No gross deformity or acute dislocation at the left foot. A&P Assessment and plan (1) Puncture wound of foot, right: Status: Acute Qualifiers: Encounter type: initial encounter Qualified Code(s): S91.331A - Puncture wound without foreign body, right foot, initial encounter Puncture wound to the right foot approximately 1.5 weeks out stepped on a piece of wood, patient is a poor historian as to the circumstances. Is on Levaquin and doxycycline. No retained foreign body visualized clinically or on x-ray, there is no purulence from the puncture wound, mild localized erythema to the dorsum of the foot with localized edema. Patient was unable to get MRI. Will order soft tissue ultrasound to rule out abscess or retained foreign body. X-ray negative for soft tissue of edema negative for osteomyelitis and negative for foreign body. For now will order ultrasound and continue to monitor right foot response to oral antibiotics. Coding Level of Care Code Acute Compound Specialist for Jerilyn Wallace Diagnoses Puncture wound of foot, right S91.331A Encounter type: initial encounter
--- NOTE | 2021-07-12 09:01 | P.PN_ITS ---
Subjective Subjective: Interval history: Fortunato reports his foot is a little bit better. Nursing relates he still has some significant withdrawal, and they are working to alleviate this. Medications: Reviewed: Yes Vitals/I&O/Wt Last Vital Signs Temp 98.4 F 07/12/21 06:00 Pulse 103 H 07/12/21 06:00 Resp 21 H 07/12/21 06:00 BP 197/103 07/12/21 06:00 Pulse Ox 95 07/12/21 06:00 Weight last 48 hrs Weight 136.078 kg Physical Exam Narrative: EXAM NARRATIVE: General exam no distress. Neck is supple, obese nontender Cardiovascular tachycardic, no murmur Lungs clear no wheezing or crackles Abdomen is soft. Positive bowel sounds. No significant erythema. Extremities right lower extremity has some edema compared to left. Small puncture wound with scab noted of foot. Edema of right foot is improved. Slight erythema dorsum of foot Data : 07/11/21 06:26 07/11/21 06:26 A&P Assessment and plan (1) Alcohol use disorder, severe, dependence: Appears he may be having some withdrawal. Certainly withdrawal symptoms will have to be monitored closely in case more aggressive measures are needed for alcohol withdrawal. Symptomatology could also be secondary to infection from right lower extremity. I think this is less likely but will continue to follow closely with reassessments. Tachycardia likely related to withdrawal. EKG demonstrated sinus tachycardia. Status: Acute (2) Methamphetamine abuse: Patient reports no use in the last several days Status: Acute (3) Puncture wound of foot, right: Podiatry has been consulted Currently on Levaquin and doxycycline Venous duplex checked and no evidence of DVT Check CBC in a.m. It appears podiatry is going to evaluate this with an MRI of his foot for further evaluation Status: Acute (4) Laceration of hand, left: No foreign body per x-ray done in the emergency department recently. Is somewhat macerated, but no evidence of abscess or need for procedure. Status: Acute Qualifiers: Encounter type: initial encounter Foreign body presence: without foreign body Qualified Code(s): S61.412A - Laceration without foreign body of left hand, initial encounter Additional A&P Information Suicidal ideation, polysubstance abuse. Per psychiatry. Full code Attestations Medical Necessity Statement*: As per primary Coding Level of Care Code Acute Filling Hauler for Chg Fwd Diagnoses Alcohol use disorder, severe, dependence F10.20 Methamphetamine abuse F15.10 Puncture wound of foot, right S91.331A Laceration of hand, left S61.412A Encounter type: initial encounter Foreign body presence: without foreign body
[2021-07-12] MEDS: folic acid 1 mg Tablet PO (09:34)
[2021-07-12] MEDS: multivitamin therapeutic Tablet 1 TAB PO (09:34)
[2021-07-12] MEDS: gabapentin 400 mg Capsule 800 MG PO ×3 (09:34→20:38)
[2021-07-12] MEDS: amlodipine 5 mg Tablet PO (09:34)
[2021-07-12] MEDS: naltrexone hcl 50 mg Tablet PO (09:34)
[2021-07-12] MEDS: thiamine 100 mg Tablet PO (09:35)
[2021-07-12] MEDS: doxycycline 100 mg Tablet PO ×2 (09:35→17:21)
[2021-07-12] MEDS: sertraline 100 mg Tablet PO (09:35)
[2021-07-12] MEDS: LORazepam 2 mg Tablet PO ×2 (10:13→15:01)
[2021-07-12 10:25] VITALS: PULSE 104; RESP 20; O2SAT 95
--- NOTE | 2021-07-12 12:00 | NPU.GN ---
[facility] Group Topic:Chip General Mood of Group: Fortunato did not attend group this morning, as he was sleeping.
[2021-07-12] MEDS: acetaminophen 325 mg Tablet 650 MG PO (12:01)
[2021-07-12] MEDS: chlordiazePOXIDE 25 mg Capsule PO ×2 (12:01→18:28)
[2021-07-12 13:41] VITALS: BP 165/86; PULSE 113; RESP 18; TEMP 37.3; O2SAT 92
--- NOTE | 2021-07-12 15:53 | PM.NPN ---
Subjective NPU Subjective: Interval history: The patient says he is doing a lot better. His mood and outlook are improved. His breathing is better as well. The airplane tube builder visited and said his foot is okay. He is having less withdrawal symptoms. He thinks it helps to be back on his medication. No auditory or visual hallucinations. No suicidal or homicidal ideation. No side effects. Mental Status Exam MSE Comments: I met with the patient in his room, and he was dressed in hospital scrubs and fairly sloppily groomed. He was much calmer, but still mildly agitated. Cooperative, interactive, and made fairly good eye contact. Some psychomotor agitation. Speech is at a regular rate and rhythm, normal volume, good articulation, not pressured Alert, oriented to person, place, and situation. He was oriented to day, month, and year, but not date. Attention and concentration were intact to exam Memory is impaired. For example, he cannot remember the job he has held in the last few weeks. Mood is depressed and anxious. Affect is quite anxious. Thought process is logical and goal-directed. Thought content: No auditory hallucinations, but has had visual hallucinations in the last 36 hours. He has had suicidal ideation over the last few days. No suicidal ideation or homicidal ideation here. No delusions or paranoia are noted. Insight and judgment are impaired. Impulse control is impaired as well. Vitals/I&O/Wt Last Vital Signs Temp 98.4 F 07/12/21 06:00 Pulse 103 H 07/12/21 06:00 Resp 21 H 07/12/21 06:00 BP 197/103 07/12/21 06:00 Pulse Ox 95 07/12/21 06:00 Weight last 48 hrs Weight 136.078 kg Data NPU : 07/11/21 06:26 07/11/21 06:26 A&P Assessment and plan (1) Major depressive disorder, recurrent severe without psychotic features: Status: Acute (2) Suicidal ideation: Status: Acute (3) Generalized anxiety disorder: Status: Acute (4) Alcohol use disorder, severe, dependence: Per Dr. Garcia: Appears he may be having some withdrawal. Certainly withdrawal symptoms will have to be monitored closely in case more aggressive measures are needed for alcohol withdrawal. Symptomatology could also be secondary to infection from right lower extremity. I think this is less likely but will continue to follow closely with reassessments. Tachycardia likely related to withdrawal. EKG demonstrated sinus tachycardia. Status: Acute (5) Methamphetamine abuse: Patient reports no use in the last several days Status: Acute (6) Puncture wound of foot, right: Per Dr. Garcia: Podiatry has been consulted Currently on Levaquin and doxycycline Venous duplex checked and no evidence of DVT Check CBC in a.m. It appears podiatry is going to evaluate this with an MRI of his foot for further evaluation Status: Acute (7) Laceration of hand, left: No foreign body per x-ray done in the emergency department recently. Is somewhat macerated, but no evidence of abscess or need for procedure. Status: Acute Qualifiers: Encounter type: initial encounter Foreign body presence: without foreign body Qualified Code(s): S61.412A - Laceration without foreign body of left hand, initial encounter Additional A&P Information This is a 35 year old male with a history of depression, alcohol and methamphetamine use disorders, and multiple psychiatric hospitalizations in the last 2 years who was admitted for suicidal ideation and alcohol withdrawal after being homeless and off his medications for [address]. [address] Garcia for his consultations. See above. RECOMMENDATION AND PLAN: 1. Restarted home medications. 2. [facility] protocol for alcohol withdrawal. 3. Hospitalist consult for shortness of breath. 4. Continue every 15 minute checks for safety. 5. Encourage individual, group and milieu therapies. 6. Encourage sober living treatment after discharge at the highest level of care to which he is willing to commit. Involuntary Hold Information 96 Hour Hold: 96 Hour Involuntary Admission: Yes 96 Hour Hold Ending Date: 03/22/21 96 Hour Hold Ending Time: 00:01 Attestations NPU Medical Necessity Statement*: Psychiatric hospitalization is medically necessary to prevent access to lethal means, to reevaluate medication, and to coordinate a safe discharge. Likely length of stay is 2 to 4 days. Coding Level of Care Code Acute Associate Professor Of Physics for Jerilyn Fwd Diagnoses Major depressive disorder, recurrent severe without psychotic features F33.2 Suicidal ideation R45.851 Generalized anxiety disorder F41.1 Alcohol use disorder, severe, dependence F10.20 Methamphetamine abuse F15.10 Puncture wound of foot, right S91.331A Laceration of hand, left S61.412A Encounter type: initial encounter Foreign body presence: without foreign body
[2021-07-12 20:17] VITALS: BP 151/90; PULSE 88; RESP 19; TEMP 36.8; O2SAT 93
[2021-07-12] MEDS: doxepin 50 mg Capsule PO (20:39)
[2021-07-13] MEDS: pantoprazole DR 40 mg Tablet PO (05:17)
[2021-07-13] MEDS: levoFLOXacin 750 mg Tablet PO (05:17)
[2021-07-13] MEDS: chlordiazePOXIDE 25 mg Capsule PO (05:17)
[2021-07-13 06:00] VITALS: BP 185/92; PULSE 107; RESP 21; TEMP 36.6; O2SAT 95
--- NOTE | 2021-07-13 06:19 | PC.ADMIT ---
[email or web address] Dona Flannery Admission Note: The patient,Fortunato Marie,35 y/o, was given written information regarding hospital policies, unit procedures and contact persons. Patient's smoking status: . Vital Signs - 8 hr 07/13/21 06:00 Temperature 97.9 F Pulse Rate 107 H Respiratory Rate 21 H Blood Pressure 185/92 Pulse Oximetry 95
[2021-07-13 08:02] LABS: Basophils % 0.5 %; Eosinophils # 0.2 10^3/uL (0.0-0.8); Eosinophils % 2.6 %; Hemoglobin 15.1 g/dL (11.7-16.6); Lymphocytes # 2.3 10^3/uL (0.8-4.8); Lymphocytes % 27.9 %; Mean Corpuscular HGB Conc 33.6 g/dL (30.0-36.0); Mean Corpuscular Hemoglobin 30.8 pg (28.0-34.0); Mean Corpuscular Volume 91.6 fl (80-94); Mean Platelet Volume 10.3 fL (7.4-10.4); Monocytes # 0.7 10^3/uL (0.2-0.9); Monocytes % 8.2 %; Neutrophils % 60.1 %; Nucleated Red Blood Cells % 0 %; Platelet Count 249 10^3/cmm (130-400); Red Blood Count 4.91 10^6/uL (4.1-5.3); Red Cell Distribution Width 13.2 % (12.1-15.1); White Blood Count 8.2 10^3/uL (4.0-10.0)
[2021-07-13] MEDS: naltrexone hcl 50 mg Tablet PO (08:18)
[2021-07-13] MEDS: doxycycline 100 mg Tablet PO (08:18)
[2021-07-13] MEDS: sertraline 100 mg Tablet PO (08:18)
[2021-07-13] MEDS: multivitamin therapeutic Tablet 1 TAB PO (08:19)
[2021-07-13] MEDS: thiamine 100 mg Tablet PO (08:19)
[2021-07-13] MEDS: amlodipine 5 mg Tablet PO (08:19)
[2021-07-13] MEDS: gabapentin 400 mg Capsule 800 MG PO (08:19)
[2021-07-13] MEDS: folic acid 1 mg Tablet PO (08:19)
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
[2021-07-13 11:05] VITALS: BP 185/92; PULSE 107; RESP 21; TEMP 36.6; O2SAT 95
--- NOTE | 2021-07-13 11:39 | PM.MISC ---
Miscellaneous Note Purpose of Documentation: Pt discharged before could be physically seen.
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
== END 2021-07-13 12:26 | disposition home or self-care (01) | DRG 885 ==
LOC: ER 06:34 → NP 09:03
PROVIDERS: Internal Medicine; Admitting Provider Psychiatry & Neurology Child & Adolescent Psychiatry; Emergency Provider Family Medicine; Visit Provider Psychiatry & Neurology Child & Adolescent Psychiatry
DX: F33.2 Major depressive disorder, recurrent severe without psychotic features (principal); R45.851 Suicidal ideations; F10.239 Alcohol dependence with withdrawal, unspecified; F41.1 Generalized anxiety disorder; F10.229 Alcohol dependence with intoxication, unspecified; F15.10 Other stimulant abuse, uncomplicated; S91.331A Puncture wound without foreign body, right foot, initial encounter; S61.412A Laceration without foreign body of left hand, initial encounter; W22.09XA Striking against other stationary object, initial encounter; R00.0 Tachycardia, unspecified; I10 Essential (primary) hypertension; G89.29 Other chronic pain; M54.9 Dorsalgia, unspecified; F11.21 Opioid dependence, in remission; G47.33 Obstructive sleep apnea (adult) (pediatric); F17.210 Nicotine dependence, cigarettes, uncomplicated; R03.0 Elevated blood-pressure reading, without diagnosis of hypertension; Z59.00 Homelessness unspecified; Z81.4 Family history of other substance abuse and dependence; Z81.1 Family history of alcohol abuse and dependence; Z62.811 Personal history of psychological abuse in childhood
CPT/HCPCS: 73630; 76882; 80053; 80307; 85025; 93005; 93971; 94640; 97165; 99285; J3535

== ENCOUNTER 2021-07-16 01:36 | Inpatient (IN) | payer SELFPAY ==
[2021-07-16] VITALS (11 sets, daily range): BP systolic 121–141; BP diastolic 67–110; PULSE 93–130; RESP 16–27; TEMP 36.5–37.1; O2SAT 84–99; BMI 43.0
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
[2021-07-16] MEDS: LORazepam 2 mg/mL INJ 1 mL IM (01:59)
[2021-07-16] MEDS: ziprasidone 20 mg/mL SDV IM (01:59)
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
[2021-07-16 02:44] LABS: Basophils % 0.3 %; Eosinophils # 0.2 10^3/uL (0.0-0.8); Eosinophils % 1.7 %; Hematocrit 38.9 % (42.0-52.0); Hemoglobin 12.6 g/dL (11.7-16.6); Lymphocytes # 1.1 10^3/uL (0.8-4.8); Lymphocytes % 12.8 %; Mean Corpuscular HGB Conc 32.4 g/dL (30.0-36.0); Mean Corpuscular Hemoglobin 30.4 pg (28.0-34.0); Mean Corpuscular Volume 93.7 fl (80-94); Mean Platelet Volume 9.8 fL (7.4-10.4); Monocytes # 0.6 10^3/uL (0.2-0.9); Monocytes % 7.2 %; Neutrophils # 6.93 10^3/uL (1.8-7.7); Neutrophils % 77.4 %; Nucleated Red Blood Cells % 0 %; Platelet Count 204 10^3/cmm (130-400); Red Blood Count 4.15 10^6/uL (4.1-5.3); Red Cell Distribution Width 13.1 % (12.1-15.1); White Blood Count 8.9 10^3/uL (4.0-10.0)
[2021-07-16 03:08] LABS: Alanine Aminotransferase 38 U/L (0-41); Albumin Level 3.8 g/dL (3.5-5.2); Alkaline Phosphatase 84 IU/L (40-130); Anion Gap 15.5 (5-19); Aspartate Amino Transferase 36 U/L (0-40); Blood Urea Nitrogen 31 mg/dL (6-20); Calcium 8.9 mg/dL (8.5-10.5); Carbon Dioxide 24 mmol/L (22-29); Chloride 102 mmol/L (98-107); Glomerular Filtration Rate 95.5 mL/min (90-130); Glucose 148 mg/dL (65-115); Osmolality Calculated 295 mOsm/kg (285-295); Potassium 3.5 mmol/L (3.5-5.1); Sodium 138 mmol/L (136-145); Total Bilirubin 0.4 mg/dL (0.15-1.2); Total Protein 6.8 g/dL (6.6-8.7)
[2021-07-16 03:10] LABS: Acetaminophen < 5.0 ug/mL (10-30); Alcohol Level < 10 mg/dL (0-10); Salicylate < 0.3 mg/dL (3-10)
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
--- NOTE | 2021-07-16 10:23 | PC.NURSE ---
1:1 sitter came to desk and informed staff that patient had a PO of 82%. On arrival to room, patient in lying flat on back, eyes closed, respirations deep, even and non-labored, 02 6L NC rate 14 bpm. Patient arousalable to voice. Instructed patient to sit up, and reposition further up in bed. PO increased to 97% after repositioned.
--- NOTE | 2021-07-16 11:51 | NPU.GN ---
[facility] Topic:Mental Health Crossword Puzzle/ Psych Education General Mood of Group: Fortunato did not attend group today. He was sleeping.
--- NOTE | 2021-07-16 15:21 | PC.OT ---
OT EVALUATION ATTEMPTED THIS P.M. PATIENT CONTINUES TO SLEEP SOUNDLY. WILL ATTEMPT AGAIN TOMORROW.
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
--- NOTE | 2021-07-16 17:04 | PC.NURSE ---
PT UP USING THE PHONE BY THE NURSES STATION, CALM AT THE MOMENT. NO S/S OF DISTRESS NOTED.
--- NOTE | 2021-07-17 05:26 | PC.NURSE ---
Patient had orders in chart carried over from restraint while in ED, as well as continued documentation alerts. Charge nurse called ED, Dr. Mi gave verbal consent for this nurse to discontinue things pertaining to ED restraint. Chart updated. Has remained on continuous O2 throughout night. One to one with sitter for safety. Pulse ox in place. Patient sats have been improved this evening. Did have to be woken to reposition at times.
[2021-07-17 06:00] VITALS: BP 130/74; PULSE 95; RESP 25; TEMP 37.2; O2SAT 99
--- NOTE | 2021-07-17 09:26 | PC.NURSE ---
ON INITIAL ROUNDING PATIENT WAS NOT WEARING O2, IT WAS ACROSS HIS STOMACH. SITTER AT THE BEDSIDE. PO 96% ROOM AIR, PATIENT SLEEPING, EYES CLOSED, RESPIRATIONS, EVEN, DEEP AND NON-LABORED, AUDIBLE SNORING. MEDICAL CONSULT ORDERED FOR CLEARANCE TO HAVE [address] DARBY, STAT ROOM AIR ABG'S ORDERED.
--- NOTE | 2021-07-17 10:05 | XR_ITS ---
WS: [id number] Portable AP supine chest, 07/17/2021 Clinical Data: ABNORMALITIES Comparison: Portable chest, 07/06/2021. Findings: No nodules, masses or effusions are seen. The heart is normal. The pulmonary vascularity is not increased. No pneumonia or pneumothorax is seen. XR/XR chest 1V portable [id number] Impression: Negative chest.
--- NOTE | 2021-07-17 11:05 | PM.CONSULT ---
Providers/Reason For Consult Consulting Physician/Specialty*: Hospitalist service Reason for Consult*: Hypoxia Attending Physician: Awais Conti MD History of Present Illness History of Present Illness Fortunato Marie is a 35 year old male who was admitted to the neuropsychiatric unit for suicidal ideation and alcohol withdrawal. He was recently discharged from the hospital. In the ER he was given multiple antipsychotics and sedatives because of his aggressive behavior. He was given ketamine, Haldol and Ativan as per the nursing staff. He does seem to have sleep apnea and was refusing to use CPAP, he was requiring 6 L of oxygen after administration of above-mentioned medications. Hospital service is consulted for evaluation of hypoxia. When I evaluated the patient, he was saturating well on room air 98%, however he goes back to sleep quickly, excessive snoring noted during my evaluation. No active chest pain, shortness of breath, nausea, abdominal pain. He was complaining of right arm pain. Does not use CPAP or oxygen at home. Patient was examined in the presence of a nurse & a sitter I requested D-dimer, ABG and chest x-ray Review of Systems Const: Denies: fever(s) Eyes: Denies: change in vision ENMT: Denies: throat pain Card: Denies: chest pain Resp: Denies: dyspnea GI: Denies: abdominal pain : Denies: flank pain Musc: Denies: neck pain Skin/Breast: Reports: lesions Neuro: Denies: headache(s) Psych: Reports: sleeping more; Denies: anxiety Endo: Denies: polyuria Socrates/Lymph: Denies: easy bruising All/Imm: Denies: urticaria Meds/Allergies Home Medications and Allergies Home Medications Medication Instructions Recorded Confirmed Last Taken Type albuterol sulfate 2 puff INHALATION Q4H PRN 30 Days 07/13/21 07/16/21 Unknown Rx #8.5 g amlodipine 5 mg PO DAILY 30 Days #30 tab 07/13/21 07/16/21 Unknown Rx doxepin 50 mg PO BEDTIME 30 Days #30 cap 07/13/21 07/16/21 Unknown Rx doxycycline monohydrate 100 mg PO BID 7 Days #14 tab 07/13/21 07/16/21 Unknown Rx gabapentin 800 mg PO TID #90 tab 07/13/21 07/16/21 Unknown Rx multivitamin with folic acid 1 tab PO QAM 30 Days #30 tab 07/13/21 07/16/21 Unknown Rx [Tab-A-Osmany] naltrexone 50 mg PO DAILY #30 tab 07/13/21 07/16/21 Unknown Rx pantoprazole 40 mg PO QAM 30 Days #30 tab 07/13/21 07/16/21 Unknown Rx sertraline [Zoloft] 100 mg PO DAILY #30 tab 07/13/21 07/16/21 Unknown Rx thiamine mononitrate (vit B1) 100 mg PO DAILY 30 Days #30 tab 07/13/21 07/16/21 Unknown Rx [Vitamin B-1 (mononitrate)] levofloxacin 750 mg PO DAILY 07/16/21 07/16/21 Unknown History Allergies Allergy/AdvReac Type Severity Reaction Status Date / Time morphine Allergy ADR-Halluci Verified 06/04/21 08:42 nating PFSH Acute PFSH: Medical History Alcohol abuse Alcoholism Anxiety and depression Bilateral lower extremity edema Cellulitis Elevated blood pressure reading Falls frequently Obesity Psychiatric care Seizure Sleep apnea Tobacco dependency Surgical History History of foot surgery Hx of cholecystectomy Family History Other Diabetes Social History Quit status (tobacco): not considering quitting Second hand smoke exposure: Yes Alcohol intake: current Alcohol intake frequency: few times a month Current occupational status: unemployed Vitals/I&O/Wt Last Vital Signs Temp 98.9 F 07/17/21 06:00 Pulse 95 07/17/21 06:00 Resp 25 H 07/17/21 06:00 BP 130/74 07/17/21 06:00 Pulse Ox 99 07/17/21 06:00 Weight last 48 hrs Weight 136.078 kg Physical Exam Narrative: EXAM NARRATIVE: Obese male Who was excessively snoring when entered the room He was saturating well on room air S1, S2 Abdomen soft NIH 0 No nystagmus noted EOMI, PERRLA Able to answer my questions appropriately Follow my commands He does have slight limitation of right arm at the level of shoulder I do not see any vascular compromise or swelling Lower extremity nonpitting edema Nonfocal neuro exam No audible stridor or wheezing A&P Assessment and plan (1) Acute psychosis: Status: Acute (2) Suicidal ideation: Status: Acute (3) Opioid use disorder, severe, in sustained remission: Status: Acute (4) Nicotine dependence, cigarettes, uncomplicated: Status: Acute (5) Generalized anxiety disorder: Status: Chronic (6) Acute respiratory failure with hypoxia: Status: Acute Additional A&P Information Acute hypoxia I do believe this is related to use of antipsychotics, sedatives with underlying sleep apnea It is very common to see hypoxia with hypoventilation in this kind of scenario I would recommend avoiding Ativan and use phenobarbital for alcohol withdrawal which could be 100 mg p.o. which she can repeat every 2-4 hours depending on the CIWA for mild withdrawal and for severe withdrawal he can use 200 mg p.o. every 4 hours to avoid Ativan. To rule out other etiologies for hypoxia I have requested D-dimer which is unremarkable, chest x-ray is unremarkable, requested ABG on room air Patient saturating well on room air No active chest pain We will request TSH, he does have nonpitting edema Morbid obesity with possible underlying sleep apnea/pickwickian I would recommend CPAP whenever patient sleeps, oxygen supplementation with nasal cannula would not improve hypoxia and severe sleep apnea and that is probably why he was requiring 6 L, Full code Advance diet once he is more awake and alert DVT prophylaxis: Lovenox Consult Attestations Medical Necessity Statement: I will follow along Time Spent in Patient Care: 16 - 35 minutes Coding Level of Care Code Acute Literacy Coordinator for g Fwd Diagnoses Acute psychosis F23 Suicidal ideation R45.851 Opioid use disorder, severe, in sustained remission F11.21 Nicotine dependence, cigarettes, uncomplicated F17.210 Generalized anxiety disorder F41.1 Acute respiratory failure with hypoxia J96.01
--- NOTE | 2021-07-17 11:25 | NPU.GN ---
[facility] Topic: Meditation Psych Education General Mood of Group: Fortunato did not attend group he wanted to sleep.
[2021-07-17 11:59] LABS: D Dimer 0.63 ug/mIFEU (0-0.59)
--- NOTE | 2021-07-17 13:05 | PC.NURSE ---
AFTER TEAM MEETING, ALTERED THAT ABG'S WERE DRAWN AND PATIENT'S 02 SAT WAS 79% ON ROOM AIR. MOVING PATIENT TO ROOM 150 TO BE IN A MEDICAL BED AND ACROSS FROM THE NURSING STATION. O2 PLACED BACK ON PATIENT AT 5 L NC, O2 SAT RETURNED TO 93%. LUNGS CLEAR, WITH DEEP INSPIRATION SOUNDS TO BILATERAL BASES.
[2021-07-17 14:00] VITALS: BP 139/84; PULSE 101; RESP 22; TEMP 36.9; O2SAT 97
--- NOTE | 2021-07-17 15:43 | P.NPUPN_ITS ---
Subjective NPU Subjective: Interval history: Patient presents today continuing to be out of it and likely reflecting continued delirium from his intoxication/withdrawal/breathing difficulties. He spent the time in the session trying to pick what he believes to be glass out of his hand and show it to this manual writer. There were no signs of any foreign body in his hand. We discussed the consults that were initiated to make sure we were not missing any medical issues and to understand his difficulty remaining at appropriate oxygenation on room air. Mental Status Exam MSE Comments: This is a obese versus morbidly obese white male with limited grooming and eye contact. No abnormal events except for significant psychomotor retardation cooperative with exam in mild distress. Speech was normal rate and normal volume with poor articulation/slurring. Mood described as depressed, affect confused. Thought process linear versus organized at times thought content: He did not answer questions about lethality but did not have aggression towards himself or others, no delusions were reported and it was unclear whether he was having delusional content, he did not appear to be attending to internal stimuli. Attention and concentration were impaired and memory was unreliable but none were formally tested. He is alert and oriented x3. Insight and judgment are impaired and impulse control is impaired. Vitals/I&O/Wt Last Vital Signs Temp 98.4 F 07/17/21 14:00 Pulse 82 07/17/21 20:44 Resp 15 07/17/21 20:44 BP 141/86 07/17/21 20:44 Pulse Ox 100 07/17/21 20:44 Data NPU : 07/16/21 02:40 07/16/21 02:40 A&P Additional A&P Information (1) Acute psychosis: (2) Suicidal ideation: (3) Opioid use disorder, severe, in sustained remission: (4) Nicotine dependence, cigarettes, uncomplicated: (5) Generalized anxiety disorder: (6) Alcohol use disorder, severe, dependence: (7) Depressive disorder: (8) Chronic alcohol abuse: (9) Polysubstance abuse: (10) Cellulitis of arm, right: (11) Methamphetamine abuse: Additional A&P Information This is a 35 year old male with a history of depression, alcohol and methamphetamine use disorders, and multiple psychiatric hospitalizations in the last 2 years who was admitted for suicidal ideation and alcohol withdrawal after being discharged 3 to 4 days ago. RECOMMENDATION AND PLAN: 1. Continue current medication. 2. [facility] protocol for alcohol withdrawal. 3. We will get a hospitalist consult for O2 requirement. 4. Continue every 15 minute checks for safety. 5. Encourage individual, group and milieu therapies. 6. Encourage sober living treatment after discharge at the highest level of care to which he is willing to commit. 6. Appreciate and will await results from consults of hospitalist and respiratory. Involuntary Hold Information 96 Hour Hold: 96 Hour Involuntary Admission: Yes 96 Hour Hold Ending Date: 03/22/21 96 Hour Hold Ending Time: 00:01 Attestations NPU Medical Necessity Statement*: Psychiatric hospitalization is medically necessary to prevent access to lethal means, to reevaluate medication, and to coordinate a safe discharge. Likely length of stay is 2-4 days. Coding Level of Care Code Acute [employer] for Jerilyn Wallace
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
[2021-07-17 18:02] VITALS: O2SAT 93
[2021-07-17 19:44] VITALS: PULSE 92; RESP 32; O2SAT 99
[2021-07-17 20:44] VITALS: BP 141/86; PULSE 82; RESP 15; O2SAT 100
[2021-07-17 22:12] LABS: Thyroid Stimulating Hormone 0.64 uIU/mL (0.27-4.20)
--- NOTE | 2021-07-18 04:19 | PC.NURSE ---
Patient has been cooperative and pleasant this shift. He has been 1:1 due to CPAP. Patient has been compliant with CPAP. Upon assessment pt denied any pain,depression, anxiety, a/v hallucinations. Breath sounds are clear but diminished on upper left lobe. Will continue to monitor and follow plan of care.
[2021-07-18 06:00] VITALS: BP 144/95; PULSE 95; RESP 17; O2SAT 99
[2021-07-18] MEDS: folic acid 1 mg Tablet PO (09:59)
[2021-07-18] MEDS: thiamine 100 mg Tablet PO (09:59)
--- NOTE | 2021-07-18 12:02 | NPU.GN ---
[facility] Topic:Meditation/ Depression Marilee General Mood of Group: Fortunato did not attend group today.
[2021-07-18 14:00] VITALS: BP 146/86; PULSE 71; RESP 20; TEMP 36.5; O2SAT 93
--- NOTE | 2021-07-18 16:00 | P.NPUPN_ITS ---
Subjective NPU Subjective: Interval history: Patient presents today continuing to sleep much of the day but raising less concerns about O2 saturations except for when he sleeping. He does use the CPAP during those times. He is finally having some coherence in conversation on a regular basis. We began discussing his addiction and how he plans to possibly get things back on track on his recovery. Unfortunately his 1st request was when could he leave and he had no coherent plan about how leaving today would lead to him having any long time success. We discussed that he is on a 96-hour hold which is up on Thursday. We discussed keeping him at least a few days longer till he was having foundational clarity. Mental Status Exam MSE Comments: This is a obese versus morbidly obese white male with limited grooming and eye contact. No abnormal events except for significant psychomotor retardation cooperative with exam in mild distress. Speech was normal rate and normal volume with poor articulation/slurring, though improving. Mood described as better, affect less confused. Thought process more organized at times. Thought content: He denied suicidal or homicidal ideation, no delusions were reported and it was unclear whether he was having delusional content, he did not appear to be attending to internal stimuli. Attention and concentration were limited but improving and memory was more reliable but none were formally tested. He is alert and oriented x3. Insight and judgment are impaired and impulse control is impaired. Vitals/I&O/Wt Last Vital Signs Temp 97.7 F 07/18/21 14:00 Pulse 85 07/18/21 21:41 Resp 18 07/18/21 21:41 BP 159/98 07/18/21 21:41 Pulse Ox 96 07/18/21 21:41 Data NPU : 07/16/21 02:40 07/16/21 02:40 A&P Additional A&P Information (1) Acute psychosis: (2) Suicidal ideation: (3) Opioid use disorder, severe, in sustained remission: (4) Nicotine dependence, cigarettes, uncomplicated: (5) Generalized anxiety disorder: (6) Alcohol use disorder, severe, dependence: (7) Depressive disorder: (8) Chronic alcohol abuse: (9) Polysubstance abuse: (10) Cellulitis of arm, right: (11) Methamphetamine abuse: Additional A&P Information This is a 35 year old male with a history of depression, alcohol and methamphetamine use disorders, and multiple psychiatric hospitalizations in the last 2 years who was admitted for suicidal ideation and alcohol withdrawal after being discharged 3 to 4 days ago. RECOMMENDATION AND PLAN: 1. Continue current medication. 2. CIWA protocol for alcohol withdrawal. 3. O2 only necessary when sleeping at this point. 4. Continue every 15 minute checks for safety. 5. Encourage individual, group and milieu therapies. 6. Encourage sober living treatment after discharge at the highest level of care to which he is willing to commit. 6. Appreciate consults of hospitalist and respiratory, and will follow their recommendations as indicated. Involuntary Hold Information 96 Hour Hold: 96 Hour Involuntary Admission: Yes 96 Hour Hold Ending Date: 03/22/21 96 Hour Hold Ending Time: 00:01 Attestations NPU Medical Necessity Statement*: Psychiatric hospitalization is medically necessary to prevent access to lethal means, to reevaluate medication, and to coordinate a safe discharge. Likely length of stay is 2-4 days. Coding Level of Care Code Acute Financial Accountant for Jerilyn Wallace
[2021-07-18] MEDS: doxycycline 100 mg Tablet PO (18:24)
[2021-07-18] MEDS: doxepin 25 mg Capsule 50 MG PO (20:56)
[2021-07-18] MEDS: gabapentin 400 mg Capsule 800 MG PO (20:56)
[2021-07-18 21:41] VITALS: BP 159/98; PULSE 85; RESP 18; O2SAT 96
[2021-07-19 06:00] VITALS: BP 147/93; PULSE 90; RESP 18; TEMP 36.6; O2SAT 97
[2021-07-19] MEDS: pantoprazole DR 40 mg Tablet PO (06:36)
[2021-07-19] MEDS: thiamine 100 mg Tablet PO (10:09)
[2021-07-19] MEDS: sertraline 100 mg Tablet PO (10:09)
[2021-07-19] MEDS: amlodipine 5 mg Tablet PO (10:09)
[2021-07-19] MEDS: levoFLOXacin 750 mg Tablet PO (10:09)
[2021-07-19] MEDS: gabapentin 400 mg Capsule 800 MG PO ×3 (10:10→20:39)
[2021-07-19] MEDS: doxycycline 100 mg Tablet PO ×2 (10:10→18:02)
[2021-07-19] MEDS: folic acid 1 mg Tablet PO (10:10)
--- NOTE | 2021-07-19 13:41 | NPU.GN ---
[facility] Topic:Dice Breaker Psych Education General Mood of Group: Fortunato did not attend group this morning he wanted to sleep.
[2021-07-19 14:00] VITALS: BP 134/87; PULSE 77; RESP 18; TEMP 36.7; O2SAT 96
--- NOTE | 2021-07-19 15:04 | W.PM.NPUPNS ---
Subjective NPU Subjective: Interval history: Patient presented today reporting that he is feeling more clear in his thinking. He reports that he is excited because the ER he was able to work with his previous program and he is not able to return. We discussed make sure that he had higher level of functioning/being more alert before he discharged and reports that he is eating and sleeping well. Mental Status Exam MSE Comments: This is a obese versus morbidly obese white male with limited grooming and eye contact. No abnormal events except for significant psychomotor retardation cooperative with exam in no acute distress. Speech was normal rate and normal volume with poor articulation/slurring, though improving. Mood described as better, affect congruent. Thought process more organized at times. Thought content: He denied suicidal or homicidal ideation, no delusions were reported or noted, he did not appear to be attending to internal stimuli. Attention and concentration were improving and memory was more reliable but none were formally tested. He is alert and oriented x3. Insight and judgment are limited, but improving and impulse control is limited. Vitals/I&O/Wt Last Vital Signs Temp 98.1 F 07/19/21 14:00 Pulse 77 07/19/21 14:00 Resp 18 07/19/21 14:00 BP 134/87 07/19/21 14:00 Pulse Ox 96 07/19/21 14:00 Data NPU : 07/16/21 02:40 07/16/21 02:40 A&P Additional A&P Information (1) Acute psychosis: (2) Suicidal ideation: (3) Opioid use disorder, severe, in sustained remission: (4) Nicotine dependence, cigarettes, uncomplicated: (5) Generalized anxiety disorder: (6) Alcohol use disorder, severe, dependence: (7) Depressive disorder: (8) Chronic alcohol abuse: (9) Polysubstance abuse: (10) Cellulitis of arm, right: (11) Methamphetamine abuse: Additional A&P Information This is a 35 year old male with a history of depression, alcohol and methamphetamine use disorders, and multiple psychiatric hospitalizations in the last 2 years who was admitted for suicidal ideation and alcohol withdrawal after being discharged 3 to 4 days ago. RECOMMENDATION AND PLAN: 1. Continue current medication. 2. [facility] protocol for alcohol withdrawal. 3. O2 only necessary when sleeping at this point. 4. Continue every 15 minute checks for safety. 5. Encourage individual, group and milieu therapies. 6. Encourage sober living treatment after discharge at the highest level of care to which he is willing to commit. 7. Appreciate consults of hospitalist and respiratory, and will follow their recommendations as indicated. 8. Plan for discharge in the next 48 hours. Involuntary Hold Information 96 Hour Hold: 96 Hour Involuntary Admission: Yes 96 Hour Hold Ending Date: 03/22/21 96 Hour Hold Ending Time: 00:01 Attestations NPU Medical Necessity Statement*: Psychiatric hospitalization is medically necessary to prevent access to lethal means, to reevaluate medication, and to coordinate a safe discharge. Likely length of stay is 1-3 days. Coding Level of Care Code Acute Licensed Embalmer Supervisor for Jerilyn Wallace
[2021-07-19] MEDS: doxepin 25 mg Capsule 50 MG PO (20:40)
[2021-07-19 21:11] VITALS: BP 132/79; PULSE 86; RESP 18; TEMP 36.5; O2SAT 97
[2021-07-19 21:59] VITALS: BP 132/79; PULSE 86; RESP 18; TEMP 36.5; O2SAT 97
--- NOTE | 2021-07-19 23:44 | PC.NURSE ---
Upon assessment patient in hallway. Alert/oriented x4. Patient has good eye contact and appears relaxed. He denied any depression, anxiety, SI/HI, hallucinations. Patient states he is feeling much better and is looking forward to being discharged in the am. Patient continue to have a sitter due to oxygen at 6L nc continuous. He has not been using the CPAP at night recently, he has been saturating good on the nc. Will continue to monitor and follow plan of care. Q 15 min safety checks per protocol.
[2021-07-20 01:58] LABS: ABG PCO2 55.4 mmHg (35-45); ABG PH Result 7.38 (7.35-7.45); Base Excess ABG 6.4 mmol/L (-2.0-2.0); Blood Gas Allen Test POS; Blood Gas Operator Identificat LUNSA; PO2 ABG 56.7 mmHg (80.0-100.0)
[2021-07-20 01:59] LABS: Arterial Blood Gas Hematocrit 38.2 % (42-52); Blood Gas CCRB Time 1040; Blood Gas Sample Type Arterial; Oxygen Device RA
[2021-07-20 06:00] VITALS: BP 134/80; PULSE 76; RESP 18; TEMP 36.8; O2SAT 99
[2021-07-20] MEDS: pantoprazole DR 40 mg Tablet PO (06:35)
[2021-07-20 08:43] VITALS: PULSE 76; RESP 18; O2SAT 98
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
[2021-07-20] MEDS: amlodipine 5 mg Tablet PO (10:46)
[2021-07-20] MEDS: gabapentin 400 mg Capsule 800 MG PO (10:46)
[2021-07-20] MEDS: folic acid 1 mg Tablet PO (10:46)
[2021-07-20] MEDS: thiamine 100 mg Tablet PO (10:46)
[2021-07-20] MEDS: levoFLOXacin 750 mg Tablet PO (10:47)
[2021-07-20] MEDS: sertraline 100 mg Tablet PO (10:48)
[2021-07-20] MEDS: doxycycline 100 mg Tablet PO (10:48)
[2021-07-20 12:47] LABS: Amphetamines Screen Urine Negative (Negative); Barbiturates Screen Urine Negative (Negative); Benzodiazepines Screen Urine Positive (Negative); Cocaine Screen Urine Negative (Negative); Opiate Screen Urine Positive (Negative); PCP Screen Urine Negative (Negative); THC Screen Urine Positive (Negative)
[2021-07-20 12:49] VITALS: BP 124/74; PULSE 89; RESP 18; TEMP 36.7; O2SAT 98
== END 2021-07-20 13:08 | disposition home or self-care (01) | DRG 885 ==
LOC: ER 03:12 → NP 04:39
PROVIDERS: Internal Medicine; Admitting Provider Psychiatry & Neurology Psychiatry; Emergency Provider Emergency Medicine; Visit Provider Psychiatry & Neurology Psychiatry
DX: F23 Brief psychotic disorder (principal); J96.01 Acute respiratory failure with hypoxia; R45.851 Suicidal ideations; F15.151 Other stimulant abuse with stimulant-induced psychotic disorder with hallucinations; Z68.41 Body mass index [BMI] 40.0-44.9, adult; F10.131 Alcohol abuse with withdrawal delirium; L03.113 Cellulitis of right upper limb; F41.1 Generalized anxiety disorder; F32.A Depression, unspecified; G47.30 Sleep apnea, unspecified; F11.21 Opioid dependence, in remission; F17.210 Nicotine dependence, cigarettes, uncomplicated; R56.9 Unspecified convulsions; R60.0 Localized edema; E66.01 Morbid (severe) obesity due to excess calories; M79.601 Pain in right arm; W22.8XXA Striking against or struck by other objects, initial encounter; Z81.4 Family history of other substance abuse and dependence
CPT/HCPCS: 36600; 71045; 73120; 80053; 80306; 80307; 82803; 84443; 85025; 85378; 94660; 94664; 96372; 97165; 99285; J2060; J3486; J3490